=== PATIENT | female | born 1955 ===

== ENCOUNTER 2017-02-19 09:47 | Emergency (ER) | payer MEDICARE, OTHER ==
[2017-02-19 09:49] VITALS: BMI 23.2
[2017-02-19] MEDS ORDERED: Oxycodone/Acetaminophen 5/325 mg Tab PO STA (10:26)
--- NOTE | 2017-02-19 10:26 | ED PDOC ---
Arrival/HPI - General Historian: Patient <JOESPH SANDOVAL - Last Filed: 02/19/17 10:28> <Ernesto Gallardo - Last Filed: 02/19/17 12:37> - General Chief Complaint: Abnormal Skin Integrity Time Seen by Provider: 02/19/17 09:49 - History of Present Illness Narrative History of Present Illness (Text): 02/19/17 10:22 Mrs. Bobo is a 61 year old female with pmh significant for lymphoma and a 2.7cm x 1.8cm hypointense mass in her left neck who complains of left sided neck pain. The patient reports she has a chronic issue with pain related to the lymph node swelling in her left neck. She reports that she currently takes Percocet 5mg and Aleve for pain. She states her last dose of Percocet was 10 hours prior to arrival. She reports that her pain is not controlled under her current regiment. She reports the pain is a 10/10, constant, sharp, throbbing sensation along her left jaw and up around her temporal region. She denies fever , shortness of breath, difficulty breathing, difficulty swallowing or changes in her vision or hearing. She most recently had a incisional biopsy 7 days ago for the mass in her left neck. She denies any puss drainage or increased swelling of her neck. (JOESPH SANDOVAL) Past Medical History - Provider Review Nursing Documentation Reviewed: Yes - Infectious Disease Hx of Infectious Diseases: None - Reproductive Menopause: Yes - Cardiac Hx Cardiac Disorders: No - Pulmonary Hx Respiratory Disorders: No - Neurological Hx Neurological Disorder: No - HEENT Hx HEENT Disorder: No - Renal Hx Renal Disorder: No - Endocrine/Metabolic Hx Endocrine Disorders: No - Hematological/Oncological Hx Blood Disorders: No - Integumentary Hx Dermatological Disorder: Yes Other/Comment: lump to L neck - Musculoskeletal/Rheumatological Hx Musculoskeletal Disorders: Yes Hx Rheumatoid Arthritis: Yes - Gastrointestinal Hx Gastrointestinal Disorders: No - Genitourinary/Gynecological Hx Genitourinary Disorders: No - Psychiatric Hx Psychophysiologic Disorder: Yes Hx Anxiety: Yes Hx Substance Use: No - Surgical History Other/Comment: cyst removed from breast. biopsy of lump on face - Anesthesia Hx Anesthesia: Yes Hx Anesthesia Reactions: No <JOESPH SANDOVAL - Last Filed: 02/19/17 10:28> Family/Social History - Physician Review Nursing Documentation Reviewed: Yes Family/Social History: No Known Family HX Smoking Status: Never Smoked Hx Alcohol Use: No Hx Substance Use: No <TERRYJOESPH - Last Filed: 02/19/17 10:28> Allergies/Home Meds <JOESPH SANDOVAL - Last Filed: 02/19/17 10:28> <SamiErnesto Tatiana - Last Filed: 02/19/17 12:37> Allergies/Adverse Reactions: Allergies No Known Allergies Allergy (Verified 02/19/17 09:49) Home Medications: Home Meds Medication Instructions Recorded Confirmed Amoxicillin/Clavulanate [Augmentin 1 tab PO BID 02/19/17 02/19/17 875 MG-125 MG Tab] Folic Acid [Folic Acid] 1 tab PO DAILY 02/19/17 02/19/17 Methotrexate Sodium [Trexall] 20 mg PO MON 02/19/17 02/19/17 oxyCODONE [oxyCODONE Immediate 5 mg PO PRN PRN 02/19/17 02/19/17 Release Tab] Review of Systems - Review of Systems Constitutional: absent: Weight Change, Fevers Eyes: absent: Vision Changes, Eye Pain ENT: absent: Hearing Changes, TMJ Pain, Voice Changes Respiratory: absent: SOB, Cough Cardiovascular: absent: Chest Pain, Palpitations Gastrointestinal: absent: Abdominal Pain, Stool Changes Musculoskeletal: absent: Neck Pain Neurological: Headache Psychiatric: absent: Anxiety, Depression <TERRYJOESPH ASTORGA - Last Filed: 02/19/17 10:28> Physical Exam Vital Signs Reviewed: Yes Temperature: Afebrile Blood Pressure: Normal Pulse: Regular Respiratory Rate: Normal Appearance: Positive for: Well-Appearing Pain Distress: Mild Mental Status: Positive for: Alert and Oriented X 3 - Systems Exam Head: Present: Atraumatic, Normocephalic Pupils: Present: PERRL Extroacular Muscles: Present: EOMI Conjunctiva: Present: Normal Mouth: Present: Moist Mucous Membranes Neck: Present: Normal Range of Motion, Lymphadenopathy (left sided), Trachea Midline. No: MIDLINE TENDERNESS Respiratory/Chest: Present: Clear to Auscultation, Good Air Exchange. No: Respiratory Distress, Accessory Muscle Use, Decreased Breath Sounds, Retracting Cardiovascular: Present: Regular Rate and Rhythm, Normal S1, S2 Abdomen: Present: Normal Bowel Sounds. No: Tenderness, Distention Upper Extremity: Present: Normal Inspection, NORMAL PULSES. No: Cyanosis, Edema Lower Extremity: Present: Normal Inspection, NORMAL PULSES Neurological: Present: GCS=15, Speech Normal Skin: Present: Warm, Dry Psychiatric: Present: Alert, Oriented x 3 <JOESPH SANDOVAL - Last Filed: 02/19/17 10:28> Medical Decision Making <JOESPH SANDOVAL - Last Filed: 02/19/17 10:28> <Ernesto Gallardo - Last Filed: 02/19/17 12:37> ED Course and Treatment: 02/19/17 10:32 Impression: Mrs. Bobo is a 61 year old female with medical history for lymphoma who presents to the emergency department complaining of uncontrolled left sided neck pain. Differential Diagnosis included but are not limited to: - Chronic pain associated with left sided lymphadenopathy 2/2 lymphoma Plan: - Percocet and zofran -- Reassess and disposition Progress Notes: (JOESPH SANDOVAL) In agreement with resident note. Patient was seen and evaluated with resident, came up with plan and treatment together. A 61 year old female with left sided neck pain and mass in her left neck. On physical exam, patient has left sided lymphadenopathy and midline trachea of neck. No evidence of airway compromise. Will treat with Zofran to aid in patient taking Percocet and advised f/u with PMD. (Ernesto Gallardo) - Medication Orders Current Medication Orders: Discontinued Medications Ondansetron HCl (Zofran Tab) 4 mg PO STAT STA Stop: 02/19/17 10:27 Last Admin: 02/19/17 10:34 Dose: 4 mg Oxycodone/Acetaminophen (Percocet 5/325 Mg Tab) 1 tab PO STAT STA Stop: 02/19/17 10:27 Last Admin: 02/19/17 10:34 Dose: 1 tab - PA / PIGMENT PRESSER / Resident Statement / has reviewed & agrees with the documentation as recorded. / has examined the patient and agrees with the treatment plan. <JOESPH SANDOVAL - Last Filed: 02/19/17 10:28> - Scribe Statement The provider has reviewed the documentation as recorded by the Scribe <Ernesto Gallardo - Last Filed: 02/19/17 12:37> - Scribe Statement Gayesethhank Rowlanddi Provider Scribe Attestation: All medical record entries made by the Scribe were at my direction and personally dictated by me. I have reviewed the chart and agree that the record accurately reflects my personal performance of the history, physical exam, medical decision making, and the department course for this patient. I have also personally directed, reviewed, and agree with the discharge instructions and disposition. (Ernesto Gallardo) Disposition/Present on Arrival - Present on Arrival Any Indicators Present on Arrival: No History of DVT/PE: No History of Uncontrolled Diabetes: No Urinary Catheter: No History of Decub. Ulcer: No History Surgical Site Infection Following: None - Disposition Have Diagnosis and Disposition been Completed?: Yes Disposition Time: 10:55 <JOESPH SANDOVAL - Last Filed: 02/19/17 10:28> <Ernesto Gallardo - Last Filed: 02/19/17 12:37> - Disposition Diagnosis: Lymphadenopathy Disposition: HOME/ ROUTINE Condition: GOOD Additional Instructions: Mrs. Bobo, thank you for letting us take care of you today. Your provider was Dr. Sandoval. You were treated for lymphadenopathy. The emergency medical care you received today was directed at your acute symptoms. If you were prescribed any medication, please fill it and take as directed. It may take several days for your symptoms to resolve. Return to the Emergency Department if your symptoms worsen, do not improve, or if you have any other problems. Please contact your doctor or call one of the physicians/clinics you have been referred to that are listed on the Patient Visit Information form that is included in your discharge packet. Bring any paperwork you were given at discharge with you along with any medications you are taking to your follow up visit. Our treatment cannot replace ongoing medical care by a primary care provider (PCP) outside of the emergency department. Thank you for allowing the [facility] team to be part of your care today. Prescriptions: Ondansetron HCl [Zofran] 8 mg PO Q8 PRN #20 tablet PRN Reason: Nausea/Vomiting
[2017-02-19 11:07] VITALS: BP 134/87; PULSE 72; RESP 17; TEMP 98; O2SAT 98
== END 2017-02-19 11:14 | disposition home or self-care (01) ==
LOC: ED 09:47
DX: R59.1 Generalized enlarged lymph nodes (principal)

== ENCOUNTER 2017-02-24 19:19 | Inpatient (IN) | payer MEDICARE, OTHER ==
--- NOTE | 2017-02-24 21:04 | ED PDOC ---
Arrival/HPI - General Chief Complaint: Abnormal Skin Integrity Time Seen by Provider: 02/24/17 20:25 Historian: Patient - History of Present Illness Narrative History of Present Illness (Text): 02/24/17 20:25 Zelda Bobo is a 62 year old female who presents to the emergency department for evaluation of left sided neck mass and pain to the area. She was evaluated previously at [facility] for these complaints and was diagnosed with lymphoma. She recently had a incisional biopsy and now complains of purulent discharge from the incisional site. Denies any fever, chills, headache , dizziness, chest pain, shortness of breath, nausea, vomiting, diarrhea, or any other complaints at this time. Symptom Onset: Gradual Symptom Course: Worsening Severity Level: Mild Activities at Onset: Light Past Medical History - Provider Review Nursing Documentation Reviewed: Yes - Infectious Disease Hx of Infectious Diseases: None - Cardiac Hx Cardiac Disorders: No - Pulmonary Hx Respiratory Disorders: No - Neurological Hx Neurological Disorder: No - HEENT Hx HEENT Disorder: No - Renal Hx Renal Disorder: No - Endocrine/Metabolic Hx Endocrine Disorders: No - Hematological/Oncological Hx Blood Disorders: No - Integumentary Hx Dermatological Disorder: Yes Other/Comment: lump to L neck - Musculoskeletal/Rheumatological Hx Musculoskeletal Disorders: Yes Hx Rheumatoid Arthritis: Yes - Gastrointestinal Hx Gastrointestinal Disorders: No - Genitourinary/Gynecological Hx Genitourinary Disorders: No - Psychiatric Hx Psychophysiologic Disorder: Yes Hx Anxiety: Yes Hx Substance Use: No - Surgical History Other/Comment: cyst removed from breast. biopsy of lump on face - Anesthesia Hx Anesthesia: Yes Hx Anesthesia Reactions: No Family/Social History - Physician Review Nursing Documentation Reviewed: Yes Family/Social History: No Known Family HX Smoking Status: Never Smoked Hx Alcohol Use: No Hx Substance Use: No Allergies/Home Meds Allergies/Adverse Reactions: Allergies No Known Allergies Allergy (Verified 02/19/17 09:49) Home Medications: Home Meds Medication Instructions Recorded Confirmed Amoxicillin/Clavulanate [Augmentin 1 tab PO BID 02/19/17 02/19/17 875 MG-125 MG Tab] Folic Acid [Folic Acid] 1 tab PO DAILY 02/19/17 02/19/17 Methotrexate Sodium [Trexall] 20 mg PO MON 02/19/17 02/19/17 oxyCODONE [oxyCODONE Immediate 5 mg PO PRN PRN 02/19/17 02/19/17 Release Tab] Review of Systems - Physician Review All systems were reviewed & negative as marked: Yes - Review of Systems Constitutional: Normal. absent: Fatigue, Fevers Respiratory: Normal. absent: SOB, Cough, Sputum Cardiovascular: Normal. absent: Chest Pain, Palpitations Gastrointestinal: Normal. absent: Abdominal Pain, Diarrhea, Nausea, Vomiting Genitourinary Female: Normal Musculoskeletal: Neck Pain (swelling and discharge from the biopsy site ) Neurological: Normal. absent: Headache, Dizziness Physical Exam Vital Signs Reviewed: Yes Vital Signs Temp Pulse Resp BP Pulse Ox 02/25/17 01:54 94 H 18 98 02/25/17 00:55 98.6 F 102 H 16 136/96 H 98 02/24/17 19:42 99.3 F 118 H 18 121/88 94 L Temperature: Afebrile Blood Pressure: Normal Pulse: Tachycardic Respiratory Rate: Normal Appearance: Positive for: Well-Appearing, Non-Toxic, Comfortable Pain Distress: None Mental Status: Positive for: Alert and Oriented X 3 - Systems Exam Head: Present: Atraumatic, Normocephalic Pupils: Present: PERRL Extroacular Muscles: Present: EOMI Conjunctiva: Present: Normal Mouth: Present: Moist Mucous Membranes Neck: Present: Normal Range of Motion, Lymphadenopathy (left sided neck ), Other (purulent discharge from biopsy site with surrounding erythema ). No: MIDLINE TENDERNESS, Paraspinal Tenderness Respiratory/Chest: Present: Clear to Auscultation, Good Air Exchange. No: Respiratory Distress, Accessory Muscle Use Cardiovascular: Present: Regular Rate and Rhythm, Normal S1, S2. No: Murmurs Abdomen: Present: Normal Bowel Sounds. No: Tenderness, Distention, Peritoneal Signs Upper Extremity: Present: Normal Inspection. No: Cyanosis, Edema Lower Extremity: Present: Normal Inspection. No: Edema Neurological: Present: GCS=15, CN II-XII Intact, Speech Normal, Motor Func Grossly Intact, Normal Sensory Function Skin: Present: Warm, Dry, Normal Color. No: Rashes Psychiatric: Present: Alert, Oriented x 3, Normal Insight, Normal Concentration Medical Decision Making ED Course and Treatment: 02/24/17 21:05 Impression: A 62 year old female who presents to the emergency department complaining of left sided neck mass, pain and discharge. Plan: -- EKG -- Labs -- Blood Culture -- Reassess and disposition Progress Notes: 02/25/17 00:[address] Joshi, who is aware and agrees with the plan to observe patient at med/surg for cellulitis of neck. Accepts patient under hospitalist service. - Lab Interpretations Microbiology Results: Microbiology Results 02/24/17 21:30 Blood-Venous Blood Culture - Preliminary NO GROWTH AFTER 24 HOURS 02/24/17 22:00 Blood-Venous Blood Culture - Preliminary NO GROWTH AFTER 24 HOURS 02/25/17 12:57 Abscess - First Gram Stain - Final Lab Results: 02/25/17 06:15 02/25/17 06:15 Lab Results 02/25/17 06:15: Sodium 138, Potassium 4.7, Chloride 101, Carbon Dioxide 30, Anion Gap 12, BUN 11, Creatinine 1.0, Est GFR ( Amer) > 60, Est GFR (Non- Af Amer) 56, Random Glucose 113 H, Calcium 9.1, Phosphorus 3.5, Magnesium 2.1, Total Bilirubin 0.9, AST 30, ALT 48, Alkaline Phosphatase 113, Total Protein 7.5 , Albumin 3.8, Globulin 3.7, Albumin/Globulin Ratio 1.0 L 02/25/17 06:15: WBC 10.7, RBC 4.45, Hgb 12.9, Hct 39.1, MCV 87.9, MCH 29.0, MCHC 33.0, RDW 14.1, Plt Count 377, MPV 10.2, Gran % 75.7 H, Lymph % (Auto) 14.5 L, [place] % (Auto) 8.3 H, Eos % (Auto) 1.1 L, Baso % (Auto) 0.4, Gran # 8.12 H, Lymph # 1.6, [place] # 0.9 H, Eos # 0.1, Baso # 0.04 02/24/17 22:00: Sodium 138, Potassium 4.5, Chloride 98, Carbon Dioxide 30, Anion Gap 15, BUN 13, Creatinine 0.9, Est GFR ( Amer) > 60, Est GFR (Non- Af Amer) > 60, Random Glucose 106, Calcium 9.7, Total Bilirubin 0.9, AST 36, ALT 55, Alkaline Phosphatase 126, Total Protein 8.1, Albumin 4.1, Globulin 4.0, Albumin/Globulin Ratio 1.0 L 02/24/17 22:00: PT 11.6, INR 1.07, APTT 31.3 H 02/24/17 22:00: WBC 11.4 H, RBC 4.67, Hgb 13.7, Hct 41.1, MCV 88.0, MCH 29.3, MCHC 33.3, RDW 14.0, Plt Count 366, MPV 10.2, Gran % 74.5 H, Lymph % (Auto) 15.2 L, [place] % (Auto) 8.9 H, Eos % (Auto) 0.8 L, Baso % (Auto) 0.6, Gran # 8.50 H, Lymph # 1.7, [place] # 1.0 H, Eos # 0.1, Baso # 0.07 I have reviewed the lab results: Yes - RAD Interpretation Radiology Orders: 02/25/17 01:28 NECK,CHEST,ABD.PELV W/CONTRAST [CT] Stat - Medication Orders Current Medication Orders: Sodium Chloride (Sodium Chloride 0.9%) 1,000 mls @ 100 mls/hr IV .Q10H TISHA Last Admin: 02/25/17 12:06 Dose: 100 mls/hr Vancomycin HCl (Vancomycin 1gm) 1 gm in 250 mls @ 167 mls/hr IVPB Q12H TISHA PRN Reason: Protocol Last Admin: 02/25/17 23:06 Dose: 167 mls/hr Morphine Sulfate (Morphine) 1 mg IVP Q4H PRN PRN Reason: Pain, moderate (4-7) Last Admin: 02/25/17 21:16 Dose: 1 mg Re-Assess: CARIN Pain Assessment Document 02/25/17 22:16 MLS (Rec: 02/25/17 22:58 MLS [id number]) Pain Reassessment Is this a pain reassessment? Yes Sleep Is patient sleeping during reassessment? Yes Ondansetron HCl (Zofran Inj) 4 mg IVP Q6H PRN PRN Reason: nausea Last Admin: 02/25/17 10:12 Dose: 4 mg Pantoprazole Sodium (Protonix Ec Tab) 40 mg PO 0600 TISHA Last Admin: 02/25/17 06:51 Dose: Not Given Non-Admin Reason: NPO Discontinued Medications Vancomycin HCl (Vancomycin 1gm) 1 gm in 250 mls @ 167 mls/hr IVPB STAT STA PRN Reason: Protocol Stop: 02/24/17 23:48 Last Admin: 02/24/17 22:54 Dose: 167 mls/hr Piperacillin Sod/Tazobactam Sod (Zosyn 3.375 In Ns 100ml) 100 mls @ 200 mls/hr IVPB STAT STA PRN Reason: Protocol Stop: 02/25/17 00:47 Last Admin: 02/25/17 01:00 Dose: 200 mls/hr Piperacillin Sod/Tazobactam Sod (Zosyn 3.375 In Ns 100ml) 100 mls @ 200 mls/hr IVPB Q6 TISHA PRN Reason: Protocol Stop: 02/25/17 12:29 Last Admin: 02/25/17 12:09 Dose: 200 mls/hr Iohexol (Omnipaque 240 (50 Ml)) Confirm Administered Dose 50 ml .ROUTE .STK-MED ONE Stop: 02/25/17 06:16 Iohexol (Omnipaque 350 150 Ml) Confirm Administered Dose 150 ml .ROUTE .STK-MED ONE Stop: 02/25/17 08:14 Morphine Sulfate (Morphine) 2 mg IVP STAT STA Stop: 02/24/17 23:37 Last Admin: 02/24/17 23:54 Dose: 2 mg - Scribe Statement The provider has reviewed the documentation as recorded by the Tressa Casillas Provider Attestation: Provider Scribe Attestation: All medical record entries made by the Tressa were at my direction and personally dictated by me. I have reviewed the chart and agree that the record accurately reflects my personal performance of the history, physical exam, medical decision making, and the department course for this patient. I have also personally directed, reviewed, and agree with the discharge instructions and disposition. Disposition/Present on Arrival - Present on Arrival Any Indicators Present on Arrival: No History of DVT/PE: No History of Uncontrolled Diabetes: No Urinary Catheter: No History of Decub. Ulcer: No History Surgical Site Infection Following: None - Disposition Have Diagnosis and Disposition been Completed?: Yes Diagnosis: Cellulitis of neck Disposition: HOSPITALIZED Disposition Time: 00:15 Condition: FAIR
[2017-02-24 22:05] LABS: BASO # 0.07 K/mm3 (0.0-2.0); BASO % 0.6 % (0.0-3.0); EOS # 0.1 (0.0-0.7); EOS % 0.8 % (1.5-5.0); GRAN % 74.5 % (50.0-68.0); HEMOGLOBIN 13.7 gm/dL (12.0-16.0); LYMPH # 1.7 (1.2-3.4); LYMPH % 15.2 % (22.0-35.0); MEAN CORPUSCULAR HEMOGLOBIN 29.3 pg (25.0-35.0); MEAN CORPUSCULAR HGB CONC 33.3 g/dl (31.0-37.0); MEAN PLATELET VOLUME 10.2 fl (7.0-11.0); MONO % 8.9 % (1.0-6.0); PLATELET COUNT 366 10^3/uL (120.0-450.0); RBC 4.67 10^6/uL (3.5-6.1); WHITE BLOOD COUNT 11.4 10^3/ul (4.5-11.0)
[2017-02-24] MEDS ORDERED: Vancomycin 1gm in NS 250ml 1 GM/250 ML BAG IVPB STA (22:19)
[2017-02-24 22:23] LABS: INR 1.07 (0.93-1.08); PARTIAL THROMBOPLASTIN TIME 31.3 Seconds (23.7-30.8); PROTHROMBIN TIME 11.6 Seconds (9.9-11.8)
[2017-02-24 22:24] LABS: ALBUMIN 4.1 g/dL (3.0-4.8); ALT/SGPT 55 U/L (7-56); AST/SGOT 36 U/L (15-39); BLOOD UREA NITROGEN 13 mg/dL (7-21); CALCIUM 9.7 mg/dL (8.4-10.5); GFR AFRICAN-AMERICAN > 60; GFR NON-AFRICAN AMERICAN > 60
[2017-02-24] MEDS ORDERED: Morphine 2 mg/ml ISec IVP STA (23:36)
[2017-02-25] MEDS ORDERED: Piperacillin/Tazobact 3.375 gm 100 ML IVPB STA (00:18)
--- NOTE | 2017-02-25 01:39 | CP.PCM.HP ---
<Jareth Maria - Last Filed: 02/25/17 03:18> History of Present Illness - History of Present Illness History of Present Illness: CC: Neck Mass Patient is a 62 year old female with a PMHx of rheumatoid arthritis and suspected lymphoma who presents to the ED for evaluation of a left sided neck mass with associated burning pain. The left sided neck mass was detected approximately 2 months ago and was evaluated at [facility]. Patient underwent an aspiration biopsy and an incisional biopsy there approximately 1 week ago. Since the incisional bx the incision site on the mass has become red, swollen, with yellow malodorous discharge. Admits to decrease in appetite over the course of a month and admits to an unintentional 6lb weight loss over the past one week. Does not have any difficulty swallowing food or water. Denies fever, chills, dizziness, chest pain, shortness of breath , nausea, vomiting, diarrhea, constipation, and urinary symptoms. PMHx: Rheumatoid Arthritis, suspected Lymphoma- patient is following hematology/ oncoclogy PSHx: breast cyst removal, tubal ligation, and tonsillectomy Allergies: none Social Hx: social ETOH, no tobacco use, no illicit drug use Medications: please see MAR Family Hx: noncontributory Present on Admission - Present on Admission Any Indicators Present on Admission: Yes Review of Systems - Review of Systems Review of Systems: 12 point review of system negative except as indicated in the HPI. Past Patient History - Infectious Disease Hx of Infectious Diseases: None - Past Social History Smoking Status: Never Smoked - CARDIAC Hx Cardiac Disorders: No - PULMONARY Hx Respiratory Disorders: No - NEUROLOGICAL Hx Neurological Disorder: No - HEENT Hx HEENT Problems: No - RENAL Hx Chronic Kidney Disease: No - ENDOCRINE/METABOLIC Hx Endocrine Disorders: No - HEMATOLOGICAL/ONCOLOGICAL Hx Blood Disorders: No - INTEGUMENTARY Hx Dermatological Problems: Yes Other/Comment: lump to L neck - MUSCULOSKELETAL/RHEUMATOLOGICAL Hx Musculoskeletal Disorders: Yes Hx Rheumatoid Arthritis: Yes - GASTROINTESTINAL Hx Gastrointestinal Disorders: No - GENITOURINARY/GYNECOLOGICAL Hx Genitourinary Disorders: No - PSYCHIATRIC Hx Psychophysiologic Disorder: Yes Hx Anxiety: Yes Hx Substance Use: No - SURGICAL HISTORY Other/Comment: cyst removed from breast. biopsy of lump on face - ANESTHESIA Hx Anesthesia: Yes Hx Anesthesia Reactions: No Meds Allergies/Adverse Reactions: Allergies Allergy/AdvReac Type Severity Reaction Status Date / Time No Known Allergies Allergy Verified 02/19/17 09:49 Physical Exam - Constitutional Appears: Well, Non-toxic, No Acute Distress - Head Exam Head Exam: NORMAL INSPECTION - Eye Exam Eye Exam: EOMI, Normal appearance Pupil Exam: PERRL - ENT Exam ENT Exam: Mucous Membranes Moist - Neck Exam Neck exam: Positive for: Lymphadenopathy, Tenderness Additional comments: left sided neck mass, erythema at incision site with yellow drainage - Respiratory Exam Respiratory Exam: Clear to Auscultation Bilateral, NORMAL BREATHING PATTERN. absent: Accessory Muscle Use, Rales, Rhonchi, Wheezes - Cardiovascular Exam Cardiovascular Exam: REGULAR RHYTHM, +S1, +S2 - GI/Abdominal Exam GI & Abdominal Exam: Normal Bowel Sounds, Soft. absent: Rebound, Rigid, Tenderness - Neurological Exam Neurological exam: Alert, CN II-XII Intact, Normal Gait, Oriented x3 - Psychiatric Exam Psychiatric exam: Normal Affect, Normal Mood - Skin Skin Exam: Normal Color, Warm Additional comments: left neck mass erythema and open wound with drainage. Results - Vital Signs Recent Vital Signs: Last Vital Signs Temp 98.6 F 02/25/17 00:55 Pulse 102 H 02/25/17 00:55 Resp 16 02/25/17 00:55 BP 136/96 H 02/25/17 00:55 Pulse Ox 98 02/25/17 00:55 - Labs Result Diagrams: 02/24/17 22:00 02/24/17 22:00 Assessment & Plan - Assessment and Plan (Free Text) Assessment: Patient is a 62 year old female with a PMHx of rheumatoid arthritis and suspected lymphoma who is being admitted to the hospital for evaluation of a left sided neck abscess and cellulitis. 1. Neck Abscess with overlying cellulitis - general surgery consult - contact patient hemotologist oncologist Dr. Rolan Hoffman to attain recs for further imaging work up - vancomycin and zosyn - NPO - IVF NS @ 100 2. History of Rheumatoid Arthritis - stopped taking home methotrexate - monitor closely 3. PPX - protonix - SCD Patient seen, evaluated, and discussed with attending, Dr. Joshi. <Inderjit Joshi P - Last Filed: 02/25/17 06:29> Results - Vital Signs Recent Vital Signs: Last Vital Signs Temp 98.8 F 02/25/17 02:22 Pulse 98 H 02/25/17 02:22 Resp 18 02/25/17 02:22 BP 155/87 H 02/25/17 02:22 Pulse Ox 98 02/25/17 01:54 - Labs Result Diagrams: 02/24/17 22:00 02/24/17 22:00 Attending/Attestation - Attestation I have personally seen and examined this patient.: Yes I have fully participated in the care of the patient.: Yes I have reviewed all pertinent clinical information: Yes Notes (Text): 02/25/17 06:24 H/o RA, s/p excision biopsy of the left neck swelling about 12 days back at [facility] with redness about 7 days with out patient keflex, here noticed pointing and puss discharge, clinically has cellulitis and abscess, underlying probably has lymphoma and following Dr. Hoffman for hematology. prudencio Gipson, surg consult, CT of neck, chest abd/pelvis, npo for now, see orders for detail. Biopsy report will be obtained form patient's primary team.
[2017-02-25 02:57] VITALS: BMI 23.0
[2017-02-25] MEDS: Morphine 2 mg/ml ISec IVP PRN ×3 (03:50→21:16)
[2017-02-25] MEDS: Sodium Chloride 0.9% 1,000 ML IV SCH ×2 (03:50→12:06)
[2017-02-25] MEDS ORDERED: Iohexol 240 (50 ml) ONE (06:15)
[2017-02-25 06:46] LABS: BASO # 0.04 K/mm3 (0.0-2.0); BASO % 0.4 % (0.0-3.0); EOS # 0.1 (0.0-0.7); EOS % 1.1 % (1.5-5.0); GRAN # 8.12 (1.4-6.5); GRAN % 75.7 % (50.0-68.0); HEMOGLOBIN 12.9 gm/dL (12.0-16.0); LYMPH # 1.6 (1.2-3.4); LYMPH % 14.5 % (22.0-35.0); MEAN CELL VOLUME 87.9 fL (80.0-105.0); MEAN PLATELET VOLUME 10.2 fl (7.0-11.0); MONO # 0.9 (0.1-0.6); MONO % 8.3 % (1.0-6.0); PLATELET COUNT 377 10^3/uL (120.0-450.0); RBC 4.45 10^6/uL (3.5-6.1); RED CELL DISTRIBUTION WIDTH 14.1 % (11.5-14.5); WHITE BLOOD COUNT 10.7 10^3/ul (4.5-11.0)
[2017-02-25] MEDS: Piperacillin/Tazobact 3.375 gm 100 ML IVPB SCH ×2 (06:49→12:09)
[2017-02-25] MEDS: Pantoprazole 40 mg EC Tab PO SCH (06:51)
--- NOTE | 2017-02-25 06:51 | CP.PCM.CON ---
History of Present Illness - History of Present Illness History of Present Illness: General Surgery - Dr. Wood 62 yo F w/ hx of RA, Sjogren's, and recently being worked up for possible Lymphoma, who presents w/ Left neck pain/swelling s/p Lymph node Biopsy. Pt states shes had progressively worsening swelling of the left neck for the past 2 months. She underwent Lymph node biopsy approx. 10 days ago at [place], and was told the results were likely positive but that they needed to repeat the biopsy. She underwent repeat biopsy 3 days ago and since then the area has become red, swollen, painful, with yellow malodorous drainage. PT denies any other symptoms including Fevers, Chills, SOB/Chest pain, Abdominal pain, N/V, Diarrhea/Constipation, Dysuria, Hematuria. PMH: RA, Sjogren's, possible Lymphoma PSH: Breast cyst removal, Tubal ligation, LN biopsy NKDA Review of Systems - Review of Systems All systems: reviewed and no additional remarkable complaints except (as per HPI ) Past Patient History - Infectious Disease Hx of Infectious Diseases: None - Past Social History Smoking Status: Never Smoked - CARDIAC Hx Cardiac Disorders: No - PULMONARY Hx Respiratory Disorders: No - NEUROLOGICAL Hx Neurological Disorder: No - HEENT Hx HEENT Problems: No - RENAL Hx Chronic Kidney Disease: No - ENDOCRINE/METABOLIC Hx Endocrine Disorders: No - HEMATOLOGICAL/ONCOLOGICAL Hx Blood Disorders: No - INTEGUMENTARY Hx Dermatological Problems: Yes Other/Comment: lump to L neck - MUSCULOSKELETAL/RHEUMATOLOGICAL Hx Musculoskeletal Disorders: Yes Hx Rheumatoid Arthritis: Yes - GASTROINTESTINAL Hx Gastrointestinal Disorders: No - GENITOURINARY/GYNECOLOGICAL Hx Genitourinary Disorders: No - PSYCHIATRIC Hx Psychophysiologic Disorder: Yes Hx Anxiety: Yes Hx Substance Use: No - SURGICAL HISTORY Other/Comment: cyst removed from breast. biopsy of lump on face - ANESTHESIA Hx Anesthesia: Yes Hx Anesthesia Reactions: No Meds Allergies/Adverse Reactions: Allergies Allergy/AdvReac Type Severity Reaction Status Date / Time No Known Allergies Allergy Verified 02/19/17 09:49 - Medications Medications: Current Medications Sodium Chloride (Sodium Chloride 0.9%) 1,000 mls @ 100 mls/hr IV .Q10H TISHA Last Admin: 02/25/17 03:50 Dose: 100 mls/hr Vancomycin HCl (Vancomycin 1gm) 1 gm in 250 mls @ 167 mls/hr IVPB Q12H TISHA PRN Reason: Protocol Piperacillin Sod/Tazobactam Sod (Zosyn 3.375 In Ns 100ml) 100 mls @ 200 mls/hr IVPB Q6 TISHA PRN Reason: Protocol Stop: 02/25/17 12:29 Morphine Sulfate (Morphine) 1 mg IVP Q4H PRN PRN Reason: Pain, moderate (4-7) Last Admin: 02/25/17 03:50 Dose: 1 mg Ondansetron HCl (Zofran Inj) 4 mg IVP Q6H PRN PRN Reason: nausea Pantoprazole Sodium (Protonix Ec Tab) 40 mg PO 0600 TISHA Physical Exam - Constitutional Appears: No Acute Distress - Head Exam Head Exam: ATRAUMATIC, NORMAL INSPECTION, NORMOCEPHALIC - Eye Exam Eye Exam: EOMI, Normal appearance - Neck Exam Additional comments: extensive swelling of the Left lateral neck, indurated, posteriorly approx 8x8cm area of erythema with small central opening with purulent drainage - Expanded Neck Exam Expanded Expanded Neck Exam: Tenderness. absent: Tracheal Deviation - Respiratory Exam Respiratory Exam: NORMAL BREATHING PATTERN. absent: Wheezes, Respiratory Distress, Stridor - Cardiovascular Exam Cardiovascular Exam: Tachycardia, REGULAR RHYTHM - GI/Abdominal Exam GI & Abdominal Exam: Soft. absent: Tenderness - Neurological Exam Neurological exam: Alert, Oriented x3 - Psychiatric Exam Psychiatric exam: Normal Affect, Normal Mood - Skin Skin Exam: Dry, Intact Results - Vital Signs Recent Vital Signs: Last Vital Signs Temp 98.8 F 02/25/17 02:22 Pulse 98 H 02/25/17 02:22 Resp 18 02/25/17 02:22 BP 155/87 H 02/25/17 02:22 Pulse Ox 98 02/25/17 01:54 - Labs Result Diagrams: 02/24/17 22:00 02/24/17 22:00 Assessment & Plan - Assessment and Plan (Free Text) Assessment: 62yo F w/ Left neck abscess s/p LN biopsy for questionable Lymphoma -CT Neck/Chest/Abd/Pelv -Maintain NPO -Continue IV Abx -Pain control PRN -Likely I&D in OR later today pending CT findings DW Dr Nina Cummins PGY3
[2017-02-25 07:07] LABS: ALBUMIN 3.8 g/dL (3.0-4.8); ALT/SGPT 48 U/L (7-56); AST/SGOT 30 U/L (15-39); BLOOD UREA NITROGEN 11 mg/dL (7-21); CALCIUM 9.1 mg/dL (8.4-10.5); GFR AFRICAN-AMERICAN > 60; GFR NON-AFRICAN AMERICAN 56; MAGNESIUM 2.1 mg/dL (1.7-2.2)
--- NOTE | 2017-02-25 10:10 | CT ---
PROCEDURE: CT Neck, Chest, Abdomen and Pelvis with contrast HISTORY: facial abscess COMPARISON: Ultrasound dated 12/17/2016 TECHNIQUE: Contrast dose: 150 cc of Omni 350 Radiation dose: Total exam DLP = 1884 mGy-cm. This CT exam was performed using one or more of the following dose reduction techniques: Automated exposure control, adjustment of the mA and/or kV according to patient size, and/or use of iterative reconstruction technique. FINDINGS: CT OF THE NECK: PHARYNX: Nasopharynx: Unremarkable. Oropharnx: Unremarkable. Hypopharynx: Unremarkable. LYMPH NODES: There is a large necrotic mass on the left side of the neck measuring 9 cm in height by 5.6 cm with by 6.6 cm AP. The mass compresses and obliterates the left jugular vein and displaces the carotid artery medially and anteriorly. The mass invades and obliterates the sternocleidomastoid muscle. The mass also invades the left parotid gland. The patient had an ultrasound of the neck dated 12/17/2016 which showed a mass measuring 1.8 x 2.7 cm. There was a smaller separate 2 cm lesion. The etiology of the mass is uncertain. The mass is easily accessible to needle biopsy. Liver metastases are also seen. VASCULATURE: Compression of the left jugular vein GLANDS: Unremarkable. CERVICAL SPINE: Unremarkable. CT OF THE CHEST: LUNGS: Clear lungs. Visualized airway clear. MEDIASTINUM: Unremarkable thoracic aorta. No aneurysm or dissection. Normal sized heart. Pulmonary arterial truck unremarkable. No vascular congestion. No lymphadenopathy. PLEURA: No pleural fluid. No pneumothorax. BONES: No fracture. No destructive lesion. CT OF THE ABDOMEN AND PELVIS: LIVER: Multiple liver metastases are seen ranging in size from 11 mm to 32 mm. These are hypodense and measure 88 Hounsfield units. GALLBLADDER AND BILE DUCTS: Unremarkable. PANCREAS: Unremarkable. No mass or ductal dilatation. SPLEEN: Unremarkable. No splenomegaly. ADRENALS: Unremarkable. KIDNEYS AND URETERS: Unremarkable. No hydronephrosis or hydroureter. No solid mass lesion. BLADDER: Unremarkable. No mass. REPRODUCTIVE: Unremarkable. APPENDIX: Normal appendix. STOMACH AND BOWEL: Unremarkable. No obstruction. No mural thickening. PERITONEUM: Unremarkable. No free fluid. No free air. LYMPH NODES: Unremarkable. No enlarged lymph nodes. VASCULATURE: Unremarkable. No aortic aneurysm. BONES: No fracture or focal lesion. OTHER FINDINGS: None. IMPRESSION: Large invasive necrotic mass on the left side of the neck markedly increased in size since previous ultrasound. Multiple liver metastases
[2017-02-25] MEDS: Vancomycin 1gm in NS 250ml 1 GM/250 ML BAG IVPB SCH ×2 (10:11→23:06)
--- NOTE | 2017-02-25 18:12 | CP.PCM.PN ---
Subjective - Date & Time of Evaluation Date of Evaluation: 02/25/17 Time of Evaluation: 09:00 - Subjective Subjective: Ms Bobo is a 62 yo F with PMH RA, Sjogrens syndrome, and possible lymphoma, admitted today after presenting to the ED with complaints of L sided neck mass. The pt states that she saw her ENT 6 days ago for follow-up and repeat lymph node biopsy of her L neck. Since that time, the mass has become larger, more swollen, and inflamed. On presentation to the ED, it was draining purulent fluid. Associated symptoms include limited neck ROM, difficulty swallowing, and pain over the area. She also notes ongoing insomnia, loss of appetite, chills, and unintentional weight loss of 6 lbs over the last 2 mos. On admission, she complains of ongoing neck swelling and pain, rated 10/10 in severity. She notes some nausea related to CT contrast dye. The patient first saw her [employer] Expert two months ago for followup with her RA medications. She complained of small L neck mass at that time and was sent for US on 12/24. US study was significant for 2.7x2.8 cm mass adjacent to L carotid artery with compression of L jugular vein. She was seen by ENT at [place] for an excisional biopsy of the associated lymph node. Biopsy results returned with findings concerning for lymphoma. Repeat biopsy of the node was performed 6 days ago, results are pending. at bedside. Objective - Vital Signs/Intake and Output Vital Signs (last 24 hours): Temp Pulse Resp BP Pulse Ox 98.6 F 99 H 19 159/101 H 98 02/25/17 06:00 02/25/17 06:00 02/25/17 06:00 02/25/17 06:00 02/25/17 06:00 Intake and Output: 02/25/17 02/25/17 06:59 18:59 Intake Total 0 Balance 0 - Medications Medications: Current Medications Sodium Chloride (Sodium Chloride 0.9%) 1,000 mls @ 100 mls/hr IV .Q10H TISHA Last Admin: 02/25/17 12:06 Dose: 100 mls/hr Vancomycin HCl (Vancomycin 1gm) 1 gm in 250 mls @ 167 mls/hr IVPB Q12H TISHA PRN Reason: Protocol Last Admin: 02/25/17 10:11 Dose: 167 mls/hr Morphine Sulfate (Morphine) 1 mg IVP Q4H PRN PRN Reason: Pain, moderate (4-7) Last Admin: 02/25/17 14:38 Dose: 1 mg Ondansetron HCl (Zofran Inj) 4 mg IVP Q6H PRN PRN Reason: nausea Last Admin: 02/25/17 10:12 Dose: 4 mg Pantoprazole Sodium (Protonix Ec Tab) 40 mg PO 0600 TISHA Last Admin: 02/25/17 06:51 Dose: Not Given - Labs Labs: 02/25/17 06:15 02/25/17 06:15 PT 11.6 Seconds (9.9-11.8) 02/24/17 22:00 INR 1.07 (0.93-1.08) 02/24/17 22:00 APTT 31.3 Seconds (23.7-30.8) H 02/24/17 22:00 - Additional Findings Additional findings: Vitals: T 98.6 HR 98 RR 18 BP 155/87 O2 sat 98% on RA PEx: General: Well-appearing, well-nourished, afebrile woman in NAD. Mildly uncomfortable in appearance. HEENT: No scleral icterus. Mmm. Pt is not drooling. Neck: round, bandaged 13 cm L neck mass over submandibular region. No fluctuance. Mild erythema and scant purulent drainage around bandage. Neck active ROM limited secondary to Lateral neck mass. Lungs: CTAB. Normal breathing effort. No retractions or accessory muscle use. Heart: normal s1/s2. No m/r/g. Abdomen: soft, NT, ND. Normal bowel sounds. No hepatosplenomegaly. MSK: No LE pitting edema. Distal DP pulses 2+ bilaterally. Skin: skin over Les warm, dry, with normal turgor. Hands examined and without skin abnormalities. : deferred. Neuro: AOx3. Moves extremities spontaneously and across midline. Speech normal. No facial asymmetry. Psych: normal mood and affect. Assessment and Plan - Assessment and Plan (Free Text) Assessment: Assessment: 62 yo F with PMHx of RA, Sjogren syndrome, and biopsy concerning for lymphoma, presenting with L neck mass. 1. Neck mass: possible abscess due to surgical infection following biopsy. Also consider NHL, infected thyroglossal duct cyst, sialolithiasis, necrotizing lymphadenitis Culture wound, CMP, ECG Continue IV Vanc and Zosyn CT neck, chest, abdomen with contrast Surgery consult ID consult Contact Dr. Hoffman regarding patients pending bx NPO for now. 2. Neck pain Likely contributing to patients climbing blood pressure readings: from 128/88 to 136/96 to 155/87 on admission Morphine 2 mg 2qh prn Morphine 1 mg q4h 3. Nausea Zofran 4. GI proph: IV protonix 5. DVT Proph: SCD Case d/w attending, Dr. Rowland
[2017-02-26 02:21] LABS: BASO # 0.07 K/mm3 (0.0-2.0); BASO % 0.6 % (0.0-3.0); EOS # 0.2 (0.0-0.7); GRAN # 8.03 (1.4-6.5); GRAN % 73.7 % (50.0-68.0); HEMOGLOBIN 12.1 gm/dL (12.0-16.0); LYMPH # 1.6 (1.2-3.4); LYMPH % 14.8 % (22.0-35.0); MEAN CELL VOLUME 88.9 fL (80.0-105.0); MEAN CORPUSCULAR HEMOGLOBIN 29.2 pg (25.0-35.0); MEAN CORPUSCULAR HGB CONC 32.9 g/dl (31.0-37.0); MEAN PLATELET VOLUME 10.8 fl (7.0-11.0); MONO % 8.9 % (1.0-6.0); PLATELET COUNT 368 10^3/uL (120.0-450.0); RBC 4.14 10^6/uL (3.5-6.1); RED CELL DISTRIBUTION WIDTH 13.9 % (11.5-14.5); WHITE BLOOD COUNT 10.9 10^3/ul (4.5-11.0)
[2017-02-26] MEDS: Morphine 2 mg/ml ISec IVP PRN ×2 (04:00→22:14)
[2017-02-26] MEDS: Pantoprazole 40 mg EC Tab PO SCH (05:27)
[2017-02-26] MEDS: Sodium Chloride 0.9% 1,000 ML IV SCH ×2 (05:28→08:00)
[2017-02-26 07:16] LABS: ALBUMIN 3.5 g/dL (3.0-4.8); ALT/SGPT 44 U/L (7-56); AST/SGOT 39 U/L (15-39); BLOOD UREA NITROGEN 12 mg/dL (7-21); GFR AFRICAN-AMERICAN > 60; GFR NON-AFRICAN AMERICAN 56
--- NOTE | 2017-02-26 08:54 | CP.PCM.PN ---
Subjective - Date & Time of Evaluation Date of Evaluation: 02/26/17 Time of Evaluation: 08:45 - Subjective Subjective: General Surgery Dr. Wood Patient seen and examined at bed side this morning. No acute events overnight. Patient's neck draining purulent fluid. Patient complains of pain in the left side of her neck that feels like pressure. Denies fever/chills, N/V, numbness, CP or SOB. Objective - Vital Signs/Intake and Output Vital Signs (last 24 hours): Temp Pulse Resp BP Pulse Ox 97.9 F 86 20 141/86 96 02/25/17 16:00 02/25/17 16:00 02/25/17 16:00 02/25/17 16:00 02/25/17 16:00 Intake and Output: 02/26/17 02/26/17 06:59 18:59 Intake Total 0 0 Balance 0 0 - Medications Medications: Current Medications Sodium Chloride (Sodium Chloride 0.9%) 1,000 mls @ 100 mls/hr IV .Q10H TISHA Last Admin: 02/26/17 05:28 Dose: 100 mls/hr Vancomycin HCl (Vancomycin 1gm) 1 gm in 250 mls @ 167 mls/hr IVPB Q12H TISHA PRN Reason: Protocol Last Admin: 02/25/17 23:06 Dose: 167 mls/hr Piperacillin Sod/Tazobactam Sod (Zosyn 3.375 In Ns 100ml) 100 mls @ 200 mls/hr IVPB Q6 TISHA PRN Reason: Protocol Stop: 02/26/17 18:29 Morphine Sulfate (Morphine) 1 mg IVP Q4H PRN PRN Reason: Pain, moderate (4-7) Last Admin: 02/26/17 04:00 Dose: 1 mg Ondansetron HCl (Zofran Inj) 4 mg IVP Q6H PRN PRN Reason: nausea Last Admin: 02/25/17 10:12 Dose: 4 mg Pantoprazole Sodium (Protonix Ec Tab) 40 mg PO 0600 TISHA Last Admin: 02/26/17 05:27 Dose: 40 mg - Labs Labs: 02/26/17 01:50 02/26/17 05:50 PT 11.6 Seconds (9.9-11.8) 02/24/17 22:00 INR 1.07 (0.93-1.08) 02/24/17 22:00 APTT 31.3 Seconds (23.7-30.8) H 02/24/17 22:00 - Constitutional Appears: No Acute Distress - Head Exam Head Exam: ATRAUMATIC, NORMOCEPHALIC - ENT Exam ENT Exam: Mucous Membranes Moist - Neck Exam Neck Exam: Tenderness Additional comments: Left side of neck is grossly enlarged, draining purulent fluid. - Respiratory Exam Respiratory Exam: NORMAL BREATHING PATTERN. absent: Accessory Muscle Use, Respiratory Distress - Cardiovascular Exam Cardiovascular Exam: REGULAR RHYTHM - GI/Abdominal Exam GI & Abdominal Exam: Soft. absent: Distended, Guarding, Tenderness - Neurological Exam Neurological Exam: Alert, Awake, Oriented x3 - Psychiatric Exam Psychiatric exam: Normal Affect, Normal Mood - Skin Skin Exam: Dry, Normal Color, Warm Assessment and Plan - Assessment and Plan (Free Text) Assessment: 62yo F w/ Left neck abscess s/p LN biopsy for questionable non-Hodgkin's Lymphoma Plan: Pain Control Patient will need close f/u for management of neck mass and possible lymphoma. No surgical intervention will be taken at this time. - Packing will be removed today. Dressing changes daily. Will discuss case with Dr Nina Smith Nathaly PGY 1
[2017-02-26] MEDS: Vancomycin 1gm in NS 250ml 1 GM/250 ML BAG IVPB SCH ×2 (10:33→22:30)
[2017-02-26] MEDS: Piperacillin/Tazobact 3.375 gm 100 ML IVPB SCH ×2 (13:14→17:58)
--- NOTE | 2017-02-26 18:01 | CP.PCM.PN ---
Subjective - Date & Time of Evaluation Date of Evaluation: 02/26/17 Time of Evaluation: 09:00 - Subjective Subjective: Hospital Course: Ms Bobo is a 62 yo F with PMH RA, Sjogrens syndrome, and possible lymphoma, admitted today after presenting to the ED with complaints of L sided neck mass. The pt states that she saw her ENT 6 days ago for follow-up and repeat lymph node biopsy of her L neck. Since that time, the mass has become larger, more swollen, and inflamed. On presentation to the ED, it was draining purulent fluid. Associated symptoms include limited neck ROM, difficulty swallowing, and pain over the area. She also notes ongoing insomnia, loss of appetite, chills, and unintentional weight loss of 6 lbs over the last 2 mos. On admission, she complains of ongoing neck swelling and pain, rated 10/10 in severity. She notes some nausea related to CT contrast dye. The patient first saw her [employer] Developer two months ago for followup with her RA medications. She complained of small L neck mass at that time and was sent for US on 12/24. US study was significant for 2.7x2.8 cm mass adjacent to L carotid artery with compression of L jugular vein. She was seen by ENT at [place] for an excisional biopsy of the associated lymph node. Biopsy results returned with findings concerning for lymphoma. Repeat biopsy of the node was performed 6 days ago, results are pending. at bedside. HPI: Pt s/e at bedside. Pt states that her neck mass is still painful, but gets better with prescribed MOrphine. Surgery has signed off the case and deemed the mass inoperable - they have said to manage pain. In addition, CT showed liver mets, so Dr. Hoffman is on c/s (her heme/onc). Wound cultures showed coag neg staph aureus. ID on c/s. Pt has no further complaints. Objective - Vital Signs/Intake and Output Vital Signs (last 24 hours): Temp Pulse Resp BP Pulse Ox 98.8 F 73 18 114/74 95 02/26/17 06:00 02/26/17 06:00 02/26/17 06:00 02/26/17 06:00 02/26/17 06:00 Intake and Output: 02/26/17 02/26/17 06:59 18:59 Intake Total 0 480 Balance 0 480 - Medications Medications: Current Medications Sodium Chloride (Sodium Chloride 0.9%) 1,000 mls @ 100 mls/hr IV .Q10H TISHA Last Admin: 02/26/17 08:00 Dose: 100 mls/hr Vancomycin HCl (Vancomycin 1gm) 1 gm in 250 mls @ 167 mls/hr IVPB Q12H TISHA PRN Reason: Protocol Last Admin: 02/26/17 10:33 Dose: 167 mls/hr Piperacillin Sod/Tazobactam Sod (Zosyn 3.375 In Ns 100ml) 100 mls @ 200 mls/hr IVPB Q6 TISHA PRN Reason: Protocol Stop: 02/26/17 18:29 Last Admin: 02/26/17 13:14 Dose: 200 mls/hr Morphine Sulfate (Morphine) 1 mg IVP Q4H PRN PRN Reason: Pain, moderate (4-7) Last Admin: 02/26/17 04:00 Dose: 1 mg Ondansetron HCl (Zofran Inj) 4 mg IVP Q6H PRN PRN Reason: nausea Last Admin: 02/25/17 10:12 Dose: 4 mg Pantoprazole Sodium (Protonix Ec Tab) 40 mg PO 0600 TISHA Last Admin: 02/26/17 05:27 Dose: 40 mg - Labs Labs: 02/26/17 01:50 02/26/17 05:50 PT 11.6 Seconds (9.9-11.8) 02/24/17 22:00 INR 1.07 (0.93-1.08) 02/24/17 22:00 APTT 31.3 Seconds (23.7-30.8) H 02/24/17 22:00 - Additional Findings Additional findings: PEx: General: Well-appearing, well-nourished, afebrile woman in NAD. Mildly uncomfortable in appearance. HEENT: No scleral icterus. Mmm. Pt is not drooling. Neck: round, bandaged 13 cm L neck mass over submandibular region. No fluctuance. Mild erythema and scant purulent drainage around bandage. Neck active ROM limited secondary to Lateral neck mass. Lungs: CTAB. Normal breathing effort. No retractions or accessory muscle use. Heart: normal s1/s2. No m/r/g. Abdomen: soft, NT, ND. Normal bowel sounds. No hepatosplenomegaly. MSK: No LE pitting edema. Distal DP pulses 2+ bilaterally. Skin: skin over Les warm, dry, with normal turgor. Hands examined and without skin abnormalities. : deferred. Neuro: AOx3. Moves extremities spontaneously and across midline. Speech normal. No facial asymmetry. Psych: normal mood and affect. Assessment and Plan - Assessment and Plan (Free Text) Assessment: Assessment: 62 yo F with PMHx of RA, Sjogren syndrome, and biopsy concerning for lymphoma, presenting with L neck mass. 1. Neck mass: possible abscess due to surgical infection following biopsy. Also consider NHL, infected thyroglossal duct cyst, sialolithiasis, necrotizing lymphadenitis Culture wound - gram neg coag neg. Continue IV Vanc and Zosyn Surgery - signed off ID consult Dr. Hoffman (Heme/onc) c/s advanced diet. 2. Neck pain Likely contributing to patients climbing blood pressure readings: from 128/88 to 136/96 to 155/87 on admission Morphine 2 mg 2qh prn Morphine 1 mg q4h 3. Nausea Zofran 4. GI proph: IV protonix 5. DVT Proph: SCD Case d/w attending, Dr. Rowland
--- NOTE | 2017-02-26 21:10 | CP.PCM.CON ---
History of Present Illness - History of Present Illness History of Present Illness: Hematology Consult Referred by Dr. Rowland for evaluation of lymphoma HPI- Ms Bobo is known to me from office. She is 62 y/o F with h/o rheumatoid arthritis who noticed left neck swelling around 2 months ago. It has been slowly growing and causing pain. She has lost 4-5 lbs weight during this time. Denies fever, chills or night sweats. She initially underwent FNA that was abnormal. 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 She was admitted now with infection at the biopsy site with discharge. Currently on IV antibiotics. CT scans reviewed showed large 9 cm necrotic mass in left neck along with liver metastases. PMHx: Rheumatoid Arthritis PSHx: breast cyst removal, tubal ligation, and tonsillectomy Allergies: none Social Hx: social ETOH, no tobacco use, no illicit drug use Medications: please see MAR Family Hx: noncontributory Review of Systems - Review of Systems All systems: reviewed and no additional remarkable complaints except Review of Systems: as in HPI Past Patient History - Infectious Disease Hx of Infectious Diseases: None - Past Social History Smoking Status: Never Smoked - CARDIAC Hx Cardiac Disorders: No - PULMONARY Hx Respiratory Disorders: No - NEUROLOGICAL Hx Neurological Disorder: No - HEENT Hx HEENT Problems: No - RENAL Hx Chronic Kidney Disease: No - ENDOCRINE/METABOLIC Hx Endocrine Disorders: No - HEMATOLOGICAL/ONCOLOGICAL Hx Blood Disorders: No - INTEGUMENTARY Hx Dermatological Problems: Yes Other/Comment: lump to L neck - MUSCULOSKELETAL/RHEUMATOLOGICAL Hx Musculoskeletal Disorders: Yes Hx Rheumatoid Arthritis: Yes - GASTROINTESTINAL Hx Gastrointestinal Disorders: No - GENITOURINARY/GYNECOLOGICAL Hx Genitourinary Disorders: No - PSYCHIATRIC Hx Psychophysiologic Disorder: Yes Hx Anxiety: Yes Hx Substance Use: No - SURGICAL HISTORY Other/Comment: cyst removed from breast. biopsy of lump on face - ANESTHESIA Hx Anesthesia: Yes Hx Anesthesia Reactions: No Meds Allergies/Adverse Reactions: Allergies Allergy/AdvReac Type Severity Reaction Status Date / Time No Known Allergies Allergy Verified 02/19/17 09:49 - Medications Medications: Current Medications Sodium Chloride (Sodium Chloride 0.9%) 1,000 mls @ 100 mls/hr IV .Q10H TISHA Last Admin: 02/26/17 08:00 Dose: 100 mls/hr Vancomycin HCl (Vancomycin 1gm) 1 gm in 250 mls @ 167 mls/hr IVPB Q12H TISHA PRN Reason: Protocol Last Admin: 02/26/17 10:33 Dose: 167 mls/hr Morphine Sulfate (Morphine) 1 mg IVP Q4H PRN PRN Reason: Pain, moderate (4-7) Last Admin: 02/26/17 04:00 Dose: 1 mg Ondansetron HCl (Zofran Inj) 4 mg IVP Q6H PRN PRN Reason: nausea Last Admin: 02/25/17 10:12 Dose: 4 mg Pantoprazole Sodium (Protonix Ec Tab) 40 mg PO 0600 TISHA Last Admin: 02/26/17 05:27 Dose: 40 mg Physical Exam - Head Exam Head Exam: ATRAUMATIC, NORMAL INSPECTION - Eye Exam Eye Exam: EOMI Pupil Exam: PERRL - ENT Exam ENT Exam: Mucous Membranes Moist - Neck Exam Neck exam: Positive for: Lymphadenopathy (large left neck mass in cervical area. ) - Respiratory Exam Respiratory Exam: Clear to Auscultation Bilateral - Cardiovascular Exam Cardiovascular Exam: REGULAR RHYTHM - GI/Abdominal Exam GI & Abdominal Exam: Normal Bowel Sounds, Soft. absent: Distended, Tenderness - Extremities Exam Extremities exam: Negative for: pedal edema - Neurological Exam Neurological exam: Alert, Oriented x3 Results - Vital Signs Recent Vital Signs: Last Vital Signs Temp 98 F 02/26/17 19:48 Pulse 100 H 02/26/17 19:48 Resp 20 02/26/17 19:48 BP 135/85 02/26/17 19:48 Pulse Ox 98 02/26/17 19:48 - Labs Result Diagrams: 02/26/17 01:50 02/26/17 05:50 Labs: Laboratory Results - last 24 hr 02/26/17 02/26/17 01:50 05:50 WBC 10.9 RBC 4.14 Hgb 12.1 Hct 36.8 MCV 88.9 MCH 29.2 MCHC 32.9 RDW 13.9 Plt Count 368 MPV 10.8 Gran % 73.7 H Lymph % (Auto) 14.8 L [place] % (Auto) 8.9 H Eos % (Auto) 2.0 Baso % (Auto) 0.6 Gran # 8.03 H Lymph # 1.6 [place] # 1.0 H Eos # 0.2 Baso # 0.07 Sodium 139 Potassium 4.8 Chloride 105 Carbon Dioxide 19 L Anion Gap 20 BUN 12 Creatinine 1.0 Est GFR ( Amer) > 60 Est GFR (Non-Af Amer) 56 Random Glucose 61 L Calcium 9.0 Total Bilirubin 0.8 AST 39 ALT 44 Alkaline Phosphatase 110 Total Protein 7.0 Albumin 3.5 Globulin 3.5 Albumin/Globulin Ratio 1.0 L Assessment & Plan - Assessment and Plan (Free Text) Assessment: Diffuse large B cell lymphoma, 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 She will need bone marrow biopsy to complete staging. I will arrange for that tomorrow. Will also schedule her for MUGA scan (prior to starting chemotherapy). Check uric acid, LDH with AM labs. She is at high risk for spontaneous tumor lysis and should be monitored for tumor lysis syndrome. Labs done in office were negative for HIV and Hepatitis. Will hold off on chemotherapy till infection resolves. She will need aggressive anthracycline based chemotherapy Thank you for the consult Rolan Hoffman - Date & Time Date: 02/26/17 Time: 18:10
[2017-02-27] MEDS: Morphine 2 mg/ml ISec IVP PRN ×5 (02:00→23:58)
[2017-02-27 02:07] LABS: BASO # 0.05 K/mm3 (0.0-2.0); BASO % 0.6 % (0.0-3.0); EOS # 0.2 (0.0-0.7); EOS % 2.7 % (1.5-5.0); GRAN # 6.27 (1.4-6.5); GRAN % 72.2 % (50.0-68.0); HEMOGLOBIN 11.1 gm/dL (12.0-16.0); LYMPH # 1.4 (1.2-3.4); LYMPH % 16.4 % (22.0-35.0); MEAN CORPUSCULAR HEMOGLOBIN 28.8 pg (25.0-35.0); MEAN CORPUSCULAR HGB CONC 33.4 g/dl (31.0-37.0); MONO # 0.7 (0.1-0.6); MONO % 8.1 % (1.0-6.0); PLATELET COUNT 373 10^3/uL (120.0-450.0); RBC 3.86 10^6/uL (3.5-6.1); RED CELL DISTRIBUTION WIDTH 13.6 % (11.5-14.5); WHITE BLOOD COUNT 8.7 10^3/ul (4.5-11.0)
[2017-02-27] MEDS ORDERED: Morphine 2 mg/ml ISec IVP STA (04:54)
[2017-02-27] MEDS: Pantoprazole 40 mg EC Tab PO SCH (05:03)
--- NOTE | 2017-02-27 06:09 | CON ---
DATE: LOCATION: The patient is seen early this morning in room 377, bed 2. CHIEF COMPLAINT: Neck mass and it is painful with discharge from several days. HISTORY OF PRESENT ILLNESS: This is a 62-year-old female with a history of rheumatoid arthritis. The patient was in [facility] where the patient had a biopsy and showed lymphoma. She states it was a B-cell lymphoma and she did not have any further imaging she states and she was discharged and told to follow up with an oncologist. She is now here with neck pain and discharge. She denies any fevers, any chills, any nausea or vomiting. No chest pain. She does have significant neck discomfort. PAST MEDICAL HISTORY: Significant for high cholesterol, urinary tract infection, anxiety, and recent diagnosis of B-cell lymphoma. PAST SURGICAL HISTORY: Significant for tubal ligation, breast cyst, and tonsillectomy. ALLERGIES: THE PATIENT HAS NO KNOWN ALLERGIES. MEDICATIONS AT HOME: Include pain medication, oxycodone, and folic acid. The patient was given Augmentin. PHYSICAL EXAMINATION: GENERAL: The patient is in bed, in no acute distress; however, a large mass quite evident and the left side of her neck is discomforting. VITAL SIGNS: Temperature of 98, blood pressure of 114/70, respiratory rate of 20, and heart rate of 73. HEENT: Unremarkable. NECK: Supple. LUNGS: Decreased breath sounds. HEART: Normal S1 and S2. ABDOMEN: Soft and nontender. LABORATORY DATA: Reveals a white count of 10,900, hemoglobin of 12, and platelets of 368. Chemistries reveal the BUN of 12 and creatinine of 1.0. Microbiology reveals the neck with coag-negative Staph, sensitivity is pending. The blood cultures are no growth. The patient had a CAT scan of the neck, chest, and abdomen and pelvis, which reveals the patient to have lungs to be clear and the patient has multiple liver metastasis ranging from 11 mm to 32 mm and large invasive necrotic mass in the left side of the neck. 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 There is mild erythema, currently on vancomycin. We will discontinue the Zosyn. We will continue the vancomycin at short course and awaiting for Oncology input regarding B-cell lymphoma with liver metastasis. Overall prognosis is quite poor. We will discontinue the antibiotics most likely within the next 24 to 48 hours. Matthew Steele MD
[2017-02-27 07:09] LABS: ALBUMIN 3.2 g/dL (3.0-4.8); ALT/SGPT 35 U/L (7-56); AST/SGOT 32 U/L (15-39); BLOOD UREA NITROGEN 11 mg/dL (7-21); CALCIUM 8.4 mg/dL (8.4-10.5); GFR AFRICAN-AMERICAN > 60; GFR NON-AFRICAN AMERICAN > 60
[2017-02-27] MEDS ORDERED: Potassium Chloride 20 mEq ER Tab PO ONE ×2 (07:53→11:27)
--- NOTE | 2017-02-27 08:32 | CP.PCM.PN ---
Subjective - Date & Time of Evaluation Date of Evaluation: 02/27/17 Time of Evaluation: 08:26 - Subjective Subjective: General Surgery Note Resident: Lizzy Attending: Nina HPI: Patient seen and examined at bedside. Complaining of a headache. Describes pain as pressure like in the front of her head. She is also complaining of a burning pain around neck mass. She is tolerating diet. -N/V/F/CP/SOB Objective - Vital Signs/Intake and Output Vital Signs (last 24 hours): Temp Pulse Resp BP Pulse Ox 98.7 F 70 20 143/90 97 02/27/17 04:30 02/27/17 04:30 02/27/17 04:30 02/27/17 04:30 02/27/17 04:30 Intake and Output: 02/27/17 02/27/17 06:59 18:59 Intake Total 240 0 Balance 240 0 - Medications Medications: Current Medications Sodium Chloride (Sodium Chloride 0.9%) 1,000 mls @ 100 mls/hr IV .Q10H TISHA Last Admin: 02/26/17 08:00 Dose: 100 mls/hr Vancomycin HCl (Vancomycin 1gm) 1 gm in 250 mls @ 167 mls/hr IVPB Q12H TISHA PRN Reason: Protocol Last Admin: 02/26/17 22:30 Dose: 167 mls/hr Morphine Sulfate (Morphine) 1 mg IVP Q4H PRN PRN Reason: Pain, moderate (4-7) Last Admin: 02/27/17 02:00 Dose: 1 mg Ondansetron HCl (Zofran Inj) 4 mg IVP Q6H PRN PRN Reason: nausea Last Admin: 02/25/17 10:12 Dose: 4 mg Pantoprazole Sodium (Protonix Ec Tab) 40 mg PO 0600 TISHA Last Admin: 02/27/17 05:03 Dose: 40 mg - Labs Labs: 02/27/17 01:50 02/27/17 06:00 PT 11.6 Seconds (9.9-11.8) 02/24/17 22:00 INR 1.07 (0.93-1.08) 02/24/17 22:00 APTT 31.3 Seconds (23.7-30.8) H 02/24/17 22:00 - Constitutional Appears: Well - Head Exam Head Exam: NORMAL INSPECTION - Eye Exam Eye Exam: EOMI - ENT Exam ENT Exam: Mucous Membranes Moist - Neck Exam Neck Exam: Lymphadenopathy (neck mass, draining purulent fluid. dressing changed ) - Respiratory Exam Respiratory Exam: Clear to Ausculation Bilateral - Cardiovascular Exam Cardiovascular Exam: REGULAR RHYTHM - GI/Abdominal Exam GI & Abdominal Exam: Soft. absent: Distended, Firm, Guarding, Tenderness - Neurological Exam Neurological Exam: Alert, Awake, Oriented x3 Assessment and Plan - Assessment and Plan (Free Text) Assessment: 62 y/o Female w/ CD 55+ Lymphoma * Vanco per medicine * Seen by Oncologist yesterday. Will start chemo after infection clears per oncologist Daniel Ball DO PGY-1
[2017-02-27] MEDS: Vancomycin 1gm in NS 250ml 1 GM/250 ML BAG IVPB SCH ×2 (10:07→22:07)
[2017-02-27] MEDS ORDERED: Piperacillin/Tazobact 3.375 gm 100 ML IVPB SCH (12:00)
[2017-02-27] MEDS ORDERED: Lidocaine 2% Inj (20ml) IJ STA (12:13)
--- NOTE | 2017-02-27 13:18 | CP.PCM.PN ---
Subjective - Date & Time of Evaluation Date of Evaluation: 02/27/17 Time of Evaluation: 13:09 - Subjective Subjective: She complains of headaches and pressure in left neck mass. Denies abdominal pain. Denies fever. Denies weakness or sensory symptoms. Denies bowel/ bladder complaints Objective - Vital Signs/Intake and Output Vital Signs (last 24 hours): Temp Pulse Resp BP Pulse Ox 98.7 F 70 20 143/90 97 02/27/17 06:00 02/27/17 06:00 02/27/17 06:00 02/27/17 06:00 02/27/17 06:00 Intake and Output: 02/27/17 02/27/17 06:59 18:59 Intake Total 240 0 Balance 240 0 - Medications Medications: Current Medications Sodium Chloride (Sodium Chloride 0.9%) 1,000 mls @ 100 mls/hr IV .Q10H TISHA Last Admin: 02/26/17 08:00 Dose: 100 mls/hr Vancomycin HCl (Vancomycin 1gm) 1 gm in 250 mls @ 167 mls/hr IVPB Q12H TISHA PRN Reason: Protocol Last Admin: 02/27/17 10:07 Dose: 167 mls/hr Morphine Sulfate (Morphine) 1 mg IVP Q4H PRN PRN Reason: Pain, moderate (4-7) Last Admin: 02/27/17 10:06 Dose: 1 mg Ondansetron HCl (Zofran Inj) 4 mg IVP Q6H PRN PRN Reason: nausea Last Admin: 02/25/17 10:12 Dose: 4 mg Pantoprazole Sodium (Protonix Ec Tab) 40 mg PO 0600 [facility] Last Admin: 02/27/17 05:03 Dose: 40 mg - Labs Labs: 02/27/17 01:50 02/27/17 06:00 PT 11.6 Seconds (9.9-11.8) 02/24/17 22:00 INR 1.07 (0.93-1.08) 02/24/17 22:00 APTT 31.3 Seconds (23.7-30.8) H 02/24/17 22:00 - Head Exam Head Exam: ATRAUMATIC, NORMAL INSPECTION - Eye Exam Eye Exam: EOMI, PERRL - Neck Exam Neck Exam: Lymphadenopathy (unchanged) - Respiratory Exam Respiratory Exam: Clear to Ausculation Bilateral - Cardiovascular Exam Cardiovascular Exam: REGULAR RHYTHM - GI/Abdominal Exam GI & Abdominal Exam: Soft, Normal Bowel Sounds. absent: Tenderness, Organomegaly - Extremities Exam Extremities Exam: absent: Pedal Edema - Neurological Exam Neurological Exam: Alert, Oriented x3 Additional comments: no focal deficit Assessment and Plan - Assessment and Plan (Free Text) Assessment: CD5+ diffuse large B cell lymphoma I performed bone marrow aspiration/ biopsy today. Procedure note- After informed consent was obtained the patient was placed in the prone position. The left posterior iliac crest was located and prepped and draped in a sterile fashion. 2% Lidocaine was injected for local anesthesia. An [place] needle was placed and a bone marrow aspirate was obtained. A [place] needle was placed in a different location and a core biopsy was obtained. Pressure was held until hemostasis was obtained. A sterile dressing was applied. The patient tolerated the procedure well with no apparent complications. Estimated blood loss was minimal. The specimen was sent to pathology. F/U MUGA scan. 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 Will order MRI brain with and without contrast. If MRI is normal and headaches persists, consider CSF tap for cytology. I again discussed with the family aggressive nature of this lymphoma. They will also look into possible treatment options at [facility]. Continue to monitor for any signs of tumor lysis. Rolan Hoffman
--- NOTE | 2017-02-27 14:49 | CARD ---
APPROVED REPORT INDICATION H/O LYMPHOMA,STARTING CHEMO PROCEDURE The above named patient recieved 25.7 millicuries of Tc99m tagged red blood cells intravenously. After achieving equilibrium, gated imaging of 16/frame/cycle was performed utillizing Gamma camera interfaced with a digital computer and gated device. Gated imaging was then performed in the left anterior oblique, anterior, and the left lateral projections. Findings Left Ventricle: The quality of the study is good. The left ventricle is normal in size. The right ventricle is normal in size. Wall motion study shows good contractility of the left ventricle. RV wall motion is normal. The right atrium is dynamic. The remainder of the study is unremarkable. Impressions Normal gated wall motion of left ventricle wall. LVEF = 61%. Normal RV wall motion.
--- NOTE | 2017-02-27 15:07 | CP.PCM.PN ---
Subjective - Date & Time of Evaluation Date of Evaluation: 02/27/17 Time of Evaluation: 06:30 - Subjective Subjective: Subjective: Hospital Course: Ms Bobo is a 62 yo F with PMH RA, Sjogrens syndrome, and possible lymphoma, admitted today after presenting to the ED with complaints of L sided neck mass. The pt states that she saw her ENT 6 days ago for follow-up and repeat lymph node biopsy of her L neck. Since that time, the mass has become larger, more swollen, and inflamed. On presentation to the ED, it was draining purulent fluid. Associated symptoms include limited neck ROM, difficulty swallowing, and pain over the area. She also notes ongoing insomnia, loss of appetite, chills, and unintentional weight loss of 6 lbs over the last 2 mos. On admission, she complains of ongoing neck swelling and pain, rated 10/10 in severity. She notes some nausea related to CT contrast dye. The patient first saw her Patient Support Specialist two months ago for followup with her RA medications. She complained of small L neck mass at that time and was sent for US on 12/24. US study was significant for 2.7x2.8 cm mass adjacent to L carotid artery with compression of L jugular vein. She was seen by ENT at [facility] for an excisional biopsy of the associated lymph node. Biopsy results returned with findings concerning for lymphoma. Repeat biopsy of the node was performed 6 days ago, results are pending. On 02/26, surgery team said it would not operate because patient's CT Abdomen showed liver METS. Patient's heme/onc was placed on consult; wound cultures showed coag neg staph aureus, and ID was placed on c/s. HPI: Pt s/e at bedside. Pt states that her neck mass is still painful, and is not well managed with the current medication regimen. Pt's BP was elevated, likely d/t her pain. Pt has no further complaints. Dr. Hoffman saw patient yesterday, 02/26. This patient's diagnosis is Diffuse B. Cell Lymphoma. His recommendations were to perform a bone marrow bx to determine staging today, 02/27, which was performed, and a MUGA scan to determine if patient could undergo chemotherapy, which was also performed. He also determined that an LDH and Uric acid baseline level should be obtained to monitor for tumor lysis syndrome. Patient will be tx o/p with aggressive anthracycline based tx. MUGA has been read. Objective - Vital Signs/Intake and Output Vital Signs (last 24 hours): Temp Pulse Resp BP Pulse Ox 98.7 F 70 20 143/90 97 02/27/17 06:00 02/27/17 06:00 02/27/17 06:00 02/27/17 06:00 02/27/17 06:00 Intake and Output: 02/27/17 02/27/17 06:59 18:59 Intake Total 240 0 Balance 240 0 - Medications Medications: Current Medications Sodium Chloride (Sodium Chloride 0.9%) 1,000 mls @ 100 mls/hr IV .Q10H TISHA Last Admin: 02/26/17 08:00 Dose: 100 mls/hr Vancomycin HCl (Vancomycin 1gm) 1 gm in 250 mls @ 167 mls/hr IVPB Q12H TISHA PRN Reason: Protocol Last Admin: 02/27/17 10:07 Dose: 167 mls/hr Morphine Sulfate (Morphine) 2 mg IVP Q4H PRN PRN Reason: Pain, severe (8-10) Ondansetron HCl (Zofran Inj) 4 mg IVP Q6H PRN PRN Reason: nausea Last Admin: 02/25/17 10:12 Dose: 4 mg Pantoprazole Sodium (Protonix Ec Tab) 40 mg PO 0600 TISHA Last Admin: 02/27/17 05:03 Dose: 40 mg - Labs Labs: 02/27/17 01:50 02/27/17 06:00 PT 11.6 Seconds (9.9-11.8) 02/24/17 22:00 INR 1.07 (0.93-1.08) 02/24/17 22:00 APTT 31.3 Seconds (23.7-30.8) H 02/24/17 22:00 - Additional Findings Additional findings: PEx: General: Well-appearing, well-nourished, afebrile woman in NAD. Mildly uncomfortable in appearance. HEENT: No scleral icterus. Mmm. Pt is not drooling. Neck: round, bandaged 13 cm L neck mass over submandibular region. No fluctuance. Mild erythema and scant purulent drainage around bandage. Neck active ROM limited secondary to Lateral neck mass. Lungs: CTAB. Normal breathing effort. No retractions or accessory muscle use. Heart: normal s1/s2. No m/r/g. Abdomen: soft, NT, ND. Normal bowel sounds. No hepatosplenomegaly. MSK: No LE pitting edema. Distal DP pulses 2+ bilaterally. Skin: skin over Les warm, dry, with normal turgor. Hands examined and without skin abnormalities. : deferred. Neuro: AOx3. Moves extremities spontaneously and across midline. Speech normal. No facial asymmetry. Psych: normal mood and affect. Assessment and Plan - Assessment and Plan (Free Text) Assessment: A/P 62 yo F with PMHx of RA, Sjogren syndrome, and biopsy concerning for lymphoma, presenting with L neck mass. 1. Neck mass: possible abscess due to surgical infection following biopsy. Also consider NHL, infected thyroglossal duct cyst, sialolithiasis, necrotizing lymphadenitis Culture wound - gram neg coag neg. Continue IV Vanc and Zosyn Surgery - no intervention ID consult Dr. Hoffman (Heme/onc) c/s: recommendations are bone marrow bx, muga scan, and o/ p anthracycline tx. MUGA shows normal LV, RV motion; and LVEF = 61% Advanced diet 2. Neck pain Likely contributing to patients climbing blood pressure readings: from 128/88 to 136/96 to 155/87 on admission Morphine 2 mg 2qh prn increased 3. Nausea Zofran 4. GI proph: IV protonix 5. DVT Proph: SCD Case d/w attending, Dr. Rowland
[2017-02-27 16:02] LABS: URIC ACID 3.9 mg/dL (2.5-6.2)
--- NOTE | 2017-02-27 16:08 | CP.PCM.PN ---
Subjective - Date & Time of Evaluation Date of Evaluation: 02/27/17 Time of Evaluation: 12:00 - Subjective Subjective: Comfortable, not in distress, afebrile, less pain in the neck area. Objective - Vital Signs/Intake and Output Vital Signs (last 24 hours): Temp Pulse Resp BP Pulse Ox 98.7 F 70 20 143/90 97 02/27/17 06:00 02/27/17 06:00 02/27/17 06:00 02/27/17 06:00 02/27/17 06:00 Intake and Output: 02/27/17 02/27/17 06:59 18:59 Intake Total 240 0 Balance 240 0 - Medications Medications: Current Medications Sodium Chloride (Sodium Chloride 0.9%) 1,000 mls @ 100 mls/hr IV .Q10H TISHA Last Admin: 02/26/17 08:00 Dose: 100 mls/hr Vancomycin HCl (Vancomycin 1gm) 1 gm in 250 mls @ 167 mls/hr IVPB Q12H TISHA PRN Reason: Protocol Last Admin: 02/27/17 10:07 Dose: 167 mls/hr Morphine Sulfate (Morphine) 2 mg IVP Q4H PRN PRN Reason: Pain, severe (8-10) Last Admin: 02/27/17 15:35 Dose: 2 mg Ondansetron HCl (Zofran Inj) 4 mg IVP Q6H PRN PRN Reason: nausea Last Admin: 02/25/17 10:12 Dose: 4 mg Pantoprazole Sodium (Protonix Ec Tab) 40 mg PO 0600 TISHA Last Admin: 02/27/17 05:03 Dose: 40 mg - Labs Labs: 02/27/17 01:50 02/27/17 06:00 PT 11.6 Seconds (9.9-11.8) 02/24/17 22:00 INR 1.07 (0.93-1.08) 02/24/17 22:00 APTT 31.3 Seconds (23.7-30.8) H 02/24/17 22:00 - Constitutional Appears: Non-toxic, No Acute Distress - Head Exam Head Exam: NORMAL INSPECTION - ENT Exam ENT Exam: Mucous Membranes Moist - Respiratory Exam Respiratory Exam: Decreased Breath Sounds - Cardiovascular Exam Cardiovascular Exam: +S1, +S2 - GI/Abdominal Exam GI & Abdominal Exam: Soft. absent: Tenderness Assessment and Plan - Assessment and Plan (Free Text) Plan: Assessment Left neck necrotic mass with mild cellulitis of the surrounding area dyslipidemia recent diagnosis of B-cell lymphoma history of UTI S/P tubal ligation S/P tonsillectomy Plan Continue patient on Vancomycin day 2 and will opt for short course of therapy
[2017-02-27] MEDS ORDERED: Gadodiamide 287 MG/ML VIAL (15ML) IV ONE (16:10)
--- NOTE | 2017-02-27 17:05 | MRI ---
PROCEDURE: MRI BRAIN WITH AND WITHOUT CONTRAST HISTORY: B cell lymphoma with headache, r/o mets COMPARISON: None. TECHNIQUE: Multiplanar, multisequence MR images of the brain were obtained with and without intravenous contrast enhancement. FINDINGS: HEMORRHAGE: None DWI: No evidence of an acute or early subacute infarction. BRAIN PARENCHYMA: No intrinsic signal abnormality is identified in the caldwell or white matter structures above or below the tentorium. ENHANCEMENT: No abnormal intracranial enhancement. VENTRICLES: Unremarkable. No hydrocephalus. CRANIUM: Unremarkable. ORBITS: Grossly unremarkable. PARANASAL SINUSES/MASTOIDS: Clear VASCULAR SYSTEM: Skull base flow voids intact. OTHER FINDINGS: Incidental note is made of marked lymphadenopathy left of the visualized upper left neck including within the parotid gland. IMPRESSION: Unremarkable pre and post contrast enhanced MRI of the brain. Incidental note is made of marked lymphadenopathy at the upper left neck as imaged including within the left parotid gland underlying left parotid pathology would be difficult to completely exclude. And.
[2017-02-27 18:10] VITALS: TEMP 98.6
[2017-02-28] MEDS: Sodium Chloride 0.9% 1,000 ML IV SCH (00:02)
[2017-02-28] MEDS: Pantoprazole 40 mg EC Tab PO SCH (05:47)
[2017-02-28] MEDS: Morphine 2 mg/ml ISec IVP PRN (05:54)
[2017-02-28 07:27] LABS: BASO # 0.08 K/mm3 (0.0-2.0); BASO % 1.1 % (0.0-3.0); EOS # 0.2 (0.0-0.7); EOS % 3.2 % (1.5-5.0); GRAN # 5.25 (1.4-6.5); GRAN % 69.8 % (50.0-68.0); HEMOGLOBIN 11.8 gm/dL (12.0-16.0); LYMPH # 1.4 (1.2-3.4); MEAN CELL VOLUME 85.3 fL (80.0-105.0); MEAN CORPUSCULAR HEMOGLOBIN 28.9 pg (25.0-35.0); MEAN CORPUSCULAR HGB CONC 33.9 g/dl (31.0-37.0); MEAN PLATELET VOLUME 10.2 fl (7.0-11.0); MONO # 0.6 (0.1-0.6); MONO % 7.9 % (1.0-6.0); PLATELET COUNT 402 10^3/uL (120.0-450.0); RBC 4.08 10^6/uL (3.5-6.1); RED CELL DISTRIBUTION WIDTH 13.6 % (11.5-14.5); WHITE BLOOD COUNT 7.5 10^3/ul (4.5-11.0)
[2017-02-28 07:28] LABS: ALBUMIN 3.5 g/dL (3.0-4.8); ALT/SGPT 42 U/L (7-56); AST/SGOT 35 U/L (15-39); BLOOD UREA NITROGEN 7 mg/dL (7-21); GFR AFRICAN-AMERICAN > 60; GFR NON-AFRICAN AMERICAN > 60
[2017-02-28] MEDS ORDERED: Amoxicillin-Clav 875-125 mg Tab PO SCH (10:00)
[2017-02-28 10:03] VITALS: BP 150/110; PULSE 92; RESP 19; O2SAT 96
--- NOTE | 2017-02-28 12:43 | PN ---
DATE: 02/28/2017 SUBJECTIVE: The patient is seen in bed, in no acute distress. PHYSICAL EXAMINATION: VITAL SIGNS: Temperature is 98, blood pressure is 139/80, respiratory rate of 20, and heart rate of 101. HEENT: Examination of HEENT is unremarkable. NECK: Supple. CARDIOPULMONARY: Heart exam is normal with S1 and S2. LUNGS: Decreased breath sounds. ABDOMEN: Soft and nontender. LABORATORY DATA: Examination reveals a white count of 7.5, hemoglobin of 11, and platelets of 402. Coagulation is noted. BUN of 7 and creatinine of 0.7. HIV is negative and Coagulase negative Staph is grown from her neck. ASSESSMENT AND PLAN: She is a 62-year-old female who is seen earlier this morning at room 377, bed 2, with a left neck necrotic mass, mild , dyslipidemia, diagnosed with B-cell lymphoma with metastasis to the liver, day number 3 of vancomycin. We will change the p.o. doxycycline and p.o. Augmentin for total of 7 days. Followup with Oncology as an outpatient. The patient did had an MRI of the brain, which is read by Dr. Daniel Lewis as noted. We will follow with you. Matthew Steele MD
--- NOTE | 2017-02-28 12:48 | CP.PCM.PN ---
Subjective - Date & Time of Evaluation Date of Evaluation: 02/28/17 Time of Evaluation: 09:20 - Subjective Subjective: SURGERY NOTE FOR DR. BLACKWELL 62F seen and examined at bedside. YONY. Pain is improving on the left neck. Objective - Vital Signs/Intake and Output Vital Signs (last 24 hours): Temp Pulse Resp BP Pulse Ox 98.6 F 92 H 19 150/110 H 96 02/28/17 06:00 02/28/17 06:00 02/28/17 06:00 02/28/17 06:00 02/28/17 06:00 Intake and Output: 02/28/17 02/28/17 06:59 18:59 Intake Total 480 120 Balance 480 120 - Medications Medications: Current Medications Amoxicillin/Clavulanate Potassium (Augmentin 875 Mg-125 Mg Tab) 1 tab PO Q12 TISHA PRN Reason: Protocol Stop: 03/07/17 10:01 Doxycycline Hyclate (Doryx) 100 mg PO Q12 TISHA PRN Reason: Protocol Stop: 03/07/17 10:01 Sodium Chloride (Sodium Chloride 0.9%) 1,000 mls @ 100 mls/hr IV .Q10H [facility] Last Admin: 02/28/17 00:02 Dose: 100 mls/hr Morphine Sulfate (Morphine) 2 mg IVP Q4H PRN PRN Reason: Pain, severe (8-10) Last Admin: 02/28/17 05:54 Dose: 2 mg Ondansetron HCl (Zofran Inj) 4 mg IVP Q6H PRN PRN Reason: nausea Last Admin: 02/25/17 10:12 Dose: 4 mg Pantoprazole Sodium (Protonix Ec Tab) 40 mg PO 0600 [facility] Last Admin: 02/28/17 05:47 Dose: 40 mg - Labs Labs: 02/28/17 06:30 02/28/17 06:30 PT 11.6 Seconds (9.9-11.8) 02/24/17 22:00 INR 1.07 (0.93-1.08) 02/24/17 22:00 APTT 31.3 Seconds (23.7-30.8) H 02/24/17 22:00 - Constitutional Appears: Non-toxic, No Acute Distress - Neck Exam Additional comments: left neck mass, draining purulent material, small area of erythema - Respiratory Exam Respiratory Exam: Clear to Ausculation Bilateral, NORMAL BREATHING PATTERN - Cardiovascular Exam Cardiovascular Exam: REGULAR RHYTHM, +S1, +S2 - Neurological Exam Neurological Exam: Alert, Awake Assessment and Plan - Assessment and Plan (Free Text) Assessment: 62F with left neck mass recently diagnosis with lymphoma Plan: - currently being seen by oncologist - Patient needs chemotherapy for diagnosis - Mass spontaneously draining - No further surgical intervention needed Discussed with Dr. Nina Aponte, PGY2
--- NOTE | 2017-03-02 13:35 | CP.PCM.DIS ---
<SOHAIL PAN - Last Filed: 03/02/17 13:32> Provider - Provider Date of Admission: 02/25/17 17:02 Attending physician: Jessica Davis MD Primary care physician: Bella Patricia DO Consults: Surgery-Dr. Wood ID_ Dr. Kraft Hem/Onc: Dr. Hoffman Time Spent in preparation of Discharge (in minutes): 52 Hospital Course - Lab Results Lab Results: Micro Results 02/27/17 06:45 Abscess - Second Gram Stain - Final 02/27/17 06:45 Abscess - Second Wound Culture - Final Staphylococcus Sp Coag Neg Most Recent Lab Values WBC 7.5 10^3/ul (4.5-11.0) 02/28/17 06:30 RBC 4.08 10^6/uL (3.5-6.1) 02/28/17 06:30 Hgb 11.8 gm/dL (12.0-16.0) L 02/28/17 06:30 Hct 34.8 % (36.0-48.0) L 02/28/17 06:30 MCV 85.3 fL (80.0-105.0) 02/28/17 06:30 MCH 28.9 pg (25.0-35.0) 02/28/17 06:30 MCHC 33.9 g/dl (31.0-37.0) 02/28/17 06:30 RDW 13.6 % (11.5-14.5) 02/28/17 06:30 Plt Count 402 10^3/uL (120.0-450.0) 02/28/17 06:30 MPV 10.2 fl (7.0-11.0) 02/28/17 06:30 Gran % 69.8 % (50.0-68.0) H 02/28/17 06:30 Lymph % (Auto) 18.0 % (22.0-35.0) L 02/28/17 06:30 Stark % (Auto) 7.9 % (1.0-6.0) H 02/28/17 06:30 Eos % (Auto) 3.2 % (1.5-5.0) 02/28/17 06:30 Baso % (Auto) 1.1 % (0.0-3.0) 02/28/17 06:30 Gran # 5.25 (1.4-6.5) 02/28/17 06:30 Lymph # 1.4 (1.2-3.4) 02/28/17 06:30 Stark # 0.6 (0.1-0.6) 02/28/17 06:30 Eos # 0.2 (0.0-0.7) 02/28/17 06:30 Baso # 0.08 K/mm3 (0.0-2.0) 02/28/17 06:30 PT 11.6 Seconds (9.9-11.8) 02/24/17 22:00 INR 1.07 (0.93-1.08) 02/24/17 22:00 APTT 31.3 Seconds (23.7-30.8) H 02/24/17 22:00 Sodium 140 mmol/L (132-148) 02/28/17 06:30 Potassium 3.8 mmol/L (3.6-5.0) 02/28/17 06:30 Chloride 103 mmol/L (98-107) 02/28/17 06:30 Carbon Dioxide 26 mmol/L (21-33) 02/28/17 06:30 Anion Gap 15 (10-20) 02/28/17 06:30 BUN 7 mg/dL (7-21) 02/28/17 06:30 Creatinine 0.7 mg/dL (0.5-1.4) 02/28/17 06:30 Est GFR ( Amer) > 60 02/28/17 06:30 Est GFR (Non-Af Amer) > 60 02/28/17 06:30 Random Glucose 107 mg/dL (70-110) 02/28/17 06:30 Uric Acid 3.9 mg/dL (2.5-6.2) 02/27/17 15:50 Calcium 9.0 mg/dL (8.4-10.5) 02/28/17 06:30 Phosphorus 2.1 mg/dL (2.5-4.5) L 02/27/17 06:00 Magnesium 2.1 mg/dL (1.7-2.2) 02/25/17 06:15 Total Bilirubin 0.4 mg/dL (0.2-1.3) 02/28/17 06:30 AST 35 U/L (15-39) 02/28/17 06:30 ALT 42 U/L (7-56) 02/28/17 06:30 Alkaline Phosphatase 115 U/L (38-133) 02/28/17 06:30 Lactate Dehydrogenase 870 U/L (333-699) H 02/27/17 15:50 Total Protein 6.8 g/dL (5.8-8.3) 02/28/17 06:30 Albumin 3.5 g/dL (3.0-4.8) 02/28/17 06:30 Globulin 3.4 gm/dL 02/28/17 06:30 Albumin/Globulin Ratio 1.0 (1.1-1.8) L 02/28/17 06:30 HIV 1&2 Ag/Ab, 4th Gen Nonreactive (Nonreactive) 02/26/17 07:30 - Hospital Course Hospital Course: Mrs. Bobo is a 62 year old female with a PMHx of rheumatoid arthritis and suspected lymphoma who presents to the ED for evaluation of a left sided neck mass with associated burning pain. Surgery and ID were consulted for possible abscess. Patient was started on Vancomycin and Zosyn after appropriate cultures were obtained. CT neck/chest/abd/pelv showed a large invasive necrotic mass on the left side of the neck markedly increased in size since previous ultrasound with multiple liver metastases. 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 It was advised that patient wait to start chemotherapy until her infection resolved. Hem/Onc performed a MUGA scan to assess heart function based on the side effects of the chemotherapy, which showed adequate cardiac function. Surgery decided against operating on the abscess due to metastasis. Wound cultures showed coagulase negative staph aureus and patient stayed on IV vancomycin. Once infection was stable, patient was discharged with strong recommendations to start chemotherapy with Dr. Hoffman as soon as clinically appropriate on 02/28. - Date & Time of H&P Date of H&P: 02/25/17 Time of H&P: 01:25 Discharge Exam - Head Exam Head Exam: NORMAL INSPECTION - Eye Exam Eye Exam: EOMI, Normal appearance - ENT Exam ENT Exam: Mucous Membranes Moist, Normal Exam - Neck Exam Neck exam: Full Rom, Lymphadenopathy, Tenderness Additional comments: L sided neck mass with wound dressing clean, dry and intact - Respiratory Exam Respiratory Exam: NORMAL BREATHING PATTERN, UNREMARKABLE. absent: Rales, Rhonchi, Wheezes, Respiratory Distress - Cardiovascular Exam Cardiovascular Exam: REGULAR RHYTHM, RRR, +S1, +S2 - GI/Abdominal Exam GI & Abdominal Exam: Normal Bowel Sounds, Unremarkable. absent: Distended, Tenderness - Extremities Exam Additional comments: No calf tenderness or pedal edema bilaterally - Neurological Exam Neurological exam: Alert, Oriented x3 - Psychiatric Exam Psychiatric exam: Normal Affect, Normal Mood - Skin Skin Exam: Dry, Intact, Normal Color, Warm Discharge Plan - Discharge Medications Prescriptions: Amoxicillin/Clavulanate [Augmentin 875 MG-125 MG] 1 tab PO BID #14 tab Doxycycline Hyclate 100 mg PO BID #14 capsule - Follow Up Plan Condition: FAIR Disposition: HOME/ ROUTINE Instructions: Non-Hodgkin Lymphoma (DC) Additional Instructions: 1. Follow up with Dr. Hoffman on ThursdayMarch 02 2. Please maintain adequate hydration 3. Complete full course of antibiotics 4. If your symptoms persist or worsen, please seek emergency medical attention. Referrals: Bella Patricia DO [Primary Care Provider] - Dalton PEARCE,MD Rolan [Staff Provider] - <Jessica Davis - Last Filed: 03/02/17 14:29> Provider - Provider Date of Admission: 02/25/17 17:02 Attending physician: Jessica Davis MD Primary care physician: Bella Patricia DO Hospital Course - Lab Results Lab Results: Micro Results 02/27/17 06:45 Abscess - Second Gram Stain - Final 02/27/17 06:45 Abscess - Second Wound Culture - Final Staphylococcus Sp Coag Neg Most Recent Lab Values WBC 7.5 10^3/ul (4.5-11.0) 02/28/17 06:30 RBC 4.08 10^6/uL (3.5-6.1) 02/28/17 06:30 Hgb 11.8 gm/dL (12.0-16.0) L 02/28/17 06:30 Hct 34.8 % (36.0-48.0) L 02/28/17 06:30 MCV 85.3 fL (80.0-105.0) 02/28/17 06:30 MCH 28.9 pg (25.0-35.0) 02/28/17 06:30 MCHC 33.9 g/dl (31.0-37.0) 02/28/17 06:30 RDW 13.6 % (11.5-14.5) 02/28/17 06:30 Plt Count 402 10^3/uL (120.0-450.0) 02/28/17 06:30 MPV 10.2 fl (7.0-11.0) 02/28/17 06:30 Gran % 69.8 % (50.0-68.0) H 02/28/17 06:30 Lymph % (Auto) 18.0 % (22.0-35.0) L 02/28/17 06:30 Stark % (Auto) 7.9 % (1.0-6.0) H 02/28/17 06:30 Eos % (Auto) 3.2 % (1.5-5.0) 02/28/17 06:30 Baso % (Auto) 1.1 % (0.0-3.0) 02/28/17 06:30 Gran # 5.25 (1.4-6.5) 02/28/17 06:30 Lymph # 1.4 (1.2-3.4) 02/28/17 06:30 Stark # 0.6 (0.1-0.6) 02/28/17 06:30 Eos # 0.2 (0.0-0.7) 02/28/17 06:30 Baso # 0.08 K/mm3 (0.0-2.0) 02/28/17 06:30 PT 11.6 Seconds (9.9-11.8) 02/24/17 22:00 INR 1.07 (0.93-1.08) 02/24/17 22:00 APTT 31.3 Seconds (23.7-30.8) H 02/24/17 22:00 Sodium 140 mmol/L (132-148) 02/28/17 06:30 Potassium 3.8 mmol/L (3.6-5.0) 02/28/17 06:30 Chloride 103 mmol/L (98-107) 02/28/17 06:30 Carbon Dioxide 26 mmol/L (21-33) 02/28/17 06:30 Anion Gap 15 (10-20) 02/28/17 06:30 BUN 7 mg/dL (7-21) 02/28/17 06:30 Creatinine 0.7 mg/dL (0.5-1.4) 02/28/17 06:30 Est GFR ( Amer) > 60 02/28/17 06:30 Est GFR (Non-Af Amer) > 60 02/28/17 06:30 Random Glucose 107 mg/dL (70-110) 02/28/17 06:30 Uric Acid 3.9 mg/dL (2.5-6.2) 02/27/17 15:50 Calcium 9.0 mg/dL (8.4-10.5) 02/28/17 06:30 Phosphorus 2.1 mg/dL (2.5-4.5) L 02/27/17 06:00 Magnesium 2.1 mg/dL (1.7-2.2) 02/25/17 06:15 Total Bilirubin 0.4 mg/dL (0.2-1.3) 02/28/17 06:30 AST 35 U/L (15-39) 02/28/17 06:30 ALT 42 U/L (7-56) 02/28/17 06:30 Alkaline Phosphatase 115 U/L (38-133) 02/28/17 06:30 Lactate Dehydrogenase 870 U/L (333-699) H 02/27/17 15:50 Total Protein 6.8 g/dL (5.8-8.3) 02/28/17 06:30 Albumin 3.5 g/dL (3.0-4.8) 02/28/17 06:30 Globulin 3.4 gm/dL 02/28/17 06:30 Albumin/Globulin Ratio 1.0 (1.1-1.8) L 02/28/17 06:30 HIV 1&2 Ag/Ab, 4th Gen Nonreactive (Nonreactive) 02/26/17 07:30 Attending/Attestation - Attestation I have personally seen and examined this patient.: Yes I have fully participated in the care of the patient.: Yes I have reviewed all pertinent clinical information, including history, physical exam and plan: Yes Notes (Text): 03/02/17 14:24 Attending note; Patient seen and examined with resident. Patient is a 62-year-old female admitted with left sided neck mass with infection. Status post biopsy recently showed large B-cell lymphoma. Patient had bone marrow biopsy yesterday by oncologist Dr. Hoffman. ID evaluation appreciated. Surgery evaluation appreciated. Patient will go home with Augmentin and doxycycline. MRI of the head is negative for metastases. MUGA scan showed good ejection fraction. The patient will follow-up with oncology on Thursday for chemotherapy arrangements. The patient will also get Port-A-Cath placement as outpatient. Patient will be discharged home today. Diagnosis; Left sided neck mass B-cell lymphoma Cellulitis
== END 2017-02-28 17:45 | disposition home or self-care (01) | DRG 841 ==
LOC: ED 19:19 → ERH 02-25 00:18 → 3RSO 02-25 03:39 → OBSVTOIN 02-25 17:02
PROVIDERS: ADMIT Internal Medicine; ATTEND Internal Medicine
PROC: 07DR3ZX Extraction of Iliac Bone Marrow, Percutaneous Approach, Diagnostic (ICD-10-PCS; principal; 2017-02-27)
DX: C83.30 Diffuse large B-cell lymphoma, unspecified site (principal); C78.7 Secondary malignant neoplasm of liver and intrahepatic bile duct; L03.221 Cellulitis of neck; L02.11 Cutaneous abscess of neck; M06.9 Rheumatoid arthritis, unspecified; M35.00 Sjogren syndrome, unspecified; E78.00 Pure hypercholesterolemia, unspecified; F41.9 Anxiety disorder, unspecified; E78.5 Hyperlipidemia, unspecified; Z87.440 Personal history of urinary (tract) infections

== ENCOUNTER → 2017-03-06 | Day surgery (SDC) | payer MEDICARE ==
[2017-03-05 11:25] VITALS: BMI 22.6
[~2017-03-06] MED LIST: Lidocaine 2% Inj (20ml) ONE; Midazolam 2 MG/2 ML VIAL ONE; Oxycodone/Acetaminophen 5/325 mg Tab PO PRN; Sodium Chloride 0.45% 1,000 ML IV SCH
[2017-03-06 07:57] LABS: BASO # 0.04 K/mm3 (0.0-2.0); BASO % 0.3 % (0.0-3.0); EOS % 0.2 % (1.5-5.0); GRAN # 8.91 (1.4-6.5); GRAN % 73.4 % (50.0-68.0); HEMOGLOBIN 13.2 gm/dL (12.0-16.0); LYMPH # 2.3 (1.2-3.4); LYMPH % 18.9 % (22.0-35.0); MEAN CELL VOLUME 86.5 fL (80.0-105.0); MEAN CORPUSCULAR HEMOGLOBIN 29.3 pg (25.0-35.0); MEAN CORPUSCULAR HGB CONC 33.8 g/dl (31.0-37.0); MEAN PLATELET VOLUME 10.2 fl (7.0-11.0); MONO # 0.9 (0.1-0.6); MONO % 7.2 % (1.0-6.0); PLATELET COUNT 601 10^3/uL (120.0-450.0); RBC 4.51 10^6/uL (3.5-6.1); WHITE BLOOD COUNT 12.1 10^3/ul (4.5-11.0)
[2017-03-06 08:08] LABS: BLOOD UREA NITROGEN 19 mg/dL (7-21); CALCIUM 10.6 mg/dL (8.4-10.5); GFR AFRICAN-AMERICAN > 60; GFR NON-AFRICAN AMERICAN > 60; INR 1.01 (0.93-1.08); PARTIAL THROMBOPLASTIN TIME 30.6 Seconds (23.7-30.8); PROTHROMBIN TIME 10.9 Seconds (9.9-11.8)
--- NOTE | 2017-03-06 08:13 | CP.SDSHP ---
Same Day Surgery H & P - History Proposed Procedure: Port placement for chemo Pre-Op Diagnosis: Left sided necrotic neck mass from b cell lymphoma, with hepatic mets, h/o RA - Previous Medical/Surgical History Pain: 4.Moderate Pain (In the left neck mass) Previous Surgical History: left neck mass biopsy, tubal ligation, left breast cyst surg - Allergies Allergies: Allergies No Known Allergies Allergy (Verified 02/19/17 09:49) - Current Medications Current Medications: Augmentin 875mg bid, Doxycycline 100mg bid, oxycodone, Prednisone 40mg daily, Zyloprim 300mg daily. - Physical Exam General Appearance: Fine not in distress Vital Signs: Vital Signs 03/06/17 07:10 Temperature 98.1 F Pulse Rate 96 H Respiratory 18 Rate Blood Pressure 155/85 H O2 Sat by Pulse 97 Oximetry Mental Status: Alert & Oriented x3 Neuro: WNL Heart: WNL Lungs: WNL GI: WNL - {Optional Preform as Required} ENT: WNL Other Pertinent Findings: Left neck and facial mass with distension, pain tenderness. - Impression Impression: 62 F with recent diagnosis of left neck necrotic b cell lymphoma, coag neg staph infecion on augmentin/doxycycline, oral prednisone, h/o RA, clinically stable for port placement for chemo. Patient is nauseated will give her zofra iv here. Pt. Evaluated Today:Candidate for Anesthesia & Procedure: Yes (yes) Short Stay Discharge - Short Stay Discharge Admitting Diagnosis/Reason for Visit: C85.10 Disposition: HOME/ ROUTINE Referrals: Bella Patricia DO [Primary Care Provider] -
[2017-03-06 11:27] VITALS: O2SAT 98
[2017-03-06 11:42] VITALS: RESP 18
[2017-03-06 11:52] VITALS: BP 145/96; PULSE 83; TEMP 97.8
--- NOTE | 2017-03-06 19:13 | VASCULAR ---
PROCEDURE: Ultrasound and fluoroscopic right internal jugular venous access port. CLINICAL HISTORY: Non-Hodgkin's lymphoma- neckVenous port for chemotherapy. PHYSICIAN(S): Emile Dietz M.D. TECHNIQUE: The relative risks and indications of the procedure were explained to the patient and her and consent obtained. The patient was placed supine on the arteriogram table and the right neck and chest prepped and draped in the usual sterile fashion. Conscious sedation monitoring was provided throughout the procedure by a nurse. Antibiotics were given prior to the procedure. Under direct ultrasound guidance, the right internal jugular vein was punctured with a micro-puncture set. A 0.035 angled Glidewire was advanced into the IVC. A 4 cm incision was made below the right clavicle and the pocket blunted dissected. A 8 [place]ij[place] single-lumen catheter, 21 cm long, was advanced to the SVC/RA junction. The catheter was trimmed and attached to the port. The port aspirates and injects easily. The port was placed in the pocket and closed in 2 layers. The patient tolerated the procedure well. IMPRESSION: Ultrasound and fluoroscopically placed right internal jugular venous access port.
== END | disposition home or self-care (01) ==
LOC: SDS 06:57
PROVIDERS: ATTEND Radiology Vascular & Interventional Radiology
DX: C85.11 Unspecified B-cell lymphoma, lymph nodes of head, face, and neck (principal); C78.7 Secondary malignant neoplasm of liver and intrahepatic bile duct; M06.9 Rheumatoid arthritis, unspecified
CPT/HCPCS: 36415; 36561; 76937; 77001; 80048; 85025; 85610; 85730; 99152; C1769; C1788; J0690; J1644; J2250; J2405; J3010; J7030

== ENCOUNTER 2017-03-14 20:35 | Inpatient (IN) | payer MEDICARE, OTHER ==
[2017-03-14 20:35] VITALS: BMI 22.6
[2017-03-14] MEDS ORDERED: Sodium Chloride 0.9% 1,000 ML IV STA (21:02)
[2017-03-14] MEDS ORDERED: Morphine 2 mg/ml ISec IVP STA (21:03)
--- NOTE | 2017-03-14 21:05 | ED PDOC ---
Arrival/HPI <Jonathan Blanc - Last Filed: 03/14/17 23:02> - General Historian: Patient - History of Present Illness Time/Duration: 4-6 hours Symptom Onset: Sudden Symptom Course: Unchanged Quality: Cramping Context: Home <Delfina Carbajal - Last Filed: 03/14/17 23:47> - General Time Seen by Provider: 03/14/17 20:36 - History of Present Illness Narrative History of Present Illness (Text): 03/14/17 21:03 62 year old female with past medical history of lymphoma recently diagnosed presents for abdominal pain, N/V/D that began this morning. Patient presented to hospital last month with a large left sided neck mass. Patient was treated for cellulitis for 2 weeks. Biopsy of the mass showed lymphoma. Patient currently follows up with Dr. Hoffman in [place] for the lymphoma. Patient had first course of antibiotics which started 6 days ago and went until yesterday. Patient received Neulasta today. Patient states that abdominal pain began this morning along with NB/NB vomiting and loose stools. Patient was given Zofran by oncologist which she took this morning with minimal relief. Denies having any F/C, CP, SOB. (Delfina Carbajal) Past Medical History - Provider Review Nursing Documentation Reviewed: Yes - Infectious Disease Hx of Infectious Diseases: None - Cardiac Hx Pacemaker: No - Pulmonary Hx Respiratory Disorders: No - Neurological Hx Paralysis: No - HEENT Hx HEENT Disorder: No - Renal Hx Renal Disorder: No - Endocrine/Metabolic Hx Endocrine Disorders: No - Hematological/Oncological Hx Blood Transfusions: No - Integumentary Hx Dermatological Disorder: Yes Other/Comment: lump to L neck - Musculoskeletal/Rheumatological Hx Musculoskeletal Disorders: Yes - Gastrointestinal Hx Gastrointestinal Disorders: No - Genitourinary/Gynecological Hx Genitourinary Disorders: No - Psychiatric Hx Emotional Abuse: No Hx Physical Abuse: No Hx Substance Use: No - Surgical History Other/Comment: cyst removed from breast. biopsy of lump on face - Anesthesia Hx Anesthesia Reactions: No Hx Malignant Hyperthermia: No - Suicidal Assessment Feels Threatened In Home Enviroment: No <Delfina Carbajal - Last Filed: 03/14/17 23:47> Family/Social History - Physician Review Nursing Documentation Reviewed: Yes Family/Social History: Unknown Family HX Smoking Status: Never Smoked Hx Alcohol Use: No Hx Substance Use: No <Delfina Carbajal - Last Filed: 03/14/17 23:47> Allergies/Home Meds <MichelvickyJonathan - Last Filed: 03/14/17 23:02> <Delfina Carbajal - Last Filed: 03/14/17 23:47> Allergies/Adverse Reactions: Allergies No Known Allergies Allergy (Verified 02/19/17 09:49) Home Medications: Home Meds Medication Instructions Recorded Confirmed Ondansetron HCl [Zofran] 4 mg PO TID PRN 03/14/17 03/14/17 Review of Systems - Review of Systems Constitutional: Normal. absent: Fatigue, Fevers ENT: Normal. absent: Tinnitus, Sore Throat, Rhinorrhea Respiratory: Normal. absent: SOB, Cough Cardiovascular: Normal. absent: Chest Pain, Palpitations Gastrointestinal: Abdominal Pain, Diarrhea, Nausea, Vomiting Genitourinary Female: absent: Normal, Dysuria, Frequency Musculoskeletal: Normal. absent: Back Pain Skin: Normal. absent: Rash, Pruritis, Skin Lesions Neurological: Normal. absent: Headache Endocrine: Normal Hemo/Lymphatic: Adenopathy Psychiatric: Normal. absent: Anxiety, Depression <Delfina Carbajal - Last Filed: 03/14/17 23:47> Physical Exam Temperature: Afebrile Blood Pressure: Normal Pulse: Regular Respiratory Rate: Normal Appearance: Positive for: Uncomfortable Pain Distress: Moderate Mental Status: Positive for: Alert and Oriented X 3 - Systems Exam Head: Present: Atraumatic, Normocephalic Mouth: Present: Moist Mucous Membranes Neck: Present: Lymphadenopathy, Other (left sided neck mass draining purulent discharge ) Respiratory/Chest: Present: Clear to Auscultation, Good Air Exchange. No: Respiratory Distress, Accessory Muscle Use, Wheezes, Rales, Rhonchi Cardiovascular: Present: Regular Rate and Rhythm, Normal S1, S2. No: Murmurs, Irregular Rhythm Abdomen: Present: Tenderness, Normal Bowel Sounds, Guarding. No: Distention, Peritoneal Signs, Rebound Lower Extremity: No: Edema, CALF TENDERNESS Neurological: Present: GCS=15, Speech Normal Skin: Present: Warm, Dry, Normal Color. No: Rashes Psychiatric: Present: Alert, Oriented x 3, Normal Insight, Normal Concentration <Delfina Carbajal - Last Filed: 03/14/17 23:47> Vital Signs Temp Pulse Resp BP Pulse Ox 03/14/17 23:26 98.1 F 88 16 98 03/14/17 20:46 98.3 F 81 22 131/85 100 Medical Decision Making - Lab Interpretations I have reviewed the lab results: Yes <Jonathan Blanc - Last Filed: 03/14/17 23:02> - Lab Interpretations I have reviewed the lab results: Yes <Delfina Carbajal - Last Filed: 03/14/17 23:47> ED Course and Treatment: Impression: Pt seen and evaluated with medical education coordinator. Pt, whose past medical history includes lymphoma, presented for abdominal pain, nausea, vomiting, and diarrhea. Aware and agree with HPI, clinical findings, plan, and management. Plan: -- Labs, lipase -- IV fluids -- Zofran -- Morphine -- Reassess and disposition 03/14/17 23:02 Case discussed with medical education coordinator, who is aware and agrees with plan. Case discussed with Dr. Day, who is aware and agrees with plan. Accepts pt in to hospitalist service. Pt will be admitted to [facility] for pancreatitis. ( Jonathan Blanc) 03/14/17 21:13 62 year old female currently on chemotherapy for lymphoma presents for abdominal pain. There is concern for pancreatitis 2/2 to chemo Will check CBC, CMP, lipase Patient will receive NS 1L bolus, Zofran 4 mg IVP, and Morphine 2 mg IVP for pain 03/14/17 22:46 Patient continues to complain of abdominal pain. Will give 1 mg Dilaudid. Lipase is noted to be 6500. CT scan of abdomen/pelvis without contrast is ordered. Results are pending. 03/14/17 23:45 Ct scan shows acute pancreatitis. Dr. Blanc spoke with Dr. Day who will accept patient under hospitalists service. (Delfina Carbajal) - Lab Interpretations Narrative Lab Interpretation (Text): 03/14/17 21:59 lipase is noted to 6533 (Delfina Carbajal) Lab Results: 03/14/17 21:10 03/14/17 21:10 Lab Results 03/14/17 21:10: Sodium 137, Potassium 3.5 L, Chloride 102, Carbon Dioxide 26, Anion Gap 13, BUN 29 H, Creatinine 0.7, Est GFR ( Amer) > 60, Est GFR ( Non-Af Amer) > 60, Random Glucose 88, Calcium 8.6, Total Bilirubin 0.8, AST 29, ALT 46, Alkaline Phosphatase 74, Total Protein 6.2, Albumin 3.2, Globulin 3.1, Albumin/Globulin Ratio 1.0 L, Lipase 6533 H 03/14/17 21:10: WBC 45.0 H* D, RBC 4.19, Hgb 12.1, Hct 35.4 L, MCV 84.5, MCH 28.9, MCHC 34.2, RDW 13.8, Plt Count 221, MPV 10.6 - RAD Interpretation Narrative RAD Interpretations (Text): 03/14/17 23:45 Ct of abd/pelvis sowed acute pancreatitis and liver metastisis. (Delfina Carbajal) Radiology Orders: 03/14/17 22:00 ABD & PELVIS W/O PO OR IV CONT [CT] Stat - Medication Orders Current Medication Orders: Sodium Chloride (Sodium Chloride 0.9%) 1,000 mls @ 250 mls/hr IV .Q4H TISHA Last Admin: 03/14/17 22:53 Dose: 250 mls/hr Discontinued Medications Hydromorphone HCl (Dilaudid) 1 mg IVP STAT STA Stop: 03/14/17 22:47 Last Admin: 03/14/17 23:09 Dose: 1 mg Sodium Chloride (Sodium Chloride 0.9%) 1,000 mls @ 999 mls/hr IV .Q1H1M STA Stop: 03/14/17 22:02 Last Admin: 03/14/17 21:19 Dose: 999 mls/hr Morphine Sulfate (Morphine) 2 mg IVP STAT STA Stop: 03/14/17 21:04 Last Admin: 03/14/17 21:20 Dose: 2 mg Ondansetron HCl (Zofran Inj) 4 mg IVP STAT STA Stop: 03/14/17 21:04 Last Admin: 03/14/17 21:20 Dose: 4 mg Potassium Chloride (K-Dur 20 Meq Er Tab) 20 meq PO STAT STA Stop: 03/14/17 21:47 Last Admin: 03/14/17 22:53 Dose: Not Given - PA / MANAGER ENTRY / Resident Statement / has reviewed & agrees with the documentation as recorded. / has examined the patient and agrees with the treatment plan. <Jonathan Blanc - Last Filed: 03/14/17 23:02> Disposition/Present on Arrival <Jonathan Blanc - Last Filed: 03/14/17 23:02> - Present on Arrival Any Indicators Present on Arrival: No History of DVT/PE: No History of Uncontrolled Diabetes: No Urinary Catheter: No History of Decub. Ulcer: No History Surgical Site Infection Following: None - Disposition Have Diagnosis and Disposition been Completed?: Yes Disposition Time: 22:46 Patient Plan: Admission <Delfina Carbajal - Last Filed: 03/14/17 23:47> - Disposition Diagnosis: Pancreatitis Disposition: HOSPITALIZED Patient Problems: Current Active Problems Problem Status Onset Pancreatitis Acute Condition: GUARDED
[2017-03-14 21:23] LABS: HEMOGLOBIN 12.1 gm/dL (12.0-16.0); MEAN CELL VOLUME 84.5 fL (80.0-105.0); MEAN CORPUSCULAR HEMOGLOBIN 28.9 pg (25.0-35.0); MEAN CORPUSCULAR HGB CONC 34.2 g/dl (31.0-37.0); MEAN PLATELET VOLUME 10.6 fl (7.0-11.0); RBC 4.19 10^6/uL (3.5-6.1); RED CELL DISTRIBUTION WIDTH 13.8 % (11.5-14.5)
[2017-03-14 21:32] LABS: ALBUMIN 3.2 g/dL (3.0-4.8); ALT/SGPT 46 U/L (7-56); AST/SGOT 29 U/L (15-39); BLOOD UREA NITROGEN 29 mg/dL (7-21); CALCIUM 8.6 mg/dL (8.4-10.5); GFR AFRICAN-AMERICAN > 60; GFR NON-AFRICAN AMERICAN > 60
[2017-03-14] MEDS ORDERED: Potassium Chloride 20 mEq ER Tab PO STA (21:46)
[2017-03-14 21:58] LABS: LIPASE 6533 U/L (23-300)
[2017-03-14] MEDS ORDERED: HYDROmorphone 1 mg/ml ISec IVP STA (22:46)
[2017-03-14] MEDS: Sodium Chloride 0.9% 1,000 ML IV SCH (22:53)
--- NOTE | 2017-03-14 23:31 | CT ---
EXAM: CT Abdomen and Pelvis Without Intravenous Contrast CLINICAL HISTORY: 62 years old, female; Pain; Abdominal pain; Additional info: Pancreatitis TECHNIQUE: Axial computed tomography images of the abdomen and pelvis without intravenous contrast. This CT exam was performed using one or more of the following dose reduction techniques: automated exposure control, adjustment of the mA and/or kV according to patient size, and/or use of iterative reconstruction technique. Coronal and sagittal reformatted images were created and reviewed. COMPARISON: CT - NECK,CHEST,ABD.PELV W/CONTRAST 02/25/2017 8:53:34 AM FINDINGS: Limitations: Lack of intravenous contrast. Lower thorax: Mild linear atelectasis/scarring. 0.3 cm nodule vs focal scarring LEFT lower lobe. ABDOMEN: Liver: Redemonstration of multiple hypodense lesions. Gallbladder and bile ducts: No calcified stones. No ductal dilation. Pancreas: Minimal stranding about pancreas. No ductal dilation. Spleen: No splenomegaly. Adrenals: No mass. Kidneys and ureters: Probable LEFT renal cyst. Punctate calculus within RIGHT kidney. Mild pelvocaliectasis of both kidneys. Stomach and bowel: Scattered diverticula within colon. No associated inflammatory stranding. No definite mural thickening. No obstruction. Appendix: Normal caliber. No inflammation. PELVIS: Bladder: Mild bladder distention. No stones. Reproductive: Unremarkable as visualized. ABDOMEN and PELVIS: Intraperitoneal space: No significant fluid collection. No free air. Bones/joints: No acute fracture. Soft tissues: Unremarkable. Vasculature: Minimal atherosclerotic disease. No aneurysm. Lymph nodes: No pathologically enlarged lymph nodes. IMPRESSION: 1. Acute pancreatitis. 2. Findings compatible with liver metastases. Clinical correlation is needed. 3. Incidental/non-acute findings are described above.
[2017-03-14] MEDS ORDERED: Morphine 2 mg/ml ISec IVP PRN (23:59)
[2017-03-15] MEDS: Sodium Chloride 0.9% 1,000 ML IV SCH (03:09)
--- NOTE | 2017-03-15 03:43 | CP.PCM.HP ---
<PANSOHAIL - Last Filed: 03/15/17 03:46> History of Present Illness - History of Present Illness History of Present Illness: CC: Abdominal Pain HPI: Mrs. Bobo is a 62 year old female with a PMH significant for B-Cell Lymphoma and RA who presented with one day of epigastric pain with associated nausea, vomiting and diarrhea. Patient reports that this morning while at rest she experienced a non-radiating sharp/burning pain in her upper abdomen. She then had several episodes of NBNB vomiting and one episode of non-bloody diarrhea. Patient was given zofran by oncologist, Dr. Hoffman, which she states provided minimal relief. Patient is currently undergoing chemotherapy for a CD5 + lymphoma and received a dose of Neulasta this morning. Patient was recently released from [facility] after presenting with a neck mass of unknown etiology that was found to be malignant. She recently finished a seven day course of antibiotics for cellulitis yesterday. A CT abdomen/pelvis done in the ED showed acute pancreatitis and liver metastasis. Currently, patient reports that her pain is unchanged in quality, location or intensity and that she is still nauseated. Patient denies fever, chills, headache, dizziness, changes in her vision, dysphagia, chest pain, palpitations , SOB, cough, constipation, urinary symptoms, neck pain, back pain and any numbness/tingling/weakness in any of her extremities. PMH: Rheumatoid Arthritis and Lymphoma PSH: breast cyst removal, tubal ligation, and tonsillectomy Family History: Non-Contributory Social History: Denies tobacco or illicit drug use; endorses social alcohol use Allergies: NKDA Home Medications: please see MAR Present on Admission - Present on Admission Any Indicators Present on Admission: No Review of Systems - Review of Systems Review of Systems: Please refer to HPI Past Patient History - Infectious Disease Hx of Infectious Diseases: None - Past Social History Smoking Status: Never Smoked - CARDIAC Hx Pacemaker: No - PULMONARY Hx Respiratory Disorders: No - NEUROLOGICAL Hx Paralysis: No - HEENT Hx HEENT Problems: No - RENAL Hx Chronic Kidney Disease: No - ENDOCRINE/METABOLIC Hx Endocrine Disorders: No - HEMATOLOGICAL/ONCOLOGICAL Hx Blood Transfusions: No - INTEGUMENTARY Hx Dermatological Problems: Yes Other/Comment: lump to L neck - MUSCULOSKELETAL/RHEUMATOLOGICAL Hx Musculoskeletal Disorders: Yes - GASTROINTESTINAL Hx Gastrointestinal Disorders: No - GENITOURINARY/GYNECOLOGICAL Hx Genitourinary Disorders: No - PSYCHIATRIC Hx Emotional Abuse: No Hx Physical Abuse: No Hx Substance Use: No - SURGICAL HISTORY Other/Comment: cyst removed from breast. biopsy of lump on face - ANESTHESIA Hx Anesthesia Reactions: No Hx Malignant Hyperthermia: No Meds Allergies/Adverse Reactions: Allergies Allergy/AdvReac Type Severity Reaction Status Date / Time No Known Allergies Allergy Verified 02/19/17 09:49 Physical Exam - Constitutional Appears: No Acute Distress - Head Exam Head Exam: NORMAL INSPECTION, NORMOCEPHALIC - Eye Exam Eye Exam: EOMI, Normal appearance, PERRL. absent: Conjunctival injection, Periorbital tenderness Pupil Exam: absent: Fixed, Irregular, Unequal - ENT Exam ENT Exam: Mucous Membranes Moist Additional comments: White plaques throughout oropharynx - Neck Exam Neck exam: Positive for: Lymphadenopathy Additional comments: Left sided neck mass draining minimal purulent discharge - Respiratory Exam Respiratory Exam: Clear to Auscultation Bilateral, NORMAL BREATHING PATTERN. absent: Rales, Rhonchi, Wheezes, Respiratory Distress, Stridor - Cardiovascular Exam Cardiovascular Exam: REGULAR RHYTHM, RRR, +S1, +S2. absent: Tachycardia, Systolic Murmur - GI/Abdominal Exam GI & Abdominal Exam: Guarding, Normal Bowel Sounds, Tenderness. absent: Distended, Firm, Mass, Rebound Additional comments: TTP in epigastric region - Exam Exam: absent: Bladder Distension - Extremities Exam Extremities exam: Positive for: normal capillary refill, normal inspection, pedal pulses present. Negative for: calf tenderness, pedal edema - Neurological Exam Neurological exam: Alert, Oriented x3 - Psychiatric Exam Psychiatric exam: Normal Affect, Normal Mood - Skin Skin Exam: Dry, Intact, Normal Color, Warm Results - Vital Signs Recent Vital Signs: Last Vital Signs Temp 98.1 F 03/14/17 23:26 Pulse 88 03/14/17 23:26 Resp 18 03/14/17 23:48 BP 131/85 03/14/17 20:46 Pulse Ox 98 03/14/17 23:48 - Labs Result Diagrams: 03/14/17 21:10 03/14/17 21:10 Assessment & Plan - Assessment and Plan (Free Text) Assessment: 62 year old female with a PMH significant for B-Cell Lymphoma and RA who presented with one day of epigastric pain with associated nausea, vomiting and diarrhea Plan: 1. Pancreatitis -likely side effect of chemotherapy -see CT report -IVF: NS at 250mls/hr -Dilaudid 0.5 Q4H for severe pain -Morphine 2mg Q4H for moderate pain -Zofran PRN for N/V -NPO diet -GI and Hem/Onc consulted, will follow recommendations 2. Oral Lesions -culture pending -magic mouthwash PRN -Nystatin oral suspension PRN for empiric evan coverage -ID consulted, will follow recommendations 3. Diarrhea -s/p antiobiotic treatment and hospitalizations -C. Diff pending 4. GI/DVT Prophylaxis -Protonix/scd's Patient seen and case discussed with attending, Dr. Day. - Date & Time Date: 03/15/17 Time: 03:45 <Med Day - Last Filed: 03/15/17 19:52> Results - Vital Signs Recent Vital Signs: Last Vital Signs Temp 98.2 F 03/15/17 16:33 Pulse 78 03/15/17 16:33 Resp 18 03/15/17 16:33 BP 139/82 03/15/17 16:33 Pulse Ox 97 03/15/17 16:33 - Labs Result Diagrams: 03/15/17 07:00 03/15/17 16:15 Labs: Laboratory Results - last 24 hr 03/15/17 03/15/17 03/15/17 07:00 07:00 07:30 WBC 46.3 H* RBC 3.59 Hgb 10.3 L Hct 30.7 L MCV 85.5 MCH 28.7 MCHC 33.6 RDW 13.9 Plt Count 149 MPV 10.1 Neutrophils % (Manual) 95 H Band Neutrophils % 2 Lymphocytes % (Manual) 3 L Monocytes % (Manual) 0 L Smudge Cells Present Sodium 137 Potassium 2.6 L* D Chloride 106 Carbon Dioxide 25 Anion Gap 9 L BUN 16 Creatinine 0.6 Est GFR ( Amer) > 60 Est GFR (Non-Af Amer) > 60 Random Glucose 82 Calcium 7.2 L Total Bilirubin 0.6 AST 20 ALT 39 Alkaline Phosphatase 71 Total Protein 4.7 L Albumin 2.3 L Globulin 2.5 Albumin/Globulin Ratio 0.9 L Triglycerides 148 Cholesterol 135 LDL Cholesterol Direct 101 HDL Cholesterol 31 Urine Color Urine Appearance Urine pH Ur Specific Boles Urine Protein Urine Glucose (UA) Urine Ketones Urine Blood Urine Nitrate Urine Bilirubin Urine Urobilinogen Ur Leukocyte Esterase Urine RBC Urine WBC Ur Epithelial Cells Urine Bacteria 03/15/17 03/15/17 16:15 18:00 WBC RBC Hgb Hct MCV MCH MCHC RDW Plt Count MPV Neutrophils % (Manual) Band Neutrophils % Lymphocytes % (Manual) Monocytes % (Manual) Smudge Cells Sodium Potassium 3.2 L Chloride Carbon Dioxide Anion Gap BUN Creatinine Est GFR ( Amer) Est GFR (Non-Af Amer) Random Glucose Calcium Total Bilirubin AST ALT Alkaline Phosphatase Total Protein Albumin Globulin Albumin/Globulin Ratio Triglycerides Cholesterol LDL Cholesterol Direct HDL Cholesterol Urine Color Straw Urine Appearance Clear Urine pH 7.0 Ur Specific Boles 1.010 Urine Protein Negative Urine Glucose (UA) Negative Urine Ketones Negative Urine Blood Trace-intact H Urine Nitrate Negative Urine Bilirubin Negative Urine Urobilinogen 0.2 Ur Leukocyte Esterase Small H Urine RBC 0 - 2 Urine WBC 2 - 5 Ur Epithelial Cells 1 - 3 Urine Bacteria Few Attending/Attestation - Attestation I have personally seen and examined this patient.: Yes I have fully participated in the care of the patient.: Yes I have reviewed all pertinent clinical information: Yes Notes (Text): 03/15/17 19:51 Patient was seen when she was in the ER. Agree with history,physical examination, assessment and plan. Following should be inserted in record. PMD :Silver Blanco. 62 year old woman whose PMD is Bella Sheppard and who has PMH of B- cell lymphoma, HTN, Rheumatoid arthritis, hypokalemia, borderline cholesterol elevation, surgery for left breast cyst 30 years ago, tonsillectomy, tubal ligation, negative colonoscopy 3 years ago by in [place], history port-a-cath insertion, hepatits A, GERD,Guajardo's palsy, depression, anxiety,comes in with complaints of epigastric pain, nausea ,vomiting , loose black color stool, mass in left side of neck, elevated lipase level, hypokalemia, kelvin thrush, c/o of dry eyes, dry mouth, leg swelling.
[2017-03-15] MEDS ORDERED: Aluminum Hydroxide/Magnesium 30 ML, DiphenhydrAMINE 75 MG, Lidocaine 2% Viscous 30 ML PO PRN (03:53)
[2017-03-15] MEDS: HYDROmorphone 0.5 mg/0.5 ml ISec IVP PRN ×4 (06:14→23:31)
[2017-03-15 08:03] LABS: HEMOGLOBIN 10.3 gm/dL (12.0-16.0); MEAN CELL VOLUME 85.5 fL (80.0-105.0); MEAN CORPUSCULAR HEMOGLOBIN 28.7 pg (25.0-35.0); MEAN CORPUSCULAR HGB CONC 33.6 g/dl (31.0-37.0); MEAN PLATELET VOLUME 10.1 fl (7.0-11.0); PLATELET COUNT 149 10^3/uL (120.0-450.0); RBC 3.59 10^6/uL (3.5-6.1); RED CELL DISTRIBUTION WIDTH 13.9 % (11.5-14.5)
[2017-03-15 08:12] LABS: WHITE BLOOD COUNT 46.3 10^3/ul (4.5-11.0)
[2017-03-15 08:17] LABS: ALB/GLOB RATIO 0.9 (1.1-1.8); ALBUMIN 2.3 g/dL (3.0-4.8); ALT/SGPT 39 U/L (7-56); AST/SGOT 20 U/L (15-39); BLOOD UREA NITROGEN 16 mg/dL (7-21); CALCIUM 7.2 mg/dL (8.4-10.5); GFR AFRICAN-AMERICAN > 60; GFR NON-AFRICAN AMERICAN > 60
[2017-03-15] MEDS ORDERED: Lactated Ringer's 1,000 ML IV SCH ×2 (08:25→08:45)
[2017-03-15] MEDS ORDERED: Potassium Chloride 20 mEq ER Tab PO STA (08:32)
[2017-03-15] MEDS ORDERED: Potassium Chloride 40 MEQ in Lactated Ringer's 1,000 ML IV SCH (08:32)
[2017-03-15 09:10] LABS: BAND 2 % (0-2); LYMPHOCYTE 3 % (22.0-35.0); NEUTROPHIL 95 % (50.0-70.0)
[2017-03-15 09:11] LABS: SMUDGE CELLS PRESENT
[2017-03-15 09:28] LABS: HDL CHOLESTEROL 31 mg/dL (29-60)
[2017-03-15 09:38] LABS: LDL CHOLESTEROL 101 mg/dL (0-129)
[2017-03-15] MEDS: Nystatin 100,000 Units/ml Oral Susp 5 ml UD PO SCH ×4 (10:22→21:16)
[2017-03-15 10:32] LABS: MONOCYTE 0 % (1.0-6.0)
--- NOTE | 2017-03-15 11:22 | CP.PCM.CON ---
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 Following chemotherapy Thursday evening patient began to have some cramping epigastric abdominal pain. Thursday morning pain had become more severe and she developed nausea, vomiting and had an episode of diarrhea. She decided to come to the ED for further evaluation where she was noted to have acute pancreatitis by lab (Lipase [id number]) and CT findings. She was given IVF , made NPO and given analgesia/antiemetic therapy. Currently, pain is improved though still present. She has never had pain like this previous, never had pancreatitis and is not aware of any history of gallstones. Patient does not know her chemotherapy regimen. PMHx: See HPI PSHx: Tubal ligation, left breast cyst removal, tonsillectomy FHx: Mother - Lung cancer Social: Denies tobacco, EtOH or illicit drug use Endo: EGD 4-3 years ago - No significant findings per patient 12 system ROS performed and negative except where stated above Past Patient History - Infectious Disease Hx of Infectious Diseases: None - Past Social History Smoking Status: Never Smoked - CARDIAC Hx Pacemaker: No - PULMONARY Hx Respiratory Disorders: No - NEUROLOGICAL Hx Paralysis: No - HEENT Hx HEENT Problems: No - RENAL Hx Chronic Kidney Disease: No - ENDOCRINE/METABOLIC Hx Endocrine Disorders: No - HEMATOLOGICAL/ONCOLOGICAL Hx Cancer: Yes (lymphoma) Hx Chemotherapy: Yes Hx Metastesis: Yes - INTEGUMENTARY Hx Dermatological Problems: Yes Other/Comment: lump to L neck - MUSCULOSKELETAL/RHEUMATOLOGICAL Hx Falls: Yes - GASTROINTESTINAL Hx Gastroesophageal Reflux: Yes Hx Pancreatitis: Yes HX Swallowing Problems: Yes - GENITOURINARY/GYNECOLOGICAL Hx Genitourinary Disorders: No - PSYCHIATRIC Hx Substance Use: No - SURGICAL HISTORY Hx Surgeries: Yes - ANESTHESIA Hx Anesthesia Reactions: No Hx Malignant Hyperthermia: No Meds Allergies/Adverse Reactions: Allergies Allergy/AdvReac Type Severity Reaction Status Date / Time No Known Allergies Allergy Verified 02/19/17 09:49 - Medications Medications: Current Medications Al Hydrox/Mg Hydrox/Simethicone 30 ml/Diphenhydramine HCl 75 mg/Lidocaine 30 ml 0 ml PO Q2H PRN PRN Reason: Mouth/Throat Pain Hydromorphone HCl (Dilaudid) 0.5 mg IVP Q4H PRN PRN Reason: Pain, severe (8-10) Last Admin: 03/15/17 06:14 Dose: 0.5 mg Potassium Chloride (Potassium Chloride 20 Meq/100 Ml) 20 meq in 100 mls @ 50 mls/hr IVPB Q2H [facility] Stop: 03/15/17 12:44 Last Admin: 03/15/17 08:53 Dose: 50 mls/hr Lactated Ringer's (Lactated Ringer's) 1,000 mls @ 250 mls/hr IV .Q4H [facility] Morphine Sulfate (Morphine) 2 mg IVP Q4H PRN PRN Reason: Pain, moderate (4-7) Nystatin (Nystatin Oral Susp) 5 ml PO QID [facility] Last Admin: 03/15/17 10:22 Dose: 5 ml Ondansetron HCl (Zofran Inj) 4 mg IVP Q4H PRN PRN Reason: Nausea/Vomiting Pantoprazole Sodium (Protonix Inj) 40 mg IVP DAILY [facility] Last Admin: 03/15/17 10:22 Dose: 40 mg Physical Exam - Constitutional Appears: Non-toxic, No Acute Distress - Eye Exam Eye Exam: EOMI, PERRL - ENT Exam ENT Exam: Mucous Membranes Moist - Respiratory Exam Respiratory Exam: Clear to Auscultation Bilateral. absent: Rales, Rhonchi, Wheezes - Cardiovascular Exam Cardiovascular Exam: RRR, +S1, +S2 - GI/Abdominal Exam GI & Abdominal Exam: Normal Bowel Sounds, Soft, Tenderness (LUQ, epigastric). absent: Distended, Firm, Guarding, Rigid - Extremities Exam Extremities exam: Positive for: normal inspection. Negative for: pedal edema - Neurological Exam Neurological exam: Alert, Oriented x3 - Psychiatric Exam Psychiatric exam: Normal Affect, Normal Mood - Skin Skin Exam: Dry, Warm Results - Vital Signs Recent Vital Signs: Last Vital Signs Temp 97.9 F 03/15/17 08:00 Pulse 75 03/15/17 08:00 Resp 18 03/15/17 08:00 BP 130/76 03/15/17 08:00 Pulse Ox 99 03/15/17 08:00 - Labs Result Diagrams: 03/15/17 07:00 03/15/17 07:00 Labs: Laboratory Results - last 24 hr 03/15/17 03/15/17 03/15/17 07:00 07:00 07:30 WBC 46.3 H* RBC 3.59 Hgb 10.3 L Hct 30.7 L MCV 85.5 MCH 28.7 MCHC 33.6 RDW 13.9 Plt Count 149 MPV 10.1 Neutrophils % (Manual) 95 H Band Neutrophils % 2 Lymphocytes % (Manual) 3 L Monocytes % (Manual) 0 L Smudge Cells Present Sodium 137 Potassium 2.6 L* D Chloride 106 Carbon Dioxide 25 Anion Gap 9 L BUN 16 Creatinine 0.6 Est GFR ( Amer) > 60 Est GFR (Non-Af Amer) > 60 Random Glucose 82 Calcium 7.2 L Total Bilirubin 0.6 AST 20 ALT 39 Alkaline Phosphatase 71 Total Protein 4.7 L Albumin 2.3 L Globulin 2.5 Albumin/Globulin Ratio 0.9 L Triglycerides 148 Cholesterol 135 LDL Cholesterol Direct 101 HDL Cholesterol 31 Assessment & Plan - Assessment and Plan (Free Text) Assessment: Patient is a 62yo female with PMHx significant for 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 -Acute pancreatitis -Diffuse large B-cell lymphoma with liver metastasis s/p recent chemotherapy Plan: -CT A/P reviewed -Recommend U/S abdomen; R/O gallstones -In the absence of any biliary disease/malignant obstruction, suspect illness 2/ 2 effects of chemotherapy appreciate oncology input -Advance to clear liquid diet -IVF LR@250cc/hr -Advance to clear liquid diet -Analgesia/antiemetics per primary service -Will follow - Date & Time Date: 03/15/17 Time: 07:20 <Fernando Almonte - Last Filed: 03/15/17 13:51> Meds - Medications Medications: Current Medications Al Hydrox/Mg Hydrox/Simethicone 30 ml/Diphenhydramine HCl 75 mg/Lidocaine 30 ml 0 ml PO Q2H PRN PRN Reason: Mouth/Throat Pain Hydromorphone HCl (Dilaudid) 0.5 mg IVP Q4H PRN PRN Reason: Pain, severe (8-10) Last Admin: 03/15/17 12:34 Dose: 0.5 mg Lactated Ringer's (Lactated Ringer's) 1,000 mls @ 250 mls/hr IV .Q4H [facility] Micafungin Sodium 100 mg/ (Sodium Chloride) 100 mls @ 100 mls/hr IV DAILY [facility] PRN Reason: Protocol Stop: 03/15/17 13:59 Morphine Sulfate (Morphine) 2 mg IVP Q4H PRN PRN Reason: Pain, moderate (4-7) Nystatin (Nystatin Oral Susp) 5 ml PO QID [facility] Last Admin: 03/15/17 10:22 Dose: 5 ml Ondansetron HCl (Zofran Inj) 4 mg IVP Q4H PRN PRN Reason: Nausea/Vomiting Pantoprazole Sodium (Protonix Inj) 40 mg IVP DAILY [facility] Last Admin: 03/15/17 10:22 Dose: 40 mg Results - Vital Signs Recent Vital Signs: Last Vital Signs Temp 97.9 F 03/15/17 08:00 Pulse 75 03/15/17 08:00 Resp 18 03/15/17 08:00 BP 130/76 03/15/17 08:00 Pulse Ox 99 03/15/17 08:00 - Labs Result Diagrams: 03/15/17 07:00 03/15/17 07:00 Labs: Laboratory Results - last 24 hr 03/15/17 03/15/17 03/15/17 07:00 07:00 07:30 WBC 46.3 H* RBC 3.59 Hgb 10.3 L Hct 30.7 L MCV 85.5 MCH 28.7 MCHC 33.6 RDW 13.9 Plt Count 149 MPV 10.1 Neutrophils % (Manual) 95 H Band Neutrophils % 2 Lymphocytes % (Manual) 3 L Monocytes % (Manual) 0 L Smudge Cells Present Sodium 137 Potassium 2.6 L* D Chloride 106 Carbon Dioxide 25 Anion Gap 9 L BUN 16 Creatinine 0.6 Est GFR ( Amer) > 60 Est GFR (Non-Af Amer) > 60 Random Glucose 82 Calcium 7.2 L Total Bilirubin 0.6 AST 20 ALT 39 Alkaline Phosphatase 71 Total Protein 4.7 L Albumin 2.3 L Globulin 2.5 Albumin/Globulin Ratio 0.9 L Triglycerides 148 Cholesterol 135 LDL Cholesterol Direct 101 HDL Cholesterol 31 Attending/Attestation - Attestation I have personally seen and examined this patient.: Yes I have fully participated in the care of the patient.: Yes I have reviewed all pertinent clinical information: Yes Notes (Text): 03/15/17 13:49 62 year old female with recently diagnosed DLBCL s/p recent chemo now with acute pancreatitis. 1. Acute pancreatitis Plan: -uncertain etiology, no h/o etoh abuse -aggressive iv hydration -us abdomen to eval gallstones -check igg4 and triglyceride levels -possibly related to chemo, would consult with Dr. Hoffman to see if this is possible chemo effect -CT reviewed -advance diet to low fat as tolerated
--- NOTE | 2017-03-15 12:53 | CP.PCM.CON ---
History of Present Illness - History of Present Illness History of Present Illness: 62 year old female with PMH of dyslipidemia, recent diagnosis of B-cell lymphoma , history of UTI, S/P tubal ligation, S/P tonsillectomy, history of left neck necrotic mass with mild cellulitis came in to [facility] complaining of burning and sharp epigastric pain for the past 1-2 days, associated with nausea and vomiting. Prior to this the patient was receiving chemotherapy for her lymphoma and was also given Neulasta. She was also being treated for cellulitis recently. Lipase levels are elevated and the patient is diagnosed to have acute panceatitis. She is also having pain on swallowing and is noted to have white plaques in the oropharnygeal area. Infectious diseases consult is requested to further evaluate and manage. Currently she is still having abdominal pain and nausea. She denies fever or chills, no headache or dizziness, no chest pain, no SOB, no cough or colds, no diarrhea, no dysuria. Review of Systems - Review of Systems All systems: reviewed and no additional remarkable complaints except (as per HPI ) Past Patient History - Infectious Disease Hx of Infectious Diseases: None - Past Social History Smoking Status: Never Smoked - CARDIAC Hx Pacemaker: No - PULMONARY Hx Respiratory Disorders: No - NEUROLOGICAL Hx Paralysis: No - HEENT Hx HEENT Problems: No - RENAL Hx Chronic Kidney Disease: No - ENDOCRINE/METABOLIC Hx Endocrine Disorders: No - HEMATOLOGICAL/ONCOLOGICAL Hx Cancer: Yes (lymphoma) Hx Chemotherapy: Yes Hx Metastesis: Yes - INTEGUMENTARY Hx Dermatological Problems: Yes Other/Comment: lump to L neck - MUSCULOSKELETAL/RHEUMATOLOGICAL Hx Falls: Yes - GASTROINTESTINAL Hx Gastroesophageal Reflux: Yes Hx Pancreatitis: Yes HX Swallowing Problems: Yes - GENITOURINARY/GYNECOLOGICAL Hx Genitourinary Disorders: No - PSYCHIATRIC Hx Substance Use: No - SURGICAL HISTORY Hx Surgeries: Yes - ANESTHESIA Hx Anesthesia Reactions: No Hx Malignant Hyperthermia: No Meds Allergies/Adverse Reactions: Allergies Allergy/AdvReac Type Severity Reaction Status Date / Time No Known Allergies Allergy Verified 02/19/17 09:49 - Medications Medications: Current Medications Al Hydrox/Mg Hydrox/Simethicone 30 ml/Diphenhydramine HCl 75 mg/Lidocaine 30 ml 0 ml PO Q2H PRN PRN Reason: Mouth/Throat Pain Hydromorphone HCl (Dilaudid) 0.5 mg IVP Q4H PRN PRN Reason: Pain, severe (8-10) Last Admin: 03/15/17 06:14 Dose: 0.5 mg Sodium Chloride (Sodium Chloride 0.9%) 1,000 mls @ 250 mls/hr IV .Q4H [facility] Last Admin: 03/15/17 03:09 Dose: 250 mls/hr Morphine Sulfate (Morphine) 2 mg IVP Q4H PRN PRN Reason: Pain, moderate (4-7) Nystatin (Nystatin Oral Susp) 5 ml PO QID [facility] Ondansetron HCl (Zofran Inj) 4 mg IVP Q4H PRN PRN Reason: Nausea/Vomiting Pantoprazole Sodium (Protonix Inj) 40 mg IVP DAILY [facility] Physical Exam - Constitutional Appears: Non-toxic, No Acute Distress - Head Exam Head Exam: NORMAL INSPECTION - ENT Exam ENT Exam: Mucous Membranes Moist Additional comments: white plaques noted on the oropharynx - Neck Exam Neck exam: Negative for: Lymphadenopathy, Meningismus - Respiratory Exam Respiratory Exam: Decreased Breath Sounds - Cardiovascular Exam Cardiovascular Exam: +S1, +S2 - GI/Abdominal Exam GI & Abdominal Exam: Soft, Tenderness (in the epigastric area). absent: Guarding, Rebound, Rigid Results - Vital Signs Recent Vital Signs: Last Vital Signs Temp 98.1 F 03/15/17 04:09 Pulse 78 03/15/17 04:09 Resp 18 03/15/17 04:09 BP 138/79 03/15/17 04:09 Pulse Ox 98 03/14/17 23:48 - Labs Result Diagrams: 03/15/17 07:00 03/15/17 07:00 Assessment & Plan - Assessment and Plan (Free Text) Plan: Assessment Oropharyngeal candidiasis R/O candidal esophagitis Marked leukocytosis probably from Neulasta Acute pancreatitis, probably medication-induced (ie. chemotherapy) history of left neck necrotic mass with mild cellulitis of the surrounding area dyslipidemia recent diagnosis of B-cell lymphoma on chemotherapy history of UTI S/P tubal ligation S/P tonsillectomy Plan started patient on Mycamine and will monitor clinically (patient is taking meds that may be affected if we use Fluconazole)
[2017-03-15] MEDS ORDERED: Micafungin 100 MG in Sodium Chloride 0.9% 100 ML IV SCH (13:00)
--- NOTE | 2017-03-15 15:28 | US ---
HISTORY: r/o gallstones; acute pancreatitis COMPARISON: CT abdomen pelvis 03/14/2017 TECHNIQUE: Sonographic evaluation of the abdomen. FINDINGS: LIVER: Liver demonstrates increased echogenicity, likely representing hepatic parenchymal disease or fatty infiltration. This limits evaluation for small masses. Hypodense 2.2 x 1.4 x 1.2 cm mass in the right lobe. Hypodense 1.1 x 0.9 x 1 cm mass in the right lobe. . No intrahepatic biliary ductal dilatation is identified. GALLBLADDER: The gallbladder is physiologically distended. No gallstones, gallbladder wall thickening, or pericholecystic fluid is identified.No sonographic Andrew's sign was appreciated during the exam. COMMON BILE DUCT: Normal in caliber measuring 0.3 cm. PANCREAS: The visualized portions are unremarkable in echogenicity. The remainder of the pancreas is obscured by bowel gas. RIGHT KIDNEY: Measures 9.8cm. Unremarkable in echogenicity. No shadowing renal stone, cyst, or hydronephrosis is identified LEFT KIDNEY: Measures 9.8cm. Unremarkable in echogenicity. Upper pole 2.6 cm cyst. No shadowing renal stone or hydronephrosis is identified SPLEEN: Measures 7.3cm. Normal in size and unremarkable in echotexture. AORTA: No aneurysmal dilatation of the visualized portions. IVC: Visualized portions are unremarkable.. OTHER FINDINGS: None IMPRESSION: Echogenic liver, likely representing fatty infiltration or hepatic parenchymal disease.Hypodense masses in the right lobe liver that were previously demonstrated to represent metastatic disease.
--- NOTE | 2017-03-15 15:57 | CP.PCM.CON ---
History of Present Illness - History of Present Illness History of Present Illness: Oncology COnsult Referred by Dr. Acuna for h/o B cell lymphoma HPI- Ms Bobo is 62 y/o F with h/o anxiety, RA (since 2006, was on methotrexate ) who initially noticed left neck swelling around December 2016 associated with pain. The lump was gradually increasing in size. Her appetite had slightly decreased and she lost 4-5 lbs weight during this time. She denies fatigue, fever, chills or night sweats. FNA performed on 01/15/17 showed atypical monotonous cells, suspicious for lymphoma. She underwent core biopsy on 02/12/17 that showed CD5+ diffuse large B cell lymphoma, kappa restricted with Ki67 index of >90%, negative for BCL6, c-MYC, BCL2. She was admitted to [facility] for drainage from left neck mass and was treated with antibiotics. Blood cultures were negative. CT C/A/P on 02/25/17 showed 9 x 5.6 x 6.6 cm necrotic mass in left neck. There were multiple hypodense liver metastases measuring 11 mm to 32 mm. No other lymphadenopathy and spleen was unremarkable. Bone marrow biopsy on 02/27/17 was unremarkable. MUGA scan on 02/27 showed EF 61% . MRI brain was unremarkable. Started on chemotherapy with dose adjusted R-EPOCH on 03/09/17. Last chemotherapy was on 03/13 with neulasta on 03/14. Now admitted with epigastric pain, nausea, vomiting. SHe also had loose stools yesterday which is better today. On admission, lipase was found to be elevated with CT A/P showing evidence of acute pancreatitis. She is managed with IV fluids and is currently NPO. Her abdominal pain is little better today and she is afebrile. Review of Systems - Review of Systems All systems: reviewed and no additional remarkable complaints except Review of Systems: as in HPI Past Patient History - Infectious Disease Hx of Infectious Diseases: None - Past Social History Smoking Status: Never Smoked - CARDIAC Hx Pacemaker: No - PULMONARY Hx Respiratory Disorders: No - NEUROLOGICAL Hx Paralysis: No - HEENT Hx HEENT Problems: No - RENAL Hx Chronic Kidney Disease: No - ENDOCRINE/METABOLIC Hx Endocrine Disorders: No - HEMATOLOGICAL/ONCOLOGICAL Hx Cancer: Yes (lymphoma) Hx Chemotherapy: Yes Hx Metastesis: Yes - INTEGUMENTARY Hx Dermatological Problems: Yes Other/Comment: lump to L neck - MUSCULOSKELETAL/RHEUMATOLOGICAL Hx Falls: Yes - GASTROINTESTINAL Hx Gastroesophageal Reflux: Yes Hx Pancreatitis: Yes HX Swallowing Problems: Yes - GENITOURINARY/GYNECOLOGICAL Hx Genitourinary Disorders: No - PSYCHIATRIC Hx Substance Use: No - SURGICAL HISTORY Hx Surgeries: Yes - ANESTHESIA Hx Anesthesia Reactions: No Hx Malignant Hyperthermia: No Meds Allergies/Adverse Reactions: Allergies Allergy/AdvReac Type Severity Reaction Status Date / Time No Known Allergies Allergy Verified 02/19/17 09:49 - Medications Medications: Current Medications Al Hydrox/Mg Hydrox/Simethicone 30 ml/Diphenhydramine HCl 75 mg/Lidocaine 30 ml 0 ml PO Q2H PRN PRN Reason: Mouth/Throat Pain Hydromorphone HCl (Dilaudid) 0.5 mg IVP Q4H PRN PRN Reason: Pain, severe (8-10) Last Admin: 03/15/17 12:34 Dose: 0.5 mg Lactated Ringer's (Lactated Ringer's) 1,000 mls @ 250 mls/hr IV .Q4H [facility] Last Admin: 03/15/17 15:33 Dose: 250 mls/hr Morphine Sulfate (Morphine) 2 mg IVP Q4H PRN PRN Reason: Pain, moderate (4-7) Nystatin (Nystatin Oral Susp) 5 ml PO QID [facility] Last Admin: 03/15/17 14:38 Dose: Not Given Ondansetron HCl (Zofran Inj) 4 mg IVP Q4H PRN PRN Reason: Nausea/Vomiting Last Admin: 03/15/17 15:35 Dose: 4 mg Pantoprazole Sodium (Protonix Inj) 40 mg IVP DAILY [facility] Last Admin: 03/15/17 10:22 Dose: 40 mg Physical Exam - Head Exam Head Exam: ATRAUMATIC, NORMAL INSPECTION - Eye Exam Eye Exam: EOMI, PERRL - ENT Exam ENT Exam: Mucous Membranes Moist - Neck Exam Additional comments: left cervical lymphadenopathy- mass is little smaller than before but still draining. - Cardiovascular Exam Cardiovascular Exam: REGULAR RHYTHM - GI/Abdominal Exam GI & Abdominal Exam: Normal Bowel Sounds, Soft. absent: Organomegaly, Tenderness - Extremities Exam Extremities exam: Negative for: pedal edema - Neurological Exam Neurological exam: Alert, Oriented x3 Results - Vital Signs Recent Vital Signs: Last Vital Signs Temp 97.9 F 03/15/17 08:00 Pulse 75 03/15/17 08:00 Resp 18 03/15/17 08:00 BP 130/76 03/15/17 08:00 Pulse Ox 99 03/15/17 08:00 - Labs Result Diagrams: 03/15/17 07:00 03/15/17 07:00 Labs: Laboratory Results - last 24 hr 03/15/17 03/15/17 03/15/17 07:00 07:00 07:30 WBC 46.3 H* RBC 3.59 Hgb 10.3 L Hct 30.7 L MCV 85.5 MCH 28.7 MCHC 33.6 RDW 13.9 Plt Count 149 MPV 10.1 Neutrophils % (Manual) 95 H Band Neutrophils % 2 Lymphocytes % (Manual) 3 L Monocytes % (Manual) 0 L Smudge Cells Present Sodium 137 Potassium 2.6 L* D Chloride 106 Carbon Dioxide 25 Anion Gap 9 L BUN 16 Creatinine 0.6 Est GFR ( Amer) > 60 Est GFR (Non-Af Amer) > 60 Random Glucose 82 Calcium 7.2 L Total Bilirubin 0.6 AST 20 ALT 39 Alkaline Phosphatase 71 Total Protein 4.7 L Albumin 2.3 L Globulin 2.5 Albumin/Globulin Ratio 0.9 L Triglycerides 148 Cholesterol 135 LDL Cholesterol Direct 101 HDL Cholesterol 31 Assessment & Plan - Assessment and Plan (Free Text) Assessment: CD5+ diffue large B cell lymphoma, now admitted with acute pancreatitis s/p one cycle of R-EPOCH The chemotherapy medications she received do not commonly cause pancreatitis, though there have been case reports of combination chemotherapy including cytoxan and adriamycin causing acute pancreatitis. Appreciate GI help in evaluating other causes of pancreatitis. Continue conservative management for now. Can advance diet as tolerated (once abdominal pain starts to get better) Leucocytosis is likely secondary to neulasta. No evidence of infection. Continue to monitor blood counts routinely. Anti-emetics prn. Next chemotherapy will be due in 2 weeks. We may consider rechallenging her for same chemotherapy (as she seems to be responding clinically). Monitor left cervical are closely for any signs of infection. Thank you for the consult Rolan Hoffman MD - Date & Time Date: 03/15/17 Time: 15:57
[2017-03-15] MEDS: Lactated Ringer's 1,000 ML IV SCH ×2 (17:14→23:20)
[2017-03-15 18:38] LABS: URINE BILIRUBIN NEGATIVE (NEGATIVE); URINE BLOOD TRACE-INTACT (NEGATIVE); URINE GLUCOSE (UA) NEGATIVE (NEGATIVE); URINE LEUKOCYTE ESTERASE SMALL Leu/uL (NEGATIVE); URINE NITRATE NEGATIVE (NEGATIVE); URINE PROTEIN NEGATIVE mg/dL (<30 mg/dL); URINE UROBILINOGEN 0.2 E.U./dL (<1 E.U./dL)
[2017-03-15 18:39] LABS: URINE APPEARANCE CLEAR (CLEAR); URINE COLOR STRAW (YELLOW)
[2017-03-15 18:51] LABS: URINE BACTERIA FEW (NEG); URINE RBC 0 - 2 /hpf (0-2)
[2017-03-16] MEDS: Lactated Ringer's 1,000 ML IV SCH ×2 (06:33→20:35)
[2017-03-16 08:07] LABS: HEMOGLOBIN 11.6 gm/dL (12.0-16.0); MEAN CELL VOLUME 85.1 fL (80.0-105.0); MEAN CORPUSCULAR HEMOGLOBIN 28.3 pg (25.0-35.0); MEAN CORPUSCULAR HGB CONC 33.2 g/dl (31.0-37.0); MEAN PLATELET VOLUME 11.3 fl (7.0-11.0); PLATELET COUNT 123 10^3/uL (120.0-450.0); RED CELL DISTRIBUTION WIDTH 14.1 % (11.5-14.5); WHITE BLOOD COUNT 20.2 10^3/ul (4.5-11.0)
[2017-03-16 08:58] LABS: EOSINOPHIL 1 % (0.0-3.0); HYPOCHROMIA SLIGHT; NEUTROPHIL 99 % (50.0-70.0); PLATELET ESTIMATE LOW (NORMAL)
--- NOTE | 2017-03-16 10:01 | CP.PCM.PN ---
Subjective - Date & Time of Evaluation Date of Evaluation: 03/16/17 Time of Evaluation: 09:55 - Subjective Subjective: Patient seen and examined, resting in bed comfortably watching television. No acute events overnight. Her abdominal pain has significantly improved compared to previous day, though she continues to endorse ongoing nausea. She denies vomiting, fever/chills. Tolerating PO liquids without difficulty. Review of vitals from today are normal. 12 point review of systems performed, negative aside from mentioned above. Objective - Vital Signs/Intake and Output Vital Signs (last 24 hours): Temp Pulse Resp BP Pulse Ox 98.4 F 84 18 133/82 97 03/16/17 08:15 03/16/17 08:15 03/16/17 08:15 03/16/17 08:15 03/16/17 08:15 Intake and Output: 03/16/17 03/16/17 06:59 18:59 Intake Total 600 Balance 600 - Medications Medications: Current Medications Al Hydrox/Mg Hydrox/Simethicone 30 ml/Diphenhydramine HCl 75 mg/Lidocaine 30 ml 0 ml PO Q2H PRN PRN Reason: Mouth/Throat Pain Last Admin: 03/15/17 21:16 Dose: 15 ml Hydromorphone HCl (Dilaudid) 0.5 mg IVP Q4H PRN PRN Reason: Pain, severe (8-10) Last Admin: 03/15/17 23:31 Dose: 0.5 mg Lactated Ringer's (Lactated Ringer's) 1,000 mls @ 200 mls/hr IV .Q5H [facility] Last Admin: 03/16/17 06:33 Dose: 200 mls/hr Morphine Sulfate (Morphine) 2 mg IVP Q4H PRN PRN Reason: Pain, moderate (4-7) Nystatin (Nystatin Oral Susp) 5 ml PO QID [facility] Last Admin: 03/15/17 21:16 Dose: 5 ml Ondansetron HCl (Zofran Inj) 4 mg IVP Q4H [facility] Pantoprazole Sodium (Protonix Inj) 40 mg IVP DAILY [facility] Last Admin: 03/15/17 10:22 Dose: 40 mg - Labs Labs: 03/16/17 07:50 03/15/17 16:15 - Constitutional Appears: Non-toxic, No Acute Distress - Head Exam Head Exam: NORMAL INSPECTION - Eye Exam Eye Exam: Normal appearance - ENT Exam ENT Exam: Mucous Membranes Moist - Respiratory Exam Respiratory Exam: Clear to Ausculation Bilateral - Cardiovascular Exam Cardiovascular Exam: REGULAR RHYTHM, +S1, +S2 - GI/Abdominal Exam GI & Abdominal Exam: Soft, Normal Bowel Sounds Additional comments: non tender to palpation in four quadrants - Extremities Exam Extremities Exam: Normal Inspection - Skin Skin Exam: Dry, Intact, Normal Color, Warm Assessment and Plan - Assessment and Plan (Free Text) Assessment: Large B-cell lymphoma currently receiving chemotherapy Abdominal pain - acute pancreatitis - etiology unclear Abdominal US reviewed by me showing normal appearing GB, CBD, no presence of cholelithiasis Plan: - Advance diet to low fat as tolerated - Continue with anti-emetic therapy PRN - Awaiting IGG4 level - Follow up oncology recommendations, plan to potentially rechallenge with similar chemotherapy regimen since not likely direct cause of acute pancreatitis - From GI perspective if patient tolerating diet, ok to discharge home with subsequent outpatient follow up. Office contact information provided to patient. Please reconsult as necessary, thank you.
[2017-03-16 12:25] LABS: ALBUMIN 2.8 g/dL (3.0-4.8); ALT/SGPT 36 U/L (7-56); AST/SGOT 27 U/L (15-39); BLOOD UREA NITROGEN 9 mg/dL (7-21); CALCIUM 8.5 mg/dL (8.4-10.5); GFR AFRICAN-AMERICAN > 60; GFR NON-AFRICAN AMERICAN > 60; LIPASE 449 U/L (23-300)
[2017-03-16] MEDS: Nystatin 100,000 Units/ml Oral Susp 5 ml UD PO SCH ×4 (13:34→21:34)
[2017-03-16] MEDS: HYDROmorphone 0.5 mg/0.5 ml ISec IVP PRN (16:05)
--- NOTE | 2017-03-16 20:55 | CP.PCM.PN ---
Subjective - Date & Time of Evaluation Date of Evaluation: 03/16/17 Time of Evaluation: 10:30 - Subjective Subjective: Patient is comfortable in bed, but still with some nausea, no fevers, less pain the mouth and throat. Objective - Vital Signs/Intake and Output Vital Signs (last 24 hours): Temp Pulse Resp BP Pulse Ox 98.4 F 84 18 133/82 97 03/16/17 08:15 03/16/17 08:15 03/16/17 08:15 03/16/17 08:15 03/16/17 08:15 Intake and Output: 03/16/17 03/16/17 06:59 18:59 Intake Total 600 Balance 600 - Medications Medications: Current Medications Al Hydrox/Mg Hydrox/Simethicone 30 ml/Diphenhydramine HCl 75 mg/Lidocaine 30 ml 0 ml PO Q2H PRN PRN Reason: Mouth/Throat Pain Last Admin: 03/15/17 21:16 Dose: 15 ml Hydromorphone HCl (Dilaudid) 0.5 mg IVP Q4H PRN PRN Reason: Pain, severe (8-10) Last Admin: 03/15/17 23:31 Dose: 0.5 mg Lactated Ringer's (Lactated Ringer's) 1,000 mls @ 200 mls/hr IV .Q5H [facility] Last Admin: 03/16/17 06:33 Dose: 200 mls/hr Morphine Sulfate (Morphine) 2 mg IVP Q4H PRN PRN Reason: Pain, moderate (4-7) Nystatin (Nystatin Oral Susp) 5 ml PO QID [facility] Last Admin: 03/15/17 21:16 Dose: 5 ml Ondansetron HCl (Zofran Inj) 4 mg IVP Q4H PRN PRN Reason: Nausea/Vomiting Last Admin: 03/15/17 23:31 Dose: 4 mg Pantoprazole Sodium (Protonix Inj) 40 mg IVP DAILY [facility] Last Admin: 03/15/17 10:22 Dose: 40 mg - Labs Labs: 03/16/17 07:50 03/15/17 16:15 - Constitutional Appears: Non-toxic, No Acute Distress - Head Exam Head Exam: NORMAL INSPECTION - ENT Exam ENT Exam: Mucous Membranes Moist - Neck Exam Neck Exam: absent: Meningismus - Respiratory Exam Respiratory Exam: Decreased Breath Sounds - Cardiovascular Exam Cardiovascular Exam: +S1, +S2 - GI/Abdominal Exam GI & Abdominal Exam: Soft. absent: Tenderness Assessment and Plan - Assessment and Plan (Free Text) Plan: Assessment Oropharyngeal candidiasis R/O candidal esophagitis, slowly improving Marked leukocytosis probably from Neulasta, improving Acute pancreatitis, probably medication-induced (ie. chemotherapy) history of left neck necrotic mass with mild cellulitis of the surrounding area dyslipidemia recent diagnosis of B-cell lymphoma on chemotherapy history of UTI S/P tubal ligation S/P tonsillectomy Plan continue Mycamine day 2 and will continue to monitor clinically (patient is taking meds that may be affected if we use Fluconazole)
[2017-03-17] MEDS: Lactated Ringer's 1,000 ML IV SCH ×2 (01:24→18:17)
[2017-03-17 07:08] LABS: EOS % 0.3 % (1.5-5.0); GRAN # 3.36 (1.4-6.5); GRAN % 94.3 % (50.0-68.0); HEMOGLOBIN 10.2 g/dL (12.0-16.0); LYMPH # 0.2 (1.2-3.4); LYMPH % 5.1 % (22.0-35.0); MEAN CELL VOLUME 85.5 fl (80.0-105.0); MEAN CORPUSCULAR HEMOGLOBIN 27.9 pg (25.0-35.0); MEAN CORPUSCULAR HGB CONC 32.6 g/dl (31.0-37.0); MEAN PLATELET VOLUME 10.9 fl (7.0-11.0); MONO % 0.3 % (1.0-6.0); PLATELET COUNT 76 10^3/uL (120.0-450.0); RBC 3.66 10^6/uL (3.5-6.1); RED CELL DISTRIBUTION WIDTH 14.1 % (11.5-14.5); WHITE BLOOD COUNT 3.6 10^3/ul (4.5-11.0)
[2017-03-17 07:35] LABS: ALB/GLOB RATIO 1.1 (1.1-1.8); ALBUMIN 2.8 g/dL (3.0-4.8); ALT/SGPT 28 U/L (7-56); AST/SGOT 16 U/L (15-39); BLOOD UREA NITROGEN 8 mg/dL (7-21); CALCIUM 8.3 mg/dL (8.4-10.5); GFR AFRICAN-AMERICAN > 60; GFR NON-AFRICAN AMERICAN > 60
[2017-03-17] MEDS ORDERED: Bacitracin Ointment 30 GM TUBE TOP SCH (09:00)
[2017-03-17] MEDS: Nystatin 100,000 Units/ml Oral Susp 5 ml UD PO SCH ×4 (09:59→22:11)
[2017-03-17] MEDS: POLYETHYLENE GLYCOL 3350 17 GM/Dose PACKET PO SCH (10:00)
[2017-03-17] MEDS ORDERED: Bacitracin 500 Units/gm Oint Foilpak UD TOP SCH (10:00)
[2017-03-17] MEDS ORDERED: Micafungin 100 MG in Sodium Chloride 0.9% 100 ML IV SCH (11:45)
--- NOTE | 2017-03-17 13:25 | CP.PCM.PN ---
<Violet Pitts - Last Filed: 03/17/17 16:34> Subjective - Date & Time of Evaluation Date of Evaluation: 03/17/17 Time of Evaluation: 13:22 - Subjective Subjective: 62 F S&E at bedside. YONY. Patient cried at bedside saying she just wants to go home Patient states she's tired. Emotional distress from the stress of having cancer and undergoing her chemo treatment. Patient admits to nausea relieved by Zofran. Patient states she is tolerating her diet. She had a small BM overnight and would like a laxative to help with BM. She has not had a regular BM for four days. Miralax ordered. Upon return visit this morning, patient admitted to one episode of watery diarrhea. Patient denies F/C, CP, SOB. Vomiting, coughing. Patient told she will not be going home today. She will continue two more days of Micafungin before being discharged with PO Diflucan. Objective - Vital Signs/Intake and Output Vital Signs (last 24 hours): Temp Pulse Resp BP Pulse Ox 98.4 F 79 20 148/97 H 97 03/17/17 07:30 03/17/17 07:30 03/17/17 07:30 03/17/17 07:30 03/17/17 07:30 Intake and Output: 03/17/17 03/17/17 06:59 18:59 Intake Total 3800 Output Total 450 Balance 3350 - Medications Medications: Current Medications Al Hydrox/Mg Hydrox/Simethicone 30 ml/Diphenhydramine HCl 75 mg/Lidocaine 30 ml 0 ml PO Q2H PRN PRN Reason: Mouth/Throat Pain Last Admin: 03/15/17 21:16 Dose: 15 ml Hydromorphone HCl (Dilaudid) 0.5 mg IVP Q4H PRN PRN Reason: Pain, severe (8-10) Last Admin: 03/16/17 16:05 Dose: 0.5 mg Lactated Ringer's (Lactated Ringer's) 1,000 mls @ 200 mls/hr IV .Q5H [facility] Last Admin: 03/17/17 01:24 Dose: 200 mls/hr Morphine Sulfate (Morphine) 2 mg IVP Q4H PRN PRN Reason: Pain, moderate (4-7) Mupirocin (Bactroban Ointment) 0 gm TOP BID [facility] Nystatin (Nystatin Oral Susp) 5 ml PO QID [facility] Last Admin: 03/17/17 09:59 Dose: 5 ml Ondansetron HCl (Zofran Inj) 4 mg IVP Q4H [facility] Last Admin: 03/17/17 10:01 Dose: Not Given Pantoprazole Sodium (Protonix Inj) 40 mg IVP DAILY [facility] Last Admin: 03/17/17 10:01 Dose: 40 mg Polyethylene Glycol (Miralax) 17 gm PO DAILY [facility] Last Admin: 03/17/17 10:00 Dose: 17 gm - Labs Labs: 03/17/17 07:00 03/17/17 05:00 - Constitutional Appears: Non-toxic, No Acute Distress - Head Exam Head Exam: NORMAL INSPECTION - Eye Exam Eye Exam: EOMI, Normal appearance - ENT Exam ENT Exam: Mucous Membranes Moist - Neck Exam Neck Exam: Full ROM Additional comments: left neck mass with drainage. - Respiratory Exam Respiratory Exam: Decreased Breath Sounds, NORMAL BREATHING PATTERN. absent: Accessory Muscle Use, Respiratory Distress - Cardiovascular Exam Cardiovascular Exam: REGULAR RHYTHM. absent: Bradycardia, Tachycardia - GI/Abdominal Exam GI & Abdominal Exam: Soft, Normal Bowel Sounds. absent: Guarding, Rigid, Tenderness - Extremities Exam Extremities Exam: Full ROM, Normal Inspection. absent: Calf Tenderness, Pedal Edema - Neurological Exam Neurological Exam: Alert, Awake - Psychiatric Exam Psychiatric exam: Depressed, Normal Affect - Skin Skin Exam: Dry, Normal Color, Warm Additional comments: portacath site covered by tegaderm. area of dranage is just lateral to the biopatch, covered in 4x4 Assessment and Plan - Assessment and Plan (Free Text) Assessment: 62 F with neck lymphoma, RA, and mets to liver, presents with pancreatitis, resolving. Plan: 1. Pancreatitis LR decreased due to patient eating 2. Diet: GI diet. Zofran for nausea f/u CBCs 3. Lipid Panel normal Lipase trending down 4. Infectious disease and wound care change dressings on patient's neck skin lesion once a day with bacitracin ointment and optifoam. apply BID bactroban ointment for portacath purulent site. follow up wound culture for further treatment per ID: continue with micafungin treatment today and tomorrow 03/18. DC patient with PO diflucan. <Jessica Davis - Last Filed: 03/17/17 18:08> Objective - Vital Signs/Intake and Output Vital Signs (last 24 hours): Temp Pulse Resp BP Pulse Ox 98.6 F 90 18 144/98 H 99 03/17/17 16:00 03/17/17 16:00 03/17/17 16:00 03/17/17 16:00 03/17/17 16:00 Intake and Output: 03/17/17 03/17/17 06:59 18:59 Intake Total 3800 720 Output Total 450 Balance 3350 720 - Medications Medications: Current Medications Al Hydrox/Mg Hydrox/Simethicone 30 ml/Diphenhydramine HCl 75 mg/Lidocaine 30 ml 0 ml PO Q2H PRN PRN Reason: Mouth/Throat Pain Last Admin: 03/15/17 21:16 Dose: 15 ml Hydromorphone HCl (Dilaudid) 0.5 mg IVP Q4H PRN PRN Reason: Pain, severe (8-10) Last Admin: 03/16/17 16:05 Dose: 0.5 mg Lactated Ringer's (Lactated Ringer's) 1,000 mls @ 100 mls/hr IV .Q10H [facility] Micafungin Sodium 100 mg/ (Sodium Chloride) 100 mls @ 100 mls/hr IV DAILY [facility] PRN Reason: Protocol Stop: 03/22/17 16:16 Last Admin: 03/17/17 16:23 Dose: Not Given Miconazole (Monistat 7 Vag Suppository) 100 mg VG HS [facility] Morphine Sulfate (Morphine) 2 mg IVP Q4H PRN PRN Reason: Pain, moderate (4-7) Mupirocin (Bactroban Ointment) 0 gm TOP BID [facility] Last Admin: 03/17/17 17:55 Dose: 1 appl Nystatin (Nystatin Oral Susp) 5 ml PO QID [facility] Last Admin: 03/17/17 17:53 Dose: 5 ml Ondansetron HCl (Zofran Inj) 4 mg IVP Q4H [facility] Last Admin: 03/17/17 17:53 Dose: Not Given Pantoprazole Sodium (Protonix Inj) 40 mg IVP DAILY [facility] Last Admin: 03/17/17 10:01 Dose: 40 mg Polyethylene Glycol (Miralax) 17 gm PO DAILY [facility] Last Admin: 03/17/17 10:00 Dose: 17 gm - Labs Labs: 03/17/17 07:00 03/17/17 05:00 Attending/Attestation - Attestation I have personally seen and examined this patient.: Yes I have fully participated in the care of the patient.: Yes I have reviewed all pertinent clinical information, including history, physical exam and plan: Yes Notes (Text): 03/17/17 18:05 attending note; Patient seen and examined with resident. Patient's husbandBy the bedside. Patient is a 62-year-old female admitted post chemotherapy with R CHOP and etoposide for B-cell lymphoma. Currently with oral thush and drug induced pancreatitis. Pancreatitis is resolving. Tolerating diet. Oral thrush; continue magic mouthwash and nystatin. Started on IV Mycamine by ID. Port site with minimal green discharge today. Currently no discharge noted. Wound culture sent. Vaginal candidiasis; started on local treatment. Leukocytosis with admission is secondary to Neulasta. Currently WBC is 3.6. patient is afebrile and nontoxic. Possible discharge home tomorrow if clinically stable. Will discuss with ID in detail. upon discharge the patient will follow up with PMD DR. Patricia and oncology DR. Hoffman. 03/17/17 18:07 03/17/17 18:08
--- NOTE | 2017-03-17 16:12 | CP.PCM.PN ---
Subjective - Date & Time of Evaluation Date of Evaluation: 03/17/17 Time of Evaluation: 10:05 - Subjective Subjective: Comfortable, much improved abdominal pain, no fevers, has some discharge around the port area on the anterior chest wall, much improved swallowing. Objective - Vital Signs/Intake and Output Vital Signs (last 24 hours): Temp Pulse Resp BP Pulse Ox 98.4 F 79 20 148/97 H 97 03/17/17 07:30 03/17/17 07:30 03/17/17 07:30 03/17/17 07:30 03/17/17 07:30 Intake and Output: 03/17/17 03/17/17 06:59 18:59 Intake Total 3800 Output Total 450 Balance 3350 - Medications Medications: Current Medications Al Hydrox/Mg Hydrox/Simethicone 30 ml/Diphenhydramine HCl 75 mg/Lidocaine 30 ml 0 ml PO Q2H PRN PRN Reason: Mouth/Throat Pain Last Admin: 03/15/17 21:16 Dose: 15 ml Hydromorphone HCl (Dilaudid) 0.5 mg IVP Q4H PRN PRN Reason: Pain, severe (8-10) Last Admin: 03/16/17 16:05 Dose: 0.5 mg Lactated Ringer's (Lactated Ringer's) 1,000 mls @ 200 mls/hr IV .Q5H [facility] Last Admin: 03/17/17 01:24 Dose: 200 mls/hr Morphine Sulfate (Morphine) 2 mg IVP Q4H PRN PRN Reason: Pain, moderate (4-7) Nystatin (Nystatin Oral Susp) 5 ml PO QID [facility] Last Admin: 03/16/17 21:34 Dose: 5 ml Ondansetron HCl (Zofran Inj) 4 mg IVP Q4H [facility] Last Admin: 03/17/17 05:19 Dose: 4 mg Pantoprazole Sodium (Protonix Inj) 40 mg IVP DAILY [facility] Last Admin: 03/16/17 13:35 Dose: Not Given Polyethylene Glycol (Miralax) 17 gm PO DAILY [facility] - Labs Labs: 03/17/17 07:00 03/17/17 05:00 - Constitutional Appears: Non-toxic, No Acute Distress - Head Exam Head Exam: NORMAL INSPECTION - ENT Exam Additional comments: improved oral thrush - Neck Exam Neck Exam: absent: Meningismus - Respiratory Exam Respiratory Exam: Decreased Breath Sounds - Cardiovascular Exam Cardiovascular Exam: +S1, +S2 - GI/Abdominal Exam GI & Abdominal Exam: Soft. absent: Tenderness Assessment and Plan - Assessment and Plan (Free Text) Plan: Assessment Oropharyngeal candidiasis R/O candidal esophagitis, slowly improving Marked leukocytosis probably from Neulasta, improving mild cellulitis around the port area Acute pancreatitis, probably medication-induced (ie. chemotherapy) history of left neck necrotic mass with mild cellulitis of the surrounding area dyslipidemia recent diagnosis of B-cell lymphoma on chemotherapy history of UTI S/P tubal ligation S/P tonsillectomy Plan continue Mycamine day 3 and will continue to monitor clinically (patient is taking meds that may be affected if we use Fluconazole); will start bactroban ointment discussed with dr. Davis
[2017-03-17] MEDS: Micafungin 100 MG in Sodium Chloride 0.9% 100 ML IV SCH (16:23)
--- NOTE | 2017-03-17 18:08 | CP.PCM.PN ---
Addendum entered and electronically signed by Violet Pitts DO 03/17/17 18:18: Violet Pitts DO PGY1 Original Note: <Violet Pitts - Last Filed: 03/17/17 18:18> Subjective - Date & Time of Evaluation Date of Evaluation: 03/16/17 Time of Evaluation: 08:00 - Subjective Subjective: Progress note for Dr. Davis 03/16/17 at 08:00 PT S&E at bedside. YONY. Patient states she is nauseaus, spitting up saliva, but tolerating diet. Patient denied BM. She has not had a regular BM for three days. Patient denies F/C, CP, SOB. Vomiting, coughing. Patient's diet advanced to regular from clears. Will follow for tolerating diet. Objective - Vital Signs/Intake and Output Vital Signs (last 24 hours): Temp Pulse Resp BP Pulse Ox 98.6 F 90 18 144/98 H 99 03/17/17 16:00 03/17/17 16:00 03/17/17 16:00 03/17/17 16:00 03/17/17 16:00 Intake and Output: 03/17/17 03/17/17 06:59 18:59 Intake Total 3800 720 Output Total 450 Balance 3350 720 - Medications Medications: Current Medications Al Hydrox/Mg Hydrox/Simethicone 30 ml/Diphenhydramine HCl 75 mg/Lidocaine 30 ml 0 ml PO Q2H PRN PRN Reason: Mouth/Throat Pain Last Admin: 03/15/17 21:16 Dose: 15 ml Hydromorphone HCl (Dilaudid) 0.5 mg IVP Q4H PRN PRN Reason: Pain, severe (8-10) Last Admin: 03/16/17 16:05 Dose: 0.5 mg Lactated Ringer's (Lactated Ringer's) 1,000 mls @ 100 mls/hr IV .Q10H [facility] Micafungin Sodium 100 mg/ (Sodium Chloride) 100 mls @ 100 mls/hr IV DAILY [facility] PRN Reason: Protocol Stop: 03/22/17 16:16 Last Admin: 03/17/17 16:23 Dose: Not Given Miconazole (Monistat 7 Vag Suppository) 100 mg VG HS [facility] Morphine Sulfate (Morphine) 2 mg IVP Q4H PRN PRN Reason: Pain, moderate (4-7) Mupirocin (Bactroban Ointment) 0 gm TOP BID [facility] Last Admin: 03/17/17 17:55 Dose: 1 appl Nystatin (Nystatin Oral Susp) 5 ml PO QID [facility] Last Admin: 03/17/17 17:53 Dose: 5 ml Ondansetron HCl (Zofran Inj) 4 mg IVP Q4H [facility] Last Admin: 03/17/17 17:53 Dose: Not Given Pantoprazole Sodium (Protonix Inj) 40 mg IVP DAILY [facility] Last Admin: 03/17/17 10:01 Dose: 40 mg Polyethylene Glycol (Miralax) 17 gm PO DAILY [facility] Last Admin: 03/17/17 10:00 Dose: 17 gm - Labs Labs: 03/17/17 07:00 03/17/17 05:00 Assessment and Plan - Assessment and Plan (Free Text) Assessment: 62F presents with pancreatitis. hx of RA and lymphoma in neck with liver mets Plan: 1. Pancreatitis LR fluids (consider discontinuing if patient tolerates diet) 2. Diet: GI diet. Zofran for nausea f/u CBCs 3. Lipid Panel normal Lipase trending down 4. Infectious disease and wound care change dressings on patient's neck skin lesion 5. Portacath insertion 03/16. monitor portacath site for infection, induration, purulence portacath was used to deliver zofran for nausea DVT/GI PPX <Jessica Davis - Last Filed: 03/18/17 14:39> Objective - Vital Signs/Intake and Output Vital Signs (last 24 hours): Temp Pulse Resp BP Pulse Ox 98.1 F 90 20 132/85 98 03/18/17 08:01 03/18/17 08:01 03/18/17 08:01 03/18/17 08:01 03/18/17 08:01 Intake and Output: 03/18/17 03/18/17 06:59 18:59 Intake Total 2520 Balance 2520 - Medications Medications: Current Medications Al Hydrox/Mg Hydrox/Simethicone 30 ml/Diphenhydramine HCl 75 mg/Lidocaine 30 ml 0 ml PO Q2H PRN PRN Reason: Mouth/Throat Pain Last Admin: 03/15/17 21:16 Dose: 15 ml Hydromorphone HCl (Dilaudid) 0.5 mg IVP Q4H PRN PRN Reason: Pain, severe (8-10) Last Admin: 03/18/17 11:10 Dose: 0.5 mg Lactated Ringer's (Lactated Ringer's) 1,000 mls @ 100 mls/hr IV .Q10H [facility] Last Admin: 03/18/17 10:47 Dose: Not Given Micafungin Sodium 100 mg/ (Sodium Chloride) 100 mls @ 100 mls/hr IV DAILY [facility] PRN Reason: Protocol Stop: 03/22/17 16:16 Last Admin: 03/17/17 16:23 Dose: Not Given Piperacillin Sod/Tazobactam Sod (Zosyn 3.375 In Ns 100ml) 100 mls @ 200 mls/hr IVPB Q6 [facility] PRN Reason: Protocol Stop: 03/25/17 10:58 Vancomycin HCl (Vancomycin 1gm) 1 gm in 250 mls @ 167 mls/hr IVPB Q12H [facility] PRN Reason: Protocol Miconazole (Monistat 7 Vag Suppository) 100 mg VG HS [facility] Last Admin: 03/17/17 21:40 Dose: 100 mg Morphine Sulfate (Morphine) 2 mg IVP Q4H PRN PRN Reason: Pain, moderate (4-7) Mupirocin (Bactroban Ointment) 0 gm TOP BID [facility] Last Admin: 03/18/17 10:41 Dose: 1 appl Nystatin (Nystatin Oral Susp) 5 ml PO QID [facility] Last Admin: 03/18/17 10:41 Dose: 5 ml Ondansetron HCl (Zofran Inj) 4 mg IVP Q4H [facility] Last Admin: 03/18/17 10:45 Dose: 4 mg Pantoprazole Sodium (Protonix Inj) 40 mg IVP DAILY [facility] Last Admin: 03/18/17 10:42 Dose: 40 mg Polyethylene Glycol (Miralax) 17 gm PO DAILY [facility] Last Admin: 03/18/17 10:40 Dose: 17 gm - Labs Labs: 03/18/17 06:50 03/18/17 06:50 Attending/Attestation - Attestation I have personally seen and examined this patient.: Yes I have fully participated in the care of the patient.: Yes I have reviewed all pertinent clinical information, including history, physical exam and plan: Yes Notes (Text): 03/18/17 14:39 attending note; Patient seen and examined with resident. Patient's husbandBy the bedside. Patient is a 62-year-old female admitted post chemotherapy with R CHOP and etoposide for B-cell lymphoma. Currently with oral thush and drug induced pancreatitis. Pancreatitis is resolving. Tolerating diet. Oral thrush; continue magic mouthwash and nystatin. Started on IV Mycamine by ID. Port site with minimal green discharge today. Currently no discharge noted. Wound culture sent. Vaginal candidiasis; started on local treatment. Leukocytosis with admission is secondary to Neulasta. Currently WBC is 3.6. patient is afebrile and nontoxic. Possible discharge home tomorrow if clinically stable. Will discuss with ID in detail. upon discharge the patient will follow up with PMD DR. Patricia and oncology DR. Hoffman.
[2017-03-17] MEDS: Miconazole 100 MG Vaginal Supp VG SCH (21:40)
[2017-03-17] MEDS ORDERED: Miconazole 2% Vaginal Cream(45 gm) VG SCH (22:00)
[2017-03-18] MEDS: HYDROmorphone 0.5 mg/0.5 ml ISec IVP PRN ×6 (00:33→22:31)
[2017-03-18 07:22] LABS: GRAN % 45.5 % (50.0-68.0); HEMOGLOBIN 10.2 g/dL (12.0-16.0); LYMPH # 0.1 (1.2-3.4); LYMPH % 54.5 % (22.0-35.0); MEAN CELL VOLUME 86.2 fl (80.0-105.0); MEAN CORPUSCULAR HEMOGLOBIN 28.2 pg (25.0-35.0); MEAN CORPUSCULAR HGB CONC 32.7 g/dl (31.0-37.0); MEAN PLATELET VOLUME 11.5 fl (7.0-11.0); PLATELET COUNT 54 10^3/uL (120.0-450.0); RBC 3.62 10^6/uL (3.5-6.1); RED CELL DISTRIBUTION WIDTH 13.7 % (11.5-14.5)
[2017-03-18 07:37] LABS: ALBUMIN 2.9 g/dL (3.0-4.8); ALT/SGPT 26 U/L (7-56); AST/SGOT 14 U/L (15-39); BLOOD UREA NITROGEN 8 mg/dL (7-21); CALCIUM 8.4 mg/dL (8.4-10.5); GFR AFRICAN-AMERICAN > 60; GFR NON-AFRICAN AMERICAN > 60
[2017-03-18 07:40] LABS: WHITE BLOOD COUNT 0.2 10^3/ul (4.5-11.0)
--- NOTE | 2017-03-18 09:47 | CP.PCM.CON ---
History of Present Illness - History of Present Illness History of Present Illness: General Surgery Dr. Márquez 62yo female with a history of B-cell lymphoma, consulted for a left sided neck mass. Patient reported to the ED 4 days ago with complaints of nausea, vomiting , and epigastric pain. She is being followed by medicine for pancreatitis. Patient says there is no change in status with respect to her mass. She is being followed [place] Dr. Hoffman ([facility]. Patient denies fevers/chills , dysphagia, hoarseness, or associated pain with the mass. PMHx: GERD, RA, Pancreatitis Meds: reviewed in chart Allergies: NKDA PSHx: breast cyst removal, neck Bx x2 SHx: denies tobacco, EtOH, drugs Fhx: noncontributory Review of Systems - Review of Systems All systems: reviewed and no additional remarkable complaints except (As per HPI ) - Constitutional Constitutional: As Per HPI - Gastrointestinal Gastrointestinal: Abdominal Pain, Constipation, Nausea. absent: Diarrhea, Dysphagia - Genitourinary Genitourinary: absent: Difficulty Urinating, Dysuria Past Patient History - Infectious Disease Hx of Infectious Diseases: None - Past Social History Smoking Status: Never Smoked - CARDIAC Hx Pacemaker: No - PULMONARY Hx Respiratory Disorders: No - NEUROLOGICAL Hx Paralysis: No - HEENT Hx HEENT Problems: No - RENAL Hx Chronic Kidney Disease: No - ENDOCRINE/METABOLIC Hx Endocrine Disorders: No - HEMATOLOGICAL/ONCOLOGICAL Hx Cancer: Yes (lymphoma) Hx Chemotherapy: Yes Hx Metastesis: Yes - INTEGUMENTARY Hx Dermatological Problems: Yes Other/Comment: lump to L neck - MUSCULOSKELETAL/RHEUMATOLOGICAL Hx Falls: Yes - GASTROINTESTINAL Hx Gastroesophageal Reflux: Yes Hx Pancreatitis: Yes HX Swallowing Problems: Yes - GENITOURINARY/GYNECOLOGICAL Hx Genitourinary Disorders: No - PSYCHIATRIC Hx Substance Use: No - SURGICAL HISTORY Hx Surgeries: Yes - ANESTHESIA Hx Anesthesia Reactions: No Hx Malignant Hyperthermia: No Meds Allergies/Adverse Reactions: Allergies Allergy/AdvReac Type Severity Reaction Status Date / Time No Known Allergies Allergy Verified 02/19/17 09:49 - Medications Medications: Current Medications Al Hydrox/Mg Hydrox/Simethicone 30 ml/Diphenhydramine HCl 75 mg/Lidocaine 30 ml 0 ml PO Q2H PRN PRN Reason: Mouth/Throat Pain Last Admin: 03/15/17 21:16 Dose: 15 ml Hydromorphone HCl (Dilaudid) 0.5 mg IVP Q4H PRN PRN Reason: Pain, severe (8-10) Last Admin: 03/18/17 07:06 Dose: 0.5 mg Lactated Ringer's (Lactated Ringer's) 1,000 mls @ 100 mls/hr IV .Q10H [facility] Last Admin: 03/17/17 18:17 Dose: 100 mls/hr Micafungin Sodium 100 mg/ (Sodium Chloride) 100 mls @ 100 mls/hr IV DAILY [facility] PRN Reason: Protocol Stop: 03/22/17 16:16 Last Admin: 03/17/17 16:23 Dose: Not Given Miconazole (Monistat 7 Vag Suppository) 100 mg VG HS [facility] Last Admin: 03/17/17 21:40 Dose: 100 mg Morphine Sulfate (Morphine) 2 mg IVP Q4H PRN PRN Reason: Pain, moderate (4-7) Mupirocin (Bactroban Ointment) 0 gm TOP BID [facility] Last Admin: 03/17/17 17:55 Dose: 1 appl Nystatin (Nystatin Oral Susp) 5 ml PO QID [facility] Last Admin: 03/17/17 22:11 Dose: 5 ml Ondansetron HCl (Zofran Inj) 4 mg IVP Q4H [facility] Last Admin: 03/18/17 06:18 Dose: 4 mg Pantoprazole Sodium (Protonix Inj) 40 mg IVP DAILY [facility] Last Admin: 03/17/17 10:01 Dose: 40 mg Polyethylene Glycol (Miralax) 17 gm PO DAILY [facility] Last Admin: 03/17/17 10:00 Dose: 17 gm Physical Exam - Constitutional Appears: Non-toxic, No Acute Distress - Eye Exam Eye Exam: Normal appearance - ENT Exam ENT Exam: Mucous Membranes Moist - Neck Exam Neck exam: Positive for: Full Rom Additional comments: Left sided neck mass below ear. Erythematous and necrotic appearing. Denies tenderness. Packing was found in mass - Respiratory Exam Respiratory Exam: NORMAL BREATHING PATTERN. absent: Accessory Muscle Use, Respiratory Distress, Stridor - Cardiovascular Exam Cardiovascular Exam: REGULAR RHYTHM. absent: Tachycardia - GI/Abdominal Exam GI & Abdominal Exam: Tenderness. absent: Guarding, Rebound, Rigid Additional comments: +LLQ, RLQ tenderness - Neurological Exam Neurological exam: Alert, Oriented x3 - Psychiatric Exam Psychiatric exam: Normal Affect, Normal Mood - Skin Skin Exam: Dry, Normal Color, Warm Results - Vital Signs Recent Vital Signs: Last Vital Signs Temp 98.1 F 03/18/17 08:01 Pulse 90 03/18/17 08:01 Resp 20 03/18/17 08:01 BP 132/85 03/18/17 08:01 Pulse Ox 98 03/18/17 08:01 - Labs Result Diagrams: 03/18/17 06:50 03/18/17 06:50 Labs: Laboratory Results - last 24 hr 03/18/17 03/18/17 06:50 06:50 WBC 0.2 L* D RBC 3.62 Hgb 10.2 L Hct 31.2 L MCV 86.2 MCH 28.2 MCHC 32.7 RDW 13.7 Plt Count 54 L MPV 11.5 H Gran % 45.5 L Lymph % (Auto) 54.5 H [place] % (Auto) 0.0 L Eos % (Auto) 0.0 L Baso % (Auto) 0.0 Gran # 0.10 L Lymph # 0.1 L [place] # 0.0 L Eos # 0.0 Baso # 0.00 Sodium 135 Potassium 3.6 Chloride 101 Carbon Dioxide 29 Anion Gap 9 L BUN 8 Creatinine 0.7 Est GFR ( Amer) > 60 Est GFR (Non-Af Amer) > 60 Random Glucose 113 H Calcium 8.4 Total Bilirubin 0.7 AST 14 L ALT 26 Alkaline Phosphatase 70 Total Protein 5.7 L Albumin 2.9 L Globulin 2.8 Albumin/Globulin Ratio 1.0 L Assessment & Plan - Assessment and Plan (Free Text) Assessment: 62 y/o F w/ non-Hodgkin B-cell lymphoma and left sided neck mass Plan: - non-infected neck mass --> no need for packing - change dressings prn - Monitor for changes in respiratory status - Follow up with outpatient [place] [facility] [place] - No further surgical intervention at this time Will discuss w/ Dr. Willi Tapia DO PGY2
[2017-03-18] MEDS: POLYETHYLENE GLYCOL 3350 17 GM/Dose PACKET PO SCH ×2 (10:40→18:07)
[2017-03-18] MEDS: Piperacillin/Tazobact 3.375 gm 100 ML IVPB SCH ×3 (10:41→17:16)
[2017-03-18] MEDS: Nystatin 100,000 Units/ml Oral Susp 5 ml UD PO SCH ×4 (10:41→22:23)
[2017-03-18] MEDS: Lactated Ringer's 1,000 ML IV SCH ×2 (10:47→22:25)
--- NOTE | 2017-03-18 11:42 | CP.PCM.PN ---
<GisselleViolet - Last Filed: 03/18/17 11:45> Subjective - Date & Time of Evaluation Date of Evaluation: 03/18/17 Time of Evaluation: 11:41 - Subjective Subjective: Subjective: Progress note for Dr. Davis 03/16/17 at 08:00 PT S&E at bedside. YONY. Patient states she is nauseas. Patient denies F/C, CP , SOB. Patient is tolerating diet. Patient denied diarrhea. Admits to abdominal pain in lower abdomen. tender to palpation. no rebound tenderness. Patient denies more BM Surgery consulted for evaluation of left lymphoma, neck mass, with purulence and necrosis. Surgery says no packing necessary. ID consulted for further recommendations of the neck mass. Objective - Vital Signs/Intake and Output Vital Signs (last 24 hours): Temp Pulse Resp BP Pulse Ox 98.1 F 90 20 132/85 98 03/18/17 08:01 03/18/17 08:01 03/18/17 08:01 03/18/17 08:01 03/18/17 08:01 Intake and Output: 03/18/17 03/18/17 06:59 18:59 Intake Total 2520 Balance 2520 - Medications Medications: Current Medications Al Hydrox/Mg Hydrox/Simethicone 30 ml/Diphenhydramine HCl 75 mg/Lidocaine 30 ml 0 ml PO Q2H PRN PRN Reason: Mouth/Throat Pain Last Admin: 03/15/17 21:16 Dose: 15 ml Hydromorphone HCl (Dilaudid) 0.5 mg IVP Q4H PRN PRN Reason: Pain, severe (8-10) Last Admin: 03/18/17 11:10 Dose: 0.5 mg Lactated Ringer's (Lactated Ringer's) 1,000 mls @ 100 mls/hr IV .Q10H [facility] Last Admin: 03/18/17 10:47 Dose: Not Given Micafungin Sodium 100 mg/ (Sodium Chloride) 100 mls @ 100 mls/hr IV DAILY [facility] PRN Reason: Protocol Stop: 03/22/17 16:16 Last Admin: 03/17/17 16:23 Dose: Not Given Piperacillin Sod/Tazobactam Sod (Zosyn 3.375 In Ns 100ml) 100 mls @ 200 mls/hr IVPB Q6 [facility] PRN Reason: Protocol Stop: 03/25/17 10:58 Miconazole (Monistat 7 Vag Suppository) 100 mg VG HS [facility] Last Admin: 03/17/17 21:40 Dose: 100 mg Morphine Sulfate (Morphine) 2 mg IVP Q4H PRN PRN Reason: Pain, moderate (4-7) Mupirocin (Bactroban Ointment) 0 gm TOP BID [facility] Last Admin: 03/18/17 10:41 Dose: 1 appl Nystatin (Nystatin Oral Susp) 5 ml PO QID [facility] Last Admin: 03/18/17 10:41 Dose: 5 ml Ondansetron HCl (Zofran Inj) 4 mg IVP Q4H [facility] Last Admin: 03/18/17 10:45 Dose: 4 mg Pantoprazole Sodium (Protonix Inj) 40 mg IVP DAILY [facility] Last Admin: 03/18/17 10:42 Dose: 40 mg Polyethylene Glycol (Miralax) 17 gm PO DAILY [facility] Last Admin: 03/18/17 10:40 Dose: 17 gm - Labs Labs: 03/18/17 06:50 03/18/17 06:50 - Constitutional Appears: No Acute Distress - Head Exam Head Exam: NORMAL INSPECTION - Eye Exam Eye Exam: EOMI, Normal appearance - ENT Exam ENT Exam: Mucous Membranes Moist - Neck Exam Neck Exam: Full ROM - Respiratory Exam Respiratory Exam: Clear to Ausculation Bilateral, NORMAL BREATHING PATTERN. absent: Accessory Muscle Use, Respiratory Distress - Cardiovascular Exam Cardiovascular Exam: REGULAR RHYTHM. absent: Bradycardia, Tachycardia - GI/Abdominal Exam GI & Abdominal Exam: Soft, Normal Bowel Sounds. absent: Tenderness, Hypoactive Bowel Sounds - Extremities Exam Extremities Exam: Full ROM, Normal Inspection. absent: Pedal Edema - Back Exam Back Exam: Full ROM, NORMAL INSPECTION - Neurological Exam Neurological Exam: Alert, Awake, Normal Gait - Psychiatric Exam Psychiatric exam: Normal Affect, Normal Mood - Skin Skin Exam: Dry, Intact, Normal Color, Warm Assessment and Plan - Assessment and Plan (Free Text) Assessment: 62 F presented with pancreatitis, resolving. Found to be neutropenic. PMH lymphoma with drainage and RA. Plan: 1. Pancreatitis, resolving follow diet tolerance 2. Patient is neutropenic neutropenic precautions Monitor CBCs 3. Diet: GI diet. Zofran for nausea 4. Lipid Panel normal, lipase trending down. 5. Infectious disease and wound care change dressings on patient's neck skin lesion lymphoma and area of purulence and necrotic tissue. monitor for worsening signs of erythema, drainage, purulence. ID consulted Surgery consulted (wound care) 6. Portacath insertion 03/16. monitor portacath site for infection, induration, purulence. ointment ordered yesterday. four by four and tegaderm. portacath was used to deliver zofran for nausea DVT/GI PPX <Jessica Davis - Last Filed: 03/18/17 14:46> Objective - Vital Signs/Intake and Output Vital Signs (last 24 hours): Temp Pulse Resp BP Pulse Ox 98.1 F 90 20 132/85 98 03/18/17 08:01 03/18/17 08:01 03/18/17 08:01 03/18/17 08:01 03/18/17 08:01 Intake and Output: 03/18/17 03/18/17 06:59 18:59 Intake Total 2520 Balance 2520 - Medications Medications: Current Medications Al Hydrox/Mg Hydrox/Simethicone 30 ml/Diphenhydramine HCl 75 mg/Lidocaine 30 ml 0 ml PO Q2H PRN PRN Reason: Mouth/Throat Pain Last Admin: 03/15/17 21:16 Dose: 15 ml Hydromorphone HCl (Dilaudid) 0.5 mg IVP Q4H PRN PRN Reason: Pain, severe (8-10) Last Admin: 03/18/17 11:10 Dose: 0.5 mg Lactated Ringer's (Lactated Ringer's) 1,000 mls @ 100 mls/hr IV .Q10H [facility] Last Admin: 03/18/17 10:47 Dose: Not Given Micafungin Sodium 100 mg/ (Sodium Chloride) 100 mls @ 100 mls/hr IV DAILY [facility] PRN Reason: Protocol Stop: 03/22/17 16:16 Last Admin: 03/17/17 16:23 Dose: Not Given Piperacillin Sod/Tazobactam Sod (Zosyn 3.375 In Ns 100ml) 100 mls @ 200 mls/hr IVPB Q6 [facility] PRN Reason: Protocol Stop: 03/25/17 10:58 Vancomycin HCl (Vancomycin 1gm) 1 gm in 250 mls @ 167 mls/hr IVPB Q12H [facility] PRN Reason: Protocol Miconazole (Monistat 7 Vag Suppository) 100 mg VG HS [facility] Last Admin: 03/17/17 21:40 Dose: 100 mg Morphine Sulfate (Morphine) 2 mg IVP Q4H PRN PRN Reason: Pain, moderate (4-7) Mupirocin (Bactroban Ointment) 0 gm TOP BID [facility] Last Admin: 03/18/17 10:41 Dose: 1 appl Nystatin (Nystatin Oral Susp) 5 ml PO QID [facility] Last Admin: 03/18/17 10:41 Dose: 5 ml Ondansetron HCl (Zofran Inj) 4 mg IVP Q4H [facility] Last Admin: 03/18/17 10:45 Dose: 4 mg Pantoprazole Sodium (Protonix Inj) 40 mg IVP DAILY [facility] Last Admin: 03/18/17 10:42 Dose: 40 mg Polyethylene Glycol (Miralax) 17 gm PO DAILY [facility] Last Admin: 03/18/17 10:40 Dose: 17 gm - Labs Labs: 03/18/17 06:50 03/18/17 06:50 Attending/Attestation - Attestation I have personally seen and examined this patient.: Yes I have fully participated in the care of the patient.: Yes I have reviewed all pertinent clinical information, including history, physical exam and plan: Yes Notes (Text): 03/18/17 14:40 attending note; Patient seen and examined with resident. Patient's By the bedside. Patient is a 62-year-old female admitted post chemotherapy with R CHOP and etoposide for B-cell lymphoma. Currently with oral thush and drug induced pancreatitis. Pancreatitis is resolving. Tolerating diet. Oral thrush; continue magic mouthwash and nystatin. on IV Mycamine Port site with minimal green discharge today. Currently no discharge noted. Wound culture sent. Vaginal candidiasis; started on local treatment. leukopenia: wbc is 0.2. on neutropenic precaution. Case discussed with Dr. Hoffman in detail. increased discharge from left sided neck mass/B-cell lymphoma; continue dressing. Surgery evaluation requested. continue Zosyn. upon discharge the patient will follow up with PMD DR. Patricia and oncology DR. Hoffman.
[2017-03-18] MEDS ORDERED: HYDROmorphone 0.5 mg/0.5 ml ISec IVP STA (14:40)
[2017-03-18] MEDS: Vancomycin 1gm in NS 250ml 1 GM/250 ML BAG IVPB SCH (14:46)
--- NOTE | 2017-03-18 15:11 | CP.PCM.PN ---
Subjective - Date & Time of Evaluation Date of Evaluation: 03/18/17 Time of Evaluation: 09:55 - Subjective Subjective: Swallowing better, now with left neck with oozing, no fevers overnight. Objective - Vital Signs/Intake and Output Vital Signs (last 24 hours): Temp Pulse Resp BP Pulse Ox 98.1 F 90 20 132/85 98 03/18/17 08:01 03/18/17 08:01 03/18/17 08:01 03/18/17 08:01 03/18/17 08:01 Intake and Output: 03/18/17 03/18/17 06:59 18:59 Intake Total 2520 Balance 2520 - Medications Medications: Current Medications Al Hydrox/Mg Hydrox/Simethicone 30 ml/Diphenhydramine HCl 75 mg/Lidocaine 30 ml 0 ml PO Q2H PRN PRN Reason: Mouth/Throat Pain Last Admin: 03/15/17 21:16 Dose: 15 ml Hydromorphone HCl (Dilaudid) 0.5 mg IVP Q4H PRN PRN Reason: Pain, severe (8-10) Last Admin: 03/18/17 07:06 Dose: 0.5 mg Lactated Ringer's (Lactated Ringer's) 1,000 mls @ 100 mls/hr IV .Q10H [facility] Last Admin: 03/17/17 18:17 Dose: 100 mls/hr Micafungin Sodium 100 mg/ (Sodium Chloride) 100 mls @ 100 mls/hr IV DAILY [facility] PRN Reason: Protocol Stop: 03/22/17 16:16 Last Admin: 03/17/17 16:23 Dose: Not Given Miconazole (Monistat 7 Vag Suppository) 100 mg VG HS [facility] Last Admin: 03/17/17 21:40 Dose: 100 mg Morphine Sulfate (Morphine) 2 mg IVP Q4H PRN PRN Reason: Pain, moderate (4-7) Mupirocin (Bactroban Ointment) 0 gm TOP BID [facility] Last Admin: 03/17/17 17:55 Dose: 1 appl Nystatin (Nystatin Oral Susp) 5 ml PO QID [facility] Last Admin: 03/17/17 22:11 Dose: 5 ml Ondansetron HCl (Zofran Inj) 4 mg IVP Q4H [facility] Last Admin: 03/18/17 06:18 Dose: 4 mg Pantoprazole Sodium (Protonix Inj) 40 mg IVP DAILY [facility] Last Admin: 03/17/17 10:01 Dose: 40 mg Polyethylene Glycol (Miralax) 17 gm PO DAILY [facility] Last Admin: 03/17/17 10:00 Dose: 17 gm - Labs Labs: 03/18/17 06:50 03/18/17 06:50 - Constitutional Appears: Non-toxic, No Acute Distress - Head Exam Head Exam: NORMAL INSPECTION - ENT Exam ENT Exam: Mucous Membranes Moist Additional comments: no more oral thrush - Neck Exam Neck Exam: absent: Meningismus Additional comments: left neck area with oozing - Respiratory Exam Respiratory Exam: Decreased Breath Sounds - Cardiovascular Exam Cardiovascular Exam: +S1, +S2 - GI/Abdominal Exam GI & Abdominal Exam: Soft. absent: Tenderness Assessment and Plan - Assessment and Plan (Free Text) Plan: Assessment Oropharyngeal candidiasis R/O candidal esophagitis, slowly improving left necrotic mass on left neck from lymphoma, consider bacterial superinfection Marked leukocytosis probably from Neulasta, improving mild cellulitis around the port area Acute pancreatitis, probably medication-induced (ie. chemotherapy) history of left neck necrotic mass with mild cellulitis of the surrounding area dyslipidemia recent diagnosis of B-cell lymphoma on chemotherapy history of UTI S/P tubal ligation S/P tonsillectomy Plan continue Mycamine day 4 and will continue to monitor clinically (patient is taking meds that may be affected if we use Fluconazole); started Vancomycin and Zosyn pending wound cx - Surgery on the case
--- NOTE | 2017-03-18 20:50 | CP.PCM.PN ---
Subjective - Date & Time of Evaluation Date of Evaluation: 03/18/17 Time of Evaluation: 17:42 - Subjective Subjective: She was seen and examined earlier today. Her epigastric pain is improved now, though she is complaining of lower abdominal discomfort. Denies urinary complaints. She was noticed to have slight discharge from port site. She has been afebrile. Her sore throat is getting better. Objective - Vital Signs/Intake and Output Vital Signs (last 24 hours): Temp Pulse Resp BP Pulse Ox 98.1 F 90 20 132/85 98 03/18/17 08:01 03/18/17 08:01 03/18/17 08:01 03/18/17 08:01 03/18/17 08:01 - Medications Medications: Current Medications Al Hydrox/Mg Hydrox/Simethicone 30 ml/Diphenhydramine HCl 75 mg/Lidocaine 30 ml 0 ml PO Q2H PRN PRN Reason: Mouth/Throat Pain Last Admin: 03/15/17 21:16 Dose: 15 ml Hydromorphone HCl (Dilaudid) 0.5 mg IVP Q4H PRN PRN Reason: Pain, severe (8-10) Last Admin: 03/18/17 18:50 Dose: 0.5 mg Lactated Ringer's (Lactated Ringer's) 1,000 mls @ 100 mls/hr IV .Q10H [facility] Last Admin: 03/18/17 10:47 Dose: Not Given Micafungin Sodium 100 mg/ (Sodium Chloride) 100 mls @ 100 mls/hr IV DAILY [facility] PRN Reason: Protocol Stop: 03/22/17 16:16 Last Admin: 03/17/17 16:23 Dose: Not Given Piperacillin Sod/Tazobactam Sod (Zosyn 3.375 In Ns 100ml) 100 mls @ 200 mls/hr IVPB Q6 [facility] PRN Reason: Protocol Stop: 03/25/17 10:58 Last Admin: 03/18/17 17:16 Dose: 200 mls/hr Vancomycin HCl (Vancomycin 1gm) 1 gm in 250 mls @ 167 mls/hr IVPB Q12H [facility] PRN Reason: Protocol Last Admin: 03/18/17 14:46 Dose: 167 mls/hr Miconazole (Monistat 7 Vag Suppository) 100 mg VG HS [facility] Last Admin: 03/17/17 21:40 Dose: 100 mg Morphine Sulfate (Morphine) 2 mg IVP Q4H PRN PRN Reason: Pain, moderate (4-7) Mupirocin (Bactroban Ointment) 0 gm TOP BID [facility] Last Admin: 03/18/17 18:04 Dose: Not Given Nystatin (Nystatin Oral Susp) 5 ml PO QID [facility] Last Admin: 03/18/17 18:07 Dose: 5 ml Ondansetron HCl (Zofran Inj) 4 mg IVP Q4H [facility] Last Admin: 03/18/17 17:16 Dose: 4 mg Pantoprazole Sodium (Protonix Inj) 40 mg IVP DAILY [facility] Last Admin: 03/18/17 10:42 Dose: 40 mg Polyethylene Glycol (Miralax) 17 gm PO DAILY [facility] Last Admin: 03/18/17 18:07 Dose: 17 gm - Labs Labs: 03/18/17 06:50 03/18/17 06:50 - Head Exam Head Exam: ATRAUMATIC, NORMAL INSPECTION - Eye Exam Eye Exam: EOMI, PERRL - ENT Exam ENT Exam: Mucous Membranes Moist - Neck Exam Additional comments: left cervical lymph node - overall little smaller than before. - Respiratory Exam Respiratory Exam: Clear to Ausculation Bilateral - Cardiovascular Exam Cardiovascular Exam: REGULAR RHYTHM - GI/Abdominal Exam GI & Abdominal Exam: Soft, Normal Bowel Sounds. absent: Tenderness - Extremities Exam Extremities Exam: absent: Pedal Edema - Neurological Exam Neurological Exam: Alert, Oriented x3 Assessment and Plan - Assessment and Plan (Free Text) Assessment: CD5+ diffue large B cell lymphoma, admitted with acute pancreatitis s/p one cycle of R-EPOCH Oral thrush Neutropenia WBC dropped today to 0.2 along with other blood counts. She received neulasta on Thursday. Continue to monitor blood counts daily. Agree with antibiotic coverage. F/U culture results. Wound culture (port) growing GNR. Appreciate surgery input. Continue daily wound care with dressing. Continue IV hydration and monitor for any signs of worsening infection. Rolan Hoffman MD
[2017-03-18] MEDS: Miconazole 100 MG Vaginal Supp VG SCH (22:23)
[2017-03-19] MEDS: Piperacillin/Tazobact 3.375 gm 100 ML IVPB SCH ×4 (00:01→17:07)
[2017-03-19] MEDS: Vancomycin 1gm in NS 250ml 1 GM/250 ML BAG IVPB SCH ×2 (01:54→14:27)
[2017-03-19] MEDS: HYDROmorphone 0.5 mg/0.5 ml ISec IVP PRN ×5 (02:01→20:33)
[2017-03-19 08:03] LABS: LYMPH # 0.1 (1.2-3.4); MEAN CELL VOLUME 85.7 fl (80.0-105.0); MEAN CORPUSCULAR HGB CONC 32.7 g/dl (31.0-37.0); MEAN PLATELET VOLUME 11.7 fl (7.0-11.0); RBC 3.21 10^6/uL (3.5-6.1); RED CELL DISTRIBUTION WIDTH 13.4 % (11.5-14.5)
[2017-03-19 08:16] LABS: GRAN % 12.5 % (50.0-68.0); MONO % 12.5 % (1.0-6.0)
[2017-03-19 08:17] LABS: GRAN # 0.02 (1.4-6.5)
[2017-03-19 08:19] LABS: PLATELET COUNT 38 10^3/uL (120.0-450.0); WHITE BLOOD COUNT 0.1 10^3/ul (4.5-11.0)
[2017-03-19 08:21] LABS: ALBUMIN 2.6 g/dL (3.0-4.8); ALT/SGPT 19 U/L (7-56); AST/SGOT 9 U/L (15-39); BLOOD UREA NITROGEN 7 mg/dL (7-21); GFR AFRICAN-AMERICAN > 60; GFR NON-AFRICAN AMERICAN > 60
[2017-03-19] MEDS ORDERED: Barium Sulfate Susp 2.1% w/v, 2.0% w/w 450 mL Bottle PO ONE (08:23)
[2017-03-19] MEDS: Micafungin 100 MG in Sodium Chloride 0.9% 100 ML IV SCH (09:36)
[2017-03-19] MEDS: Lactated Ringer's 1,000 ML IV SCH (09:37)
[2017-03-19] MEDS: Nystatin 100,000 Units/ml Oral Susp 5 ml UD PO SCH ×4 (09:38→22:56)
--- NOTE | 2017-03-19 12:36 | CP.PCM.PN ---
<GisselleViolet - Last Filed: 03/19/17 15:09> Subjective - Date & Time of Evaluation Date of Evaluation: 03/19/17 Time of Evaluation: 08:00 - Subjective Subjective: Progress note for Dr. Michael Lyles PT S&E at bedside. YONY Patient states she still has lower abdominal pain. Patient admits to nausea and fatigue. Patient denies F/C, patient is neutropenic and on neutropenic precautions. Patient denies diarrhea, BM. Absolute neutrophil count is .02 (from .10). Concern for increased abdominal pain and no BM, patient was placed on NPO, given LR @ 100 cc/hr. Abdominal Series ordered along with CT Abdomen/Pelvis w/ PO contrast. Miralax was discontinued. CT ABd/Pelvis w/ PO contrast shows Sigmoid diverticulitis. Objective - Vital Signs/Intake and Output Vital Signs (last 24 hours): Temp Pulse Resp BP Pulse Ox 99.1 F 104 H 20 125/79 95 03/19/17 08:00 03/19/17 08:00 03/19/17 08:00 03/19/17 08:00 03/19/17 08:00 Intake and Output: 03/19/17 03/19/17 06:59 18:59 Intake Total 510 Balance 510 - Medications Medications: Current Medications Al Hydrox/Mg Hydrox/Simethicone 30 ml/Diphenhydramine HCl 75 mg/Lidocaine 30 ml 0 ml PO Q2H PRN PRN Reason: Mouth/Throat Pain Last Admin: 03/15/17 21:16 Dose: 15 ml Hydromorphone HCl (Dilaudid) 0.5 mg IVP Q4H PRN PRN Reason: Pain, severe (8-10) Last Admin: 03/19/17 10:51 Dose: 0.5 mg Lactated Ringer's (Lactated Ringer's) 1,000 mls @ 100 mls/hr IV .Q10H [facility] Last Admin: 03/19/17 09:37 Dose: 100 mls/hr Micafungin Sodium 100 mg/ (Sodium Chloride) 100 mls @ 100 mls/hr IV DAILY [facility] PRN Reason: Protocol Stop: 03/22/17 16:16 Last Admin: 03/19/17 09:36 Dose: 100 mls/hr Piperacillin Sod/Tazobactam Sod (Zosyn 3.375 In Ns 100ml) 100 mls @ 200 mls/hr IVPB Q6 [facility] PRN Reason: Protocol Stop: 03/25/17 10:58 Last Admin: 03/19/17 11:49 Dose: 200 mls/hr Vancomycin HCl (Vancomycin 1gm) 1 gm in 250 mls @ 167 mls/hr IVPB Q12H [facility] PRN Reason: Protocol Last Admin: 03/19/17 01:54 Dose: 167 mls/hr Miconazole (Monistat 7 Vag Suppository) 100 mg VG HS [facility] Last Admin: 03/18/17 22:23 Dose: 100 mg Morphine Sulfate (Morphine) 2 mg IVP Q4H PRN PRN Reason: Pain, moderate (4-7) Mupirocin (Bactroban Ointment) 0 gm TOP BID [facility] Last Admin: 03/19/17 09:37 Dose: 1 appl Nystatin (Nystatin Oral Susp) 5 ml PO QID [facility] Last Admin: 03/19/17 09:38 Dose: Not Given Ondansetron HCl (Zofran Inj) 4 mg IVP Q4H [facility] Last Admin: 03/19/17 10:50 Dose: 4 mg Pantoprazole Sodium (Protonix Inj) 40 mg IVP DAILY [facility] Last Admin: 03/19/17 09:36 Dose: 40 mg Polyethylene Glycol (Miralax) 17 gm PO DAILY [facility] Last Admin: 03/18/17 18:07 Dose: 17 gm - Labs Labs: 03/19/17 07:30 03/19/17 07:30 - Constitutional Appears: Non-toxic - Head Exam Head Exam: NORMAL INSPECTION - Eye Exam Eye Exam: EOMI, Normal appearance - ENT Exam ENT Exam: Mucous Membranes Moist Additional comments: lymphoma site. no active drainage. no tenderness to palpation no increased erythema - Neck Exam Neck Exam: Full ROM - Respiratory Exam Respiratory Exam: NORMAL BREATHING PATTERN. absent: Accessory Muscle Use - Cardiovascular Exam Cardiovascular Exam: Tachycardia - GI/Abdominal Exam GI & Abdominal Exam: Distended, Tenderness, Hypoactive Bowel Sounds. absent: Firm, Guarding, Pulsatile Mass, Rebound Additional comments: Patient has extreme pain to palpation of LLQ, left upper quadrant tenderness. mild mid-epigastric tenderness. - Extremities Exam Extremities Exam: Full ROM. absent: Pedal Edema - Psychiatric Exam Psychiatric exam: Depressed, Normal Affect, Normal Mood - Skin Skin Exam: Dry, Pallor, Warm Additional comments: left lymphoma neck mass with moist necrotic tissue. Assessment and Plan - Assessment and Plan (Free Text) Assessment: 62 F with resolving pancreatitis new onset sigmoid diverticulitis and neutropenia, with a PMH of RA, B cell lymphoma. Plan: 1. Pancreatitis, resolving maintain adequate hydration LR @100cc/hr 2. Sigmoid Diverticulitis, dx with CT Abd/Pelvis PO Contrast IVF Bowel rest Waiting Dr. Burns recommendations for new onset sigmoid diverticulitis 3. Patient is Neutropenic neutropenic precautions Monitor CBC with differential ANC .02 from .10 4. Diet: NPO. monitor for BM and worsening signs of abdominal pain. Zofran for nausea 5. Infectious disease and wound care change dressings on patient's neck skin lesion lymphoma and area of purulence and necrotic tissue. monitor for worsening signs of erythema, drainage, purulence. Surgery consulted (wound care). no packing necessary for neck wound per surgery. no pain. monitor for signs of erythema, increased pain, drainage, dental pain, purulence. ID consulted Patient has mouth ulcers and Oral Thrush Nystatin mouth wash odynophagia likely due to esophageal candidiasis tx: micafungin Vaginal pruritis: Miconazole 100 mg VG HS 6.Portacath insertion 03/16. monitor portacath site for infection, induration, purulence. ointment ordered yesterday. four by four and tegaderm. 03/17 Wound cx adjacent to portacath: Citrobacter diversus covered by Zosyn 3.375 IVPB Q6 per ID portacath was used to deliver Zofran for nausea Vanc 1 gm 250 cc IVPB Q12H Pain: Dilaudid 0.5 mg Q4H PRN DVT/GI PPX Violet Pitts, DO PGY1 <Michael Lyles - Last Filed: 03/19/17 16:50> Objective - Vital Signs/Intake and Output Vital Signs (last 24 hours): Temp Pulse Resp BP Pulse Ox 99.1 F 104 H 20 125/79 95 03/19/17 08:00 03/19/17 08:00 03/19/17 08:00 03/19/17 08:00 03/19/17 08:00 Intake and Output: 03/19/17 03/19/17 06:59 18:59 Intake Total 510 480 Balance 510 480 - Medications Medications: Current Medications Al Hydrox/Mg Hydrox/Simethicone 30 ml/Diphenhydramine HCl 75 mg/Lidocaine 30 ml 0 ml PO Q2H PRN PRN Reason: Mouth/Throat Pain Last Admin: 03/15/17 21:16 Dose: 15 ml Hydromorphone HCl (Dilaudid) 0.5 mg IVP Q4H PRN PRN Reason: Pain, severe (8-10) Last Admin: 03/19/17 15:04 Dose: 0.5 mg Lactated Ringer's (Lactated Ringer's) 1,000 mls @ 100 mls/hr IV .Q10H [facility] Last Admin: 03/19/17 09:37 Dose: 100 mls/hr Micafungin Sodium 100 mg/ (Sodium Chloride) 100 mls @ 100 mls/hr IV DAILY [facility] PRN Reason: Protocol Stop: 03/22/17 16:16 Last Admin: 03/19/17 09:36 Dose: 100 mls/hr Piperacillin Sod/Tazobactam Sod (Zosyn 3.375 In Ns 100ml) 100 mls @ 200 mls/hr IVPB Q6 [facility] PRN Reason: Protocol Stop: 03/25/17 10:58 Last Admin: 03/19/17 11:49 Dose: 200 mls/hr Vancomycin HCl (Vancomycin 1gm) 1 gm in 250 mls @ 167 mls/hr IVPB Q12H [facility] PRN Reason: Protocol Last Admin: 03/19/17 14:27 Dose: 167 mls/hr Miconazole (Monistat 7 Vag Suppository) 100 mg VG HS [facility] Last Admin: 03/18/17 22:23 Dose: 100 mg Morphine Sulfate (Morphine) 2 mg IVP Q4H PRN PRN Reason: Pain, moderate (4-7) Mupirocin (Bactroban Ointment) 0 gm TOP BID [facility] Last Admin: 03/19/17 09:37 Dose: 1 appl Nystatin (Nystatin Oral Susp) 5 ml PO QID [facility] Last Admin: 03/19/17 14:24 Dose: Not Given Ondansetron HCl (Zofran Inj) 4 mg IVP Q4H [facility] Last Admin: 03/19/17 14:25 Dose: Not Given Pantoprazole Sodium (Protonix Inj) 40 mg IVP DAILY [facility] Last Admin: 03/19/17 09:36 Dose: 40 mg Polyethylene Glycol (Miralax) 17 gm PO DAILY [facility] Last Admin: 03/18/17 18:07 Dose: 17 gm - Labs Labs: 03/19/17 07:30 03/19/17 07:30 Attending/Attestation - Attestation I have personally seen and examined this patient.: Yes I have fully participated in the care of the patient.: Yes I have reviewed all pertinent clinical information, including history, physical exam and plan: Yes Notes (Text): I have seen and examined the patient at bedside. Agree with the above note with the following additions/ exceptions: Briefly this is 62 year old female with history of diffuse large B Cell lymphoma presented with acute pancreatitis post chemotherapy (RE CHOP). Also had oral candidiasis, suspected esophageal candidiasis, left neck mass superinfection, mild cellulitis at port site, acute neutropenia and now has acute sigmoid diverticulitis. Patient was complaining of pain in the abdomen. She was made NPO and started on IVF. Will reconsult GI. Continue antibiotics. Upon discharge patient will follow up with Dr Patricia and Dr Hoffman. Dr Michael Lyles
--- NOTE | 2017-03-19 13:51 | CT ---
PROCEDURE: CT Abdomen and Pelvis without intravenous contrast HISTORY: abdominal distension and abdominal pain COMPARISON: None. TECHNIQUE: Without contrast.. Contrast Dose: 0 Radiation dose: Total exam DLP = 233.97 mGy-cm. This CT exam was performed using one or more of the following dose reduction techniques: Automated exposure control, adjustment of the mA and/or kV according to patient size, and/or use of iterative reconstruction technique. FINDINGS: LOWER THORAX: Minimal linear scar/ atelectasis in left lower lobe. Mild cardiomegaly. Central venous catheter tip noted at cavoatrial junction. LIVER: Normal size and contour. Several hypodense masses are noted. In comparison to the prior examination of 03/14/2017, numerous additional smaller masses evident on that examination are not evident currently. This may be due to extensive beam hardening artifact from oral contrast within the stomach. GALLBLADDER AND BILE DUCTS: Unremarkable. PANCREAS: Unremarkable. No gross lesion or ductal dilatation. SPLEEN: Unremarkable. ADRENALS: Unremarkable. No mass. KIDNEYS AND URETERS: Unremarkable. No hydronephrosis. No solid mass. VASCULATURE: Unremarkable. No aortic aneurysm. BOWEL: Sigmoid diverticulitis. Sigmoid diverticulae with mural thickening and inflammatory change in the very sigmoidal fat. No abscess. No pneumoperitoneum. This represents distinct interval change compared to examination of 03/14/2017. No other abnormal bowel loops are identified. No evidence bowel obstruction. APPENDIX: Unremarkable. Normal appendix. PERITONEUM: Trace fluid in cul-de-sac. LYMPH NODES: Unremarkable. No enlarged lymph nodes. BLADDER: Unremarkable. REPRODUCTIVE: Normal uterus. BONES: No acute fracture. OTHER FINDINGS: None. IMPRESSION: Acute sigmoid diverticulitis. No evidence of perisigmoid abscess or pneumoperitoneum. Hypodense hepatic masses are again demonstrated.
--- NOTE | 2017-03-19 14:04 | RAD ---
HISTORY: r/o SBO. abdominal distension and abd pain COMPARISON: No prior. FINDINGS: BOWEL: Normal bowel gas pattern. There is oral contrast seen within both large and small bowel loops as a result of CT scan performed earlier on the same date. No hepatic or splenic enlargement. No masses or abnormal intra-abdominal calcifications are appreciated. BONES: Normal. OTHER FINDINGS: None. IMPRESSION: Unremarkable examination.
--- NOTE | 2017-03-19 15:17 | CP.PCM.PN ---
<Ayanna Montalvo - Last Filed: 03/19/17 15:14> Subjective - Date & Time of Evaluation Date of Evaluation: 03/19/17 Time of Evaluation: 15:14 - Subjective Subjective: Gastroenterology Fellow/PGY5 Progress Note Patient notes improved epigastric pain. Admits to left lower abdomen pain since Thursday without improvement. Continues to have diarrhea. Denies fever, lightheadedness, or history of blood clots. A 12-point review of systems negative except for as above. Objective - Vital Signs/Intake and Output Vital Signs (last 24 hours): Temp Pulse Resp BP Pulse Ox 99.1 F 104 H 20 125/79 95 03/19/17 08:00 03/19/17 08:00 03/19/17 08:00 03/19/17 08:00 03/19/17 08:00 Intake and Output: 03/19/17 03/19/17 06:59 18:59 Intake Total 510 480 Balance 510 480 - Medications Medications: Current Medications Al Hydrox/Mg Hydrox/Simethicone 30 ml/Diphenhydramine HCl 75 mg/Lidocaine 30 ml 0 ml PO Q2H PRN PRN Reason: Mouth/Throat Pain Last Admin: 03/15/17 21:16 Dose: 15 ml Hydromorphone HCl (Dilaudid) 0.5 mg IVP Q4H PRN PRN Reason: Pain, severe (8-10) Last Admin: 03/19/17 15:04 Dose: 0.5 mg Lactated Ringer's (Lactated Ringer's) 1,000 mls @ 100 mls/hr IV .Q10H [facility] Last Admin: 03/19/17 09:37 Dose: 100 mls/hr Micafungin Sodium 100 mg/ (Sodium Chloride) 100 mls @ 100 mls/hr IV DAILY [facility] PRN Reason: Protocol Stop: 03/22/17 16:16 Last Admin: 03/19/17 09:36 Dose: 100 mls/hr Piperacillin Sod/Tazobactam Sod (Zosyn 3.375 In Ns 100ml) 100 mls @ 200 mls/hr IVPB Q6 [facility] PRN Reason: Protocol Stop: 03/25/17 10:58 Last Admin: 03/19/17 11:49 Dose: 200 mls/hr Vancomycin HCl (Vancomycin 1gm) 1 gm in 250 mls @ 167 mls/hr IVPB Q12H [facility] PRN Reason: Protocol Last Admin: 03/19/17 14:27 Dose: 167 mls/hr Miconazole (Monistat 7 Vag Suppository) 100 mg VG HS [facility] Last Admin: 03/18/17 22:23 Dose: 100 mg Morphine Sulfate (Morphine) 2 mg IVP Q4H PRN PRN Reason: Pain, moderate (4-7) Mupirocin (Bactroban Ointment) 0 gm TOP BID [facility] Last Admin: 03/19/17 09:37 Dose: 1 appl Nystatin (Nystatin Oral Susp) 5 ml PO QID [facility] Last Admin: 03/19/17 14:24 Dose: Not Given Ondansetron HCl (Zofran Inj) 4 mg IVP Q4H [facility] Last Admin: 03/19/17 14:25 Dose: Not Given Pantoprazole Sodium (Protonix Inj) 40 mg IVP DAILY [facility] Last Admin: 03/19/17 09:36 Dose: 40 mg Polyethylene Glycol (Miralax) 17 gm PO DAILY [facility] Last Admin: 03/18/17 18:07 Dose: 17 gm - Labs Labs: 03/19/17 07:30 03/19/17 07:30 - Constitutional Appears: Non-toxic, No Acute Distress, Chronically Ill - Head Exam Head Exam: ATRAUMATIC, NORMOCEPHALIC - Eye Exam Eye Exam: EOMI, PERRL Pupil Exam: PERRL. absent: Miosis, Mydriatic - ENT Exam ENT Exam: Mucous Membranes Moist, Normal Oropharynx - Neck Exam Neck Exam: Full ROM, Lymphadenopathy, Normal Inspection Additional comments: left neck mass - Respiratory Exam Respiratory Exam: Clear to Ausculation Bilateral. absent: Rales, Rhonchi, Wheezes - Cardiovascular Exam Cardiovascular Exam: RRR, +S1, +S2. absent: Gallop, Rubs - GI/Abdominal Exam GI & Abdominal Exam: Soft, Normal Bowel Sounds. absent: Distended, Firm, Guarding, Rigid, Tenderness, Organomegaly, Rebound - Extremities Exam Extremities Exam: Normal Inspection, Pedal Edema - Neurological Exam Neurological Exam: Alert, Awake - Psychiatric Exam Psychiatric exam: Normal Affect, Normal Mood - Skin Skin Exam: Dry, Intact, Normal Color, Warm Assessment and Plan - Assessment and Plan (Free Text) Assessment: 62 year old female with history of recently diagnosed Diffuse Large B-cell Lymphoma with liver metastases recently started chemotherapy (last done one day prior to admission) presenting with abdominal pain. Active treatment of resolving pancreatitis and newly diagnosed uncomplicated sigmoid diverticulitis on CT A/P today. Plan: >no associated abscess or pneumoperitoneum >no episodes of hypotension- low suspicion for ischemic colitis >diverticulitis covered with Zosyn >ID managing- micafungin, vancomycin, zosyn -chest cellulitis, neck necrotic mass, oropharyngeal candidiasis >supportive care: IVFs, pain control, antiemetics >NPO, bowel rest >advance diet as tolerated >will require outpatient follow up for re-assessment in 6-8 weeks and possible colonoscopy >will follow clinical course <Fernando Almonte - Last Filed: 03/19/17 15:31> Objective - Vital Signs/Intake and Output Vital Signs (last 24 hours): Temp Pulse Resp BP Pulse Ox 99.1 F 104 H 20 125/79 95 03/19/17 08:00 03/19/17 08:00 03/19/17 08:00 03/19/17 08:00 03/19/17 08:00 Intake and Output: 03/19/17 03/19/17 06:59 18:59 Intake Total 510 480 Balance 510 480 - Medications Medications: Current Medications Al Hydrox/Mg Hydrox/Simethicone 30 ml/Diphenhydramine HCl 75 mg/Lidocaine 30 ml 0 ml PO Q2H PRN PRN Reason: Mouth/Throat Pain Last Admin: 03/15/17 21:16 Dose: 15 ml Hydromorphone HCl (Dilaudid) 0.5 mg IVP Q4H PRN PRN Reason: Pain, severe (8-10) Last Admin: 03/19/17 15:04 Dose: 0.5 mg Lactated Ringer's (Lactated Ringer's) 1,000 mls @ 100 mls/hr IV .Q10H [facility] Last Admin: 03/19/17 09:37 Dose: 100 mls/hr Micafungin Sodium 100 mg/ (Sodium Chloride) 100 mls @ 100 mls/hr IV DAILY [facility] PRN Reason: Protocol Stop: 03/22/17 16:16 Last Admin: 03/19/17 09:36 Dose: 100 mls/hr Piperacillin Sod/Tazobactam Sod (Zosyn 3.375 In Ns 100ml) 100 mls @ 200 mls/hr IVPB Q6 [facility] PRN Reason: Protocol Stop: 03/25/17 10:58 Last Admin: 03/19/17 11:49 Dose: 200 mls/hr Vancomycin HCl (Vancomycin 1gm) 1 gm in 250 mls @ 167 mls/hr IVPB Q12H [facility] PRN Reason: Protocol Last Admin: 03/19/17 14:27 Dose: 167 mls/hr Miconazole (Monistat 7 Vag Suppository) 100 mg VG HS [facility] Last Admin: 03/18/17 22:23 Dose: 100 mg Morphine Sulfate (Morphine) 2 mg IVP Q4H PRN PRN Reason: Pain, moderate (4-7) Mupirocin (Bactroban Ointment) 0 gm TOP BID [facility] Last Admin: 03/19/17 09:37 Dose: 1 appl Nystatin (Nystatin Oral Susp) 5 ml PO QID [facility] Last Admin: 03/19/17 14:24 Dose: Not Given Ondansetron HCl (Zofran Inj) 4 mg IVP Q4H [facility] Last Admin: 03/19/17 14:25 Dose: Not Given Pantoprazole Sodium (Protonix Inj) 40 mg IVP DAILY [facility] Last Admin: 03/19/17 09:36 Dose: 40 mg Polyethylene Glycol (Miralax) 17 gm PO DAILY [facility] Last Admin: 03/18/17 18:07 Dose: 17 gm - Labs Labs: 03/19/17 07:30 03/19/17 07:30 Attending/Attestation - Attestation I have personally seen and examined this patient.: Yes I have fully participated in the care of the patient.: Yes I have reviewed all pertinent clinical information, including history, physical exam and plan: Yes Notes (Text): 03/19/17 15:29 62 year old female with h/o DLBCL admitted after chemo with pancreatitis, now with acute onset LLQ pain and CT findings of acute diverticulitis. 1. Acute diverticulitis Plan; recommend abx as above on zosyn no evidence of complications no indication for surgery monitor response to treatment 1st episode no prior episodes supportive care npo today if improved tomorrow advance diet
--- NOTE | 2017-03-19 15:20 | CP.PCM.PN ---
Subjective - Date & Time of Evaluation Date of Evaluation: 03/19/17 Time of Evaluation: 10:05 - Subjective Subjective: Complaining of abdominal pain, nausea, no fevers. Swallowing is somewhat better. Less vaginal itching. Objective - Vital Signs/Intake and Output Vital Signs (last 24 hours): Temp Pulse Resp BP Pulse Ox 99.1 F 104 H 20 125/79 95 03/19/17 08:00 03/19/17 08:00 03/19/17 08:00 03/19/17 08:00 03/19/17 08:00 Intake and Output: 03/19/17 03/19/17 06:59 18:59 Intake Total 510 480 Balance 510 480 - Medications Medications: Current Medications Al Hydrox/Mg Hydrox/Simethicone 30 ml/Diphenhydramine HCl 75 mg/Lidocaine 30 ml 0 ml PO Q2H PRN PRN Reason: Mouth/Throat Pain Last Admin: 03/15/17 21:16 Dose: 15 ml Hydromorphone HCl (Dilaudid) 0.5 mg IVP Q4H PRN PRN Reason: Pain, severe (8-10) Last Admin: 03/19/17 15:04 Dose: 0.5 mg Lactated Ringer's (Lactated Ringer's) 1,000 mls @ 100 mls/hr IV .Q10H [facility] Last Admin: 03/19/17 09:37 Dose: 100 mls/hr Micafungin Sodium 100 mg/ (Sodium Chloride) 100 mls @ 100 mls/hr IV DAILY [facility] PRN Reason: Protocol Stop: 03/22/17 16:16 Last Admin: 03/19/17 09:36 Dose: 100 mls/hr Piperacillin Sod/Tazobactam Sod (Zosyn 3.375 In Ns 100ml) 100 mls @ 200 mls/hr IVPB Q6 [facility] PRN Reason: Protocol Stop: 03/25/17 10:58 Last Admin: 03/19/17 11:49 Dose: 200 mls/hr Vancomycin HCl (Vancomycin 1gm) 1 gm in 250 mls @ 167 mls/hr IVPB Q12H [facility] PRN Reason: Protocol Last Admin: 03/19/17 14:27 Dose: 167 mls/hr Miconazole (Monistat 7 Vag Suppository) 100 mg VG HS [facility] Last Admin: 03/18/17 22:23 Dose: 100 mg Morphine Sulfate (Morphine) 2 mg IVP Q4H PRN PRN Reason: Pain, moderate (4-7) Mupirocin (Bactroban Ointment) 0 gm TOP BID [facility] Last Admin: 03/19/17 09:37 Dose: 1 appl Nystatin (Nystatin Oral Susp) 5 ml PO QID [facility] Last Admin: 03/19/17 14:24 Dose: Not Given Ondansetron HCl (Zofran Inj) 4 mg IVP Q4H [facility] Last Admin: 03/19/17 14:25 Dose: Not Given Pantoprazole Sodium (Protonix Inj) 40 mg IVP DAILY [facility] Last Admin: 03/19/17 09:36 Dose: 40 mg Polyethylene Glycol (Miralax) 17 gm PO DAILY [facility] Last Admin: 03/18/17 18:07 Dose: 17 gm - Labs Labs: 03/19/17 07:30 03/19/17 07:30 - Constitutional Appears: Non-toxic, No Acute Distress - Head Exam Head Exam: NORMAL INSPECTION - ENT Exam ENT Exam: Mucous Membranes Moist - Neck Exam Neck Exam: absent: Meningismus Additional comments: left side of the neck with dry dressings in place - Respiratory Exam Respiratory Exam: Decreased Breath Sounds - Cardiovascular Exam Cardiovascular Exam: +S1, +S2 - GI/Abdominal Exam GI & Abdominal Exam: Soft. absent: Tenderness Assessment and Plan - Assessment and Plan (Free Text) Plan: Assessment Oropharyngeal candidiasis R/O candidal esophagitis, slowly improving left necrotic mass on left neck from lymphoma, consider bacterial superinfection acute sigmoid diverticulitis mild cellulitis around the port area with Citrobacter acute neutropenia probably from chemotherapy Acute pancreatitis, probably medication-induced (ie. chemotherapy) history of left neck necrotic mass with mild cellulitis of the surrounding area dyslipidemia recent diagnosis of B-cell lymphoma on chemotherapy history of UTI S/P tubal ligation S/P tonsillectomy Plan continue Mycamine day 5 and will continue to monitor clinically (patient is taking meds that may be affected if we use Fluconazole); continue Vancomycin and Zosyn day 2 for the chest cellulitis, neck necrotic mass and sigmoid diverticulitis
[2017-03-19] MEDS: Miconazole 100 MG Vaginal Supp VG SCH (22:26)
--- NOTE | 2017-03-20 00:12 | CARD ---
APPROVED REPORT EKG Measurement Heart [id number] DC 120P-7 [id number] <Conclusion> Normal sinus rhythm Normal ECG
[2017-03-20] MEDS: Piperacillin/Tazobact 3.375 gm 100 ML IVPB SCH ×5 (00:58→23:35)
[2017-03-20] MEDS: Vancomycin 1gm in NS 250ml 1 GM/250 ML BAG IVPB SCH ×2 (02:55→14:21)
[2017-03-20] MEDS: HYDROmorphone 0.5 mg/0.5 ml ISec IVP PRN ×4 (03:02→20:51)
[2017-03-20 07:13] LABS: HEMOGLOBIN 8.4 g/dL (12.0-16.0); MEAN CELL VOLUME 85.6 fl (80.0-105.0); MEAN CORPUSCULAR HEMOGLOBIN 28.1 pg (25.0-35.0); MEAN CORPUSCULAR HGB CONC 32.8 g/dl (31.0-37.0); MEAN PLATELET VOLUME 11.6 fl (7.0-11.0); PLATELET COUNT 35 10^3/uL (120.0-450.0); RBC 2.99 10^6/uL (3.5-6.1); RED CELL DISTRIBUTION WIDTH 13.3 % (11.5-14.5)
[2017-03-20 07:26] LABS: WHITE BLOOD COUNT 1.2 10^3/ul (4.5-11.0)
[2017-03-20 07:29] LABS: CALCIUM 8.1 mg/dL (8.4-10.5); MAGNESIUM 1.8 mg/dL (1.7-2.2)
[2017-03-20 09:21] LABS: BAND 2 % (0-2); EOSINOPHIL 2 % (0.0-3.0); LYMPHOCYTE 32 % (22.0-35.0); MONOCYTE 2 % (1.0-6.0); NEUTROPHIL 62 % (50.0-70.0)
[2017-03-20] MEDS: Micafungin 100 MG in Sodium Chloride 0.9% 100 ML IV SCH (10:07)
[2017-03-20] MEDS: Nystatin 100,000 Units/ml Oral Susp 5 ml UD PO SCH ×4 (10:09→22:10)
[2017-03-20 10:17] LABS: ALBUMIN 2.5 g/dL (3.0-4.8); ALT/SGPT 23 U/L (7-56); AST/SGOT 11 U/L (15-39); BLOOD UREA NITROGEN 4 mg/dL (7-21); CALCIUM 8.1 mg/dL (8.4-10.5); GFR AFRICAN-AMERICAN > 60; GFR NON-AFRICAN AMERICAN > 60
--- NOTE | 2017-03-20 10:31 | CP.PCM.PN ---
Subjective - Date & Time of Evaluation Date of Evaluation: 03/20/17 Time of Evaluation: 10:24 - Subjective Subjective: Patient seen and examined, resting in bed comfortably. No acute events overnight. She reports ongoing abdominal pain even with intake of ensure yesterday. She denies nausea, vomiting, fever/chills. She had a scant bowel movement yesterday, no rectal bleeding. 12 point review of systems performed, negative aside from mentioned above. Objective - Vital Signs/Intake and Output Vital Signs (last 24 hours): Temp Pulse Resp BP Pulse Ox 99 F 96 H 20 116/79 99 03/20/17 07:51 03/20/17 09:51 03/20/17 07:51 03/20/17 09:51 03/20/17 07:51 Intake and Output: 03/20/17 03/20/17 06:59 18:59 Intake Total 0 Balance 0 - Medications Medications: Current Medications Al Hydrox/Mg Hydrox/Simethicone 30 ml/Diphenhydramine HCl 75 mg/Lidocaine 30 ml 0 ml PO Q2H PRN PRN Reason: Mouth/Throat Pain Last Admin: 03/15/17 21:16 Dose: 15 ml Hydromorphone HCl (Dilaudid) 1 mg IVP Q4H PRN PRN Reason: Pain, severe (8-10) Last Admin: 03/20/17 10:08 Dose: 1 mg Lactated Ringer's (Lactated Ringer's) 1,000 mls @ 100 mls/hr IV .Q10H [facility] Last Admin: 03/19/17 09:37 Dose: 100 mls/hr Micafungin Sodium 100 mg/ (Sodium Chloride) 100 mls @ 100 mls/hr IV DAILY [facility] PRN Reason: Protocol Stop: 03/22/17 16:16 Last Admin: 03/20/17 10:07 Dose: 100 mls/hr Piperacillin Sod/Tazobactam Sod (Zosyn 3.375 In Ns 100ml) 100 mls @ 200 mls/hr IVPB Q6 [facility] PRN Reason: Protocol Stop: 03/25/17 10:58 Last Admin: 03/20/17 06:50 Dose: 200 mls/hr Vancomycin HCl (Vancomycin 1gm) 1 gm in 250 mls @ 167 mls/hr IVPB Q12H [facility] PRN Reason: Protocol Last Admin: 03/20/17 02:55 Dose: 167 mls/hr Miconazole (Monistat 7 Vag Suppository) 100 mg VG HS [facility] Last Admin: 03/19/17 22:26 Dose: 100 mg Morphine Sulfate (Morphine) 2 mg IVP Q4H PRN PRN Reason: Pain, moderate (4-7) Mupirocin (Bactroban Ointment) 0 gm TOP BID [facility] Last Admin: 03/20/17 10:08 Dose: 1 appl Nystatin (Nystatin Oral Susp) 5 ml PO QID [facility] Last Admin: 03/20/17 10:09 Dose: Not Given Ondansetron HCl (Zofran Inj) 4 mg IVP Q4H PRN PRN Reason: Nausea/Vomiting Last Admin: 03/20/17 03:07 Dose: 4 mg Pantoprazole Sodium (Protonix Inj) 40 mg IVP DAILY [facility] Last Admin: 03/20/17 10:07 Dose: 40 mg Polyethylene Glycol (Miralax) 17 gm PO DAILY [facility] Last Admin: 03/18/17 18:07 Dose: 17 gm - Labs Labs: 03/20/17 06:50 03/20/17 06:30 - Constitutional Appears: Non-toxic, No Acute Distress - Head Exam Head Exam: NORMAL INSPECTION - Eye Exam Eye Exam: EOMI, Normal appearance - ENT Exam ENT Exam: Mucous Membranes Moist - Respiratory Exam Respiratory Exam: Clear to Ausculation Bilateral - Cardiovascular Exam Cardiovascular Exam: REGULAR RHYTHM, +S1, +S2 - GI/Abdominal Exam GI & Abdominal Exam: Soft, Tenderness, Normal Bowel Sounds Additional comments: LLQ and suprapubic tenderness to palpation, no rebound/guarding - Extremities Exam Extremities Exam: Normal Inspection - Skin Skin Exam: Dry, Intact, Normal Color, Warm Assessment and Plan - Assessment and Plan (Free Text) Assessment: Diffuse large B-cell lymphoma Suspected chemotherapy induced pancreatitis Abdominal pain - acute sigmoid diverticulitis Cellulitis of neck Plan: - NPO - Continue with antibiotic therapy as per ID - Continue with IVF hydration therapy, supportive care - Will consider advancing to liquid diet tomorrow pending patient clinical progress
[2017-03-20 11:11] LABS: ALBUMIN 2.8 g/dL (3.0-4.8); ALT/SGPT 24 U/L (7-56); AST/SGOT 14 U/L (15-39); BLOOD UREA NITROGEN 5 mg/dL (7-21); CALCIUM 8.3 mg/dL (8.4-10.5); GFR AFRICAN-AMERICAN > 60; GFR NON-AFRICAN AMERICAN > 60
[2017-03-20] MEDS ORDERED: Potassium Chloride 20 mEq ER Tab PO STA (11:48)
--- NOTE | 2017-03-20 12:23 | CP.PCM.PN ---
<GisselleViolet - Last Filed: 03/20/17 14:13> Subjective - Date & Time of Evaluation Date of Evaluation: 03/20/17 Time of Evaluation: 12:22 - Subjective Subjective: Progress note for Dr. Michael Lyles PT S&E at bedside. Patient is tolerating pain well. BP was low at 85/52 after dose of dilaudid. Dilaudid was given at 3am. blood pressure taken at 4am, written in computer at 7:51 am. Patient denies F/C, dizziness, nausea/vomiting. Patient admits to abdominal pain. area of erythema surrounding port site is less than yesterday. Patient states she still has abdominal pain and feels less gas in her bowels. Patient asked if she was allowed to eat and was told she was still NPO and she was not allowed to eat anything until her abdominal pain gets better and when we instruct her to be allowed to eat. Upon return to patient's bedside with attending, patient states her abdominal pain was worse after taking ensure. Patient was reminded that she was not supposed to eat anything. Objective - Vital Signs/Intake and Output Vital Signs (last 24 hours): Temp Pulse Resp BP Pulse Ox 99 F 96 H 20 116/79 99 03/20/17 07:51 03/20/17 09:51 03/20/17 07:51 03/20/17 09:51 03/20/17 07:51 Intake and Output: 03/20/17 03/20/17 06:59 18:59 Intake Total 0 Balance 0 - Medications Medications: Current Medications Al Hydrox/Mg Hydrox/Simethicone 30 ml/Diphenhydramine HCl 75 mg/Lidocaine 30 ml 0 ml PO Q2H PRN PRN Reason: Mouth/Throat Pain Last Admin: 03/15/17 21:16 Dose: 15 ml Hydromorphone HCl (Dilaudid) 1 mg IVP Q4H PRN PRN Reason: Pain, severe (8-10) Last Admin: 03/20/17 10:08 Dose: 1 mg Lactated Ringer's (Lactated Ringer's) 1,000 mls @ 100 mls/hr IV .Q10H [facility] Last Admin: 03/19/17 09:37 Dose: 100 mls/hr Micafungin Sodium 100 mg/ (Sodium Chloride) 100 mls @ 100 mls/hr IV DAILY [facility] PRN Reason: Protocol Stop: 03/22/17 16:16 Last Admin: 03/20/17 10:07 Dose: 100 mls/hr Piperacillin Sod/Tazobactam Sod (Zosyn 3.375 In Ns 100ml) 100 mls @ 200 mls/hr IVPB Q6 [facility] PRN Reason: Protocol Stop: 03/25/17 10:58 Last Admin: 03/20/17 11:36 Dose: 200 mls/hr Vancomycin HCl (Vancomycin 1gm) 1 gm in 250 mls @ 167 mls/hr IVPB Q12H [facility] PRN Reason: Protocol Last Admin: 03/20/17 02:55 Dose: 167 mls/hr Iron Sucrose 200 mg/ Sodium (Chloride) 110 mls @ 110 mls/hr IVPB DAILY [facility] Stop: 03/23/17 11:46 Potassium Chloride (Potassium Chloride 20 Meq/100 Ml) 20 meq in 100 mls @ 50 mls/hr IVPB Q2H [facility] Stop: 03/20/17 15:59 Miconazole (Monistat 7 Vag Suppository) 100 mg VG HS [facility] Last Admin: 03/19/17 22:26 Dose: 100 mg Morphine Sulfate (Morphine) 2 mg IVP Q4H PRN PRN Reason: Pain, moderate (4-7) Mupirocin (Bactroban Ointment) 0 gm TOP BID [facility] Last Admin: 03/20/17 10:08 Dose: 1 appl Nystatin (Nystatin Oral Susp) 5 ml PO QID [facility] Last Admin: 03/20/17 10:09 Dose: Not Given Ondansetron HCl (Zofran Inj) 4 mg IVP Q4H PRN PRN Reason: Nausea/Vomiting Last Admin: 03/20/17 03:07 Dose: 4 mg Pantoprazole Sodium (Protonix Inj) 40 mg IVP DAILY [facility] Last Admin: 03/20/17 10:07 Dose: 40 mg Polyethylene Glycol (Miralax) 17 gm PO DAILY [facility] Last Admin: 03/18/17 18:07 Dose: 17 gm - Labs Labs: 03/20/17 06:50 03/20/17 10:30 - Constitutional Appears: No Acute Distress, Chronically Ill - Head Exam Head Exam: NORMAL INSPECTION - Eye Exam Eye Exam: EOMI, Normal appearance - ENT Exam ENT Exam: Mucous Membranes Moist - Neck Exam Neck Exam: Full ROM Additional comments: lymphoma neck, with necrotic tissue covered with optifoam. no tenderness to palpation. no drainage. no change from yesterday - Respiratory Exam Respiratory Exam: Clear to Ausculation Bilateral, NORMAL BREATHING PATTERN. absent: Accessory Muscle Use, Decreased Breath Sounds, Respiratory Distress, Stridor - GI/Abdominal Exam GI & Abdominal Exam: Distended, Soft, Tenderness Additional comments: less distended than yesterday - Extremities Exam Extremities Exam: Full ROM, Normal Inspection. absent: Joint Swelling, Pedal Edema - Psychiatric Exam Psychiatric exam: Normal Affect, Normal Mood - Skin Skin Exam: Dry, Normal Color, Warm Additional comments: area of erythema surrounding port site is less than yesterday Assessment and Plan - Assessment and Plan (Free Text) Assessment: 62 F with resolving pancreatitis new onset sigmoid diverticulitis and neutropenia, with a PMH of RA, B cell lymphoma. Plan: 1. Pancreatitis, resolving maintain adequate hydration LR @100cc/hr 2. Sigmoid Diverticulitis, dx with CT Abd/Pelvis PO Contrast IVF Bowel rest Waiting Dr. Burns recommendations for new onset sigmoid diverticulitis 3. Patient is Neutropenic WBC increase from 0.1 to 1.2 today neutropenic precautions Monitor CBC with differential Neutrophil % 62 Bands 2% WBC 1.2 ANC= 768/mm3 NCI risk category 3 4. Diet: NPO. monitor for BM and worsening signs of abdominal pain. Zofran for nausea 5. Infectious disease and wound care change dressings on patient's neck skin lesion lymphoma and area of purulence and necrotic tissue. monitor for worsening signs of erythema, drainage, purulence. Surgery consulted (wound care). no packing necessary for neck wound per surgery. no pain. monitor for signs of erythema, increased pain, drainage, dental pain, purulence. wound culture neck: coag neg staph, sensitive to vancomycin wound culture chest/portacath area: citrobacter diversus, sensitive to zosyn ID consulted Patient has mouth ulcers and Oral Thrush Nystatin mouth wash odynophagia likely due to esophageal candidiasis tx: micafungin Vaginal pruritis: Miconazole 100 mg VG HS 6.Portacath insertion 03/16. monitor portacath site for infection, induration, purulence. ointment ordered yesterday. four by four and tegaderm. 03/17 Wound cx adjacent to portacath: Citrobacter diversus covered by Zosyn 3.375 IVPB Q6 per ID portacath was used to deliver Zofran for nausea Vanc 1 gm 250 cc IVPB Q12H Pain: Dilaudid 0.5 mg Q4H PRN DVT/GI PPX SCDs and Protonix Monitor Upon discharge patient will follow up with Dr Patricia and Dr Hoffman. Violet Pitts, DO PGY1 <Michael Lyles B - Last Filed: 03/20/17 16:18> Objective - Vital Signs/Intake and Output Vital Signs (last 24 hours): Temp Pulse Resp BP Pulse Ox 99 F 96 H 20 116/79 99 03/20/17 07:51 03/20/17 09:51 03/20/17 07:51 03/20/17 09:51 03/20/17 07:51 Intake and Output: 03/20/17 03/20/17 06:59 18:59 Intake Total 0 0 Balance 0 0 - Medications Medications: Current Medications Hydromorphone HCl (Dilaudid) 1 mg IVP Q4H PRN PRN Reason: Pain, severe (8-10) Last Admin: 03/20/17 10:08 Dose: 1 mg Lactated Ringer's (Lactated Ringer's) 1,000 mls @ 100 mls/hr IV .Q10H [facility] Last Admin: 03/20/17 14:20 Dose: 100 mls/hr Micafungin Sodium 100 mg/ (Sodium Chloride) 100 mls @ 100 mls/hr IV DAILY [facility] PRN Reason: Protocol Stop: 03/22/17 16:16 Last Admin: 03/20/17 10:07 Dose: 100 mls/hr Piperacillin Sod/Tazobactam Sod (Zosyn 3.375 In Ns 100ml) 100 mls @ 200 mls/hr IVPB Q6 [facility] PRN Reason: Protocol Stop: 03/25/17 10:58 Last Admin: 03/20/17 11:36 Dose: 200 mls/hr Vancomycin HCl (Vancomycin 1gm) 1 gm in 250 mls @ 167 mls/hr IVPB Q12H [facility] PRN Reason: Protocol Last Admin: 03/20/17 14:21 Dose: Not Given Iron Sucrose 200 mg/ Sodium (Chloride) 110 mls @ 110 mls/hr IVPB DAILY [facility] Stop: 03/23/17 11:46 Last Admin: 03/20/17 12:40 Dose: 110 mls/hr Potassium Chloride (Potassium Chloride 20 Meq/100 Ml) 20 meq in 100 mls @ 50 mls/hr IVPB Q2H [facility] Stop: 03/20/17 15:59 Last Admin: 03/20/17 12:40 Dose: 50 mls/hr Miconazole (Monistat 7 Vag Suppository) 100 mg VG HS [facility] Last Admin: 03/19/17 22:26 Dose: 100 mg Morphine Sulfate (Morphine) 2 mg IVP Q4H PRN PRN Reason: Pain, moderate (4-7) Mupirocin (Bactroban Ointment) 0 gm TOP DAILY [facility] Nystatin (Nystatin Oral Susp) 5 ml PO QID [facility] Last Admin: 03/20/17 14:20 Dose: Not Given Ondansetron HCl (Zofran Inj) 4 mg IVP Q4H PRN PRN Reason: Nausea/Vomiting Last Admin: 03/20/17 03:07 Dose: 4 mg Pantoprazole Sodium (Protonix Inj) 40 mg IVP DAILY [facility] Last Admin: 03/20/17 10:07 Dose: 40 mg - Labs Labs: 03/20/17 06:50 03/20/17 10:30 Attending/Attestation - Attestation I have personally seen and examined this patient.: Yes I have fully participated in the care of the patient.: Yes I have reviewed all pertinent clinical information, including history, physical exam and plan: Yes Notes (Text): I have seen and examined the patient at bedside. Agree with the above note with the following additions/ exceptions: Briefly this is 62 year old female with history of diffuse large B Cell lymphoma presented with acute pancreatitis post chemotherapy (RE [facility]). Also has oral candidiasis, suspected esophageal candidiasis, left neck mass superinfection, mild cellulitis at port site, acute neutropenia and now has acute sigmoid diverticulitis. This morning patient took few sips of ensure although she was NPO and her pain got worse. She was advised to remain NPO today and try CLD tomorrow. Continue IVF and analgesics. Her abdominal distension has improved. Continue antibiotics. Her cellulitis has almost resolved at port site. Neck wound is covered. Upon discharge patient will follow up with Dr Patricia and Dr Hoffman. Dr Michael Lyles
[2017-03-20] MEDS: Lactated Ringer's 1,000 ML IV SCH (14:20)
[2017-03-20] MEDS ORDERED: Morphine 2 mg/ml ISec IVP PRN (15:18)
--- NOTE | 2017-03-20 17:48 | CP.PCM.PN ---
Subjective - Date & Time of Evaluation Date of Evaluation: 03/20/17 Time of Evaluation: 10:35 - Subjective Subjective: Comfortable, not in distress, afebrile, improved swallowing, less abdominal pain. No fevers. Objective - Vital Signs/Intake and Output Vital Signs (last 24 hours): Temp Pulse Resp BP Pulse Ox 99 F 84 20 85/52 L 99 03/20/17 07:51 03/20/17 07:51 03/20/17 07:51 03/20/17 07:51 03/20/17 07:51 Intake and Output: 03/20/17 03/20/17 06:59 18:59 Intake Total 0 Balance 0 - Medications Medications: Current Medications Al Hydrox/Mg Hydrox/Simethicone 30 ml/Diphenhydramine HCl 75 mg/Lidocaine 30 ml 0 ml PO Q2H PRN PRN Reason: Mouth/Throat Pain Last Admin: 03/15/17 21:16 Dose: 15 ml Hydromorphone HCl (Dilaudid) 1 mg IVP Q4H PRN PRN Reason: Pain, severe (8-10) Last Admin: 03/20/17 03:02 Dose: 1 mg Lactated Ringer's (Lactated Ringer's) 1,000 mls @ 100 mls/hr IV .Q10H [facility] Last Admin: 03/19/17 09:37 Dose: 100 mls/hr Micafungin Sodium 100 mg/ (Sodium Chloride) 100 mls @ 100 mls/hr IV DAILY [facility] PRN Reason: Protocol Stop: 03/22/17 16:16 Last Admin: 03/19/17 09:36 Dose: 100 mls/hr Piperacillin Sod/Tazobactam Sod (Zosyn 3.375 In Ns 100ml) 100 mls @ 200 mls/hr IVPB Q6 [facility] PRN Reason: Protocol Stop: 03/25/17 10:58 Last Admin: 03/20/17 06:50 Dose: 200 mls/hr Vancomycin HCl (Vancomycin 1gm) 1 gm in 250 mls @ 167 mls/hr IVPB Q12H [facility] PRN Reason: Protocol Last Admin: 03/20/17 02:55 Dose: 167 mls/hr Miconazole (Monistat 7 Vag Suppository) 100 mg VG HS [facility] Last Admin: 03/19/17 22:26 Dose: 100 mg Morphine Sulfate (Morphine) 2 mg IVP Q4H PRN PRN Reason: Pain, moderate (4-7) Mupirocin (Bactroban Ointment) 0 gm TOP BID [facility] Last Admin: 03/19/17 17:07 Dose: 1 appl Nystatin (Nystatin Oral Susp) 5 ml PO QID [facility] Last Admin: 03/19/17 22:56 Dose: Not Given Ondansetron HCl (Zofran Inj) 4 mg IVP Q4H PRN PRN Reason: Nausea/Vomiting Last Admin: 03/20/17 03:07 Dose: 4 mg Pantoprazole Sodium (Protonix Inj) 40 mg IVP DAILY [facility] Last Admin: 03/19/17 09:36 Dose: 40 mg Polyethylene Glycol (Miralax) 17 gm PO DAILY [facility] Last Admin: 03/18/17 18:07 Dose: 17 gm - Labs Labs: 03/20/17 06:50 03/19/17 07:30 - Constitutional Appears: Non-toxic, No Acute Distress - Head Exam Head Exam: NORMAL INSPECTION - ENT Exam ENT Exam: Mucous Membranes Moist Additional comments: improving oral thrush - Neck Exam Neck Exam: absent: Lymphadenopathy, Meningismus - Respiratory Exam Respiratory Exam: Decreased Breath Sounds Additional comments: right anterior chest wall port - Cardiovascular Exam Cardiovascular Exam: +S1, +S2 - GI/Abdominal Exam GI & Abdominal Exam: Soft. absent: Tenderness Assessment and Plan - Assessment and Plan (Free Text) Plan: Assessment Oropharyngeal candidiasis R/O candidal esophagitis, slowly improving left necrotic mass on left neck from lymphoma, consider bacterial superinfection acute sigmoid diverticulitis, slowly improving clinically mild cellulitis around the port area with Citrobacter acute neutropenia probably from chemotherapy Acute pancreatitis, probably medication-induced (ie. chemotherapy) history of left neck necrotic mass with mild cellulitis of the surrounding area dyslipidemia recent diagnosis of B-cell lymphoma on chemotherapy history of UTI S/P tubal ligation S/P tonsillectomy Plan continue Mycamine day 6 and will continue to monitor clinically (patient is taking meds that may be affected if we use Fluconazole); continue Vancomycin and Zosyn day 3 for the chest cellulitis, neck necrotic mass and sigmoid diverticulitis
[2017-03-20] MEDS: Miconazole 100 MG Vaginal Supp VG SCH (22:10)
[2017-03-21] MEDS: Vancomycin 1gm in NS 250ml 1 GM/250 ML BAG IVPB SCH ×2 (02:20→13:48)
[2017-03-21] MEDS: Piperacillin/Tazobact 3.375 gm 100 ML IVPB SCH ×3 (05:26→18:01)
[2017-03-21 07:29] LABS: HEMOGLOBIN 8.5 g/dL (12.0-16.0); MEAN CELL VOLUME 86.5 fl (80.0-105.0); MEAN CORPUSCULAR HGB CONC 32.3 g/dl (31.0-37.0); MEAN PLATELET VOLUME 11.2 fl (7.0-11.0); PLATELET COUNT 70 10^3/uL (120.0-450.0); RBC 3.04 10^6/uL (3.5-6.1); RED CELL DISTRIBUTION WIDTH 13.8 % (11.5-14.5); WHITE BLOOD COUNT 11.9 10^3/ul (4.5-11.0)
--- NOTE | 2017-03-21 07:48 | CP.PCM.PN ---
Subjective - Date & Time of Evaluation Date of Evaluation: 03/21/17 Time of Evaluation: 07:43 - Subjective Subjective: Patient seen and examined, resting comfortably in bed. No acute events overnight. She continues to endorse LLQ abdominal pain, though improved compared to yesterday. She is able to ambulate without difficulty, had 2 soft bowel movements overnight. 12 point review of systems performed, negative aside from mentioned above. Objective - Vital Signs/Intake and Output Vital Signs (last 24 hours): Temp Pulse Resp BP Pulse Ox 97.4 F L 85 20 101/70 94 L 03/20/17 16:00 03/20/17 16:00 03/20/17 16:00 03/20/17 16:00 03/20/17 16:00 Intake and Output: 03/21/17 03/21/17 06:59 18:59 Intake Total 240 Balance 240 - Medications Medications: Current Medications Hydromorphone HCl (Dilaudid) 1 mg IVP Q4H PRN PRN Reason: Pain, severe (8-10) Last Admin: 03/20/17 20:51 Dose: 1 mg Lactated Ringer's (Lactated Ringer's) 1,000 mls @ 100 mls/hr IV .Q10H [facility] Last Admin: 03/20/17 14:20 Dose: 100 mls/hr Micafungin Sodium 100 mg/ (Sodium Chloride) 100 mls @ 100 mls/hr IV DAILY [facility] PRN Reason: Protocol Stop: 03/22/17 16:16 Last Admin: 03/20/17 10:07 Dose: 100 mls/hr Piperacillin Sod/Tazobactam Sod (Zosyn 3.375 In Ns 100ml) 100 mls @ 200 mls/hr IVPB Q6 [facility] PRN Reason: Protocol Stop: 03/25/17 10:58 Last Admin: 03/21/17 05:26 Dose: 200 mls/hr Vancomycin HCl (Vancomycin 1gm) 1 gm in 250 mls @ 167 mls/hr IVPB Q12H [facility] PRN Reason: Protocol Last Admin: 03/21/17 02:20 Dose: 167 mls/hr Iron Sucrose 200 mg/ Sodium (Chloride) 110 mls @ 110 mls/hr IVPB DAILY [facility] Stop: 03/23/17 11:46 Last Admin: 03/20/17 12:40 Dose: 110 mls/hr Miconazole (Monistat 7 Vag Suppository) 100 mg VG HS [facility] Last Admin: 03/20/17 22:10 Dose: 100 mg Morphine Sulfate (Morphine) 2 mg IVP Q4H PRN PRN Reason: Pain, moderate (4-7) Mupirocin (Bactroban Ointment) 0 gm TOP DAILY [facility] Nystatin (Nystatin Oral Susp) 5 ml PO QID [facility] Last Admin: 03/20/17 22:10 Dose: 5 ml Ondansetron HCl (Zofran Inj) 4 mg IVP Q4H PRN PRN Reason: Nausea/Vomiting Last Admin: 03/21/17 07:02 Dose: 4 mg Pantoprazole Sodium (Protonix Inj) 40 mg IVP DAILY [facility] Last Admin: 03/20/17 10:07 Dose: 40 mg - Labs Labs: 03/21/17 06:45 03/20/17 22:45 - Constitutional Appears: Non-toxic, No Acute Distress - Head Exam Head Exam: NORMAL INSPECTION - Eye Exam Eye Exam: EOMI, Normal appearance - ENT Exam ENT Exam: Mucous Membranes Moist - Neck Exam Additional comments: L sided neck dressing intact - Respiratory Exam Respiratory Exam: Clear to Ausculation Bilateral - Cardiovascular Exam Cardiovascular Exam: REGULAR RHYTHM, +S1, +S2 - GI/Abdominal Exam GI & Abdominal Exam: Soft, Tenderness, Normal Bowel Sounds Additional comments: LLQ tenderness to palpation, no rebound/guarding - Extremities Exam Extremities Exam: Normal Inspection - Skin Skin Exam: Dry, Intact, Normal Color, Warm Assessment and Plan - Assessment and Plan (Free Text) Assessment: Diffuse large B cell lymphoma Suspected chemotherapy induced pancreatitis Cellulitis of neck Acute sigmoid diverticulitis Plan: - Will advance diet to clear liquids, continue to monitor - Continue with antibiotic therapy as per ID - Pain control - Will continue to monitor patient clinical course
[2017-03-21 09:23] LABS: ANISOCYTOSIS SLIGHT; BAND 2 % (0-2); LYMPHOCYTE 4 % (22.0-35.0); METAMYELOCYTE 2 %; MONOCYTE 3 % (1.0-6.0); MYELOCYTE 5 %; NEUTROPHIL 82 % (50.0-70.0); NUCLEATED RED BLOOD CELL 1 %; PLATELET ESTIMATE LOW (NORMAL)
[2017-03-21] MEDS: Micafungin 100 MG in Sodium Chloride 0.9% 100 ML IV SCH (09:41)
[2017-03-21] MEDS: Nystatin 100,000 Units/ml Oral Susp 5 ml UD PO SCH ×4 (09:48→21:19)
[2017-03-21] MEDS: Lactated Ringer's 1,000 ML IV SCH ×2 (10:33→17:03)
[2017-03-21 11:42] LABS: ALB/GLOB RATIO 1.2 (1.1-1.8); ALBUMIN 2.9 g/dL (3.0-4.8); ALT/SGPT 24 U/L (7-56); AST/SGOT 26 U/L (15-39); BLOOD UREA NITROGEN 3 mg/dL (7-21); CALCIUM 8.6 mg/dL (8.4-10.5); GFR AFRICAN-AMERICAN > 60; GFR NON-AFRICAN AMERICAN > 60
[2017-03-21] MEDS: HYDROmorphone 0.5 mg/0.5 ml ISec IVP PRN ×3 (11:48→22:03)
[2017-03-21 14:07] LABS: MAGNESIUM 1.8 mg/dL (1.7-2.2)
[2017-03-21] MEDS ORDERED: Potassium Phosphate 15 MMOLE in Sodium Chloride 0.9% 250 ML IVPB ONE (16:35)
[2017-03-21] MEDS ORDERED: Potassium Chloride 20 mEq ER Tab PO ONE (16:44)
--- NOTE | 2017-03-21 16:50 | CP.PCM.PN ---
<GisselleViolet - Last Filed: 03/21/17 16:53> Subjective - Date & Time of Evaluation Date of Evaluation: 03/21/17 Time of Evaluation: 16:47 - Subjective Subjective: PT S&E at bedside. NAEON. Resting comfortably in bed. Patient admits to 2 soft bowel movements overnight. Patient's diet is advanced to liquid based on GI recommendations. Patient states she has LLQ pain which is improved compared to yesterday. Patient admits to nausea. Denies Fever, chills. Patient states she is able to walk around without difficulty. Objective - Vital Signs/Intake and Output Vital Signs (last 24 hours): Temp Pulse Resp BP Pulse Ox 98 F 84 18 125/78 98 03/21/17 16:05 03/21/17 16:05 03/21/17 16:05 03/21/17 16:05 03/21/17 16:05 Intake and Output: 03/21/17 03/21/17 06:59 18:59 Intake Total 240 Balance 240 - Medications Medications: Current Medications Hydromorphone HCl (Dilaudid) 1 mg IVP Q4H PRN PRN Reason: Pain, severe (8-10) Last Admin: 03/21/17 11:48 Dose: 1 mg Micafungin Sodium 100 mg/ (Sodium Chloride) 100 mls @ 100 mls/hr IV DAILY TISHA PRN Reason: Protocol Stop: 03/22/17 16:16 Last Admin: 03/21/17 09:41 Dose: 100 mls/hr Piperacillin Sod/Tazobactam Sod (Zosyn 3.375 In Ns 100ml) 100 mls @ 200 mls/hr IVPB Q6 [facility]ISHA PRN Reason: Protocol Stop: 03/25/17 10:58 Last Admin: 03/21/17 12:31 Dose: 200 mls/hr Vancomycin HCl (Vancomycin 1gm) 1 gm in 250 mls @ 167 mls/hr IVPB Q12H [facility]ISHA PRN Reason: Protocol Last Admin: 03/21/17 13:48 Dose: 167 mls/hr Iron Sucrose 200 mg/ Sodium (Chloride) 110 mls @ 110 mls/hr IVPB DAILY [facility] Stop: 03/23/17 11:46 Last Admin: 03/21/17 10:33 Dose: 110 mls/hr Lactated Ringer's (Lactated Ringer's) 1,000 mls @ 50 mls/hr IV .Q20H [facility] Potassium Phosphate 15 mmole/ (Sodium Chloride) 255 mls @ 42.5 mls/hr IVPB ONCE ONE Stop: 03/21/17 22:34 Miconazole (Monistat 7 Vag Suppository) 100 mg VG HS [facility] Last Admin: 03/20/17 22:10 Dose: 100 mg Morphine Sulfate (Morphine) 2 mg IVP Q4H PRN PRN Reason: Pain, moderate (4-7) Mupirocin (Bactroban Ointment) 0 gm TOP DAILY [facility] Last Admin: 03/21/17 09:47 Dose: 1 applic Nystatin (Nystatin Oral Susp) 5 ml PO QID [facility] Last Admin: 03/21/17 13:49 Dose: 5 ml Ondansetron HCl (Zofran Inj) 4 mg IVP Q4H PRN PRN Reason: Nausea/Vomiting Last Admin: 03/21/17 07:02 Dose: 4 mg Pantoprazole Sodium (Protonix Inj) 40 mg IVP DAILY [facility] Last Admin: 03/21/17 09:48 Dose: 40 mg Potassium Chloride (K-Dur 20 Meq Er Tab) 40 meq PO ONCE ONE Stop: 03/21/17 16:45 - Labs Labs: 03/21/17 11:28 03/21/17 11:28 - Constitutional Appears: Non-toxic - Head Exam Head Exam: NORMAL INSPECTION - Eye Exam Eye Exam: EOMI, Normal appearance - ENT Exam ENT Exam: Mucous Membranes Moist - Neck Exam Neck Exam: Full ROM Additional comments: left lymphoma with necrotic tissue, no change. not worsening. - Respiratory Exam Respiratory Exam: Clear to Ausculation Bilateral, NORMAL BREATHING PATTERN. absent: Accessory Muscle Use, Respiratory Distress - Cardiovascular Exam Cardiovascular Exam: REGULAR RHYTHM. absent: Bradycardia, Tachycardia - GI/Abdominal Exam GI & Abdominal Exam: Distended, Soft, Tenderness. absent: Rigid, Hernia, Rebound Additional comments: midepigastric abdominal pain LLQ pain no rebound no guarding no rigidity - Extremities Exam Extremities Exam: Full ROM, Normal Inspection. absent: Pedal Edema - Back Exam Back Exam: Full ROM, NORMAL INSPECTION - Neurological Exam Neurological Exam: Alert, Awake, Normal Gait - Skin Skin Exam: Intact, Normal Color, Warm Assessment and Plan - Assessment and Plan (Free Text) Assessment: 62 F with resolving pancreatitis new onset sigmoid diverticulitis and resolving neutropenia, with a PMH of RA, B cell lymphoma. Plan: 1. Pancreatitis, resolving maintain adequate hydration LR @100cc/hr 2. Sigmoid Diverticulitis, dx with CT Abd/Pelvis PO Contrast IVF Waiting Dr. Hoffman recommendations for new onset sigmoid diverticulitis 3. Neutropenia, resolved. off neutropenic precautions 03/21 Monitor CBC with differential 4. Diet: Liquid diet monitor for BM and worsening signs of abdominal pain. Zofran for nausea 5. Infectious disease and wound care change dressings on patient's neck skin lesion lymphoma and area of purulence and necrotic tissue. monitor for worsening signs of erythema, drainage, purulence. Surgery consulted (wound care). no packing necessary for neck wound per surgery. no pain. monitor for signs of erythema, increased pain, drainage, dental pain, purulence. wound culture neck: coag neg staph, sensitive to vancomycin wound culture chest/portacath area: citrobacter diversus, sensitive to zosyn ID consulted Patient has mouth ulcers and Oral Thrush Nystatin mouth wash odynophagia likely due to esophageal candidiasis tx: micafungin Vaginal pruritis: Miconazole 100 mg VG HS 6.Portacath insertion 03/16. monitor portacath site for infection, induration, purulence. four by four and tegaderm. bactroban discontinued yesterday afternoon. patient admits to less irritation at the site. 03/17 Wound cx adjacent to portacath: Citrobacter diversus covered by Zosyn 3.375 IVPB Q6 per ID portacath was used to deliver Zofran for nausea Vanc 1 gm 250 cc IVPB Q12H Pain: Dilaudid 0.5 mg Q4H PRN DVT/GI PPX SCDs and Protonix Monitor Upon discharge patient will follow up with Dr Patricia, Dr Hoffman and Dr. Wilkins f/u heme tomorrow - Dr. Wilkins will see her tomorrow Violet Pitts DO PGY1 <Jeanine Hager - Last Filed: 03/21/17 18:55> Objective - Vital Signs/Intake and Output Vital Signs (last 24 hours): Temp Pulse Resp BP Pulse Ox 98 F 84 18 125/78 98 03/21/17 16:05 03/21/17 16:05 03/21/17 16:05 03/21/17 16:05 03/21/17 16:05 Intake and Output: 03/21/17 03/21/17 06:59 18:59 Intake Total 240 Balance 240 - Medications Medications: Current Medications Hydromorphone HCl (Dilaudid) 1 mg IVP Q4H PRN PRN Reason: Pain, severe (8-10) Last Admin: 03/21/17 18:01 Dose: 1 mg Micafungin Sodium 100 mg/ (Sodium Chloride) 100 mls @ 100 mls/hr IV DAILY TISHA PRN Reason: Protocol Stop: 03/22/17 16:16 Last Admin: 03/21/17 09:41 Dose: 100 mls/hr Piperacillin Sod/Tazobactam Sod (Zosyn 3.375 In Ns 100ml) 100 mls @ 200 mls/hr IVPB Q6 [facility]ISHA PRN Reason: Protocol Stop: 03/25/17 10:58 Last Admin: 03/21/17 18:01 Dose: 200 mls/hr Vancomycin HCl (Vancomycin 1gm) 1 gm in 250 mls @ 167 mls/hr IVPB Q12H [facility] PRN Reason: Protocol Last Admin: 03/21/17 13:48 Dose: 167 mls/hr Iron Sucrose 200 mg/ Sodium (Chloride) 110 mls @ 110 mls/hr IVPB DAILY [facility] Stop: 03/23/17 11:46 Last Admin: 03/21/17 10:33 Dose: 110 mls/hr Lactated Ringer's (Lactated Ringer's) 1,000 mls @ 50 mls/hr IV .Q20H [facility] Last Admin: 03/21/17 17:03 Dose: 50 mls/hr Potassium Phosphate 15 mmole/ (Sodium Chloride) 255 mls @ 42.5 mls/hr IVPB ONCE ONE Stop: 03/21/17 22:34 Last Admin: 03/21/17 17:04 Dose: 42.5 mls/hr Miconazole (Monistat 7 Vag Suppository) 100 mg VG HS [facility] Last Admin: 03/20/17 22:10 Dose: 100 mg Morphine Sulfate (Morphine) 2 mg IVP Q4H PRN PRN Reason: Pain, moderate (4-7) Mupirocin (Bactroban Ointment) 0 gm TOP DAILY [facility] Last Admin: 03/21/17 09:47 Dose: 1 applic Nystatin (Nystatin Oral Susp) 5 ml PO QID [facility] Last Admin: 03/21/17 17:04 Dose: 5 ml Ondansetron HCl (Zofran Inj) 4 mg IVP Q4H PRN PRN Reason: Nausea/Vomiting Last Admin: 03/21/17 07:02 Dose: 4 mg Pantoprazole Sodium (Protonix Inj) 40 mg IVP DAILY [facility] Last Admin: 03/21/17 09:48 Dose: 40 mg - Labs Labs: 03/21/17 11:28 03/21/17 11:28 Attending/Attestation - Attestation I have personally seen and examined this patient.: Yes I have fully participated in the care of the patient.: Yes I have reviewed all pertinent clinical information, including history, physical exam and plan: Yes Notes (Text): 03/21/17 18:53 Patient seen and examined at bedside. No overnight issues reported. She feels some improvement in her symptoms. Labs, vitals , notes and current orders reviewed. multi-speciality follow up ongoing. Advance diet to full liquid today. Neutropenia better and precautions discontinued, Hematology follow up requested. Continue IV antibiotics and follow cultures. IV fluids titrated down today. Agree with the plan as outlined by the resident.
--- NOTE | 2017-03-21 18:31 | CP.PCM.PN ---
Subjective - Date & Time of Evaluation Date of Evaluation: 03/21/17 Time of Evaluation: 12:20 - Subjective Subjective: Comfortable in bed, feeling better, less abdominal pain, no nausea or vomiting, swallowing much better. No fevers overnight. Objective - Vital Signs/Intake and Output Vital Signs (last 24 hours): Temp Pulse Resp BP Pulse Ox 98.8 F 95 H 16 107/68 97 03/21/17 08:23 03/21/17 08:23 03/21/17 08:23 03/21/17 08:23 03/21/17 08:23 Intake and Output: 03/21/17 03/21/17 06:59 18:59 Intake Total 240 Balance 240 - Medications Medications: Current Medications Hydromorphone HCl (Dilaudid) 1 mg IVP Q4H PRN PRN Reason: Pain, severe (8-10) Last Admin: 03/20/17 20:51 Dose: 1 mg Lactated Ringer's (Lactated Ringer's) 1,000 mls @ 100 mls/hr IV .Q10H [facility] Last Admin: 03/21/17 10:33 Dose: 100 mls/hr Micafungin Sodium 100 mg/ (Sodium Chloride) 100 mls @ 100 mls/hr IV DAILY TISHA PRN Reason: Protocol Stop: 03/22/17 16:16 Last Admin: 03/21/17 09:41 Dose: 100 mls/hr Piperacillin Sod/Tazobactam Sod (Zosyn 3.375 In Ns 100ml) 100 mls @ 200 mls/hr IVPB Q6 TISHA PRN Reason: Protocol Stop: 03/25/17 10:58 Last Admin: 03/21/17 05:26 Dose: 200 mls/hr Vancomycin HCl (Vancomycin 1gm) 1 gm in 250 mls @ 167 mls/hr IVPB Q12H [facility] PRN Reason: Protocol Last Admin: 03/21/17 02:20 Dose: 167 mls/hr Iron Sucrose 200 mg/ Sodium (Chloride) 110 mls @ 110 mls/hr IVPB DAILY [facility] Stop: 03/23/17 11:46 Last Admin: 03/21/17 10:33 Dose: 110 mls/hr Miconazole (Monistat 7 Vag Suppository) 100 mg VG HS [facility] Last Admin: 03/20/17 22:10 Dose: 100 mg Morphine Sulfate (Morphine) 2 mg IVP Q4H PRN PRN Reason: Pain, moderate (4-7) Mupirocin (Bactroban Ointment) 0 gm TOP DAILY [facility] Last Admin: 03/21/17 09:47 Dose: 1 applic Nystatin (Nystatin Oral Susp) 5 ml PO QID [facility] Last Admin: 03/21/17 09:48 Dose: 5 ml Ondansetron HCl (Zofran Inj) 4 mg IVP Q4H PRN PRN Reason: Nausea/Vomiting Last Admin: 03/21/17 07:02 Dose: 4 mg Pantoprazole Sodium (Protonix Inj) 40 mg IVP DAILY [facility] Last Admin: 03/21/17 09:48 Dose: 40 mg - Labs Labs: 03/21/17 06:45 03/20/17 22:45 - Constitutional Appears: Non-toxic, No Acute Distress - Head Exam Head Exam: NORMAL INSPECTION - ENT Exam ENT Exam: Mucous Membranes Moist Additional comments: no more oral thrush - Neck Exam Neck Exam: absent: Lymphadenopathy, Meningismus - Respiratory Exam Respiratory Exam: Decreased Breath Sounds Additional comments: right port in place - Cardiovascular Exam Cardiovascular Exam: +S1, +S2 - GI/Abdominal Exam GI & Abdominal Exam: Soft. absent: Tenderness Assessment and Plan - Assessment and Plan (Free Text) Plan: Assessment Oropharyngeal candidiasis R/O candidal esophagitis, clincially improving left necrotic mass on left neck from lymphoma, consider bacterial superinfection acute sigmoid diverticulitis, slowly improving clinically mild cellulitis around the port area with Citrobacter acute neutropenia probably from chemotherapy Acute pancreatitis, probably medication-induced (ie. chemotherapy) history of left neck necrotic mass with mild cellulitis of the surrounding area dyslipidemia recent diagnosis of B-cell lymphoma on chemotherapy history of UTI S/P tubal ligation S/P tonsillectomy Plan continue Mycamine day 7 and will continue to monitor clinically (patient is taking meds that may be affected if we use Fluconazole) - may d/c after today; continue Vancomycin and Zosyn day 4 for the chest cellulitis, neck necrotic mass and sigmoid diverticulitis (complete 5-7 days)
[2017-03-21] MEDS: Miconazole 100 MG Vaginal Supp VG SCH (21:19)
[2017-03-22] MEDS: Vancomycin 1gm in NS 250ml 1 GM/250 ML BAG IVPB SCH ×2 (02:05→14:14)
[2017-03-22 07:20] LABS: ALB/GLOB RATIO 1.2 (1.1-1.8); ALBUMIN 2.8 g/dL (3.0-4.8); ALT/SGPT 21 U/L (7-56); AST/SGOT 21 U/L (15-39); BLOOD UREA NITROGEN 2 mg/dL (7-21); GFR AFRICAN-AMERICAN > 60; GFR NON-AFRICAN AMERICAN 50
[2017-03-22 08:08] VITALS: RESP 20
[2017-03-22] MEDS ORDERED: Potassium Chloride 20 mEq ER Tab PO ONE (08:19)
[2017-03-22 08:29] LABS: HEMOGLOBIN 9.6 g/dL (12.0-16.0); MEAN CELL VOLUME 86.1 fl (80.0-105.0); MEAN CORPUSCULAR HEMOGLOBIN 28.4 pg (25.0-35.0); MEAN PLATELET VOLUME 10.3 fl (7.0-11.0); PLATELET COUNT 115 10^3/uL (120.0-450.0); RBC 3.38 10^6/uL (3.5-6.1); RED CELL DISTRIBUTION WIDTH 14.2 % (11.5-14.5); WHITE BLOOD COUNT 20.6 10^3/ul (4.5-11.0)
[2017-03-22 08:48] LABS: MAGNESIUM 1.9 mg/dL (1.7-2.2)
[2017-03-22 09:04] LABS: BAND 4 % (0-2); LYMPHOCYTE 5 % (22.0-35.0); NEUTROPHIL 75 % (50.0-70.0)
[2017-03-22 09:05] LABS: EOSINOPHIL 0 % (0.0-3.0); HYPOCHROMIA 2+; METAMYELOCYTE 2 %; MONOCYTE 4 % (1.0-6.0); MYELOCYTE 5 %; NUCLEATED RED BLOOD CELL 1 %; PLATELET ESTIMATE NORMAL (NORMAL)
[2017-03-22 09:06] LABS: ROULEAU 2+; TOXIC GRANULATION 1+
[2017-03-22] MEDS: HYDROmorphone 0.5 mg/0.5 ml ISec IVP PRN ×3 (09:37→21:57)
[2017-03-22] MEDS: Nystatin 100,000 Units/ml Oral Susp 5 ml UD PO SCH ×4 (09:37→21:35)
[2017-03-22] MEDS: Micafungin 100 MG in Sodium Chloride 0.9% 100 ML IV SCH (09:38)
--- NOTE | 2017-03-22 11:49 | PN ---
DATE: 03/22/2017 SUBJECTIVE: The patient is lying in bed and feels much better. Denies any further abdominal pain. She states her pain has improved considerably, also has some nausea, but is also improved. White count is now over 20,000 likely response to the Neulasta that she received approximately 10 days ago. She also has more of an appetite and was able to tolerate clear liquids this morning. PHYSICAL EXAMINATION: GENERAL: The patient is middle-aged female lying in bed in no acute distress. VITAL SIGNS: Reveals a temperature of 98.2, pulse of 65, respiratory rate of 20, and blood pressure of 128/80. HEENT: Normocephalic and atraumatic. Eyes; pupils equal, round, and reactive to light and accommodation. Extraocular muscles are intact. There is some pallor. No icterus is noted. NECK: Supple with no adenopathy. No JVD. No thyromegaly. LUNGS: Clear to auscultation bilaterally with no rales or rhonchi. CARDIOVASCULAR: S1 and S2 is heard. ABDOMEN: Positive bowel sounds, soft, and mild tenderness. EXTREMITIES: There is no edema, clubbing, or cyanosis. Large neck mass on the left distal noted. LABORATORY DATA: Her white count is 20.6, hemoglobin is 9.6, hematocrit is 29.1, and platelet count of 115. White count diff is left shift. Chemistries are within normal limits except for low potassium. Her wound cultures grew Citrobacter diversus. Urine culture is probably a contamination. Blood culture, there is no growth in 5 days. ASSESSMENT AND PLAN: Middle-aged female with diffuse large B-cell lymphoma, status post first cycle of chemotherapy with R-EPOCH and now admitted with pancytopenia, which is significantly improved since admission. The current spike in white count is likely secondary to the Neulasta dose she received approximately a week ago, does not have any acute signs of any localizing acute signs of infection. We will continue to trend the WBC count at this point, no intervention other than what is currently being employed. Discussed with the patient as her appetite improves and she is able to tolerate more p.o. We will start tapering antibiotics as well. Thank you for the consult. We will follow. Rossi Duvall MD [facility] # [id number]
[2017-03-22] MEDS: Piperacillin/Tazobact 3.375 gm 100 ML IVPB SCH ×4 (12:53→19:58)
--- NOTE | 2017-03-22 14:14 | CP.PCM.PN ---
<Violet Pitts - Last Filed: 03/22/17 14:21> Subjective - Date & Time of Evaluation Date of Evaluation: 03/22/17 Time of Evaluation: 08:00 - Subjective Subjective: Progress note for Dr. Hager PT S&E at bedside. NAEON. Resting comfortably in bed. Patient admits to soft bowel movements overnight. Patient is tolerating Full Liquid diet. Patient states she has LLQ pain which is improved compared to yesterday. Patient is able to push on her abdomen to show less tenderness. Patient drank a lot of fluid and ate a lot of food today. Patient Denies Fever, chills. Patient states she is able to walk around without difficulty. Objective - Vital Signs/Intake and Output Vital Signs (last 24 hours): Temp Pulse Resp BP Pulse Ox 98.2 F 65 20 128/80 100 03/22/17 07:00 03/22/17 07:00 03/22/17 07:00 03/22/17 07:00 03/22/17 07:00 Intake and Output: 03/22/17 03/22/17 06:59 18:59 Intake Total 1979 Balance 1979 - Medications Medications: Current Medications Hydromorphone HCl (Dilaudid) 1 mg IVP Q4H PRN PRN Reason: Pain, severe (8-10) Last Admin: 03/22/17 09:37 Dose: 1 mg Micafungin Sodium 100 mg/ (Sodium Chloride) 100 mls @ 100 mls/hr IV DAILY TISHA PRN Reason: Protocol Stop: 03/22/17 16:16 Last Admin: 03/22/17 09:38 Dose: 100 mls/hr Piperacillin Sod/Tazobactam Sod (Zosyn 3.375 In Ns 100ml) 100 mls @ 200 mls/hr IVPB Q6 [facility]ISHA PRN Reason: Protocol Stop: 03/25/17 10:58 Last Admin: 03/22/17 12:53 Dose: 200 mls/hr Vancomycin HCl (Vancomycin 1gm) 1 gm in 250 mls @ 167 mls/hr IVPB Q12H [facility] PRN Reason: Protocol Last Admin: 03/22/17 02:05 Dose: 167 mls/hr Iron Sucrose 200 mg/ Sodium (Chloride) 110 mls @ 110 mls/hr IVPB DAILY [facility] Stop: 03/23/17 11:46 Last Admin: 03/22/17 10:52 Dose: 110 mls/hr Lactated Ringer's (Lactated Ringer's) 1,000 mls @ 50 mls/hr IV .Q20H [facility] Last Admin: 03/21/17 17:03 Dose: 50 mls/hr Loperamide HCl (Imodium) 4 mg PO DAILY PRN PRN Reason: Diarrhea Miconazole (Monistat 7 Vag Suppository) 100 mg VG HS [facility] Last Admin: 03/21/17 21:19 Dose: 100 mg Morphine Sulfate (Morphine) 2 mg IVP Q4H PRN PRN Reason: Pain, moderate (4-7) Mupirocin (Bactroban Ointment) 0 gm TOP DAILY [facility] Last Admin: 03/22/17 09:39 Dose: Not Given Nystatin (Nystatin Oral Susp) 5 ml PO QID [facility] Last Admin: 03/22/17 09:37 Dose: 5 ml Ondansetron HCl (Zofran Inj) 4 mg IVP Q4H PRN PRN Reason: Nausea/Vomiting Last Admin: 03/22/17 09:51 Dose: 4 mg Pantoprazole Sodium (Protonix Inj) 40 mg IVP DAILY [facility] Last Admin: 03/22/17 09:51 Dose: 40 mg - Labs Labs: 03/22/17 06:30 03/22/17 06:30 - Constitutional Appears: Non-toxic - Head Exam Head Exam: NORMAL INSPECTION - Eye Exam Eye Exam: EOMI, Normal appearance - ENT Exam ENT Exam: Mucous Membranes Moist - Neck Exam Neck Exam: Full ROM Additional comments: left neck mass with necrotic tissue bandage change by RN - Respiratory Exam Respiratory Exam: NORMAL BREATHING PATTERN. absent: Accessory Muscle Use, Respiratory Distress - Cardiovascular Exam Cardiovascular Exam: REGULAR RHYTHM - GI/Abdominal Exam GI & Abdominal Exam: Soft, Tenderness, Hypoactive Bowel Sounds. absent: Firm, Guarding, Rigid - Extremities Exam Extremities Exam: Full ROM. absent: Pedal Edema - Neurological Exam Neurological Exam: Alert, Awake, Oriented x3 - Psychiatric Exam Psychiatric exam: Normal Affect, Normal Mood - Skin Skin Exam: Dry, Intact, Normal Color, Warm Assessment and Plan - Assessment and Plan (Free Text) Assessment: 62 Plan: LR reduced to 50 cc Diet: FLD Patient is tolerating diet well. 62 F with resolving pancreatitis new onset sigmoid diverticulitis and resolving neutropenia, with a PMH of RA, B cell lymphoma. Plan: 1. Pancreatitis, resolving maintain adequate hydration LR @100cc/hr 2. Sigmoid Diverticulitis, dx with CT Abd/Pelvis PO Contrast IVF Waiting Dr. Hoffman recommendations for new onset sigmoid diverticulitis 3. Neutropenia, resolved. off neutropenic precautions 03/21 Monitor CBC with differential 4. Diet: Liquid diet monitor for BM and worsening signs of abdominal pain. Zofran for nausea 5. Infectious disease and wound care change dressings on patient's neck skin lesion lymphoma and area of purulence and necrotic tissue. monitor for worsening signs of erythema, drainage, purulence. Surgery consulted (wound care). no packing necessary for neck wound per surgery. no pain. monitor for signs of erythema, increased pain, drainage, dental pain, purulence. wound culture neck: coag neg staph, sensitive to vancomycin wound culture chest/portacath area: citrobacter diversus, sensitive to zosyn Patient has mouth ulcers and Oral Thrush Nystatin mouth wash odynophagia likely due to esophageal candidiasis tx: micafungin Vaginal pruritis: Miconazole 100 mg VG HS Continue Mycamine day 7 and will continue to monitor clinically (patient is taking meds that may be affected if we use Fluconazole) - may d/c after today; Continue Vancomycin and Zosyn day 4 for the chest cellulitis, neck necrotic mass and sigmoid diverticulitis (complete 5-7 days) 5. Diarrhea Loperamide PRN if needed for diarrhea C. diff toxin and fecal leukocytes ordered for diarrhea 6. Electrolytes repleted hypokalemia 7.Portacath insertion 03/16. monitor portacath site for infection, induration, purulence. four by four and tegaderm. bactroban discontinued yesterday afternoon. patient admits to less irritation at the site. continue to monitor 8. Wound cx adjacent to portacath: Citrobacter diversus covered by Zosyn 3.375 IVPB Q6 per ID portacath was used to deliver Zofran for nausea Vanc 1 gm 250 cc IVPB Q12H Pain: Dilaudid 1 mg Q4H PRN DVT/GI PPX SCDs and Protonix Monitor Upon discharge patient will follow up with Dr Patricia, Dr Hoffman and Dr. Wilkins f/u heme Dr. Wilkins recommendations Violetmartin Pitts DO PGY1 <Jeanine Hager - Last Filed: 03/22/17 20:55> Objective - Vital Signs/Intake and Output Vital Signs (last 24 hours): Temp Pulse Resp BP Pulse Ox 98.3 F 86 20 115/76 96 03/22/17 16:06 03/22/17 16:06 03/22/17 16:06 03/22/17 16:06 03/22/17 16:06 - Medications Medications: Current Medications Hydromorphone HCl (Dilaudid) 1 mg IVP Q4H PRN PRN Reason: Pain, severe (8-10) Last Admin: 03/22/17 15:31 Dose: 1 mg Piperacillin Sod/Tazobactam Sod (Zosyn 3.375 In Ns 100ml) 100 mls @ 200 mls/hr IVPB Q6 [facility] PRN Reason: Protocol Stop: 03/25/17 10:58 Last Admin: 03/22/17 19:58 Dose: 200 mls/hr Vancomycin HCl (Vancomycin 1gm) 1 gm in 250 mls @ 167 mls/hr IVPB Q12H [facility] PRN Reason: Protocol Last Admin: 03/22/17 14:14 Dose: 167 mls/hr Iron Sucrose 200 mg/ Sodium (Chloride) 110 mls @ 110 mls/hr IVPB DAILY [facility] Stop: 03/23/17 11:46 Last Admin: 03/22/17 10:52 Dose: 110 mls/hr Lactated Ringer's (Lactated Ringer's) 1,000 mls @ 50 mls/hr IV .Q20H [facility] Last Admin: 03/21/17 17:03 Dose: 50 mls/hr Loperamide HCl (Imodium) 4 mg PO DAILY PRN PRN Reason: Diarrhea Miconazole (Monistat 7 Vag Suppository) 100 mg VG HS [facility] Last Admin: 03/21/17 21:19 Dose: 100 mg Morphine Sulfate (Morphine) 2 mg IVP Q4H PRN PRN Reason: Pain, moderate (4-7) Mupirocin (Bactroban Ointment) 0 gm TOP DAILY [facility] Last Admin: 03/22/17 09:39 Dose: Not Given Nystatin (Nystatin Oral Susp) 5 ml PO QID [facility] Last Admin: 03/22/17 17:47 Dose: 5 ml Ondansetron HCl (Zofran Inj) 4 mg IVP Q4H PRN PRN Reason: Nausea/Vomiting Last Admin: 03/22/17 15:31 Dose: 4 mg Pantoprazole Sodium (Protonix Inj) 40 mg IVP DAILY [facility] Last Admin: 03/22/17 09:51 Dose: 40 mg - Labs Labs: 03/22/17 06:30 03/22/17 06:30 Attending/Attestation - Attestation I have personally seen and examined this patient.: Yes I have fully participated in the care of the patient.: Yes I have reviewed all pertinent clinical information, including history, physical exam and plan: Yes Notes (Text): 03/22/17 20:51 Patient seen and examined at bedside. Vitals, labs, medications and notes reviewed. Patient feels improvement in her abdominal pain but reports 2 episodes of diarrhea today. Tolerating her liquid diet well. GI follow up appreciated. Leukocytosis improving and no fever noted. ID follow up ongoing and patient remains on IV antibiotic regimen. Cultures are negative, stool cultures sent today as well. Hematology follow up appreciated. Port side erythema better and non-pruritic. Agree with the remainder of the plan as outlined by the resident
--- NOTE | 2017-03-22 18:29 | CP.PCM.PN ---
Subjective - Date & Time of Evaluation Date of Evaluation: 03/22/17 Time of Evaluation: 12:05 - Subjective Subjective: Swallowing better, no fevers, less abdominal pain. Objective - Vital Signs/Intake and Output Vital Signs (last 24 hours): Temp Pulse Resp BP Pulse Ox 98.2 F 65 20 128/80 100 03/22/17 07:00 03/22/17 07:00 03/22/17 07:00 03/22/17 07:00 03/22/17 07:00 Intake and Output: 03/22/17 03/22/17 06:59 18:59 Intake Total 1979 Balance 1979 - Medications Medications: Current Medications Hydromorphone HCl (Dilaudid) 1 mg IVP Q4H PRN PRN Reason: Pain, severe (8-10) Last Admin: 03/22/17 09:37 Dose: 1 mg Micafungin Sodium 100 mg/ (Sodium Chloride) 100 mls @ 100 mls/hr IV DAILY TISHA PRN Reason: Protocol Stop: 03/22/17 16:16 Last Admin: 03/22/17 09:38 Dose: 100 mls/hr Piperacillin Sod/Tazobactam Sod (Zosyn 3.375 In Ns 100ml) 100 mls @ 200 mls/hr IVPB Q6 TISHA PRN Reason: Protocol Stop: 03/25/17 10:58 Last Admin: 03/22/17 00:00 Dose: 200 mls/hr Vancomycin HCl (Vancomycin 1gm) 1 gm in 250 mls @ 167 mls/hr IVPB Q12H TISHA PRN Reason: Protocol Last Admin: 03/22/17 02:05 Dose: 167 mls/hr Iron Sucrose 200 mg/ Sodium (Chloride) 110 mls @ 110 mls/hr IVPB DAILY TISHA Stop: 03/23/17 11:46 Last Admin: 03/21/17 10:33 Dose: 110 mls/hr Lactated Ringer's (Lactated Ringer's) 1,000 mls @ 50 mls/hr IV .Q20H TISHA Last Admin: 03/21/17 17:03 Dose: 50 mls/hr Miconazole (Monistat 7 Vag Suppository) 100 mg VG HS [facility] Last Admin: 03/21/17 21:19 Dose: 100 mg Morphine Sulfate (Morphine) 2 mg IVP Q4H PRN PRN Reason: Pain, moderate (4-7) Mupirocin (Bactroban Ointment) 0 gm TOP DAILY [facility] Last Admin: 03/22/17 09:39 Dose: Not Given Nystatin (Nystatin Oral Susp) 5 ml PO QID [facility] Last Admin: 03/22/17 09:37 Dose: 5 ml Ondansetron HCl (Zofran Inj) 4 mg IVP Q4H PRN PRN Reason: Nausea/Vomiting Last Admin: 03/22/17 09:51 Dose: 4 mg Pantoprazole Sodium (Protonix Inj) 40 mg IVP DAILY [facility] Last Admin: 03/22/17 09:51 Dose: 40 mg - Labs Labs: 03/22/17 06:30 03/22/17 06:30 - Constitutional Appears: Non-toxic, No Acute Distress - Head Exam Head Exam: NORMAL INSPECTION - ENT Exam ENT Exam: Mucous Membranes Moist - Neck Exam Neck Exam: absent: Lymphadenopathy, Meningismus - Respiratory Exam Respiratory Exam: Decreased Breath Sounds - Cardiovascular Exam Cardiovascular Exam: +S1, +S2 - GI/Abdominal Exam GI & Abdominal Exam: Soft. absent: Tenderness Assessment and Plan - Assessment and Plan (Free Text) Plan: Assessment Oropharyngeal candidiasis R/O candidal esophagitis, clinically improving left necrotic mass on left neck from lymphoma, consider bacterial superinfection acute sigmoid diverticulitis, slowly improving clinically mild cellulitis around the port area with Citrobacter acute neutropenia probably from chemotherapy Acute pancreatitis, probably medication-induced (ie. chemotherapy) history of left neck necrotic mass with mild cellulitis of the surrounding area dyslipidemia recent diagnosis of B-cell lymphoma on chemotherapy history of UTI S/P tubal ligation S/P tonsillectomy Plan S/P Mycamine (7 days); continue Vancomycin and Zosyn day 4 for the chest cellulitis, neck necrotic mass and sigmoid diverticulitis (complete 5-7 days)
[2017-03-22] MEDS: Miconazole 100 MG Vaginal Supp VG SCH (21:36)
[2017-03-22] MEDS: Lactated Ringer's 1,000 ML IV SCH (21:43)
[2017-03-23] MEDS: Piperacillin/Tazobact 3.375 gm 100 ML IVPB SCH ×5 (00:05→23:28)
[2017-03-23] MEDS: Vancomycin 1gm in NS 250ml 1 GM/250 ML BAG IVPB SCH ×2 (02:08→14:59)
[2017-03-23 06:30] LABS: ALB/GLOB RATIO 1.1 (1.1-1.8); ALT/SGPT 26 U/L (7-56); AST/SGOT 28 U/L (15-39); BLOOD UREA NITROGEN < 2 mg/dL (7-21); CALCIUM 8.6 mg/dL (8.4-10.5); GFR AFRICAN-AMERICAN > 60; GFR NON-AFRICAN AMERICAN 56
[2017-03-23 06:41] LABS: HEMOGLOBIN 9.5 g/dL (12.0-16.0); MEAN CELL VOLUME 88.2 fl (80.0-105.0); MEAN CORPUSCULAR HEMOGLOBIN 28.1 pg (25.0-35.0); MEAN CORPUSCULAR HGB CONC 31.9 g/dl (31.0-37.0); MEAN PLATELET VOLUME 10.6 fl (7.0-11.0); PLATELET COUNT 150 10^3/uL (120.0-450.0); RBC 3.38 10^6/uL (3.5-6.1); RED CELL DISTRIBUTION WIDTH 14.7 % (11.5-14.5); WHITE BLOOD COUNT 19.3 10^3/ul (4.5-11.0)
[2017-03-23] MEDS: HYDROmorphone 0.5 mg/0.5 ml ISec IVP PRN ×3 (07:01→20:18)
[2017-03-23 07:06] LABS: BAND 9 % (0-2); LYMPHOCYTE 7 % (22.0-35.0); NEUTROPHIL 64 % (50.0-70.0)
[2017-03-23 07:07] LABS: BASOPHIL 1 % (0.0-1.0); METAMYELOCYTE 3 %; MONOCYTE 13 % (1.0-6.0); MYELOCYTE 3 %; PLATELET ESTIMATE NORMAL (NORMAL)
--- NOTE | 2017-03-23 07:23 | CP.PCM.PN ---
<Ayanna Montalvo - Last Filed: 03/23/17 09:29> Subjective - Date & Time of Evaluation Date of Evaluation: 03/23/17 Time of Evaluation: 07:19 - Subjective Subjective: Gastroenterology Fellow/PGY5 Progress Note Patient notes worsened right lower abdomen pain upon awakening. She notes pattern of severe pain in the morning and at night that is relieved with analgesics. Tolerating full liquid diet. Notes soft stool this morning. A 12- point review of systems negative except for as above. Objective - Vital Signs/Intake and Output Vital Signs (last 24 hours): Temp Pulse Resp BP Pulse Ox 98.3 F 86 20 115/76 96 03/22/17 16:06 03/22/17 16:06 03/22/17 16:06 03/22/17 16:06 03/22/17 16:06 Intake and Output: 03/23/17 03/23/17 06:59 18:59 Intake Total 2080 Balance 2080 - Medications Medications: Current Medications Hydromorphone HCl (Dilaudid) 1 mg IVP Q4H PRN PRN Reason: Pain, severe (8-10) Last Admin: 03/23/17 07:01 Dose: 1 mg Piperacillin Sod/Tazobactam Sod (Zosyn 3.375 In Ns 100ml) 100 mls @ 200 mls/hr IVPB Q6 TISHA PRN Reason: Protocol Stop: 03/25/17 10:58 Last Admin: 03/23/17 05:56 Dose: 200 mls/hr Vancomycin HCl (Vancomycin 1gm) 1 gm in 250 mls @ 167 mls/hr IVPB Q12H [facility]ISHA PRN Reason: Protocol Last Admin: 03/23/17 02:08 Dose: 167 mls/hr Iron Sucrose 200 mg/ Sodium (Chloride) 110 mls @ 110 mls/hr IVPB DAILY TISHA Stop: 03/23/17 11:46 Last Admin: 03/22/17 10:52 Dose: 110 mls/hr Lactated Ringer's (Lactated Ringer's) 1,000 mls @ 50 mls/hr IV .Q20H [facility] Last Admin: 03/22/17 21:43 Dose: 50 mls/hr Loperamide HCl (Imodium) 4 mg PO DAILY PRN PRN Reason: Diarrhea Miconazole (Monistat 7 Vag Suppository) 100 mg VG HS [facility] Last Admin: 03/22/17 21:36 Dose: 100 mg Morphine Sulfate (Morphine) 2 mg IVP Q4H PRN PRN Reason: Pain, moderate (4-7) Mupirocin (Bactroban Ointment) 0 gm TOP DAILY [facility] Last Admin: 03/22/17 09:39 Dose: Not Given Nystatin (Nystatin Oral Susp) 5 ml PO QID [facility] Last Admin: 03/22/17 21:35 Dose: 5 ml Ondansetron HCl (Zofran Inj) 4 mg IVP Q4H PRN PRN Reason: Nausea/Vomiting Last Admin: 03/22/17 21:42 Dose: 4 mg Pantoprazole Sodium (Protonix Inj) 40 mg IVP DAILY [facility] Last Admin: 03/22/17 09:51 Dose: 40 mg - Labs Labs: 03/23/17 06:00 03/23/17 06:00 - Constitutional Appears: Non-toxic, No Acute Distress - Head Exam Head Exam: ATRAUMATIC, NORMOCEPHALIC - Eye Exam Eye Exam: EOMI, PERRL Pupil Exam: PERRL. absent: Miosis, Mydriatic - ENT Exam ENT Exam: Mucous Membranes Moist, Normal Oropharynx - Neck Exam Neck Exam: Full ROM, Normal Inspection - Respiratory Exam Respiratory Exam: Clear to Ausculation Bilateral. absent: Rales, Rhonchi, Wheezes - Cardiovascular Exam Cardiovascular Exam: RRR, +S1, +S2. absent: Gallop, Rubs - GI/Abdominal Exam GI & Abdominal Exam: Soft, Tenderness, Normal Bowel Sounds. absent: Distended, Firm, Guarding, Rigid, Mass, Organomegaly, Rebound - Extremities Exam Extremities Exam: Normal Inspection. 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 Active treatment of uncomplicated sigmoid diverticulitis, chest cellulitis, neck necrotic mass, oropharyngeal candidiasis, port-a-cath cellulitis, and resolved pancreatitis. Plan: >on zosyn >complete 10-14 day course for diverticulitis coverage >ID managing- follow up recommendations -on vancomycin and zosyn, completed micafungin course >supportive care: gentle IVFs, pain control, anti-emetics >full liquid diet, advance as tolerated >will require outpatient follow up in 6-8 weeks <Quique Diana - Last Filed: 03/23/17 10:16> Objective - Vital Signs/Intake and Output Vital Signs (last 24 hours): Temp Pulse Resp BP Pulse Ox 97.9 F 82 20 126/68 95 03/23/17 07:30 03/23/17 07:30 03/23/17 07:30 03/23/17 07:30 03/23/17 07:30 Intake and Output: 03/23/17 03/23/17 06:59 18:59 Intake Total 2080 Balance 2080 - Medications Medications: Current Medications Hydromorphone HCl (Dilaudid) 1 mg IVP Q4H PRN PRN Reason: Pain, severe (8-10) Last Admin: 03/23/17 07:01 Dose: 1 mg Piperacillin Sod/Tazobactam Sod (Zosyn 3.375 In Ns 100ml) 100 mls @ 200 mls/hr IVPB Q6 TISHA PRN Reason: Protocol Stop: 03/25/17 10:58 Last Admin: 03/23/17 05:56 Dose: 200 mls/hr Vancomycin HCl (Vancomycin 1gm) 1 gm in 250 mls @ 167 mls/hr IVPB Q12H TISHA PRN Reason: Protocol Last Admin: 03/23/17 02:08 Dose: 167 mls/hr Iron Sucrose 200 mg/ Sodium (Chloride) 110 mls @ 110 mls/hr IVPB DAILY TISHA Stop: 03/23/17 11:46 Last Admin: 03/22/17 10:52 Dose: 110 mls/hr Lactated Ringer's (Lactated Ringer's) 1,000 mls @ 50 mls/hr IV .Q20H [facility] Last Admin: 03/22/17 21:43 Dose: 50 mls/hr Loperamide HCl (Imodium) 4 mg PO DAILY PRN PRN Reason: Diarrhea Miconazole (Monistat 7 Vag Suppository) 100 mg VG HS [facility] Last Admin: 03/22/17 21:36 Dose: 100 mg Morphine Sulfate (Morphine) 2 mg IVP Q4H PRN PRN Reason: Pain, moderate (4-7) Mupirocin (Bactroban Ointment) 0 gm TOP DAILY [facility] Last Admin: 03/22/17 09:39 Dose: Not Given Nystatin (Nystatin Oral Susp) 5 ml PO QID [facility] Last Admin: 03/23/17 09:16 Dose: 5 ml Ondansetron HCl (Zofran Inj) 4 mg IVP Q4H PRN PRN Reason: Nausea/Vomiting Last Admin: 03/22/17 21:42 Dose: 4 mg Pantoprazole Sodium (Protonix Inj) 40 mg IVP DAILY [facility] Last Admin: 03/23/17 09:16 Dose: 40 mg - Labs Labs: 03/23/17 06:00 03/23/17 06:00 Attending/Attestation - Attestation I have personally seen and examined this patient.: Yes I have fully participated in the care of the patient.: Yes I have reviewed all pertinent clinical information, including history, physical exam and plan: Yes Notes (Text): 03/23/17 10:13 I have seen and examined patient with GI fellow. No acute events overnight. She continues to endorse LLQ abdominal pain, though slightly improved compared to yesterday. She had two soft bowel movements overnight. She denies fever/ chills, nausea, vomiting. Tolerating PO full liquid diet without difficulty. Diffuse large B cell lymphoma on chemotherapy Cellulitis Resolved pancreatitis - thought to be related to chemotherapy Sigmoid diverticulitis - Continue with full liquid diet, advance slowly as tolerated - Continue with antibiotic therapy - Pain control - Will continue to monitor patient clinical course, will require outpatient follow up after resolution of acute medical issues
[2017-03-23] MEDS ORDERED: Potassium Chloride 20 mEq ER Tab PO ONE (08:53)
[2017-03-23] MEDS: Nystatin 100,000 Units/ml Oral Susp 5 ml UD PO SCH ×4 (09:16→21:12)
[2017-03-23] MEDS ORDERED: Potassium Chloride 40 mEq/30 ml LIQ UD PO ONE (09:52)
--- NOTE | 2017-03-23 14:18 | CP.PCM.PN ---
<Violet Pitts - Last Filed: 03/23/17 14:18> Subjective - Date & Time of Evaluation Date of Evaluation: 03/23/17 Time of Evaluation: 14:18 - Subjective Subjective: PT S&E at bedside. patient said she woke up with abdominal pain. Patient states she tries not to take analgesics, but when she can't handle the pain, it's severe enough to ask for the higher dose of pain medication. Patient is tolerating full liquid and has been eating a little bit each meal with small snacks of leftover full liquid meal throughout the day. Patient admits to soft stool overnight. she states her stool sample was sent for C.Diff and fecal leukocytes yesterday afternoon. Port is to be rethreaded today by the nurse. Patient denies F/C, N/V. Admits to abdominal pain on LLQ, less distension, and diarrhea. Objective - Vital Signs/Intake and Output Vital Signs (last 24 hours): Temp Pulse Resp BP Pulse Ox 97.9 F 82 20 126/68 95 03/23/17 07:30 03/23/17 07:30 03/23/17 07:30 03/23/17 07:30 03/23/17 07:30 Intake and Output: 03/23/17 03/23/17 06:59 18:59 Intake Total 2080 450 Balance 2080 450 - Medications Medications: Current Medications Hydromorphone HCl (Dilaudid) 1 mg IVP Q4H PRN PRN Reason: Pain, severe (8-10) Last Admin: 03/23/17 12:38 Dose: 1 mg Piperacillin Sod/Tazobactam Sod (Zosyn 3.375 In Ns 100ml) 100 mls @ 200 mls/hr IVPB Q6 TISHA PRN Reason: Protocol Stop: 03/25/17 10:58 Last Admin: 03/23/17 12:58 Dose: 200 mls/hr Vancomycin HCl (Vancomycin 1gm) 1 gm in 250 mls @ 167 mls/hr IVPB Q12H TISHA PRN Reason: Protocol Last Admin: 03/23/17 02:08 Dose: 167 mls/hr Lactated Ringer's (Lactated Ringer's) 1,000 mls @ 50 mls/hr IV .Q20H [facility] Last Admin: 03/22/17 21:43 Dose: 50 mls/hr Loperamide HCl (Imodium) 4 mg PO DAILY PRN PRN Reason: Diarrhea Miconazole (Monistat 7 Vag Suppository) 100 mg VG HS [facility] Last Admin: 03/22/17 21:36 Dose: 100 mg Morphine Sulfate (Morphine) 2 mg IVP Q4H PRN PRN Reason: Pain, moderate (4-7) Mupirocin (Bactroban Ointment) 0 gm TOP DAILY [facility] Last Admin: 03/23/17 13:26 Dose: Not Given Nystatin (Nystatin Oral Susp) 5 ml PO QID [facility] Last Admin: 03/23/17 09:16 Dose: 5 ml Ondansetron HCl (Zofran Inj) 4 mg IVP Q4H PRN PRN Reason: Nausea/Vomiting Last Admin: 03/23/17 12:31 Dose: 4 mg Pantoprazole Sodium (Protonix Inj) 40 mg IVP DAILY [facility] Last Admin: 03/23/17 09:16 Dose: 40 mg - Labs Labs: 03/23/17 06:00 03/23/17 06:00 - Constitutional Appears: Chronically Ill - Head Exam Head Exam: NORMAL INSPECTION - Eye Exam Eye Exam: EOMI, Normal appearance - ENT Exam ENT Exam: Mucous Membranes Moist - Neck Exam Neck Exam: Full ROM, Tenderness Additional comments: lymphoma neck mass with necrotic tissue dressing changed by nurse at bedside - Respiratory Exam Respiratory Exam: Clear to Ausculation Bilateral, NORMAL BREATHING PATTERN. absent: Accessory Muscle Use, Rhonchi, Wheezes, Respiratory Distress - Cardiovascular Exam Cardiovascular Exam: REGULAR RHYTHM - GI/Abdominal Exam GI & Abdominal Exam: Normal Bowel Sounds - Extremities Exam Extremities Exam: Full ROM, Normal Inspection. absent: Pedal Edema - Neurological Exam Neurological Exam: Alert, Awake, Normal Gait - Skin Skin Exam: Dry, Intact, Normal Color, Warm Additional comments: port site area of the edge of tegaderm, erythematous, no induration. Assessment and Plan - Assessment and Plan (Free Text) Assessment: 62 F presented with pancreatitis resolved, with resolving sigmoid diverticulitis. PMH: RA, B cell lymphoma Plan: 1. Pancreatitis, resolved maintain adequate hydration LR @50cc/hr 2. Sigmoid Diverticulitis, dx with CT Abd/Pelvis PO Contrast IVF Waiting Dr. Hoffman recommendations for new onset sigmoid diverticulitis per GI- Dr. Diana: complete Zosyn 10-14 day course for diverticulitis coverage will require outpatient follow up in 6-8 weeks 3. Neutropenia, resolved. off neutropenic precautions 03/21 Monitor CBC with differential 4. Diet: Full Liquid diet monitor for BM and worsening signs of abdominal pain. Zofran for nausea 5. Infectious disease and wound care change dressings on patient's neck skin lesion lymphoma and area of purulence and necrotic tissue. monitor for worsening signs of erythema, drainage, purulence. Surgery consulted (wound care). no packing necessary for neck wound per surgery. no pain. monitor for signs of erythema, increased pain, drainage, dental pain, purulence. wound culture neck: coag neg staph, sensitive to vancomycin wound culture chest/portacath area: citrobacter diversus, sensitive to zosyn Patient has mouth ulcers and Oral Thrush Nystatin mouth wash odynophagia likely due to esophageal candidiasis tx: micafungin Vaginal pruritis: Miconazole 100 mg VG HS Continue Mycamine day 7 and will continue to monitor clinically (patient is taking meds that may be affected if we use Fluconazole) - may d/c after today; Continue Vancomycin and Zosyn day 4 for the chest cellulitis, neck necrotic mass and sigmoid diverticulitis (complete 5-7 days) 5. Diarrhea Loperamide PRN if needed for diarrhea C. diff toxin and fecal leukocytes ordered for diarrhea 6. Electrolytes repleted hypokalemia 7.Portacath insertion 03/16. monitor portacath site for infection, induration, purulence. covered by tegaderm. 8. Wound cx adjacent to portacath: Citrobacter diversus covered by Zosyn 3.375 IVPB Q6 per ID portacath was used to deliver Zofran for nausea Vanc 1 gm 250 cc IVPB Q12H Pain: Dilaudid 1 mg Q4H PRN DVT/GI PPX SCDs and Protonix Monitor Upon discharge patient will follow up with Dr Patricia, Dr Hoffman and Dr. Wilkins f/u heme Dr. Wilkins recommendations Violet Pitts, PGY1 <Jessica Davis - Last Filed: 03/23/17 17:02> Objective - Vital Signs/Intake and Output Vital Signs (last 24 hours): Temp Pulse Resp BP Pulse Ox 98.3 F 91 H 20 148/89 94 L 03/23/17 16:00 03/23/17 16:00 03/23/17 16:00 03/23/17 16:00 03/23/17 16:00 Intake and Output: 03/23/17 03/23/17 06:59 18:59 Intake Total 2080 450 Balance 2080 450 - Medications Medications: Current Medications Hydromorphone HCl (Dilaudid) 1 mg IVP Q4H PRN PRN Reason: Pain, severe (8-10) Last Admin: 03/23/17 12:38 Dose: 1 mg Piperacillin Sod/Tazobactam Sod (Zosyn 3.375 In Ns 100ml) 100 mls @ 200 mls/hr IVPB Q6 TISHA PRN Reason: Protocol Stop: 03/25/17 10:58 Last Admin: 03/23/17 12:58 Dose: 200 mls/hr Vancomycin HCl (Vancomycin 1gm) 1 gm in 250 mls @ 167 mls/hr IVPB Q12H TISHA PRN Reason: Protocol Last Admin: 03/23/17 14:59 Dose: 167 mls/hr Lactated Ringer's (Lactated Ringer's) 1,000 mls @ 50 mls/hr IV .Q20H [facility] Last Admin: 03/22/17 21:43 Dose: 50 mls/hr Loperamide HCl (Imodium) 4 mg PO DAILY PRN PRN Reason: Diarrhea Miconazole (Monistat 7 Vag Suppository) 100 mg VG HS [facility] Last Admin: 03/22/17 21:36 Dose: 100 mg Morphine Sulfate (Morphine) 2 mg IVP Q4H PRN PRN Reason: Pain, moderate (4-7) Mupirocin (Bactroban Ointment) 0 gm TOP DAILY [facility] Last Admin: 03/23/17 13:26 Dose: Not Given Nystatin (Nystatin Oral Susp) 5 ml PO QID [facility] Last Admin: 03/23/17 14:58 Dose: 5 ml Ondansetron HCl (Zofran Inj) 4 mg IVP Q4H PRN PRN Reason: Nausea/Vomiting Last Admin: 03/23/17 12:31 Dose: 4 mg Pantoprazole Sodium (Protonix Inj) 40 mg IVP DAILY [facility] Last Admin: 03/23/17 09:16 Dose: 40 mg - Labs Labs: 03/23/17 06:00 03/23/17 06:00 Attending/Attestation - Attestation I have personally seen and examined this patient.: Yes I have fully participated in the care of the patient.: Yes I have reviewed all pertinent clinical information, including history, physical exam and plan: Yes Notes (Text): 03/23/17 17:00 attending note; Patient seen and examined with resident. Patient is a 62 year old female with history of diffuse large B Cell lymphoma presented with acute pancreatitis post chemotherapy (RE [facility]). Also has oral candidiasis, suspected esophageal candidiasis, left neck mass superinfection, mild cellulitis at port site, acute neutropenia and now has acute sigmoid diverticulitis. continue IV Zosyn. Abdominal pain is improving. Tolerating liquid diet. Advance diet as tolerated. no diarrhea noted. C. difficile is negative. Possible discharge home tomorrow. Upon discharge patient will follow up with Dr Patricia and Dr Hoffman.
--- NOTE | 2017-03-23 15:35 | CP.PCM.PN ---
Subjective - Date & Time of Evaluation Date of Evaluation: 03/23/17 Time of Evaluation: 12:40 - Subjective Subjective: Comfortable in bed, slowly tolerating liquid diet, swallowing better, no fevers overnight. Objective - Vital Signs/Intake and Output Vital Signs (last 24 hours): Temp Pulse Resp BP Pulse Ox 97.9 F 82 20 126/68 95 03/23/17 07:30 03/23/17 07:30 03/23/17 07:30 03/23/17 07:30 03/23/17 07:30 Intake and Output: 03/23/17 03/23/17 06:59 18:59 Intake Total 2079 Balance 2079 - Medications Medications: Current Medications Hydromorphone HCl (Dilaudid) 1 mg IVP Q4H PRN PRN Reason: Pain, severe (8-10) Last Admin: 03/23/17 07:01 Dose: 1 mg Piperacillin Sod/Tazobactam Sod (Zosyn 3.375 In Ns 100ml) 100 mls @ 200 mls/hr IVPB Q6 TISHA PRN Reason: Protocol Stop: 03/25/17 10:58 Last Admin: 03/23/17 05:56 Dose: 200 mls/hr Vancomycin HCl (Vancomycin 1gm) 1 gm in 250 mls @ 167 mls/hr IVPB Q12H TISHA PRN Reason: Protocol Last Admin: 03/23/17 02:08 Dose: 167 mls/hr Iron Sucrose 200 mg/ Sodium (Chloride) 110 mls @ 110 mls/hr IVPB DAILY [facility] Stop: 03/23/17 11:46 Last Admin: 03/22/17 10:52 Dose: 110 mls/hr Lactated Ringer's (Lactated Ringer's) 1,000 mls @ 50 mls/hr IV .Q20H [facility] Last Admin: 03/22/17 21:43 Dose: 50 mls/hr Loperamide HCl (Imodium) 4 mg PO DAILY PRN PRN Reason: Diarrhea Miconazole (Monistat 7 Vag Suppository) 100 mg VG HS [facility] Last Admin: 03/22/17 21:36 Dose: 100 mg Morphine Sulfate (Morphine) 2 mg IVP Q4H PRN PRN Reason: Pain, moderate (4-7) Mupirocin (Bactroban Ointment) 0 gm TOP DAILY [facility] Last Admin: 03/22/17 09:39 Dose: Not Given Nystatin (Nystatin Oral Susp) 5 ml PO QID [facility] Last Admin: 03/23/17 09:16 Dose: 5 ml Ondansetron HCl (Zofran Inj) 4 mg IVP Q4H PRN PRN Reason: Nausea/Vomiting Last Admin: 03/22/17 21:42 Dose: 4 mg Pantoprazole Sodium (Protonix Inj) 40 mg IVP DAILY [facility] Last Admin: 03/23/17 09:16 Dose: 40 mg - Labs Labs: 03/23/17 06:00 03/23/17 06:00 - Constitutional Appears: Non-toxic, No Acute Distress - Head Exam Head Exam: NORMAL INSPECTION - ENT Exam ENT Exam: Mucous Membranes Moist - Neck Exam Neck Exam: absent: Lymphadenopathy, Meningismus - Respiratory Exam Respiratory Exam: Decreased Breath Sounds - Cardiovascular Exam Cardiovascular Exam: +S1, +S2 - GI/Abdominal Exam GI & Abdominal Exam: Soft. absent: Tenderness Assessment and Plan - Assessment and Plan (Free Text) Plan: Assessment Oropharyngeal candidiasis R/O candidal esophagitis, clinically improving left necrotic mass on left neck from lymphoma, consider bacterial superinfection acute sigmoid diverticulitis, slowly improving clinically mild cellulitis around the port area with Citrobacter acute neutropenia probably from chemotherapy Acute pancreatitis, probably medication-induced (ie. chemotherapy) history of left neck necrotic mass with mild cellulitis of the surrounding area dyslipidemia recent diagnosis of B-cell lymphoma on chemotherapy history of UTI S/P tubal ligation S/P tonsillectomy Plan S/P Mycamine (7 days); continue Vancomycin and Zosyn day 5 for the chest cellulitis, neck necrotic mass and sigmoid diverticulitis (complete 5-7 days)
--- NOTE | 2017-03-23 20:21 | CP.PCM.PN ---
Subjective - Date & Time of Evaluation Date of Evaluation: 03/23/17 Time of Evaluation: 16:17 - Subjective Subjective: Seen and examined earlier. Still has some lower abdominal pain. Denies altered bowel movements or bleeding. No fever, chills. Eating better, denies sore throat. Objective - Vital Signs/Intake and Output Vital Signs (last 24 hours): Temp Pulse Resp BP Pulse Ox 98.3 F 91 H 20 148/89 94 L 03/23/17 16:00 03/23/17 16:00 03/23/17 16:00 03/23/17 16:00 03/23/17 16:00 Intake and Output: 03/23/17 03/24/17 18:59 06:59 Intake Total 450 Balance 450 - Medications Medications: Current Medications Hydromorphone HCl (Dilaudid) 1 mg IVP Q4H PRN PRN Reason: Pain, severe (8-10) Last Admin: 03/23/17 12:38 Dose: 1 mg Piperacillin Sod/Tazobactam Sod (Zosyn 3.375 In Ns 100ml) 100 mls @ 200 mls/hr IVPB Q6 TISHA PRN Reason: Protocol Stop: 03/25/17 10:58 Last Admin: 03/23/17 18:15 Dose: 200 mls/hr Vancomycin HCl (Vancomycin 1gm) 1 gm in 250 mls @ 167 mls/hr IVPB Q12H TISHA PRN Reason: Protocol Last Admin: 03/23/17 14:59 Dose: 167 mls/hr Lactated Ringer's (Lactated Ringer's) 1,000 mls @ 50 mls/hr IV .Q20H TISHA Last Admin: 03/22/17 21:43 Dose: 50 mls/hr Loperamide HCl (Imodium) 4 mg PO DAILY PRN PRN Reason: Diarrhea Miconazole (Monistat 7 Vag Suppository) 100 mg VG HS TISHA Last Admin: 03/22/17 21:36 Dose: 100 mg Morphine Sulfate (Morphine) 2 mg IVP Q4H PRN PRN Reason: Pain, moderate (4-7) Mupirocin (Bactroban Ointment) 0 gm TOP DAILY TISHA Last Admin: 03/23/17 13:26 Dose: Not Given Nystatin (Nystatin Oral Susp) 5 ml PO QID TISHA Last Admin: 03/23/17 18:12 Dose: 5 ml Ondansetron HCl (Zofran Inj) 4 mg IVP Q4H PRN PRN Reason: Nausea/Vomiting Last Admin: 03/23/17 12:31 Dose: 4 mg Pantoprazole Sodium (Protonix Inj) 40 mg IVP DAILY [facility] Last Admin: 03/23/17 09:16 Dose: 40 mg - Labs Labs: 03/23/17 06:00 03/23/17 06:00 - Head Exam Head Exam: ATRAUMATIC, NORMAL INSPECTION - Eye Exam Eye Exam: EOMI, PERRL - ENT Exam ENT Exam: Mucous Membranes Moist - Neck Exam Neck Exam: Lymphadenopathy (left cervical lymph node decreased in size) - Respiratory Exam Respiratory Exam: Clear to Ausculation Bilateral - Cardiovascular Exam Cardiovascular Exam: REGULAR RHYTHM - GI/Abdominal Exam GI & Abdominal Exam: Soft, Normal Bowel Sounds. absent: Distended, Tenderness - Extremities Exam Extremities Exam: absent: Pedal Edema - Neurological Exam Neurological Exam: Alert, Oriented x3 Assessment and Plan - Assessment and Plan (Free Text) Assessment: CD5+ diffue large B cell lymphoma, admitted with acute pancreatitis s/p one cycle of R-EPOCH Oral thrush Diverticulitis She is clinically stable now. Appreciate GI and ID input. Continue antibiotics as planned. Consider switching to oral if possible. WBC is elevated, likely response from chemotherapy and neulasta. Monitor for any fever. Encouraged out of bed and discharge planning. Her next chemotherapy is due next Thursday but will postpone it by one week (till she recovers). Rolan Hoffman MD
[2017-03-23] MEDS: Miconazole 100 MG Vaginal Supp VG SCH (21:13)
[2017-03-24] MEDS: Vancomycin 1gm in NS 250ml 1 GM/250 ML BAG IVPB SCH (03:11)
[2017-03-24] MEDS: HYDROmorphone 0.5 mg/0.5 ml ISec IVP PRN (03:17)
--- NOTE | 2017-03-24 07:07 | CP.PCM.PN ---
<Ayanna Montalvo - Last Filed: 03/24/17 12:35> Subjective - Date & Time of Evaluation Date of Evaluation: 03/24/17 Time of Evaluation: 07:04 - Subjective Subjective: aGstroenterology Fellow/PGY5 Progress Note Patient notes improving abdominal pain. Tolerating full liquid diet and states her appetite has improved, looking forward to solid food. Two soft bowel movements yesterday. A 12-point review of systems negative except for as above. Objective - Vital Signs/Intake and Output Vital Signs (last 24 hours): Temp Pulse Resp BP Pulse Ox 98.3 F 91 H 20 148/89 94 L 03/23/17 16:00 03/23/17 16:00 03/23/17 16:00 03/23/17 16:00 03/23/17 16:00 Intake and Output: 03/24/17 03/24/17 06:59 18:59 Intake Total 900 Balance 900 - Medications Medications: Current Medications Hydromorphone HCl (Dilaudid) 1 mg IVP Q4H PRN PRN Reason: Pain, severe (8-10) Last Admin: 03/24/17 03:17 Dose: 1 mg Piperacillin Sod/Tazobactam Sod (Zosyn 3.375 In Ns 100ml) 100 mls @ 200 mls/hr IVPB Q6 TISHA PRN Reason: Protocol Stop: 03/25/17 10:58 Last Admin: 03/23/17 23:28 Dose: 200 mls/hr Vancomycin HCl (Vancomycin 1gm) 1 gm in 250 mls @ 167 mls/hr IVPB Q12H TISHA PRN Reason: Protocol Last Admin: 03/24/17 03:11 Dose: 167 mls/hr Lactated Ringer's (Lactated Ringer's) 1,000 mls @ 50 mls/hr IV .Q20H TISHA Last Admin: 03/22/17 21:43 Dose: 50 mls/hr Loperamide HCl (Imodium) 4 mg PO DAILY PRN PRN Reason: Diarrhea Miconazole (Monistat 7 Vag Suppository) 100 mg VG HS TISHA Last Admin: 03/23/17 21:13 Dose: 100 mg Morphine Sulfate (Morphine) 2 mg IVP Q4H PRN PRN Reason: Pain, moderate (4-7) Mupirocin (Bactroban Ointment) 0 gm TOP DAILY [facility] Last Admin: 03/23/17 13:26 Dose: Not Given Nystatin (Nystatin Oral Susp) 5 ml PO QID [facility] Last Admin: 03/23/17 21:12 Dose: 5 ml Ondansetron HCl (Zofran Inj) 4 mg IVP Q4H PRN PRN Reason: Nausea/Vomiting Last Admin: 03/24/17 03:16 Dose: 4 mg Pantoprazole Sodium (Protonix Inj) 40 mg IVP DAILY [facility] Last Admin: 03/23/17 09:16 Dose: 40 mg - Labs Labs: 03/23/17 06:00 03/23/17 06:00 - Constitutional Appears: Non-toxic, No Acute Distress, Chronically Ill - Head Exam Head Exam: ATRAUMATIC, NORMOCEPHALIC - Eye Exam Eye Exam: EOMI, PERRL Pupil Exam: PERRL. absent: Miosis, Mydriatic - ENT Exam ENT Exam: Mucous Membranes Moist, Normal Oropharynx - Neck Exam Neck Exam: Full ROM, Normal Inspection - Respiratory Exam Respiratory Exam: Clear to Ausculation Bilateral. absent: Rales, Rhonchi, Wheezes - Cardiovascular Exam Cardiovascular Exam: RRR, +S1, +S2. absent: Gallop, Rubs - GI/Abdominal Exam GI & Abdominal Exam: Soft, Tenderness, Normal Bowel Sounds. absent: Distended, Firm, Guarding, Rigid, Organomegaly, Rebound Additional comments: LLQ tenderness to palpation - Extremities Exam Extremities Exam: Normal Inspection, Pedal Edema - Neurological Exam Neurological Exam: Alert, Awake - Psychiatric Exam Psychiatric exam: Normal Affect, Normal Mood - Skin Skin Exam: Dry, Intact, Normal Color, Warm Assessment and Plan - Assessment and Plan (Free Text) Assessment: 62 year old female with history of recently diagnosed Diffuse Large B-cell Lymphoma with liver metastases recently started chemotherapy (last done one day prior to admission) presenting with abdominal pain. Active treatment of uncomplicated sigmoid diverticulitis, chest cellulitis, neck necrotic mass, oropharyngeal candidiasis, port-a-cath cellulitis, and resolved pancreatitis. Plan: >complete 10-14 day antibiotic course for diverticulitis coverage >ID managing- appreciate recommendations >consider transition to oral antibiotics >Onc managing- appreciate recommendations >advance to bland diet >supportive care: gentle IVFs, pain control, anti-emetics >will require outpatient GI follow up for re-assessment in next 2-4 weeks >okay to discharge from GI standpoint <BonnerFernando - Last Filed: 03/24/17 12:57> Objective - Vital Signs/Intake and Output Vital Signs (last 24 hours): Temp Pulse Resp BP Pulse Ox 98.4 F 80 20 102/69 96 03/24/17 08:00 03/24/17 08:00 03/24/17 08:00 03/24/17 08:00 03/24/17 08:00 Intake and Output: 03/24/17 03/24/17 06:59 18:59 Intake Total 900 Balance 900 - Medications Medications: Current Medications Hydromorphone HCl (Dilaudid) 0.5 mg IVP Q6H PRN PRN Reason: Pain, severe (8-10) Last Admin: 03/24/17 09:32 Dose: 0.5 mg Piperacillin Sod/Tazobactam Sod (Zosyn 3.375 In Ns 100ml) 100 mls @ 200 mls/hr IVPB Q6 TISHA PRN Reason: Protocol Stop: 03/25/17 10:58 Last Admin: 03/24/17 12:11 Dose: 200 mls/hr Lactated Ringer's (Lactated Ringer's) 1,000 mls @ 50 mls/hr IV .Q20H [facility] Last Admin: 03/22/17 21:43 Dose: 50 mls/hr Loperamide HCl (Imodium) 4 mg PO DAILY PRN PRN Reason: Diarrhea Miconazole (Monistat 7 Vag Suppository) 100 mg VG HS [facility] Last Admin: 03/23/17 21:13 Dose: 100 mg Morphine Sulfate (Morphine) 2 mg IVP Q4H PRN PRN Reason: Pain, moderate (4-7) Last Admin: 03/24/17 12:14 Dose: 2 mg Mupirocin (Bactroban Ointment) 0 gm TOP DAILY [facility] Last Admin: 03/23/17 13:26 Dose: Not Given Nystatin (Nystatin Oral Susp) 5 ml PO QID [facility] Last Admin: 03/24/17 09:25 Dose: 5 ml Ondansetron HCl (Zofran Inj) 4 mg IVP Q4H PRN PRN Reason: Nausea/Vomiting Last Admin: 03/24/17 09:33 Dose: 4 mg Pantoprazole Sodium (Protonix Inj) 40 mg IVP DAILY TISHA Last Admin: 03/24/17 09:25 Dose: 40 mg - Labs Labs: 03/24/17 08:55 03/24/17 08:55 Attending/Attestation - Attestation I have personally seen and examined this patient.: Yes I have fully participated in the care of the patient.: Yes I have reviewed all pertinent clinical information, including history, physical exam and plan: Yes Notes (Text): 03/24/17 12:56 62 year old female with h/o DLBCL recently started on chemo admitted with acute pancreatitis (resolved) and now acute diverticulitis. 1. Acute diverticulitis 2. Acute pancreatitis Plan: -pancreatitis resolved -diverticulitis is much improved -continue abx as above -diet as tolerated -patient much improved -ok for discharge from GI standpoint
[2017-03-24] MEDS ORDERED: HYDROmorphone 0.5 mg/0.5 ml ISec IVP PRN (07:33)
[2017-03-24 08:34] VITALS: BP 102/69; PULSE 80; TEMP 98.4; O2SAT 96
[2017-03-24 09:08] LABS: MEAN CELL VOLUME 89.4 fl (80.0-105.0); MEAN CORPUSCULAR HGB CONC 31.3 g/dl (31.0-37.0); MEAN PLATELET VOLUME 10.5 fl (7.0-11.0); PLATELET COUNT 190 10^3/uL (120.0-450.0); RBC 3.57 10^6/uL (3.5-6.1); RED CELL DISTRIBUTION WIDTH 14.9 % (11.5-14.5); WHITE BLOOD COUNT 19.1 10^3/ul (4.5-11.0)
[2017-03-24 09:14] LABS: ALB/GLOB RATIO 1.3 (1.1-1.8); ALBUMIN 3.3 g/dL (3.0-4.8); ALT/SGPT 32 U/L (7-56); AST/SGOT 26 U/L (15-39); BLOOD UREA NITROGEN 3 mg/dL (7-21); CALCIUM 8.7 mg/dL (8.4-10.5); GFR AFRICAN-AMERICAN > 60; GFR NON-AFRICAN AMERICAN 50; MAGNESIUM 1.8 mg/dL (1.7-2.2)
[2017-03-24] MEDS: Nystatin 100,000 Units/ml Oral Susp 5 ml UD PO SCH (09:25)
[2017-03-24] MEDS: Piperacillin/Tazobact 3.375 gm 100 ML IVPB SCH (12:11)
--- NOTE | 2017-03-24 12:52 | CP.PCM.DIS ---
<Violet Pitts - Last Filed: 03/24/17 15:52> Provider - Provider Date of Admission: 03/14/17 23:06 Attending physician: Jessica Dvais MD Consults: Dr. Kraft - ID Dr. Almonte - GI Dr. Grider - Heme/Onc Time Spent in preparation of Discharge (in minutes): 30 Hospital Course - Lab Results Lab Results: Micro Results 03/22/17 14:20 Stool C. difficile Antigen & Toxin A,B (M - Final 03/15/17 14:00 Blood-Venous Blood Culture - Final NO GROWTH AFTER 5 DAYS 03/15/17 14:00 Blood-Venous Gram Stain - Final TEST NOT PERFORMED 03/15/17 14:00 Blood-Venous Blood Culture - Final NO GROWTH AFTER 5 DAYS 03/15/17 14:00 Blood-Venous Gram Stain - Final TEST NOT PERFORMED 03/18/17 08:00 Neck Gram Stain - Final 03/18/17 08:00 Neck Wound Culture - Final Coagulase Neg Staphylococcus 03/17/17 10:30 Chest Gram Stain - Final 03/17/17 10:30 Chest Wound Culture - Final Citrobacter Diversus 03/15/17 18:00 Urine,Clean Catch Urine Culture - Final 10-50,000 CFU/ML. MULTIPLE SPECIES. PROBABLE CONTAMINATION. 03/15/17 00:45 Throat Group A Strep Throat Culture - Final NORMAL SAPROPHYTIC LAYLA. CULTURE NEGATIVE FOR BETA STREP GROUP A. Most Recent Lab Values WBC 19.1 10^3/ul (4.5-11.0) H 03/24/17 08:55 RBC 3.57 10^6/uL (3.5-6.1) 03/24/17 08:55 Hgb 10.0 g/dL (12.0-16.0) L 03/24/17 08:55 Hct 31.9 % (36.0-48.0) L 03/24/17 08:55 MCV 89.4 fl (80.0-105.0) 03/24/17 08:55 MCH 28.0 pg (25.0-35.0) 03/24/17 08:55 MCHC 31.3 g/dl (31.0-37.0) 03/24/17 08:55 RDW 14.9 % (11.5-14.5) H 03/24/17 08:55 Plt Count 190 10^3/uL (120.0-450.0) 03/24/17 08:55 MPV 10.5 fl (7.0-11.0) 03/24/17 08:55 Gran % 12.5 % (50.0-68.0) L 03/19/17 07:30 Lymph % (Auto) 75.0 % (22.0-35.0) H 03/19/17 07:30 Luna % (Auto) 12.5 % (1.0-6.0) H 03/19/17 07:30 Eos % (Auto) 0.0 % (1.5-5.0) L 03/19/17 07:30 Baso % (Auto) 0.0 % (0.0-3.0) 03/19/17 07:30 Gran # 0.02 (1.4-6.5) L 03/19/17 07:30 Lymph # 0.1 (1.2-3.4) L 03/19/17 07:30 Luna # 0.0 (0.1-0.6) L 03/19/17 07:30 Eos # 0.0 (0.0-0.7) 03/19/17 07:30 Baso # 0.00 K/mm3 (0.0-2.0) 03/19/17 07:30 Neutrophils % (Manual) 64 % (50.0-70.0) 03/23/17 06:00 Band Neutrophils % 9 % (0-2) H 03/23/17 06:00 Lymphocytes % (Manual) 7 % (22.0-35.0) L 03/23/17 06:00 Monocytes % (Manual) 13 % (1.0-6.0) H 03/23/17 06:00 Eosinophils % (Manual) 0 % (0.0-3.0) 03/22/17 06:30 Basophils % (Manual) 1 % (0.0-1.0) 03/23/17 06:00 Metamyelocytes % 3 % 03/23/17 06:00 Myelocytes % 3 % 03/23/17 06:00 Nucleated RBC % 1 % 03/22/17 06:30 Blast Cells 4 % 03/22/17 06:30 Smudge Cells Present 03/15/17 07:00 Toxic Granulation 1+ 03/22/17 06:30 Platelet Evaluation Normal (NORMAL) 03/23/17 06:00 Hypochromasia 2+ 03/22/17 06:30 Anisocytosis (manual) Slight 03/21/17 06:45 Rouleaux 2+ 03/22/17 06:30 Sodium 140 mmol/L (132-148) 03/24/17 08:55 Potassium 3.5 mmol/L (3.6-5.0) L 03/24/17 08:55 Chloride 104 mmol/L (95-110) 03/24/17 08:55 Carbon Dioxide 27 mmol/L (21-33) 03/24/17 08:55 Anion Gap 13 (10-20) 03/24/17 08:55 BUN 3 mg/dL (7-21) L 03/24/17 08:55 Creatinine 1.1 mg/dL (0.5-1.4) 03/24/17 08:55 Est GFR ( Amer) > 60 03/24/17 08:55 Est GFR (Non-Af Amer) 50 03/24/17 08:55 Random Glucose 103 mg/dL (70-110) 03/24/17 08:55 Calcium 8.7 mg/dL (8.4-10.5) 03/24/17 08:55 Phosphorus 2.9 mg/dL (2.5-4.5) 03/24/17 08:55 Magnesium 1.8 mg/dL (1.7-2.2) 03/24/17 08:55 Total Bilirubin 0.3 mg/dL (0.2-1.3) 03/24/17 08:55 AST 26 U/L (15-39) 03/24/17 08:55 ALT 32 U/L (7-56) 03/24/17 08:55 Alkaline Phosphatase 115 U/L (38-133) 03/24/17 08:55 Total Protein 5.9 g/dL (5.8-8.3) 03/24/17 08:55 Albumin 3.3 g/dL (3.0-4.8) 03/24/17 08:55 Globulin 2.6 gm/dL 03/24/17 08:55 Albumin/Globulin Ratio 1.3 (1.1-1.8) 03/24/17 08:55 Triglycerides 148 mg/dL (35-160) 03/15/17 07:30 Cholesterol 135 mg/dL (130-200) 03/15/17 07:30 LDL Cholesterol Direct 101 mg/dL (0-129) 03/15/17 07:30 HDL Cholesterol 31 mg/dL (29-60) 03/15/17 07:30 Lipase 449 U/L (23-300) H 03/16/17 07:50 Urine Color Straw (YELLOW) 03/15/17 18:00 Urine Appearance Clear (CLEAR) 03/15/17 18:00 Urine pH 7.0 (4.7-8.0) 03/15/17 18:00 Ur Specific Urich 1.010 (1.005-1.035) 03/15/17 18:00 Urine Protein Negative mg/dL (<30 mg/dL) 03/15/17 18:00 Urine Glucose (UA) Negative mg/dL (NEGATIVE) 03/15/17 18:00 Urine Ketones Negative mg/dL (NEGATIVE) 03/15/17 18:00 Urine Blood Trace-intact (NEGATIVE) H 03/15/17 18:00 Urine Nitrate Negative (NEGATIVE) 03/15/17 18:00 Urine Bilirubin Negative (NEGATIVE) 03/15/17 18:00 Urine Urobilinogen 0.2 E.U./dL (<1 E.U./dL) 03/15/17 18:00 Ur Leukocyte Esterase Small Arik/uL (NEGATIVE) H 03/15/17 18:00 Urine RBC 0 - 2 /hpf (0-2) 03/15/17 18:00 Urine WBC 2 - 5 /hpf (0-6) 03/15/17 18:00 Ur Epithelial Cells 1 - 3 /hpf (0-5) 03/15/17 18:00 Urine Bacteria Few (NEG) 03/15/17 18:00 - Hospital Course Hospital Course: Discharge Summary for Dr. Davis: 62 F admitted for pancreatitis with lipase 6533 resolved to lipase 449 with bowel rest, and IVF for LR 200 cc/hr . During the hospital stay, Patient developed neutropenia, which resolved. and was placed off of neutropenic precautions 03/21. Patient also had constipation, Miralax was ordered. Patient had one liquid stool Bowel movement, and Left lower quadrant pain started. Patient was placed NPO. CT abdomen/pelvis PO/IV contrast showed sigmoid diverticulitis. Patient placed on bowel rest, given fluids at LR 200, eventually decreased down to 100cc/hr and then 50cc/hr. Wound culture neck: coag neg staph, sensitive to vancomycin Wound culture chest/portacath area: citrobacter diversus, sensitive to zosyn Patient has mouth ulcers and Oral Thrush Nystatin mouth wash odynophagia likely due to esophageal candidiasis tx: micafungin Vaginal pruritis: Miconazole 100 mg VG HS Wound cx adjacent to portacath: Citrobacter diversus covered by Zosyn 3.375 IVPB Q6 per ID portacath was used to deliver Zofran for nausea, Vanc 1 gm 250 cc IVPB Q12H Per GI recommendation: Dr. Diana: complete Zosyn 10-14 day course for diverticulitis coverage, will require outpatient follow up in 6-8 weeks Patient was advanced to a soft diet and tolerated her eggs and pancakes this morning. monitor for BM and worsening signs of abdominal pain. Zofran for nausea Per Dr. Kraft: Continue Mycamine day 7 and will continue to monitor clinically ( patient is taking meds that may be affected if we use Fluconazole) - may d/c after today; Continue Vancomycin and Zosyn day 4 for the chest cellulitis, neck necrotic mass and sigmoid diverticulitis (complete 5-7 days) Loperamide PRN if needed for diarrhea, C. diff toxin and fecal leukocytes ordered for diarrhea: negative, hypokalemia repleted Portacath insertion 03/16, rethreaded Thursday, 03/23, monitor portacath site for infection, induration, purulence. covered by tegaderm. Pain: Dilaudid 1 mg Q4H PRN DVT/GI PPX SCDs and Protonix Violet Eng, DO PGY1 - Date & Time of H&P Date of H&P: 03/24/17 Time of H&P: 14:34 Discharge Exam - Head Exam Head Exam: ATRAUMATIC, NORMOCEPHALIC - Eye Exam Eye Exam: EOMI, Normal appearance - ENT Exam ENT Exam: Mucous Membranes Moist - Neck Exam Neck exam: Full Rom, Tenderness Additional comments: lymphoma with necrotic tissue - Respiratory Exam Respiratory Exam: Clear to PA & Lateral, NORMAL BREATHING PATTERN, UNREMARKABLE. absent: Accessory Muscle Use, Respiratory Distress - Cardiovascular Exam Cardiovascular Exam: REGULAR RHYTHM. absent: Bradycardia, Tachycardia - GI/Abdominal Exam GI & Abdominal Exam: Hypoactive Bowel Sounds, Tenderness. absent: Normal Bowel Sounds Additional comments: LLQ quadrant tenderness. no distension. no rebound - Neurological Exam Neurological exam: Alert, Normal Gait, Reflexes Normal - Psychiatric Exam Psychiatric exam: Normal Affect, Normal Mood - Skin Skin Exam: Dry, Intact, Normal Color, Warm Discharge Plan - Discharge Medications Prescriptions: Amoxicillin/Clavulanate [Augmentin 875 MG-125 MG] 1 tab PO BID #10 tab Famotidine [Pepcid] 40 mg PO HS #10 tablet Ondansetron HCl [Zofran] 4 mg PO TID #20 tablet - Follow Up Plan Condition: GUARDED Disposition: HOME/ ROUTINE Patient education suggested?: Yes Instructions: Pancreatitis (DC), Diverticulitis (GEN), Cellulitis (DC), Cellulitis (GEN) Additional Instructions: 1. follow-up with PMD Dr. Patricia in 1 week. 2. Follow-up with oncology Dr. grider in 2 days. 3. Increase fluid intake. 4. eat food low in fat and oil. 5. continue with current medical management of lymphoma 6. Return to ED for worsening symptoms of sigmoid diverticulitis, constipation, pancreatitis (ie: fever, chills, vomiting, diarrhea, severe abdominal pain). 7. follow up with specification consultant in 2-4 weeks for sigmoid diverticulitis. <Jessica Davis - Last Filed: 03/24/17 16:30> Provider - Provider Date of Admission: 03/14/17 23:06 Attending physician: Jessica Davis MD Hospital Course - Lab Results Lab Results: Micro Results 03/22/17 14:20 Stool C. difficile Antigen & Toxin A,B (M - Final 03/15/17 14:00 Blood-Venous Blood Culture - Final NO GROWTH AFTER 5 DAYS 03/15/17 14:00 Blood-Venous Gram Stain - Final TEST NOT PERFORMED 03/15/17 14:00 Blood-Venous Blood Culture - Final NO GROWTH AFTER 5 DAYS 03/15/17 14:00 Blood-Venous Gram Stain - Final TEST NOT PERFORMED 03/18/17 08:00 Neck Gram Stain - Final 03/18/17 08:00 Neck Wound Culture - Final Coagulase Neg Staphylococcus 03/17/17 10:30 Chest Gram Stain - Final 03/17/17 10:30 Chest Wound Culture - Final Citrobacter Diversus 03/15/17 18:00 Urine,Clean Catch Urine Culture - Final 10-50,000 CFU/ML. MULTIPLE SPECIES. PROBABLE CONTAMINATION. 03/15/17 00:45 Throat Group A Strep Throat Culture - Final NORMAL SAPROPHYTIC LAYLA. CULTURE NEGATIVE FOR BETA STREP GROUP A. Most Recent Lab Values WBC 19.1 10^3/ul (4.5-11.0) H 03/24/17 08:55 RBC 3.57 10^6/uL (3.5-6.1) 03/24/17 08:55 Hgb 10.0 g/dL (12.0-16.0) L 03/24/17 08:55 Hct 31.9 % (36.0-48.0) L 03/24/17 08:55 MCV 89.4 fl (80.0-105.0) 03/24/17 08:55 MCH 28.0 pg (25.0-35.0) 03/24/17 08:55 MCHC 31.3 g/dl (31.0-37.0) 03/24/17 08:55 RDW 14.9 % (11.5-14.5) H 03/24/17 08:55 Plt Count 190 10^3/uL (120.0-450.0) 03/24/17 08:55 MPV 10.5 fl (7.0-11.0) 03/24/17 08:55 Gran % 12.5 % (50.0-68.0) L 03/19/17 07:30 Lymph % (Auto) 75.0 % (22.0-35.0) H 03/19/17 07:30 Luna % (Auto) 12.5 % (1.0-6.0) H 03/19/17 07:30 Eos % (Auto) 0.0 % (1.5-5.0) L 03/19/17 07:30 Baso % (Auto) 0.0 % (0.0-3.0) 03/19/17 07:30 Gran # 0.02 (1.4-6.5) L 03/19/17 07:30 Lymph # 0.1 (1.2-3.4) L 03/19/17 07:30 Luna # 0.0 (0.1-0.6) L 03/19/17 07:30 Eos # 0.0 (0.0-0.7) 03/19/17 07:30 Baso # 0.00 K/mm3 (0.0-2.0) 03/19/17 07:30 Neutrophils % (Manual) 64 % (50.0-70.0) 03/23/17 06:00 Band Neutrophils % 9 % (0-2) H 03/23/17 06:00 Lymphocytes % (Manual) 7 % (22.0-35.0) L 03/23/17 06:00 Monocytes % (Manual) 13 % (1.0-6.0) H 03/23/17 06:00 Eosinophils % (Manual) 0 % (0.0-3.0) 03/22/17 06:30 Basophils % (Manual) 1 % (0.0-1.0) 03/23/17 06:00 Metamyelocytes % 3 % 03/23/17 06:00 Myelocytes % 3 % 03/23/17 06:00 Nucleated RBC % 1 % 03/22/17 06:30 Blast Cells 4 % 03/22/17 06:30 Smudge Cells Present 03/15/17 07:00 Toxic Granulation 1+ 03/22/17 06:30 Platelet Evaluation Normal (NORMAL) 03/23/17 06:00 Hypochromasia 2+ 03/22/17 06:30 Anisocytosis (manual) Slight 03/21/17 06:45 Rouleaux 2+ 03/22/17 06:30 Sodium 140 mmol/L (132-148) 03/24/17 08:55 Potassium 3.5 mmol/L (3.6-5.0) L 03/24/17 08:55 Chloride 104 mmol/L (95-110) 03/24/17 08:55 Carbon Dioxide 27 mmol/L (21-33) 03/24/17 08:55 Anion Gap 13 (10-20) 03/24/17 08:55 BUN 3 mg/dL (7-21) L 03/24/17 08:55 Creatinine 1.1 mg/dL (0.5-1.4) 03/24/17 08:55 Est GFR ( Amer) > 60 03/24/17 08:55 Est GFR (Non-Af Amer) 50 03/24/17 08:55 Random Glucose 103 mg/dL (70-110) 03/24/17 08:55 Calcium 8.7 mg/dL (8.4-10.5) 03/24/17 08:55 Phosphorus 2.9 mg/dL (2.5-4.5) 03/24/17 08:55 Magnesium 1.8 mg/dL (1.7-2.2) 03/24/17 08:55 Total Bilirubin 0.3 mg/dL (0.2-1.3) 03/24/17 08:55 AST 26 U/L (15-39) 03/24/17 08:55 ALT 32 U/L (7-56) 03/24/17 08:55 Alkaline Phosphatase 115 U/L (38-133) 03/24/17 08:55 Total Protein 5.9 g/dL (5.8-8.3) 03/24/17 08:55 Albumin 3.3 g/dL (3.0-4.8) 03/24/17 08:55 Globulin 2.6 gm/dL 03/24/17 08:55 Albumin/Globulin Ratio 1.3 (1.1-1.8) 03/24/17 08:55 Triglycerides 148 mg/dL (35-160) 03/15/17 07:30 Cholesterol 135 mg/dL (130-200) 03/15/17 07:30 LDL Cholesterol Direct 101 mg/dL (0-129) 03/15/17 07:30 HDL Cholesterol 31 mg/dL (29-60) 03/15/17 07:30 Lipase 449 U/L (23-300) H 03/16/17 07:50 Urine Color Straw (YELLOW) 03/15/17 18:00 Urine Appearance Clear (CLEAR) 03/15/17 18:00 Urine pH 7.0 (4.7-8.0) 03/15/17 18:00 Ur Specific Urich 1.010 (1.005-1.035) 03/15/17 18:00 Urine Protein Negative mg/dL (<30 mg/dL) 03/15/17 18:00 Urine Glucose (UA) Negative mg/dL (NEGATIVE) 03/15/17 18:00 Urine Ketones Negative mg/dL (NEGATIVE) 03/15/17 18:00 Urine Blood Trace-intact (NEGATIVE) H 03/15/17 18:00 Urine Nitrate Negative (NEGATIVE) 03/15/17 18:00 Urine Bilirubin Negative (NEGATIVE) 03/15/17 18:00 Urine Urobilinogen 0.2 E.U./dL (<1 E.U./dL) 03/15/17 18:00 Ur Leukocyte Esterase Small Arik/uL (NEGATIVE) H 03/15/17 18:00 Urine RBC 0 - 2 /hpf (0-2) 03/15/17 18:00 Urine WBC 2 - 5 /hpf (0-6) 03/15/17 18:00 Ur Epithelial Cells 1 - 3 /hpf (0-5) 03/15/17 18:00 Urine Bacteria Few (NEG) 03/15/17 18:00 Attending/Attestation - Attestation I have personally seen and examined this patient.: Yes I have fully participated in the care of the patient.: Yes I have reviewed all pertinent clinical information, including history, physical exam and plan: Yes Notes (Text): 03/24/17 16:26 attending note; Patient seen and examined with resident. Patient is a 62 year old female with history of diffuse large B Cell lymphoma presented with acute pancreatitis post chemotherapy (RE [facility]). Also has oral candidiasis, suspected esophageal candidiasis, left neck mass superinfection, mild cellulitis at port site, acute neutropenia and now has acute sigmoid diverticulitis. Treated with IV Zosyn. Abdominal pain is improving. Tolerating diet. no diarrhea noted. C. difficile is negative. will be discharged home with po Augmentin. Upon discharge patient will follow up with Dr Patricia and Dr Grider. diagnosis; B-cell lymphoma diverticulitis Pancreatitis Candidiasis Cellulitis
--- NOTE | 2017-03-24 15:22 | CP.PCM.PN ---
Subjective - Date & Time of Evaluation Date of Evaluation: 03/24/17 Time of Evaluation: 11:20 - Subjective Subjective: Comfortable, less abdominal pain, starting to tolerate solid foods. No fevers overnight. Objective - Vital Signs/Intake and Output Vital Signs (last 24 hours): Temp Pulse Resp BP Pulse Ox 98.4 F 80 20 102/69 96 03/24/17 08:00 03/24/17 08:00 03/24/17 08:00 03/24/17 08:00 03/24/17 08:00 Intake and Output: 03/24/17 03/24/17 06:59 18:59 Intake Total 900 Balance 900 - Medications Medications: Current Medications Hydromorphone HCl (Dilaudid) 0.5 mg IVP Q6H PRN PRN Reason: Pain, severe (8-10) Last Admin: 03/24/17 09:32 Dose: 0.5 mg Piperacillin Sod/Tazobactam Sod (Zosyn 3.375 In Ns 100ml) 100 mls @ 200 mls/hr IVPB Q6 TISHA PRN Reason: Protocol Stop: 03/25/17 10:58 Last Admin: 03/23/17 23:28 Dose: 200 mls/hr Lactated Ringer's (Lactated Ringer's) 1,000 mls @ 50 mls/hr IV .Q20H [facility] Last Admin: 03/22/17 21:43 Dose: 50 mls/hr Loperamide HCl (Imodium) 4 mg PO DAILY PRN PRN Reason: Diarrhea Miconazole (Monistat 7 Vag Suppository) 100 mg VG HS [facility] Last Admin: 03/23/17 21:13 Dose: 100 mg Morphine Sulfate (Morphine) 2 mg IVP Q4H PRN PRN Reason: Pain, moderate (4-7) Mupirocin (Bactroban Ointment) 0 gm TOP DAILY [facility] Last Admin: 03/23/17 13:26 Dose: Not Given Nystatin (Nystatin Oral Susp) 5 ml PO QID [facility] Last Admin: 03/24/17 09:25 Dose: 5 ml Ondansetron HCl (Zofran Inj) 4 mg IVP Q4H PRN PRN Reason: Nausea/Vomiting Last Admin: 03/24/17 09:33 Dose: 4 mg Pantoprazole Sodium (Protonix Inj) 40 mg IVP DAILY [facility] Last Admin: 03/24/17 09:25 Dose: 40 mg - Labs Labs: 03/24/17 08:55 03/24/17 08:55 - Constitutional Appears: Non-toxic, No Acute Distress - Head Exam Head Exam: NORMAL INSPECTION - ENT Exam ENT Exam: Mucous Membranes Moist Additional comments: no oral thrush - Neck Exam Neck Exam: absent: Lymphadenopathy, Meningismus - Respiratory Exam Respiratory Exam: Decreased Breath Sounds Additional comments: right sided chest port in place and clean - Cardiovascular Exam Cardiovascular Exam: +S1, +S2 - GI/Abdominal Exam GI & Abdominal Exam: Soft. absent: Tenderness Assessment and Plan - Assessment and Plan (Free Text) Plan: Assessment Oropharyngeal candidiasis R/O candidal esophagitis, clinically improved and S/P treatment left necrotic mass on left neck from lymphoma, consider bacterial superinfection , clinically improving acute sigmoid diverticulitis, improving clinically mild cellulitis around the port area with Citrobacter acute neutropenia probably from chemotherapy Acute pancreatitis, probably medication-induced (ie. chemotherapy) history of left neck necrotic mass with mild cellulitis of the surrounding area dyslipidemia recent diagnosis of B-cell lymphoma on chemotherapy history of UTI S/P tubal ligation S/P tonsillectomy Plan S/P Mycamine (7 days); continue Vancomycin and Zosyn day 6 for the chest cellulitis, neck necrotic mass and sigmoid diverticulitis (complete 5-7 days)
== END 2017-03-24 16:34 | disposition home or self-care (01) | DRG 439 ==
LOC: ED 20:35 → ERH 23:06 → 5RSO 03-15
PROVIDERS: ADMIT Internal Medicine; ATTEND Internal Medicine
DX: K85.90 Acute pancreatitis without necrosis or infection, unspecified (principal); B37.89 Other sites of candidiasis; D61.818 Other pancytopenia; D70.9 Neutropenia, unspecified; C83.31 Diffuse large B-cell lymphoma, lymph nodes of head, face, and neck; B37.0 Candidal stomatitis; C78.7 Secondary malignant neoplasm of liver and intrahepatic bile duct; B37.81 Candidal esophagitis; K57.32 Diverticulitis of large intestine without perforation or abscess without bleeding; L03.221 Cellulitis of neck; L03.313 Cellulitis of chest wall; T80.212A Local infection due to central venous catheter, initial encounter; B37.3 Candidiasis of vulva and vagina; E78.5 Hyperlipidemia, unspecified; K21.9 Gastro-esophageal reflux disease without esophagitis; L29.8 Other pruritus; M06.9 Rheumatoid arthritis, unspecified; T45.8X5A Adverse effect of other primarily systemic and hematological agents, initial encounter; Y84.8 Other medical procedures as the cause of abnormal reaction of the patient, or of later complication, without mention of misadventure at the time of the procedure; Z80.1 Family history of malignant neoplasm of trachea, bronchus and lung; Z87.440 Personal history of urinary (tract) infections; Z92.21 Personal history of antineoplastic chemotherapy; Z98.51 Tubal ligation status; R40.2412 Glasgow coma scale score 13-15, at arrival to emergency department; E87.6 Hypokalemia

== ENCOUNTER 2017-04-03 11:15 | Emergency (ER) | payer MEDICARE ==
[2017-04-03 11:16] VITALS: BMI 22.6
[2017-04-03] MEDS ORDERED: Sodium Chloride 0.9% 500 ML IV ONE ×2 (11:38→12:34)
--- NOTE | 2017-04-03 11:49 | ED PDOC ---
Arrival/HPI - General Chief Complaint: Weakness/Neurological Deficit Time Seen by Provider: 04/03/17 11:24 Historian: Patient - History of Present Illness Narrative History of Present Illness (Text): 04/03/17 11:48 A 62 year old female, whose past medical history includes pancreatitis and lymphoma, presents to the emergency department complaining of generalized weakness. Patient states oncologist told her to come to emergency department for fluids and admission for low kidney function. Reports her last chemotherapy treatment was about three weeks ago. Denies nausea, vomiting, diarrhea, fever or any other complaints at this time. Denies smoking or alcohol use. PMD: Dr. Bella Patricia Oncologist Dr. Hoffman ([place]) Symptom Onset: Sudden Symptom Course: Unchanged Activities at Onset: Rest Context: Home Associated Symptoms (Text): 04/03/17 12:06 Severe generalized weakness and fatigue with very poor by mouth intake for the last several days. Directed to the emergency department by her oncologist for admission for renal failure. No nausea vomiting or diarrhea. Patient does not require pain medication at this time. No fever. Past Medical History - Provider Review Nursing Documentation Reviewed: Yes - Infectious Disease Hx of Infectious Diseases: None - Cardiac Hx Cardiac Disorders: No - Pulmonary Hx Respiratory Disorders: No - Neurological Hx Neurological Disorder: No - HEENT Hx HEENT Disorder: No - Renal Hx Renal Disorder: No - Endocrine/Metabolic Hx Endocrine Disorders: No - Hematological/Oncological Hx Cancer: Yes (lymphoma) Hx Chemotherapy: Yes Hx Metastasis: Yes - Integumentary Hx Dermatological Disorder: Yes Other/Comment: lump to L neck - Musculoskeletal/Rheumatological Hx Musculoskeletal Disorders: No - Gastrointestinal Hx Gastroesophageal Reflux: Yes Hx Pancreatitis: Yes HX Swallowing Problems: Yes - Genitourinary/Gynecological Hx Genitourinary Disorders: No - Psychiatric Hx Emotional Abuse: No Hx Physical Abuse: No Hx Substance Use: No - Surgical History Hx Section: Yes Hx Tonsillectomy: Yes Other/Comment: lump removal left breast - Anesthesia Hx Anesthesia Reactions: No Hx Malignant Hyperthermia: No - Suicidal Assessment Feels Threatened In Home Enviroment: No Family/Social History - Physician Review Nursing Documentation Reviewed: Yes Family/Social History: No Known Family HX Smoking Status: Never Smoked Hx Alcohol Use: No Hx Substance Use: No Allergies/Home Meds Allergies/Adverse Reactions: Allergies No Known Allergies Allergy (Verified 02/19/17 09:49) Home Medications: Home Meds Medication Instructions Recorded Confirmed Ondansetron HCl [Zofran] 4 mg PO TID PRN 03/14/17 04/03/17 Megestrol Acetate [Megace] 20 ml PO DAILY 04/03/17 04/03/17 Review of Systems - Physician Review All systems were reviewed & negative as marked: Yes - Review of Systems Constitutional: Fatigue, Other (generalized weakness). absent: Fevers Respiratory: Normal Cardiovascular: Normal Gastrointestinal: absent: Abdominal Pain, Diarrhea, Nausea, Vomiting Genitourinary Female: absent: Dysuria, Frequency, Hematuria Neurological: absent: Headache, Dizziness Physical Exam Vital Signs Reviewed: Yes Vital Signs Temp Pulse Resp BP Pulse Ox 04/03/17 11:50 98.3 F 110 H 20 122/88 97 04/03/17 11:23 98.3 F 110 H 20 122/88 97 Temperature: Afebrile Blood Pressure: Normal Pulse: Tachycardic Respiratory Rate: Normal Appearance: Positive for: Non-Toxic, Comfortable, Other (Chronically ill- appearing) Pain Distress: None Mental Status: Positive for: Alert and Oriented X 3 - Systems Exam Head: Present: Atraumatic, Normocephalic Pupils: Present: PERRL Extroacular Muscles: Present: EOMI Conjunctiva: Present: Normal Mouth: Present: Moist Mucous Membranes Pharnyx: No: ERYTHEMA, EXUDATE, TONSILS ENLARGED Neck: Present: Normal Range of Motion, Other (large left sided mass) Respiratory/Chest: Present: Clear to Auscultation, Good Air Exchange. No: Respiratory Distress, Accessory Muscle Use Cardiovascular: Present: Regular Rate and Rhythm, Normal S1, S2, Tachycardic. No: Murmurs Abdomen: Present: Normal Bowel Sounds. No: Tenderness, Distention, Peritoneal Signs, Rebound, Guarding Back: Present: Normal Inspection Upper Extremity: Present: Normal Inspection. No: Cyanosis, Edema Lower Extremity: Present: Normal Inspection. No: Edema Neurological: Present: GCS=15, CN II-XII Intact, Speech Normal, Motor Func Grossly Intact Skin: Present: Warm, Dry, Normal Color. No: Rashes Psychiatric: Present: Alert, Oriented x 3, Normal Insight, Normal Concentration Medical Decision Making ED Course and Treatment: 04/03/17 11:46 Impression: A 62 year old female with generalized weakness. Plan: -- EKG -- chest xray -- labs -- IV fluids -- Reassess and disposition Prior Visits: Notes and results from previous visits were reviewed. Patient last reported to the emergency department on 03/14/17 for evaluation of abdominal pain. CT abd/pelvis showed acute pancreatitis and liver metastitis. Patient was admitted and accepted by Dr. Day under hospitalists service. Patient was discharged on 03/24/17. Progress Notes: 04/03/17 12:07 EKG shows sinus tachycardia rate approximately [address] or T-wave changes 04/03/17 12:35 Discussed with and reviewed lab results. Patient was not sent here for admission, but rather hydration. Her creatinine is improved from 2.1 to 1.6 today. 04/03/17 12:35 chest xray: Creator : Kunal Henriquez MD IMPRESSION: No active disease. 04/03/17 13:18 Discussed in detail with patient and and they are in agreement for discharge. Follow with PMD and oncologist. Instructed to try to increase by mouth fluids. Follow-up in ER as needed. - Lab Interpretations Lab Results: 04/03/17 11:38 04/03/17 11:38 Lab Results 04/03/17 11:38: Sodium 140, Potassium 3.9, Chloride 105, Carbon Dioxide 24, Anion Gap 15, BUN 12, Creatinine 1.6 H, Est GFR ( Amer) 40, Est GFR (Non- Af Amer) 33, Random Glucose 108, Calcium 8.7, Total Bilirubin 0.2, AST 106 H, ALT 91 H, Alkaline Phosphatase 94, Lactate Dehydrogenase 863 H, Total Creatine Kinase < 20 L, Troponin I < 0.01, Total Protein 6.3, Albumin 3.5, Globulin 2.8, Albumin/Globulin Ratio 1.3, Lipase 267 04/03/17 11:38: WBC 7.6 D, RBC 3.66, Hgb 10.4 L, Hct 32.3 L, MCV 88.3, MCH 28.4 , MCHC 32.2, RDW 14.8 H, Plt Count 476 H, MPV 9.8, Gran % 68.1 H, Lymph % (Auto ) 13.8 L, Kay % (Auto) 16.2 H, Eos % (Auto) 0.5 L, Baso % (Auto) 1.4, Gran # 5.17, Lymph # 1.1 L, Kay # 1.2 H, Eos # 0.0, Baso # 0.11 I have reviewed the lab results: Yes - RAD Interpretation Radiology Orders: 04/03/17 11:38 CHEST PORTABLE [RAD] Stat - EKG Interpretation Interpreted by ED Physician: Yes Type: 12 lead EKG - Medication Orders Current Medication Orders: Sodium Chloride (Sodium Chloride 0.9%) 500 mls @ 500 mls/hr IV ONCE ONE Stop: 04/03/17 13:33 Last Admin: 04/03/17 13:03 Dose: 500 mls/hr Discontinued Medications Sodium Chloride (Sodium Chloride 0.9%) 500 mls @ 500 mls/hr IV ONCE ONE Stop: 04/03/17 12:37 Last Admin: 04/03/17 12:00 Dose: 500 mls/hr - Scribe Statement The provider has reviewed the documentation as recorded by the Tressa Yanez Provider Scribe Attestation: All medical record entries made by the Scribe were at my direction and personally dictated by me. I have reviewed the chart and agree that the record accurately reflects my personal performance of the history, physical exam, medical decision making, and the department course for this patient. I have also personally directed, reviewed, and agree with the discharge instructions and disposition. Disposition/Present on Arrival - Present on Arrival Any Indicators Present on Arrival: No History of DVT/PE: No History of Uncontrolled Diabetes: No Urinary Catheter: No History of Decub. Ulcer: No History Surgical Site Infection Following: None - Disposition Have Diagnosis and Disposition been Completed?: Yes Diagnosis: B-cell lymphoma of lymph nodes of neck, Dehydration, Renal failure Disposition: HOME/ ROUTINE Disposition Time: 13:21 Patient Plan: Discharge Condition: FAIR Discharge Instructions (ExitCare): Dehydration (ED), Acute Kidney Injury (DC) [facility] - Follow up with primary Forms: [employer] (Chinese)
[2017-04-03 12:15] LABS: BASO # 0.11 K/mm3 (0.0-2.0); BASO % 1.4 % (0.0-3.0); EOS % 0.5 % (1.5-5.0); GRAN # 5.17 (1.4-6.5); GRAN % 68.1 % (50.0-68.0); HEMATOCRIT 32.3 % (36.0-48.0); LYMPH # 1.1 (1.2-3.4); LYMPH % 13.8 % (22.0-35.0); MEAN CELL VOLUME 88.3 fl (80.0-105.0); MEAN CORPUSCULAR HEMOGLOBIN 28.4 pg (25.0-35.0); MEAN CORPUSCULAR HGB CONC 32.2 g/dl (31.0-37.0); MEAN PLATELET VOLUME 9.8 fl (7.0-11.0); MONO # 1.2 (0.1-0.6); MONO % 16.2 % (1.0-6.0); RED CELL DISTRIBUTION WIDTH 14.8 % (11.5-14.5); WHITE BLOOD COUNT 7.6 10^3/ul (4.5-11.0)
[2017-04-03 12:17] LABS: ALB/GLOB RATIO 1.3 (1.1-1.8); ALKALINE PHOSPHATASE 94 U/L (38-133); ALT/SGPT 91 U/L (7-56); AST/SGOT 106 U/L (15-39); BILIRUBIN,TOTAL 0.2 mg/dL (0.2-1.3); BLOOD UREA NITROGEN 12 mg/dL (7-21); CALCIUM 8.7 mg/dL (8.4-10.5); CARBON DIOXIDE 24 mmol/L (21-33); CHLORIDE 105 mmol/L (98-107); GFR AFRICAN-AMERICAN 40; GLUCOSE,RANDOM 108 mg/dL (70-110); LIPASE 267 U/L (23-300); POTASSIUM 3.9 mmol/L (3.6-5.0); SODIUM 140 mmol/L (132-148); TOTAL PROTEIN 6.3 g/dL (5.8-8.3)
[2017-04-03 12:29] LABS: TROPONIN I < 0.01 ng/mL
--- NOTE | 2017-04-03 12:34 | RAD ---
HISTORY: weak COMPARISON: No prior. FINDINGS: LUNGS: No active pulmonary disease. PLEURA: No significant pleural effusion identified, no pneumothorax apparent. CARDIOVASCULAR: Normal. OSSEOUS STRUCTURES: No significant abnormalities. VISUALIZED UPPER ABDOMEN: Normal. OTHER FINDINGS: Right-sided Port-A-Cath IMPRESSION: No active disease.
[2017-04-03 13:59] VITALS: BP 125/70; RESP 18; TEMP 98.2; O2SAT 98
[2017-04-03 14:19] VITALS: PULSE 88
--- NOTE | 2017-04-03 23:13 | CARD ---
APPROVED REPORT EKG Measurement Heart [id number] <Conclusion> Sinus tachycardia Otherwise normal ECG
== END 2017-04-03 14:10 | disposition home or self-care (01) ==
LOC: ED 11:15
DX: C85.11 Unspecified B-cell lymphoma, lymph nodes of head, face, and neck (principal); N19 Unspecified kidney failure; E86.0 Dehydration
CPT/HCPCS: 71010; 80053; 82550; 83615; 83690; 84484; 85025; 93005; 96360; 96361; 99285; J7040

== ENCOUNTER 2017-04-15 23:58 | Inpatient (IN) | payer MEDICARE, OTHER ==
[2017-04-15 23:59] VITALS: BMI 22.6
--- NOTE | 2017-04-16 00:22 | ED PDOC ---
Arrival/HPI - General Chief Complaint: Abdominal Pain Time Seen by Provider: 04/16/17 00:17 Historian: Patient - History of Present Illness Narrative History of Present Illness (Text): 04/16/17 00:21 Zelda Bobo is a 62 year female, whose past medical center includes lymphoma/ left neck mass, rheumatoid arthritis, and pancreatitis, who presents to the emergency department complaining of abdominal pain. Patient states she recently underwent chemotherapy earlier today and began experiencing upper abdominal/ epigastric pain with some burning epigastric sensation. Patient denies any shortness of breath, nausea, vomiting, diarrhea, back pain, headache, dizziness , or any other complaints. PMD: Dr. Chelo Patricia Heme/Onc: Dr. Hoffamn Symptom Onset: Gradual Symptom Course: Unchanged Activities at Onset: Light Context: Home Past Medical History - Provider Review Nursing Documentation Reviewed: Yes - Infectious Disease Hx of Infectious Diseases: None - Reproductive Menopause: Yes - Cardiac Hx Cardiac Disorders: No - Pulmonary Hx Respiratory Disorders: No - Neurological Hx Neurological Disorder: No - HEENT Hx HEENT Disorder: No - Renal Hx Renal Disorder: No - Endocrine/Metabolic Hx Endocrine Disorders: No - Hematological/Oncological Hx Blood Transfusions: Yes (today) Hx Cancer: Yes (lymphoma) Hx Chemotherapy: Yes Hx Metastasis: Yes - Integumentary Hx Dermatological Disorder: Yes Other/Comment: lump to L neck - Musculoskeletal/Rheumatological Hx Musculoskeletal Disorders: No - Gastrointestinal Hx Gastroesophageal Reflux: Yes Hx Pancreatitis: Yes HX Swallowing Problems: Yes - Genitourinary/Gynecological Hx Genitourinary Disorders: No - Psychiatric Hx Psychophysiologic Disorder: No Hx Emotional Abuse: No Hx Physical Abuse: No Hx Substance Use: No - Surgical History Hx Section: Yes Hx Tonsillectomy: Yes Other/Comment: lump removal left breast - Anesthesia Hx Anesthesia Reactions: No Hx Malignant Hyperthermia: No - Suicidal Assessment Feels Threatened In Home Enviroment: No Family/Social History - Physician Review Nursing Documentation Reviewed: Yes Family/Social History: Unknown Family HX Smoking Status: Never Smoked Hx Alcohol Use: No Hx Substance Use: No Allergies/Home Meds Allergies/Adverse Reactions: Allergies No Known Allergies Allergy (Verified 04/16/17 00:06) Home Medications: Home Meds Medication Instructions Recorded Confirmed Ondansetron HCl [Zofran] 4 mg PO TID PRN 03/14/17 04/16/17 Docusate Sodium [Dok] 100 mg PO DAILY 04/16/17 04/16/17 Furosemide [Lasix] 20 mg PO DAILY 04/16/17 04/16/17 Oxycodone HCl/Acetaminophen 1 tab PO BID 04/16/17 04/16/17 [Oxycodone-Acetaminophen 5-325] Ranitidine HCl [Zantac 300] 300 mg PO HS 04/16/17 04/16/17 Review of Systems - Physician Review All systems were reviewed & negative as marked: Yes - Review of Systems Constitutional: Normal. absent: Fevers Eyes: Normal ENT: Normal Respiratory: Normal. absent: SOB, Cough Cardiovascular: Normal. absent: Chest Pain Gastrointestinal: Abdominal Pain. absent: Diarrhea, Nausea, Vomiting Genitourinary Female: Normal. absent: Dysuria, Frequency, Hematuria, Urine Output Changes Musculoskeletal: Normal. absent: Back Pain, Neck Pain Skin: Normal. absent: Rash Neurological: Normal. absent: Headache, Dizziness Endocrine: Normal Hemo/Lymphatic: Normal Psychiatric: Normal Physical Exam Vital Signs Reviewed: Yes Vital Signs Temp Pulse Resp BP Pulse Ox 04/16/17 00:12 99.8 F H 85 17 143/77 99 Temperature: Afebrile Blood Pressure: Normal Pulse: Regular Respiratory Rate: Normal Appearance: Positive for: Well-Appearing, Non-Toxic, Comfortable Pain Distress: None Mental Status: Positive for: Alert and Oriented X 3 - Systems Exam Head: Present: Atraumatic, Normocephalic Pupils: Present: PERRL Extroacular Muscles: Present: EOMI Conjunctiva: Present: Normal Mouth: Present: Moist Mucous Membranes Neck: Present: Normal Range of Motion Respiratory/Chest: Present: Clear to Auscultation, Good Air Exchange. No: Respiratory Distress, Accessory Muscle Use Cardiovascular: Present: Regular Rate and Rhythm, Normal S1, S2. No: Murmurs Abdomen: Present: Tenderness (Epigastric/upper abdominal tenderness), Normal Bowel Sounds. No: Distention, Peritoneal Signs Back: Present: Normal Inspection Upper Extremity: Present: Normal Inspection. No: Cyanosis, Edema Lower Extremity: Present: Normal Inspection. No: Edema Neurological: Present: GCS=15, CN II-XII Intact, Speech Normal Skin: Present: Warm, Dry, Normal Color. No: Rashes Psychiatric: Present: Alert, Oriented x 3, Normal Insight, Normal Concentration Medical Decision Making ED Course and Treatment: 04/16/17 00:21 Impression: 62 year old female complaining of upper abdominal/epigastric pain today. Plan: -- EKG -- CXR -- Labs, cardiac enzymes, lipase -- Zofran -- Pepcid -- Dilaudid -- Reassess and disposition Prior Visits: Notes and results from previous visits were reviewed. On 04/03/2017, pt was seen in the emergency department for generalized weakness. Pt was d/c home. Progress Notes: 04/16/17 01:08 Reviewed EKG, NSR at [address]-segment elevations or depressions, no T-wave inversions, normal intervals. 04/16/17 01:32 reviewed radiology, CXR shows no acute processes. 04/16/17 03:[address] Hoda Lyles, who is aware and agrees with plan. Accepts pt in to hospitalist service. [facility] go to [facility] observation for abdominal pain and pancytopenia. - Lab Interpretations Lab Results: 04/16/17 00:31 04/16/17 00:31 Lab Results 04/16/17 00:31: WBC 0.1 L* D, RBC 3.19 L, Hgb 9.1 L, Hct 27.1 L, MCV 85.0 D, MCH 28.5, MCHC 33.6, RDW 14.1, Plt Count 14 L*, Platelet Evaluation Low 04/16/17 00:31: Sodium 140, Potassium 2.8 L* D, Chloride 106, Carbon Dioxide 27 , Anion Gap 10, BUN 13, Creatinine 0.9, Est GFR ( Amer) > 60, Est GFR ( Non-Af Amer) > 60, Random Glucose 113 H, Calcium 8.4, Total Bilirubin 0.9, AST 13 L, ALT 39, Alkaline Phosphatase 56, Lactate Dehydrogenase 447, Total Creatine Kinase < 20 L, Troponin I < 0.01, Total Protein 4.9 L, Albumin 2.9 L, Globulin 2.0, Albumin/Globulin Ratio 1.5, Lipase 48 I have reviewed the lab results: Yes - RAD Interpretation Radiology Orders: 04/16/17 00:25 CHEST PORTABLE [RAD] Stat 04/16/17 02:17 ABD & PELVIS W/O PO OR IV CONT [CT] Stat Wash Box Operator: ED Physician - EKG Interpretation Interpreted by ED Physician: Yes Type: 12 lead EKG - Medication Orders Current Medication Orders: Potassium Chloride (Potassium Chloride 20 Meq/100 Ml) 20 meq in 100 mls @ 50 mls/hr IV ONCE ONE Stop: 04/16/17 04:16 Last Admin: 04/16/17 03:17 Dose: 50 mls/hr Discontinued Medications Famotidine (Pepcid) 20 mg IVP STAT STA Stop: 04/16/17 00:27 Last Admin: 04/16/17 00:51 Dose: 20 mg Hydromorphone HCl (Dilaudid) 1 mg IVP STAT STA Stop: 04/16/17 00:27 Last Admin: 04/16/17 00:51 Dose: 1 mg Piperacillin Sod/Tazobactam Sod (Zosyn 3.375 In Ns 100ml) 100 mls @ 200 mls/hr IV STAT STA PRN Reason: Protocol Stop: 04/16/17 02:38 Last Admin: 04/16/17 03:17 Dose: 200 mls/hr Ondansetron HCl (Zofran Inj) 4 mg IVP ONCE ONE Stop: 04/16/17 00:27 Last Admin: 04/16/17 00:45 Dose: 4 mg - Deanneibe Statement The provider has reviewed the documentation as recorded by the Tressa Mcmanus All medical record entries made by the Deanneibarminda were at my direction and personally dictated by me. I have reviewed the chart and agree that the record accurately reflects my personal performance of the history, physical exam, medical decision making, and the department course for this patient. I have also personally directed, reviewed, and agree with the discharge instructions and disposition. Disposition/Present on Arrival - Present on Arrival Any Indicators Present on Arrival: No History of DVT/PE: No History of Uncontrolled Diabetes: No Urinary Catheter: No History of Decub. Ulcer: No History Surgical Site Infection Following: None - Disposition Have Diagnosis and Disposition been Completed?: Yes Diagnosis: Pancytopenia, Abdominal pain Disposition: HOSPITALIZED Disposition Time: 03:30 Patient Plan: Observation Condition: STABLE Referrals: Bella Patricia DO [Primary Care Provider] - Follow up with primary Forms: [employer] (Wolof)
[2017-04-16] MEDS ORDERED: HYDROmorphone 1 mg/ml ISec IVP STA ×2 (00:26→15:24)
[2017-04-16 00:55] LABS: HEMATOCRIT 27.1 % (36.0-48.0); MEAN CORPUSCULAR HEMOGLOBIN 28.5 pg (25.0-35.0); MEAN CORPUSCULAR HGB CONC 33.6 g/dl (31.0-37.0); RED CELL DISTRIBUTION WIDTH 14.1 % (11.5-14.5)
[2017-04-16 01:01] LABS: ALB/GLOB RATIO 1.5 (1.1-1.8); ALKALINE PHOSPHATASE 56 U/L (38-126); ALT/SGPT 39 U/L (7-56); AST/SGOT 13 U/L (14-36); BILIRUBIN,TOTAL 0.9 mg/dL (0.2-1.3); BLOOD UREA NITROGEN 13 mg/dL (7-21); CALCIUM 8.4 mg/dL (8.4-10.5); CARBON DIOXIDE 27 mmol/L (21-33); CHLORIDE 106 mmol/L (98-107); GFR AFRICAN-AMERICAN > 60; GLUCOSE,RANDOM 113 mg/dL (70-110); LIPASE 48 U/L (23-300); SODIUM 140 mmol/L (132-148); TOTAL PROTEIN 4.9 g/dL (5.8-8.3)
[2017-04-16 01:18] LABS: WHITE BLOOD COUNT 0.1 10^3/ul (4.5-11.0)
[2017-04-16 01:19] LABS: PLATELET COUNT 14 10^3/uL (120.0-450.0)
[2017-04-16 01:29] LABS: TROPONIN I < 0.01 ng/mL
[2017-04-16 01:30] LABS: POTASSIUM 2.8 mmol/L (3.6-5.0)
[2017-04-16 02:15] LABS: PLATELET ESTIMATE LOW (NORMAL)
[2017-04-16] MEDS: Piperacillin/Tazobact 3.375 gm 100 ML IV STA ×2 (02:34→03:17)
[2017-04-16 04:02] LABS: URINE APPEARANCE CLEAR (CLEAR); URINE BILIRUBIN NEGATIVE (NEGATIVE); URINE BLOOD NEGATIVE (NEGATIVE); URINE COLOR YELLOW (YELLOW); URINE GLUCOSE (UA) NEGATIVE (NEGATIVE); URINE KETONE NEGATIVE (NEGATIVE); URINE LEUKOCYTE ESTERASE NEGATIVE Leu/uL (NEGATIVE); URINE PROTEIN NEGATIVE mg/dL (<30 mg/dL); URINE UROBILINOGEN 0.2 E.U./dL (<1 E.U./dL)
--- NOTE | 2017-04-16 04:27 | CT ---
EXAM: CT Abdomen and Pelvis Without Intravenous Contrast EXAM DATE/TIME: 04/16/2017 2:17 AM CLINICAL HISTORY: 62 years old, female; Pain; Abdominal pain; Generalized; Prior surgery; Surgery date: 6+ months; Surgery type: Tubal ligation TECHNIQUE: Axial computed tomography images of the abdomen and pelvis without intravenous contrast. All CT scans at this facility use one or more dose reduction techniques, viz.: automated exposure control; ma/kV adjustment per patient size (including targeted exams where dose is matched to indication; i.e. head); or iterative reconstruction technique. Coronal and sagittal reformatted images were created and reviewed. COMPARISON: CT - ABD PELVIS PO CONTRAST ONLY 03/19/2017 1:16:54 PM FINDINGS: Chronic atelectatic changes in the lung bases There is a small amount of haziness in the fat surrounding the gallbladder concerning for acute infectious/inflammatory process. This finding is new since prior. No gallstones are identified. The liver, spleen, and pancreas appear grossly normal on this non-contrast study. There is trace perinephric stranding. No hydronephrosis. No obstructing calculi. Left renal cyst unchanged. The small bowel appears grossly normal. A normal appendix is identified coronal image 42. The previously seen sigmoid diverticulitis has resolved. Moderate amount of stool within the sigmoid and rectum. There is stranding in the subcutaneous fat of the posterior pelvis more prominent to the right of midline. This finding is new since prior study. Possibilities would exclude traumatic or infectious/inflammatory process. Clinical correlation recommended. IMPRESSION: Haziness in the pericholecystic fat. If there is clinical concern for cholecystitis, ultrasound may be helpful. Resolution of previously seen diverticulitis. Stranding in the subcutaneous fat of the posterior pelvis.
[2017-04-16] MEDS: HYDROmorphone 1 mg/ml ISec IVP STA ×2 (04:34→23:54)
--- NOTE | 2017-04-16 04:46 | CP.PCM.HP ---
History of Present Illness - History of Present Illness History of Present Illness: Josefina Osborne, PGY1, H&P for Dr. Lyles: CC: abdominal pain HPI: 62F with PMH B-Cell Lymphoma and RA presents for abdominal pain. She localizes it to epigastric area, describes it as burning, has associated nausea , zofran by Dr. grider (onc) has been helping her. It has been going on for past 5 days, since her last chemo (which was on Thursday), Today, she had worsening of her pain, and also felt fever, with home temp 99.6F. Also complains of a sore throat, and constipation (last BM 2 days ago). Denies vomiting, diarrhea, sob, cp, leg swelling, palpitations, back pain, headache, numbness/tingling in extremities. In ED, pt's temp 99.8F, pancytopenic wbc 0.1, hgb 9.1, plt 14, K 2.8, nrml lipase, low albumin 2.9, UA neg for infxn. CXR shows basal atelectasis, Abd pelvis CT shows concern for cholecystitis, stranding in subcut fat of posterior pelvis. Received Pepcid 20 mg IVx1, dilaudid 1 mg IV x2, zofran 4 mg IVx1, KCl 20 meq IVx1, zosyn IVx1 in ED. Currently, pt is still having epigastric and rlq pain, better since arrival, + nausea. PMH: Rheumatoid Arthritis and B cell Lymphoma PSH: breast cyst removal, tubal ligation, and tonsillectomy Family History: Non-Contributory Social History: Denies tobacco or illicit drug use; endorses social alcohol use Allergies: NKDA Home Medications: please see [facility] Heme/Onc Dr. Grider, , - called him overnight (but no return call received), please call him in AM to verfiy pt's chemo regimen and health status PMD: Dr. Patricia Present on Admission - Present on Admission Any Indicators Present on Admission: No History of DVT/PE: No History of Uncontrolled Diabetes: No Urinary Catheter: No Decubitus Ulcer Present: No History Surgical Site Infection Following: None Review of Systems - Review of Systems All systems: reviewed and no additional remarkable complaints except Review of Systems: as per hpi Past Patient History - Infectious Disease Hx of Infectious Diseases: None - Past Social History Smoking Status: Never Smoked - CARDIAC Hx Cardiac Disorders: No - PULMONARY Hx Respiratory Disorders: No - NEUROLOGICAL Hx Neurological Disorder: No - HEENT Hx HEENT Problems: No - RENAL Hx Chronic Kidney Disease: No - ENDOCRINE/METABOLIC Hx Endocrine Disorders: No - HEMATOLOGICAL/ONCOLOGICAL Hx Blood Transfusions: Yes (today) Hx Cancer: Yes (lymphoma) Hx Chemotherapy: Yes Hx Metastesis: Yes - INTEGUMENTARY Hx Dermatological Problems: Yes Other/Comment: lump to L neck - MUSCULOSKELETAL/RHEUMATOLOGICAL Hx Musculoskeletal Disorders: No - GASTROINTESTINAL Hx Gastroesophageal Reflux: Yes Hx Pancreatitis: Yes HX Swallowing Problems: Yes - GENITOURINARY/GYNECOLOGICAL Hx Genitourinary Disorders: No - PSYCHIATRIC Hx Psychophysiologic Disorder: No Hx Emotional Abuse: No Hx Physical Abuse: No Hx Substance Use: No - SURGICAL HISTORY Hx Section: Yes Hx Tonsillectomy: Yes Other/Comment: lump removal left breast - ANESTHESIA Hx Anesthesia Reactions: No Hx Malignant Hyperthermia: No Meds Allergies/Adverse Reactions: Allergies Allergy/AdvReac Type Severity Reaction Status Date / Time No Known Allergies Allergy Verified 04/16/17 00:06 Physical Exam - Constitutional Appears: Non-toxic, Older Than Stated Age, Cachectic, Chronically Ill - Head Exam Head Exam: ATRAUMATIC, NORMOCEPHALIC - Eye Exam Eye Exam: EOMI, PERRL. absent: Conjunctival injection, Periorbital swelling, Scleral icterus Pupil Exam: PERRL - ENT Exam ENT Exam: absent: Mucous Membranes Dry Additional comments: white patches seen on tongue - Neck Exam Neck exam: Positive for: Full Rom, Lymphadenopathy. Negative for: Thyromegaly Additional comments: L sided mass - Respiratory Exam Respiratory Exam: Clear to Auscultation Bilateral, NORMAL BREATHING PATTERN. absent: Accessory Muscle Use, Rales, Rhonchi, Wheezes - Cardiovascular Exam Cardiovascular Exam: RRR, +S1, +S2. absent: Systolic Murmur - GI/Abdominal Exam GI & Abdominal Exam: Guarding, Hypoactive Bowel Sounds, Soft, Tenderness. absent: Distended, Firm, Organomegaly, Rebound Additional comments: TTp in epigastric and LLQ. No rebound/ - Extremities Exam Extremities exam: Positive for: pedal pulses present. Negative for: calf tenderness, pedal edema - Back Exam Back exam: absent: CVA tenderness (L), CVA tenderness (R) - Neurological Exam Neurological exam: Alert, Oriented x3, Reflexes Normal - Skin Skin Exam: Dry, Pallor, Warm Results - Vital Signs Recent Vital Signs: Last Vital Signs Temp 99.8 F H 04/16/17 03:41 Pulse 83 04/16/17 03:41 Resp 17 04/16/17 03:41 BP 129/80 04/16/17 03:41 Pulse Ox 99 04/16/17 03:41 - Labs Result Diagrams: 04/16/17 00:31 04/16/17 00:31 Labs: Laboratory Results - last 24 hr 04/16/17 03:53 Urine Color Yellow Urine Appearance Clear Urine pH 7.0 Ur Specific [place] 1.010 Urine Protein Negative Urine Glucose (UA) Negative Urine Ketones Negative Urine Blood Negative Urine Nitrate Negative Urine Bilirubin Negative Urine Urobilinogen 0.2 Ur Leukocyte Esterase Negative Assessment & Plan - Assessment and Plan (Free Text) Assessment: 62 year old female with a PMH significant for B-Cell Lymphoma and RA, presents for abdominal pain, likely colitis, 2/2 neutropenia/chemotherapy induced. Plan: Abdominal Pain: - likely colitis 2/2 neurtopenia - pancytopenic wbc 0.1, hgb 9.1, plt 14 - f/u Abs neutrophil count on cbc w diff - CXR shows basilar atelectasis. ICS - Ct abd pelvis shos haziness in pericholecystic fat. concern for cholecystitis ? consider US. Stranding in subcut fat of posterior pelvis - IVF @ 100/h - Zofran prn - Percocet for pain - lipase nrml - NPO - Heme/Onc c/s, f/u recs - On zosyn IV. f/u ID recs Oral thrush: - likely chemotherapy induced -magic mouthwash PRN -Nystatin oral suspension PRN for empiric evan coverage -ID consulted, will follow recommendations GI/DVT PPX: -Protonix/scd's Patient seen and case discussed with attending, Dr. Lyles. Katrina Osborne, PGY1 - Date & Time Date: 04/16/17 Time: 05:42
[2017-04-16 05:29] LABS: NEUTROPHIL 35 % (50.0-70.0)
[2017-04-16 05:31] LABS: EOSINOPHIL 2 % (0.0-3.0)
[2017-04-16] MEDS ORDERED: Piperacillin/Tazobact 3.375 gm 100 ML IVPB SCH (06:00)
[2017-04-16] MEDS ORDERED: Vancomycin 1gm in NS 250ml 1 GM/250 ML BAG IVPB STA (06:38)
--- NOTE | 2017-04-16 07:51 | RAD ---
HISTORY: abdominal pain COMPARISON: 04/03/2017 FINDINGS: LUNGS: Nonspecific opacity at left base. Possible subsegmental atelectasis. Followup to rule out pneumonia. PLEURA: No significant pleural effusion identified, no pneumothorax apparent. CARDIOVASCULAR: Right central venous infusion port. Normal heart size. No congestive change. OSSEOUS STRUCTURES: No significant abnormalities. VISUALIZED UPPER ABDOMEN: Normal. OTHER FINDINGS: None. IMPRESSION: Nonspecific opacity at left base. Followup to rule out pneumonia.
[2017-04-16] MEDS: Meropenem 1g/NS 100mL IVPB 1 GM/100 ML PIGGYBACK IVPB SCH ×3 (08:01→21:31)
[2017-04-16 09:25] LABS: IRON 70 ug/dL (45-180)
[2017-04-16] MEDS ORDERED: Oxycodone/Acetaminophen 5/325 mg Tab PO SCH (10:00)
[2017-04-16] MEDS: Nystatin 100,000 Units/ml Oral Susp 5 ml UD PO SCH ×4 (10:02→21:31)
[2017-04-16] MEDS ORDERED: Morphine 2 mg/ml ISec IVP STA (10:22)
[2017-04-16 11:40] LABS: MAGNESIUM 1.7 mg/dL (1.7-2.2); PHOSPHOROUS 2.1 mg/dL (2.5-4.5)
--- NOTE | 2017-04-16 13:47 | CARD ---
APPROVED REPORT EKG Measurement Heart [id number] <Conclusion> Normal sinus rhythm Normal ECG
[2017-04-16 13:49] LABS: FOLATE 10.8 ng/mL
[2017-04-16] MEDS: Sodium Chloride 0.9% 1,000 ML IV SCH (13:53)
[2017-04-16] MEDS: Aluminum Hydroxide/Magnesium 30 ML, DiphenhydrAMINE 75 MG, Lidocaine 2% Viscous 30 ML PO PRN (14:47)
--- NOTE | 2017-04-16 21:26 | CP.PCM.CON ---
History of Present Illness - History of Present Illness History of Present Illness: Hematology Consult Referred by Dr. Lyles for lymphoma, pancytopenia HPI- Ms Bobo was seen and examined earlier today. She is 62 /yo F with h/o RA , DLBCL who has been on treatment with R-EPOCH chemotherapy. Cycle 1 was complicated by acute pancreatitis and diverticulitis. She received cycle 2 last week, last chemotherapy was on 04/10/17 with neulasta on 04/11. She was admitted now with fever, weakness and chills. She recently got 1 unit PRBC transfusion. In ER, she was pancytopenic, had low grade temp. She was started on empiric antibiotics and cultures were sent. She feels little better today. Denies bleeding. Denies altered bowel movements. Has abdominal pain that is stable. Also feels reflux. PMH: Rheumatoid Arthritis and B cell Lymphoma PSH: breast cyst removal, tubal ligation, and tonsillectomy Family History: Non-Contributory Social History: Denies tobacco or illicit drug use; endorses social alcohol use Allergies: NKDA Review of Systems - Review of Systems All systems: reviewed and no additional remarkable complaints except (in HPI) Past Patient History - Infectious Disease Hx of Infectious Diseases: None - Past Social History Smoking Status: Never Smoked - CARDIAC Hx Cardiac Disorders: No - PULMONARY Hx Respiratory Disorders: No - NEUROLOGICAL Hx Neurological Disorder: No - HEENT Hx HEENT Problems: No - RENAL Hx Chronic Kidney Disease: No - ENDOCRINE/METABOLIC Hx Endocrine Disorders: No - HEMATOLOGICAL/ONCOLOGICAL Hx Blood Transfusions: Yes (today) Hx Cancer: Yes (lymphoma) Hx Chemotherapy: Yes Hx Metastesis: Yes - INTEGUMENTARY Hx Dermatological Problems: Yes Other/Comment: lump to L neck - MUSCULOSKELETAL/RHEUMATOLOGICAL Hx Musculoskeletal Disorders: No - GASTROINTESTINAL Hx Gastroesophageal Reflux: Yes Hx Pancreatitis: Yes HX Swallowing Problems: Yes - GENITOURINARY/GYNECOLOGICAL Hx Genitourinary Disorders: No - PSYCHIATRIC Hx Psychophysiologic Disorder: No Hx Emotional Abuse: No Hx Physical Abuse: No Hx Substance Use: No - SURGICAL HISTORY Hx Section: Yes Hx Tonsillectomy: Yes Other/Comment: lump removal left breast - ANESTHESIA Hx Anesthesia Reactions: No Hx Malignant Hyperthermia: No Meds Allergies/Adverse Reactions: Allergies Allergy/AdvReac Type Severity Reaction Status Date / Time No Known Allergies Allergy Verified 04/16/17 00:06 - Medications Medications: Current Medications Al Hydrox/Mg Hydrox/Simethicone 30 ml/Diphenhydramine HCl 75 mg/Lidocaine 30 ml 0 ml PO Q2H PRN PRN Reason: Mouth/Throat Pain Last Admin: 04/16/17 14:47 Dose: 15 ml Sodium Chloride (Sodium Chloride 0.9%) 1,000 mls @ 100 mls/hr IV .Q10H [facility] Last Admin: 04/16/17 13:53 Dose: 100 mls/hr Meropenem 1g/NS 100mL IVPB (Meropenem 1g/Ns 100ml Ivpb) 1 gm in 100 mls @ 100 mls/hr IVPB Q8 TISHA PRN Reason: Protocol Stop: 04/23/17 06:46 Last Admin: 04/16/17 13:53 Dose: 100 mls/hr Nystatin (Nystatin Oral Susp) 5 ml PO QID [facility] [place] Last Admin: 04/16/17 18:01 Dose: 5 ml Ondansetron HCl (Zofran Inj) 4 mg IVP Q6H PRN PRN Reason: Nausea/Vomiting Pantoprazole Sodium (Protonix Inj) 40 mg IVP Q12 [facility] [place] Last Admin: 04/16/17 10:02 Dose: 40 mg Physical Exam - Head Exam Head Exam: ATRAUMATIC, NORMAL INSPECTION - Eye Exam Eye Exam: EOMI, PERRL. absent: Scleral icterus - ENT Exam ENT Exam: Mucous Membranes Moist - Neck Exam Additional comments: Left neck mass- considerably smaller in size. - Respiratory Exam Respiratory Exam: Clear to Auscultation Bilateral - Cardiovascular Exam Cardiovascular Exam: REGULAR RHYTHM - GI/Abdominal Exam GI & Abdominal Exam: Soft. absent: Normal Bowel Sounds, Organomegaly, Tenderness - Extremities Exam Extremities exam: Negative for: pedal edema - Neurological Exam Neurological exam: Alert, Oriented x3 Results - Vital Signs Recent Vital Signs: Last Vital Signs Temp 99 F 04/16/17 08:20 Pulse 87 04/16/17 08:20 Resp 20 04/16/17 08:20 BP 132/81 04/16/17 08:20 Pulse Ox 97 04/16/17 08:20 - Labs Result Diagrams: 04/16/17 00:31 04/16/17 00:31 Assessment & Plan - Assessment and Plan (Free Text) Assessment: Neutropenic fever. CXR and CT scan reviewed. Pancytopenia B cell lymphoma Continue empiric antibiotics. F/U cultures. Monitor blood counts daily. She did receive neulasta recently. Will hold off on starting neupogen for now. Continue IV fluids. PPI for reflux. Monitor for bleeding. Can transfused platelets if <10k or if bleeding and <50k. Will need to reduce chemotherapy doses with next cycle. Thank you for the consult Rolan Hoffman MD - Date & Time Date: 04/16/17 Time: 18:26
[2017-04-17] MEDS ORDERED: HYDROmorphone 2 mg/ml ISec IVP SCH
[2017-04-17] MEDS: HYDROmorphone 1 mg/ml ISec IVP PRN ×2 (00:31→07:45)
[2017-04-17] MEDS: Sodium Chloride 0.9% 1,000 ML IV SCH ×2 (00:34→18:09)
[2017-04-17] MEDS: Meropenem 1g/NS 100mL IVPB 1 GM/100 ML PIGGYBACK IVPB SCH ×3 (05:33→21:32)
--- NOTE | 2017-04-17 07:18 | CON ---
DATE: 04/16/2017 LOCATION: The patient is seen early this morning in room 371, bed 2. CHIEF COMPLAINT: Weakness from several days. HISTORY OF PRESENT ILLNESS: This is a 62-year-old female with a history of rheumatoid arthritis. The patient had a biopsy in [place], which revealed lymphoma, was a B-cell lymphoma. The patient also has high cholesterol, history of anxiety, urinary tract infection. The patient has a history of tubal ligation, breast cyst surgery and tonsillectomy. The patient was in the hospital recently in March, last month and was found to have oropharyngeal candidiasis and esophagitis plus necrotic mass and lymphoma, was given antifungals and antibiotic therapy. Now on this admission, the patient was admitted to the emergency room and was seen by Dr. Gian Rico. Earlier in the emergency room, state that the patient also has pancreatitis, complained of abdominal pain, weakness, had undergone chemotherapy and infectious disease consultation requested because the patient is also neutropenic, was admitted with pancytopenia and abdominal pain. PAST MEDICAL HISTORY: Significant for B-cell lymphoma, high cholesterol, anxiety, urinary tract infection, pancreatitis and rheumatoid arthritis. PAST SURGICAL HISTORY: Significant for tubal ligation, , tonsillectomy, breast cyst. The patient recently had chemotherapy. MEDICATIONS: At home are reviewed, include Lasix, Zantac and oxycodone. PHYSICAL EXAMINATION: GENERAL: The patient is in bed. VITAL SIGNS: Temperature of 99.8, pulse of 85, respiratory rate of 17 and blood pressure 140/60. HEENT: Unremarkable. NECK: Supple. LUNGS: Has decreased breath sounds. HEART: Normal S1 and S2. ABDOMEN: Soft and nontender. Mild epigastric tenderness. No rebound. No guarding. No masses. LABORATORY DATA: Reveals the white count of 0.1, hemoglobin of 9 and platelets of 14,000. The patient has 54% lymphocytosis. Chemistry reveals BUN 13, creatinine of 0.9. Urinalysis is unremarkable. Microbiology not available. The patient had a CAT scan of the abdomen and pelvis. Concerned about cholecystitis, haziness, this is what is described by Dr. Lyly Hendrix. The patient also had chest x-ray, which revealed nonspecific opacity of the left base. examination is noted, written by . ASSESSMENT AND PLAN: A 62-year-old was admitted with history of rheumatoid arthritis, B-cell lymphoma, high cholesterol, history of status post chemotherapy, anxiety, urinary tract infection, now with epigastric pain and neutropenia and pancytopenia, most rule out acute cholecystitis versus healthcare-associated pneumonia. We will treat the patient with meropenem, vancomycin. Blood culture and urine culture were ordered. Procalcitonin. I will make further recommendation. We will follow closely with you. Matthew Steele MD
[2017-04-17] MEDS: Nystatin 100,000 Units/ml Oral Susp 5 ml UD PO SCH ×4 (10:17→21:32)
[2017-04-17 11:27] LABS: EOS % 1.5 % (1.5-5.0); GRAN % 44.8 % (50.0-68.0); LYMPH # 0.1 (1.2-3.4); LYMPH % 16.4 % (22.0-35.0); MEAN CELL VOLUME 84.9 fl (80.0-105.0); MEAN CORPUSCULAR HEMOGLOBIN 28.3 pg (25.0-35.0); MEAN CORPUSCULAR HGB CONC 33.3 g/dl (31.0-37.0); MEAN PLATELET VOLUME 8.1 fl (7.0-11.0); MONO # 0.3 (0.1-0.6); MONO % 37.3 % (1.0-6.0)
[2017-04-17 11:40] LABS: WHITE BLOOD COUNT 0.7 10^3/ul (4.5-11.0)
[2017-04-17 11:41] LABS: HEMATOCRIT 23.7 % (36.0-48.0); PLATELET COUNT 27 10^3/uL (120.0-450.0)
[2017-04-17 11:45] LABS: ALB/GLOB RATIO 1.2 (1.1-1.8); ALKALINE PHOSPHATASE 52 U/L (38-126); ALT/SGPT 34 U/L (7-56); AST/SGOT 20 U/L (14-36); BILIRUBIN,TOTAL 0.6 mg/dL (0.2-1.3); BLOOD UREA NITROGEN 6 mg/dL (7-21); CALCIUM 8.1 mg/dL (8.4-10.5); CARBON DIOXIDE 23 mmol/L (21-33); CHLORIDE 105 mmol/L (98-107); GFR AFRICAN-AMERICAN > 60; GLUCOSE,RANDOM 65 mg/dL (70-110); SODIUM 139 mmol/L (132-148); TOTAL PROTEIN 5.2 g/dL (5.8-8.3)
[2017-04-17 11:46] LABS: PLATELET ESTIMATE LOW (NORMAL)
[2017-04-17 11:48] LABS: POTASSIUM 2.8 mmol/L (3.6-5.0)
[2017-04-17] MEDS ORDERED: HYDROmorphone 1 mg/ml ISec IVP PRN ×2 (11:53→16:33)
[2017-04-17 12:48] LABS: MAGNESIUM 1.7 mg/dL (1.7-2.2); PHOSPHOROUS 2.1 mg/dL (2.5-4.5)
--- NOTE | 2017-04-17 14:40 | RAD ---
HISTORY: chest discomfort COMPARISON: 04/16/2017 FINDINGS: LUNGS: No active pulmonary disease. PLEURA: No significant pleural effusion identified, no pneumothorax apparent. CARDIOVASCULAR: Normal. OSSEOUS STRUCTURES: No significant abnormalities. VISUALIZED UPPER ABDOMEN: Normal. OTHER FINDINGS: Right-sided Port-A-Cath IMPRESSION: No active disease.
--- NOTE | 2017-04-17 17:04 | CP.PCM.PN ---
<Meño Madrigal - Last Filed: 04/17/17 17:11> Subjective - Date & Time of Evaluation Date of Evaluation: 04/17/17 Time of Evaluation: 07:01 - Subjective Subjective: Patient was seen and examined at bedside. Patient does report some improvement in abdominal discomfort however does report an increase in saliva production since yesterday. Patient also reports a slight improvement in the pain when she swallows. She denies any chest pain, shortness of breath, nausea, vomiting, changes in vision, lightheadedness, dizziness or any other complaints. Objective - Vital Signs/Intake and Output Vital Signs (last 24 hours): Temp Pulse Resp BP Pulse Ox 99 F 85 20 150/85 99 04/17/17 16:38 04/17/17 16:38 04/17/17 16:38 04/17/17 16:38 04/17/17 16:38 Intake and Output: 04/17/17 04/17/17 06:59 18:59 Intake Total 0 0 Balance 0 0 - Medications Medications: Current Medications Al Hydrox/Mg Hydrox/Simethicone 30 ml/Diphenhydramine HCl 75 mg/Lidocaine 30 ml 0 ml PO Q2H PRN PRN Reason: Mouth/Throat Pain Last Admin: 04/16/17 14:47 Dose: 15 ml Hydromorphone HCl (Dilaudid) 0.5 mg IVP Q4 PRN PRN Reason: Pain, severe (8-10) Sodium Chloride (Sodium Chloride 0.9%) 1,000 mls @ 100 mls/hr IV .Q10H [facility] Last Admin: 04/17/17 00:34 Dose: 100 mls/hr Meropenem 1g/NS 100mL IVPB (Meropenem 1g/Ns 100ml Ivpb) 1 gm in 100 mls @ 100 mls/hr IVPB Q8 TIS[facility] PRN Reason: Protocol Stop: 04/23/17 06:46 Last Admin: 04/17/17 13:07 Dose: 100 mls/hr Mupirocin (Bactroban Ointment) 1 gm TOP BID [facility] Nystatin (Nystatin Oral Susp) 5 ml PO QID [facility] Last Admin: 04/17/17 13:09 Dose: 5 ml Ondansetron HCl (Zofran Inj) 4 mg IVP Q6H PRN PRN Reason: Nausea/Vomiting Last Admin: 04/17/17 00:34 Dose: 4 mg Pantoprazole Sodium (Protonix Inj) 40 mg IVP Q12 [facility] Last Admin: 04/17/17 10:17 Dose: 40 mg - Labs Labs: 04/17/17 11:24 04/17/17 11:24 - Head Exam Head Exam: ATRAUMATIC, NORMAL INSPECTION, NORMOCEPHALIC - Eye Exam Eye Exam: EOMI, Normal appearance, PERRL Pupil Exam: NORMAL ACCOMODATION, PERRL - ENT Exam ENT Exam: Mucous Membranes Moist - Neck Exam Neck Exam: Full ROM, Normal Inspection - Respiratory Exam Respiratory Exam: Clear to Ausculation Bilateral, NORMAL BREATHING PATTERN. absent: Accessory Muscle Use, Chest Wall Tenderness, Respiratory Distress - Cardiovascular Exam Cardiovascular Exam: REGULAR RHYTHM, RRR, +S1, +S2. absent: JVD, Rubs - GI/Abdominal Exam Additional comments: Negative Andrew's sign Patient no signs of tenderness, guarding, in all four quadrants. - Back Exam Back Exam: NORMAL INSPECTION. absent: paraspinal tenderness - Neurological Exam Neurological Exam: Awake, CN II-XII Intact, Oriented x3 - Psychiatric Exam Psychiatric exam: Normal Affect, Normal Mood - Skin Skin Exam: Dry, Intact. absent: Urticaria, Vesicles Assessment and Plan - Assessment and Plan (Free Text) Assessment: 62 year old female with a PMH significant for B-Cell Lymphoma and RA, presents for abdominal pain, likely colitis, 2/2 neutropenia/chemotherapy induced. Plan: Abdominal Pain: - likely colitis 2/2 neurtopenia - pancytopenic wbc .7 (up from 0.1), hgb 7.9 (down from 9.1), plt 27( up from 14 ) - Ct abd pelvis shos haziness in pericholecystic fat. concern for cholecystitis ? Stranding in subcut fat of posterior pelvis\ -PE : negative for Baldwin sign and no tenderness or guarding appreciated on exam. - continue IVF @ 100/h - Zofran prn - Percocet for pain - lipase nrml - NPO - Heme/Onc c/s, f/u recs - On zosyn IV. f/u ID recs Hypokalemia -K today was 2.8. -Patient received 2 K riders. -Will reasses K in the morning with CMP. Chest discomfort -patient described chest discomfort most likely 2/2 to thrush. -CXR showed no active disease. Will continue to monitor. B-cell lymphoma (CD+5) -Dr. Hoffman note appeciated, will follow recommendations per note. Oral thrush: - likely chemotherapy induced -magic mouthwash PRN -Nystatin oral suspension PRN for empiric evan coverage -ID consulted pending. GI/DVT PPX: -Protonix/scd's <Michael Lyles B - Last Filed: 04/17/17 18:08> Objective - Vital Signs/Intake and Output Vital Signs (last 24 hours): Temp Pulse Resp BP Pulse Ox 99 F 85 20 150/85 99 04/17/17 16:38 04/17/17 16:38 04/17/17 16:38 04/17/17 16:38 04/17/17 16:38 Intake and Output: 04/17/17 04/17/17 06:59 18:59 Intake Total 0 0 Balance 0 0 - Medications Medications: Current Medications Al Hydrox/Mg Hydrox/Simethicone 30 ml/Diphenhydramine HCl 75 mg/Lidocaine 30 ml 0 ml PO Q2H PRN PRN Reason: Mouth/Throat Pain Last Admin: 04/16/17 14:47 Dose: 15 ml Hydromorphone HCl (Dilaudid) 0.5 mg IVP Q4 PRN PRN Reason: Pain, severe (8-10) Sodium Chloride (Sodium Chloride 0.9%) 1,000 mls @ 100 mls/hr IV .Q10H [facility] Last Admin: 04/17/17 00:34 Dose: 100 mls/hr Meropenem 1g/NS 100mL IVPB (Meropenem 1g/Ns 100ml Ivpb) 1 gm in 100 mls @ 100 mls/hr IVPB Q8 [facility] PRN Reason: Protocol Stop: 04/23/17 06:46 Last Admin: 04/17/17 13:07 Dose: 100 mls/hr Mupirocin (Bactroban Ointment) 1 gm TOP BID [facility] Nystatin (Nystatin Oral Susp) 5 ml PO QID [facility] Last Admin: 04/17/17 13:09 Dose: 5 ml Ondansetron HCl (Zofran Inj) 4 mg IVP Q6H PRN PRN Reason: Nausea/Vomiting Last Admin: 04/17/17 00:34 Dose: 4 mg Pantoprazole Sodium (Protonix Inj) 40 mg IVP Q12 [facility] Last Admin: 04/17/17 10:17 Dose: 40 mg - Labs Labs: 04/17/17 11:24 04/17/17 11:24 Attending/Attestation - Attestation I have personally seen and examined this patient.: Yes I have fully participated in the care of the patient.: Yes I have reviewed all pertinent clinical information, including history, physical exam and plan: Yes Notes (Text): I have seen and examined the patient at bedside. Agree with the note above with the following additions/ exceptions: Briefly this is 62 year old female with history of B-Cell Lymphoma, RA, breast cyst removal, tubal ligation, tonsillectomy, right sided port a cath who was admitted with sore throat, epigastric pain and fever. She was found to have neutropenic fever, pancytopenia and oral thrush. Currently patient is on meropenem and vancomycin. Continue neutropenic precautions. Patient was given neulasta just about a week ago as an outpatient. Patient does not have any RUQ tenderness. GI consult pending at this time. Nystatin and magic mouth wash started for thrush. CT abdomen and pelvis revealed possible atelectasis. Will order for repeat CXR. Her Hb is 7.9 however she denies any symptoms. Will continue to observe patient closely. 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 Upon discharge patient will follow up with Dr Patricia. Dr Michael Lyles
--- NOTE | 2017-04-17 18:58 | CP.PCM.PN ---
Subjective - Date & Time of Evaluation Date of Evaluation: 04/17/17 Time of Evaluation: 11:05 - Subjective Subjective: Patient is still complaining of abdominal / epigastric pain, no fevers overnight , still with occasional nausea. Objective - Vital Signs/Intake and Output Vital Signs (last 24 hours): Temp Pulse Resp BP Pulse Ox 99 F 87 20 132/81 97 04/16/17 08:20 04/16/17 08:20 04/16/17 08:20 04/16/17 08:20 04/16/17 08:20 Intake and Output: 04/17/17 04/17/17 06:59 18:59 Intake Total 0 Balance 0 - Medications Medications: Current Medications Al Hydrox/Mg Hydrox/Simethicone 30 ml/Diphenhydramine HCl 75 mg/Lidocaine 30 ml 0 ml PO Q2H PRN PRN Reason: Mouth/Throat Pain Last Admin: 04/16/17 14:47 Dose: 15 ml Hydromorphone HCl (Dilaudid) 1 mg IVP Q6 PRN PRN Reason: Pain, severe (8-10) Last Admin: 04/17/17 07:45 Dose: 1 mg Sodium Chloride (Sodium Chloride 0.9%) 1,000 mls @ 100 mls/hr IV .Q10H [facility] Last Admin: 04/17/17 00:34 Dose: 100 mls/hr Meropenem 1g/NS 100mL IVPB (Meropenem 1g/Ns 100ml Ivpb) 1 gm in 100 mls @ 100 mls/hr IVPB Q8 TISHA PRN Reason: Protocol Stop: 04/23/17 06:46 Last Admin: 04/17/17 05:33 Dose: 100 mls/hr Nystatin (Nystatin Oral Susp) 5 ml PO QID [facility] Last Admin: 04/17/17 10:17 Dose: 5 ml Ondansetron HCl (Zofran Inj) 4 mg IVP Q6H PRN PRN Reason: Nausea/Vomiting Last Admin: 04/17/17 00:34 Dose: 4 mg Pantoprazole Sodium (Protonix Inj) 40 mg IVP Q12 [facility] Last Admin: 04/17/17 10:17 Dose: 40 mg - Constitutional Appears: Non-toxic, No Acute Distress - Head Exam Head Exam: NORMAL INSPECTION - ENT Exam ENT Exam: Mucous Membranes Moist - Neck Exam Neck Exam: absent: Lymphadenopathy, Meningismus - Respiratory Exam Respiratory Exam: Decreased Breath Sounds - Cardiovascular Exam Cardiovascular Exam: +S1, +S2 - GI/Abdominal Exam GI & Abdominal Exam: Soft. absent: Tenderness Assessment and Plan - Assessment and Plan (Free Text) Plan: Assessment Abdominal pain, R/O acute cholecystitis Oropharyngeal candidiasis left necrotic mass on left neck from lymphoma, consider bacterial superinfection , clinically improving acute sigmoid diverticulitis, improving clinically mild cellulitis around the port area with Citrobacter acute neutropenia probably from chemotherapy Acute pancreatitis, probably medication-induced (ie. chemotherapy) history of left neck necrotic mass with mild cellulitis of the surrounding area dyslipidemia recent diagnosis of B-cell lymphoma on chemotherapy history of UTI S/P tubal ligation S/P tonsillectomy Plan continue Nystatin swish and swallow; also continue Vancomycin and Merrem pending blood cx, abdominal ultrasound, GI evaluation will monitor clinically
[2017-04-17] MEDS: HYDROmorphone 0.5 mg/0.5 ml ISec IVP PRN (19:57)
--- NOTE | 2017-04-17 21:03 | US ---
EXAM: US Abdomen Complete CLINICAL HISTORY: 62 years old, female; Pain; Abdominal pain; Epigastric; Additional info: Rule out cholecystitis TECHNIQUE: Real-time ultrasound of the abdomen (complete) with image documentation. COMPARISON: CT - ABD PELVIS W/O PO OR IV CONT 04/16/2017 3:21:57 AM FINDINGS: Liver: Measured at 14.6 cm. Increased echogenicity. Gallbladder: Unremarkable as visualized. No gallstones. Common bile duct: No dilation, measured at 4 mm. Pancreas: Unremarkable as visualized. Duct measured at 1.4 mm. Kidneys: Right kidney measured at 10.1 cm. Left kidney measured 10.3 cm. Left kidney demonstrates evidence of a nonobstructing renal calculus. 2.8 cm cyst in the upper pole of the left kidney. No hydronephrosis. Spleen: No splenomegaly. Aorta/IVC: Unremarkable as visualized. IMPRESSION: No definitive acute sonographic finding to correspond to reported history. Please see details/findings as above.
[2017-04-17] MEDS: Aluminum Hydroxide/Magnesium 30 ML, DiphenhydrAMINE 75 MG, Lidocaine 2% Viscous 30 ML PO PRN (21:33)
[2017-04-18] MEDS: HYDROmorphone 0.5 mg/0.5 ml ISec IVP PRN ×5 (00:52→21:43)
--- NOTE | 2017-04-18 04:22 | CON ---
DATE: 04/17/2017 HISTORY OF PRESENT ILLNESS: This patient was seen and evaluated earlier. This is a 62-year-old patient was admitted with a history of rheumatoid arthritis and B-cell lymphoma and was admitted following the chemotherapy. The patient was admitted with abdominal pain mainly the epigastric burning sensation. The patient was found to be neutropenic. The WBC count of 0.1. The patient had a CT scan of the abdomen and pelvis done, which was reported as some haziness around the pericholecystic area to rule out cholecystitis. The patient had ultrasound scan of the abdomen done, which showed no bowel sounds. GE consult was requested to evaluate the CT finding. The patient had acute sigmoid diverticulitis and also noted to have some sigmoid diverticulitis. The patient denies any complaints of an abdominal pain mainly the epigastric area now. PAST MEDICAL HISTORY: Other past medical history is significant for rheumatoid arthritis and B cell lymphoma. PAST SURGICAL HISTORY: Possibly for breast cyst removal, tubal ligation, and tonsillectomy. FAMILY HISTORY: Noncontributory. SOCIAL HISTORY: She denies smoking or alcohol. ALLERGIES: NO KNOWN DRUG ALLERGIES. REVIEW OF SYSTEMS: Positive as above. All other systems are examined and unremarkable. PHYSICAL EXAMINATION: GENERAL: On examination, the patient is awake, in no acute distress. HEENT: Atraumatic, anicteric. NECK: Supple. HEART: S1 and S2 regular. Bilateral air entry present. ABDOMEN: Soft. There is mild tenderness present on deep palpitation. The epigastric area otherwise unremarkable. LABORATORY DATA: Hemoglobin 7.9, hematocrit 23.7, WBC is 0.7. LFTs are essentially unremarkable except albumin 2.8. ASSESSMENT AND PLAN: This is a 62-year-old patient with B cell lymphoma status post chemo admitted with an abdominal pain and found to have pericholecystic questionable inflammatory changes. GE consult was requested to evaluate this. At this visit, the patient was hospitalized and had imaging studies done, which showed diverticulitis and possible pancreatitis. This time, it appears to be improved. The patient was admitted before with acute pancreatitis and diverticulitis and the patient improved from that. At the present time, the only thing concerning is about mild pericholecystic questionable inflammatory changes, but the patient has no tenderness on physical examination. The reasonable thing at this point is to optimize the patient and follow up clinically. Less likely it appears to be acute cholecystitis. Thank you very much for allowing me to participate in the care of the patient. Trini Cortes MD
[2017-04-18] MEDS: Meropenem 1g/NS 100mL IVPB 1 GM/100 ML PIGGYBACK IVPB SCH ×2 (05:21→14:43)
[2017-04-18] MEDS: Sodium Chloride 0.9% 1,000 ML IV SCH (05:22)
[2017-04-18 06:52] LABS: EOS % 0.4 % (1.5-5.0); GRAN % 86.5 % (50.0-68.0); LYMPH # 0.2 (1.2-3.4); LYMPH % 7.1 % (22.0-35.0); MEAN CELL VOLUME 85.7 fl (80.0-105.0); MEAN CORPUSCULAR HGB CONC 33.8 g/dl (31.0-37.0); MONO # 0.2 (0.1-0.6); RED CELL DISTRIBUTION WIDTH 14.4 % (11.5-14.5)
[2017-04-18 06:53] LABS: ALB/GLOB RATIO 1.1 (1.1-1.8); ALKALINE PHOSPHATASE 46 U/L (38-126); ALT/SGPT 31 U/L (7-56); AST/SGOT 11 U/L (14-36); BILIRUBIN,TOTAL 0.4 mg/dL (0.2-1.3); BLOOD UREA NITROGEN 5 mg/dL (7-21); CARBON DIOXIDE 19 mmol/L (21-33); CHLORIDE 108 mmol/L (98-107); GFR AFRICAN-AMERICAN > 60; GLUCOSE,RANDOM 51 mg/dL (70-110); SODIUM 140 mmol/L (132-148); TOTAL PROTEIN 4.6 g/dL (5.8-8.3)
[2017-04-18 06:56] LABS: POTASSIUM 2.9 mmol/L (3.6-5.0)
[2017-04-18] MEDS ORDERED: Dextrose 50% SYRINGE Inj (50 ml) IVP STA (07:23)
[2017-04-18] MEDS ORDERED: Potassium Chloride 10 mEq ER Tab PO STA (07:32)
[2017-04-18 07:48] LABS: WHITE BLOOD COUNT 2.7 10^3/ul (4.5-11.0)
[2017-04-18 07:49] LABS: HEMATOCRIT 21.6 % (36.0-48.0); PLATELET COUNT 12 10^3/uL (120.0-450.0)
[2017-04-18] MEDS: Nystatin 100,000 Units/ml Oral Susp 5 ml UD PO SCH ×4 (10:10→21:36)
[2017-04-18 10:33] LABS: PLATELET ESTIMATE LOW (NORMAL)
--- NOTE | 2017-04-18 10:41 | CP.PCM.PN ---
<Meño Madrigal - Last Filed: 04/19/17 13:04> Subjective - Date & Time of Evaluation Date of Evaluation: 04/18/17 Time of Evaluation: 08:38 - Subjective Subjective: Patient was seen and examined at bedside. Patient reports an improvement in the epigastrium discomfort. She continues to report an increase in saliva production. Patient is expected to received 1 Unit of PRBC'S today and 1 Unit of Platelets as well. Patient denies any chest pain, shortness of breath, nausea , vomiting , lightheadedness, dizziness, changes in vision or any other complaints. Objective - Vital Signs/Intake and Output Vital Signs (last 24 hours): Temp Pulse Resp BP Pulse Ox 99.6 F 81 20 126/71 97 04/18/17 09:11 04/18/17 09:11 04/18/17 09:11 04/18/17 09:11 04/18/17 09:11 Intake and Output: 04/18/17 04/18/17 06:59 18:59 Intake Total 1300 Balance 1300 - Medications Medications: Current Medications Acetaminophen (Tylenol 325mg Tab) 650 mg PO ONCE PRN PRN Reason: Other Al Hydrox/Mg Hydrox/Simethicone 30 ml/Diphenhydramine HCl 75 mg/Lidocaine 30 ml 0 ml PO Q2H PRN PRN Reason: Mouth/Throat Pain Last Admin: 04/17/17 21:33 Dose: 5 ml Fluconazole (Diflucan) 100 mg PO DAILY TISHA PRN Reason: Protocol Hydromorphone HCl (Dilaudid) 0.5 mg IVP Q4 PRN PRN Reason: Pain, severe (8-10) Last Admin: 04/18/17 06:57 Dose: 0.5 mg Sodium Chloride (Sodium Chloride 0.9%) 1,000 mls @ 100 mls/hr IV .Q10H TISHA Last Admin: 04/18/17 05:22 Dose: 100 mls/hr Meropenem 1g/NS 100mL IVPB (Meropenem 1g/Ns 100ml Ivpb) 1 gm in 100 mls @ 100 mls/hr IVPB Q8 TISHA PRN Reason: Protocol Stop: 04/23/17 06:46 Last Admin: 04/18/17 05:21 Dose: 100 mls/hr Potassium Chloride (Potassium Chloride 20 Meq/100 Ml) 20 meq in 100 mls @ 50 mls/hr IVPB ONCE ONE Stop: 04/18/17 12:25 Mupirocin (Bactroban Ointment) 1 gm TOP BID [facility] Last Admin: 04/18/17 10:11 Dose: 1 appl Nystatin (Nystatin Oral Susp) 5 ml PO QID [facility] Last Admin: 04/18/17 10:10 Dose: 5 ml Ondansetron HCl (Zofran Inj) 4 mg IVP Q6H PRN PRN Reason: Nausea/Vomiting Last Admin: 04/18/17 06:57 Dose: 4 mg Pantoprazole Sodium (Protonix Inj) 40 mg IVP Q12 [facility] Last Admin: 04/18/17 10:10 Dose: 40 mg - Labs Labs: 04/18/17 06:00 04/18/17 06:00 - Head Exam Head Exam: ATRAUMATIC, NORMAL INSPECTION, NORMOCEPHALIC - Eye Exam Eye Exam: EOMI, Normal appearance, PERRL Pupil Exam: NORMAL ACCOMODATION, PERRL - ENT Exam ENT Exam: Mucous Membranes Moist Additional comments: Thrust noted on the tongue. - Neck Exam Neck Exam: Full ROM, Normal Inspection - Respiratory Exam Respiratory Exam: Clear to Ausculation Bilateral, NORMAL BREATHING PATTERN. absent: Accessory Muscle Use, Chest Wall Tenderness - Cardiovascular Exam Cardiovascular Exam: REGULAR RHYTHM, RRR, +S1, +S2. absent: JVD, Rubs - GI/Abdominal Exam GI & Abdominal Exam: Soft, Normal Bowel Sounds Additional comments: (-) Andrew's sign. No tenderness appreciated. - Extremities Exam Extremities Exam: Full ROM - Back Exam Back Exam: NORMAL INSPECTION. absent: paraspinal tenderness - Neurological Exam Neurological Exam: Alert, Awake, CN II-XII Intact, Oriented x3 - Psychiatric Exam Psychiatric exam: Normal Affect, Normal Mood - Skin Skin Exam: Dry, Intact, Normal Color. absent: Urticaria, Vesicles Assessment and Plan - Assessment and Plan (Free Text) Assessment: 62 year old female with a PMH significant for B-Cell Lymphoma and RA, presents for abdominal pain, likely colitis, 2/2 neutropenia/chemotherapy induced. Plan: Abdominal Pain: - likely colitis 2/2 neutopenia - pancytopenic wbc 2.7(up from 0.7), hgb 7.3 (down from 7.9), plt 12( down from 27) -Patient will receive 1 unit PRBC's and 1 Unit of platelets today. Will trend blood counts with serial cbc's. - Ct abd pelvis shos haziness in pericholecystic fat. concern for cholecystitis ? Stranding in subcut fat of posterior pelvis\ -PE : negative for [place] sign and no tenderness or guarding appreciated on exam. - continue IVF @ 100/h - Zofran prn - Percocet for pain - lipase nrml - Diet changes to clear liquid. Will advance as tolerated. - GI consult appreciated. - On zosyn IV. Hypokalemia -K today was 2.8 this morning. -Patient received 2 K riders. Will reasses K in the afternoon. Chest discomfort -patient described chest discomfort most likely 2/2 to thrush. -CXR showed no active disease. Will continue to monitor. B-cell lymphoma (CD+5) -Dr. Hoffman note appreciated, will follow recommendations per note. Oral thrush: - likely chemotherapy induced -magic mouthwash PRN -Nystatin oral suspension PRN for empiric evan coverage -Diflucan 100mg Daily Started. -ID consulted pending. GI/DVT PPX: -Protonix/scd's <Jessika PEARCE,Sergey - Last Filed: 04/20/17 15:32> Objective - Vital Signs/Intake and Output Vital Signs (last 24 hours): Temp Pulse Resp BP Pulse Ox 98.9 F 86 20 126/78 96 04/20/17 11:00 04/20/17 11:00 04/20/17 11:00 04/20/17 11:00 04/20/17 11:00 Intake and Output: 04/20/17 04/20/17 06:59 18:59 Intake Total 1088 Balance 1088 - Medications Medications: Current Medications Acetaminophen (Tylenol 325mg Tab) 650 mg PO ONCE PRN PRN Reason: Other Last Admin: 04/18/17 13:07 Dose: 650 mg Al Hydrox/Mg Hydrox/Simethicone 30 ml/Diphenhydramine HCl 75 mg/Lidocaine 30 ml 0 ml PO Q2H PRN PRN Reason: Mouth/Throat Pain Last Admin: 04/20/17 09:56 Dose: 10 ml Fluconazole (Diflucan) 100 mg PO DAILY TISHA PRN Reason: Protocol Last Admin: 04/19/17 09:16 Dose: 100 mg Hydromorphone HCl (Dilaudid) 0.5 mg IVP Q4 PRN PRN Reason: Pain, severe (8-10) Last Admin: 04/20/17 10:09 Dose: 0.5 mg Sodium Chloride (Sodium Chloride 0.9%) 1,000 mls @ 100 mls/hr IV .Q10H [facility] Last Admin: 04/19/17 02:36 Dose: 100 mls/hr Acyclovir 200 mg/ Sodium (Chloride) 100 mls @ 100 mls/hr IV Q8 TISHA PRN Reason: Protocol Last Admin: 04/20/17 13:23 Dose: 100 mls/hr Mupirocin (Bactroban Ointment) 1 gm TOP BID [facility] Last Admin: 04/20/17 09:57 Dose: 1 appl Nystatin (Nystatin Oral Susp) 5 ml PO QID [facility] Last Admin: 04/20/17 13:24 Dose: 5 ml Ondansetron HCl (Zofran Inj) 4 mg IVP Q6H PRN PRN Reason: Nausea/Vomiting Last Admin: 04/19/17 21:31 Dose: 4 mg Pantoprazole Sodium (Protonix Inj) 40 mg IVP Q12 [facility] Last Admin: 04/20/17 09:53 Dose: 40 mg Sucralfate (Carafate Oral Susp) 1 gm PO 0630,2200 [facility] Last Admin: 04/20/17 05:32 Dose: 1 gm - Labs Labs: 04/20/17 07:12 04/20/17 07:12 PT 13.3 Seconds (9.9-11.8) H 04/19/17 09:45 INR 1.23 (0.93-1.08) H 04/19/17 09:45 APTT 30.4 Seconds (23.7-30.8) 04/19/17 09:45 Attending/Attestation - Attestation I have personally seen and examined this patient.: Yes I have fully participated in the care of the patient.: Yes I have reviewed all pertinent clinical information, including history, physical exam and plan: Yes Notes (Text): 04/20/17 15:29 Patient was seen and examined with medical radiation tech. Agreed with resident assessment and plan. 62 year old female with history of B-Cell Lymphoma, right sided port a cath who was admitted with sore throat, epigastric pain and fever and found to have neutropenic fever, pancytopenia and oral thrush.She is SP chemo one week back. Currently patient is on meropenem and vancomycin.Nutropenia is improving, platelet count 13,, there is no evidence of bleeding.Patient will get platelet transfusion today.Hemoglobin 7.0, one unit of PRBC is ordered,Patient is clinically better, cultures are negative Management plan was discussed in detail with patient Education was provided.
--- NOTE | 2017-04-18 17:57 | CP.PCM.PN ---
Subjective - Date & Time of Evaluation Date of Evaluation: 04/18/17 Time of Evaluation: 11:20 - Subjective Subjective: Comfortable, but still having pain on swallowing, still with abdominal pain, no fevers. Objective - Vital Signs/Intake and Output Vital Signs (last 24 hours): Temp Pulse Resp BP Pulse Ox 99 F 85 20 150/85 99 04/17/17 16:38 04/17/17 16:38 04/17/17 16:38 04/17/17 16:38 04/17/17 16:38 Intake and Output: 04/17/17 04/17/17 06:59 18:59 Intake Total 0 0 Balance 0 0 - Medications Medications: Current Medications Al Hydrox/Mg Hydrox/Simethicone 30 ml/Diphenhydramine HCl 75 mg/Lidocaine 30 ml 0 ml PO Q2H PRN PRN Reason: Mouth/Throat Pain Last Admin: 04/16/17 14:47 Dose: 15 ml Hydromorphone HCl (Dilaudid) 0.5 mg IVP Q4 PRN PRN Reason: Pain, severe (8-10) Sodium Chloride (Sodium Chloride 0.9%) 1,000 mls @ 100 mls/hr IV .Q10H [facility] Last Admin: 04/17/17 18:09 Dose: 100 mls/hr Meropenem 1g/NS 100mL IVPB (Meropenem 1g/Ns 100ml Ivpb) 1 gm in 100 mls @ 100 mls/hr IVPB Q8 TISHA PRN Reason: Protocol Stop: 04/23/17 06:46 Last Admin: 04/17/17 13:07 Dose: 100 mls/hr Mupirocin (Bactroban Ointment) 1 gm TOP BID [facility] Last Admin: 04/17/17 18:06 Dose: 1 appl Nystatin (Nystatin Oral Susp) 5 ml PO QID [facility] Last Admin: 04/17/17 18:07 Dose: 5 ml Ondansetron HCl (Zofran Inj) 4 mg IVP Q6H PRN PRN Reason: Nausea/Vomiting Last Admin: 04/17/17 00:34 Dose: 4 mg Pantoprazole Sodium (Protonix Inj) 40 mg IVP Q12 [facility] Last Admin: 04/17/17 10:17 Dose: 40 mg - Labs Labs: 04/17/17 11:24 04/17/17 11:24 - Constitutional Appears: Non-toxic, No Acute Distress - Head Exam Head Exam: NORMAL INSPECTION - ENT Exam ENT Exam: Mucous Membranes Moist Additional comments: some ulcers noted in the oral mucosa - Neck Exam Neck Exam: absent: Meningismus - Respiratory Exam Respiratory Exam: Decreased Breath Sounds - Cardiovascular Exam Cardiovascular Exam: +S1, +S2 - GI/Abdominal Exam GI & Abdominal Exam: Soft. absent: Tenderness Assessment and Plan - Assessment and Plan (Free Text) Plan: Assessment Abdominal pain, etiology still undetermined; no evidence of cholecystitis on abdominal ultrasound oral ulcers consider aphthous ulcers, R/O herpetic ulcers Oropharyngeal candidiasis asymptomatic bacteruria with Citrobacter history of left necrotic mass on left neck from lymphoma, consider bacterial superinfection, clinically improving history of acute sigmoid diverticulitis history of mild cellulitis around the port area with Citrobacter acute neutropenia probably from chemotherapy history of Acute pancreatitis, probably medication-induced (ie. chemotherapy) history of left neck necrotic mass with mild cellulitis of the surrounding area dyslipidemia recent diagnosis of B-cell lymphoma on chemotherapy history of UTI S/P tubal ligation S/P tonsillectomy Plan continue Nystatin swish and swallow; will d/c antibiotics will start Acyclovir and monitor if her swallowing will improve will monitor clinically
[2017-04-19] MEDS: Sodium Chloride 0.9% 1,000 ML IV SCH (02:36)
[2017-04-19] MEDS: HYDROmorphone 0.5 mg/0.5 ml ISec IVP PRN ×4 (03:55→21:32)
--- NOTE | 2017-04-19 07:14 | PN ---
DATE: 04/18/2017 SUBJECTIVE: This patient was seen and evaluated earlier. The patient is comfortable, tolerating the diet, feels better. PHYSICAL EXAMINATION: VITAL SIGNS: Temperature 98.8, blood pressure is 126/78, pulse 88 and respirations 18. HEENT: Atraumatic and anicteric. NECK: Supple. HEART: S1 and S2 heard. LUNGS: Bilateral air entry present. ABDOMEN: Soft. I do not appreciate any tenderness. EXTREMITIES: No edema. No cyanosis. LABORATORY DATA: WBC count 2.7, hemoglobin 7.3, hematocrit 21.6 and platelets 12. Potassium 2.9. IMPRESSION: This 62-year-old patient with B-cell lymphoma, status post chemotherapy. Admitted with sepsis. Admitted with abdominal pain. Found to be neutropenic. The CAT scan showed some pericolic cystic fluid. Ultrasound scan was negative for any gallstones. The patient had had previous admission also found to have diverticulitis and pancreatitis. This CAT scan appeared to have improved. I would recommend at this point continuity of management. The patient does have oral ulceration. The patient's antibiotics was discontinued by the ID. For oral mouth ulceration, she is on acyclovir and also nystatin swish and swallow for oropharyngeal candidiasis. We will continue closely follow up her care and suggest further management based on the clinical course. Presently, the patient is tolerating the diet. No complaints at the moment. Thank you very much for allowing me to the participate in the care of the patient. Trini Cortes MD
[2017-04-19] MEDS: Nystatin 100,000 Units/ml Oral Susp 5 ml UD PO SCH ×4 (09:16→21:29)
[2017-04-19 09:52] LABS: BASO # 0.06 K/mm3 (0.0-2.0); BASO % 0.4 % (0.0-3.0); EOS % 0.1 % (1.5-5.0); HEMATOCRIT 30.7 % (36.0-48.0); MEAN CELL VOLUME 84.8 fl (80.0-105.0); MEAN CORPUSCULAR HEMOGLOBIN 29.3 pg (25.0-35.0); MEAN CORPUSCULAR HGB CONC 34.5 g/dl (31.0-37.0); MEAN PLATELET VOLUME 11.1 fl (7.0-11.0); MONO # 0.3 (0.1-0.6); MONO % 1.8 % (1.0-6.0); PLATELET COUNT 65 10^3/uL (120.0-450.0); RED CELL DISTRIBUTION WIDTH 14.2 % (11.5-14.5); WHITE BLOOD COUNT 14.2 10^3/ul (4.5-11.0)
[2017-04-19 09:59] LABS: ALB/GLOB RATIO 1.2 (1.1-1.8); ALKALINE PHOSPHATASE 86 U/L (38-126); ALT/SGPT 34 U/L (7-56); AST/SGOT 25 U/L (14-36); BILIRUBIN,TOTAL 0.5 mg/dL (0.2-1.3); BLOOD UREA NITROGEN 2 mg/dL (7-21); CALCIUM 8.7 mg/dL (8.4-10.5); CARBON DIOXIDE 27 mmol/L (21-33); CHLORIDE 109 mmol/L (98-107); GFR AFRICAN-AMERICAN > 60; GLUCOSE,RANDOM 113 mg/dL (70-110); INR 1.23 (0.93-1.08); PARTIAL THROMBOPLASTIN TIME 30.4 Seconds (23.7-30.8); SODIUM 143 mmol/L (132-148); TOTAL PROTEIN 5.6 g/dL (5.8-8.3)
[2017-04-19 10:07] LABS: POTASSIUM 2.9 mmol/L (3.6-5.0)
--- NOTE | 2017-04-19 13:03 | CP.PCM.PN ---
<Meño Madrigal - Last Filed: 04/19/17 13:10> Subjective - Date & Time of Evaluation Date of Evaluation: 04/19/17 Time of Evaluation: 08:59 - Subjective Subjective: Patient was seen and examined at beside. Patient was tolerating liquid diet with no complaints. Patient reports an improvement in her sore throat symptoms. Patient does still report a increase in saliva production. Patient denies any chest pain, shortness of breath, nausea, vomiting, lightheadedness, dizziness, changes in vision, abdominal pain, or any other complaints. Objective - Vital Signs/Intake and Output Vital Signs (last 24 hours): Temp Pulse Resp BP Pulse Ox 98.5 F 91 H 18 130/73 97 04/19/17 08:36 04/19/17 08:36 04/19/17 08:36 04/19/17 08:36 04/19/17 08:36 Intake and Output: 04/19/17 04/19/17 06:59 18:59 Intake Total 3520 Balance 3520 - Medications Medications: Current Medications Acetaminophen (Tylenol 325mg Tab) 650 mg PO ONCE PRN PRN Reason: Other Last Admin: 04/18/17 13:07 Dose: 650 mg Al Hydrox/Mg Hydrox/Simethicone 30 ml/Diphenhydramine HCl 75 mg/Lidocaine 30 ml 0 ml PO Q2H PRN PRN Reason: Mouth/Throat Pain Last Admin: 04/17/17 21:33 Dose: 5 ml Fluconazole (Diflucan) 100 mg PO DAILY TISHA PRN Reason: Protocol Last Admin: 04/19/17 09:16 Dose: 100 mg Hydromorphone HCl (Dilaudid) 0.5 mg IVP Q4 PRN PRN Reason: Pain, severe (8-10) Last Admin: 04/19/17 10:17 Dose: 0.5 mg Sodium Chloride (Sodium Chloride 0.9%) 1,000 mls @ 100 mls/hr IV .Q10H TISHA Last Admin: 04/19/17 02:36 Dose: 100 mls/hr Acyclovir 200 mg/ Sodium (Chloride) 100 mls @ 100 mls/hr IV Q8 TISHA PRN Reason: Protocol Last Admin: 04/19/17 05:15 Dose: 100 mls/hr Potassium Chloride (Potassium Chloride 20 Meq/100 Ml) 20 meq in 100 mls @ 50 mls/hr IVPB Q2H [facility] Stop: 04/19/17 14:59 Last Admin: 04/19/17 11:14 Dose: 50 mls/hr Mupirocin (Bactroban Ointment) 1 gm TOP BID [facility] Last Admin: 04/19/17 09:31 Dose: 1 appl Nystatin (Nystatin Oral Susp) 5 ml PO QID [facility] Last Admin: 04/19/17 09:16 Dose: 5 ml Ondansetron HCl (Zofran Inj) 4 mg IVP Q6H PRN PRN Reason: Nausea/Vomiting Last Admin: 04/19/17 09:14 Dose: 4 mg Pantoprazole Sodium (Protonix Inj) 40 mg IVP Q12 [facility] Last Admin: 04/19/17 09:15 Dose: 40 mg - Labs Labs: 04/19/17 09:45 04/19/17 09:45 PT 13.3 Seconds (9.9-11.8) H 04/19/17 09:45 INR 1.23 (0.93-1.08) H 04/19/17 09:45 APTT 30.4 Seconds (23.7-30.8) 04/19/17 09:45 - Head Exam Head Exam: ATRAUMATIC, NORMAL INSPECTION, NORMOCEPHALIC - Eye Exam Eye Exam: EOMI, Normal appearance, PERRL Pupil Exam: NORMAL ACCOMODATION, PERRL. absent: Irregular - ENT Exam ENT Exam: Mucous Membranes Moist Additional comments: Thrush improving on the tongue. - Neck Exam Neck Exam: Full ROM. absent: Normal Inspection, Thyromegaly Additional comments: Mass noted on the left side of her face just inferior to the ear. - Respiratory Exam Respiratory Exam: Clear to Ausculation Bilateral, NORMAL BREATHING PATTERN. absent: Accessory Muscle Use, Chest Wall Tenderness, Respiratory Distress - Cardiovascular Exam Cardiovascular Exam: REGULAR RHYTHM, RRR, +S1, +S2. absent: Rubs - GI/Abdominal Exam GI & Abdominal Exam: Soft, Normal Bowel Sounds - Extremities Exam Extremities Exam: Normal Inspection - Back Exam Back Exam: NORMAL INSPECTION. absent: paraspinal tenderness - Neurological Exam Neurological Exam: Alert, Awake, CN II-XII Intact, Oriented x3 - Psychiatric Exam Psychiatric exam: Normal Affect, Normal Mood - Skin Skin Exam: Dry, Intact Assessment and Plan - Assessment and Plan (Free Text) Assessment: 62 year old female with a PMH significant for B-Cell Lymphoma and RA, presents for abdominal pain, likely colitis, 2/2 neutropenia/chemotherapy induced. Plan: Abdominal Pain: - likely colitis 2/2 neutopenia - hgb 10.6 (up from 7.3), plt 65( up from 12) -Patient will receive 1 unit PRBC's and 1 Unit of platelets yesterday. Will trend blood counts with serial cbc's. - Ct abd pelvis shos haziness in pericholecystic fat. concern for cholecystitis ? Stranding in subcut fat of posterior pelvis\ -PE : negative for [place] sign and no tenderness or guarding appreciated on exam. - continue IVF @ 100/h - Zofran prn - Percocet for pain - lipase nrml - Diet changes to clear liquid. Will advance as tolerated. - GI consult appreciated. - On zosyn IV. Hypokalemia -K today was 2.9(up from 2.8). Ordered 2 KCL riders. -Will reasses K in the morning. Leukocytosis -WBC count 14.2 today. Patient remains Afebrile, Normotensive, and Slightly Tachycardic at 91 bpm. -Will discuss blood results with Heme/Onc tomorrow. -Will continue to trend with serial cbc's. Chest discomfort -patient described reports an improvement in symptoms since using Swish and swallow. -CXR showed no active disease. Will continue to monitor. B-cell lymphoma (CD+5) -Dr. Hoffman note appreciated, will follow recommendations per note. Oral thrush: - likely chemotherapy induced -magic mouthwash PRN -Nystatin oral suspension PRN for empiric evan coverage -Continue Diflucan 100mg Daily -ID consulted pending. GI/DVT PPX: -Protonix/scd's <Jessica Davis - Last Filed: 04/20/17 19:00> Objective - Vital Signs/Intake and Output Vital Signs (last 24 hours): Temp Pulse Resp BP Pulse Ox 98.9 F 86 20 126/78 96 04/20/17 11:00 04/20/17 11:00 04/20/17 11:00 04/20/17 11:00 04/20/17 11:00 Intake and Output: 04/20/17 04/20/17 06:59 18:59 Intake Total 1088 Balance 1088 - Labs Labs: 04/20/17 07:12 04/20/17 07:12 PT 13.3 Seconds (9.9-11.8) H 04/19/17 09:45 INR 1.23 (0.93-1.08) H 04/19/17 09:45 APTT 30.4 Seconds (23.7-30.8) 04/19/17 09:45 Attending/Attestation - Attestation I have personally seen and examined this patient.: Yes I have fully participated in the care of the patient.: Yes I have reviewed all pertinent clinical information, including history, physical exam and plan: Yes Notes (Text): 04/20/17 18:58 Attending note; Patient seen and examined with resident. Patient is a 62-year-old female with a history of B-cell lymphoma is admitted post chemotherapy with mucosal Ulcerations. Treated with Protonix, Carafate and IV acyclovir. Patient is afebrile and nontoxic. Neutropenia/pancytopenia is resolving. Status post blood and platelet transfusion. Patient is clinically improving. Liquid diet advanced to soft diet today. Upon discharge the patient will follow-up with PMD Dr. Patricia. Follow-up with oncology Dr. Hoffman.
--- NOTE | 2017-04-19 15:22 | CP.PCM.PN ---
Subjective - Date & Time of Evaluation Date of Evaluation: 04/19/17 Time of Evaluation: 10:40 - Subjective Subjective: Patient is feeling better today, swallowing better, still with abdominal pain but better as well, no fevers overnight. Objective - Vital Signs/Intake and Output Vital Signs (last 24 hours): Temp Pulse Resp BP Pulse Ox 99.3 F 82 18 124/82 97 04/18/17 17:40 04/18/17 17:40 04/18/17 17:40 04/18/17 17:40 04/18/17 09:11 Intake and Output: 04/18/17 04/18/17 06:59 18:59 Intake Total 1300 625 Balance 1300 625 - Medications Medications: Current Medications Acetaminophen (Tylenol 325mg Tab) 650 mg PO ONCE PRN PRN Reason: Other Last Admin: 04/18/17 13:07 Dose: 650 mg Al Hydrox/Mg Hydrox/Simethicone 30 ml/Diphenhydramine HCl 75 mg/Lidocaine 30 ml 0 ml PO Q2H PRN PRN Reason: Mouth/Throat Pain Last Admin: 04/17/17 21:33 Dose: 5 ml Fluconazole (Diflucan) 100 mg PO DAILY [facility] PRN Reason: Protocol Hydromorphone HCl (Dilaudid) 0.5 mg IVP Q4 PRN PRN Reason: Pain, severe (8-10) Last Admin: 04/18/17 13:37 Dose: 0.5 mg Sodium Chloride (Sodium Chloride 0.9%) 1,000 mls @ 100 mls/hr IV .Q10H [facility] Last Admin: 04/18/17 05:22 Dose: 100 mls/hr Acyclovir 200 mg/ Sodium (Chloride) 100 mls @ 100 mls/hr IV Q8 TISHA PRN Reason: Protocol Mupirocin (Bactroban Ointment) 1 gm TOP BID [facility] Last Admin: 04/18/17 10:11 Dose: 1 appl Nystatin (Nystatin Oral Susp) 5 ml PO QID [facility] Last Admin: 04/18/17 13:39 Dose: 5 ml Ondansetron HCl (Zofran Inj) 4 mg IVP Q6H PRN PRN Reason: Nausea/Vomiting Last Admin: 04/18/17 06:57 Dose: 4 mg Pantoprazole Sodium (Protonix Inj) 40 mg IVP Q12 [facility] Last Admin: 04/18/17 10:10 Dose: 40 mg - Labs Labs: 04/18/17 06:00 04/18/17 06:00 - Constitutional Appears: Non-toxic, No Acute Distress - Head Exam Head Exam: NORMAL INSPECTION - ENT Exam Additional comments: some ulcer noted on the tongue and oral mucosa - Neck Exam Neck Exam: absent: Meningismus - Respiratory Exam Respiratory Exam: Decreased Breath Sounds - Cardiovascular Exam Cardiovascular Exam: +S1, +S2 - GI/Abdominal Exam GI & Abdominal Exam: Soft. absent: Tenderness Assessment and Plan - Assessment and Plan (Free Text) Plan: Assessment Abdominal pain, etiology still undetermined; no evidence of cholecystitis on abdominal ultrasound; slowly improving oral ulcers consider aphthous ulcers, R/O herpetic ulcers Oropharyngeal candidiasis, improving asymptomatic bacteruria with Citrobacter history of left necrotic mass on left neck from lymphoma, consider bacterial superinfection, clinically improving history of acute sigmoid diverticulitis history of mild cellulitis around the port area with Citrobacter acute neutropenia probably from chemotherapy history of Acute pancreatitis, probably medication-induced (ie. chemotherapy) history of left neck necrotic mass with mild cellulitis of the surrounding area dyslipidemia recent diagnosis of B-cell lymphoma on chemotherapy history of UTI S/P tubal ligation S/P tonsillectomy Plan continue Nystatin swish and swallow; continue to monitor off antibiotics continue Acyclovir day 2 and continue to monitor her swallowing
[2017-04-19 16:29] VITALS: RESP 20
[2017-04-19] MEDS: Sucralfate 1 gm/10 ml Oral Susp UD PO SCH (21:29)
[2017-04-20] MEDS: HYDROmorphone 0.5 mg/0.5 ml ISec IVP PRN ×2 (02:13→10:09)
[2017-04-20] MEDS: Sucralfate 1 gm/10 ml Oral Susp UD PO SCH (05:32)
--- NOTE | 2017-04-20 06:37 | PN ---
DATE: 04/19/2017 SUBJECTIVE: This patient was seen and evaluated earlier. The patient is taken off from the isolation because of the patient's white cell count has improved. PHYSICAL EXAMINATION VITAL SIGNS: Temperature 98.5, pulse 91, blood pressure 130/73, respirations 18, O2 saturation 97%. HEENT: Atraumatic and anicteric. NECK: Supple. There is a mass noticed in the left side of the neck just inferior to the ear. HEART: S1, S2 heard. LUNGS: Bilateral air entry present. ABDOMEN: Soft. There is a mild tenderness present still at the epigastric area. EXTREMITIES: No edema. No cyanosis. LABORATORY DATA: White cell count is improved to 14.2, hemoglobin 10.6, hematocrit 30.7, platelets 65. Chemistry; potassium is 2.9, being supplemented. IMPRESSION: This 62-year-old patient with B-cell lymphoma status post chemotherapy, admitted with sepsis and has had abdominal pain, found to be neutropenic, is improving. CAT scan shows some pericholecystic mild rule out cholecystitis. Ultrasound scan showed no gallstones. The patient in the past found to have diverticulitis and pancreatitis. Repeat CAT scan appears to show significant improvement. The patient does have an oral mouth ulceration. The patient is on acyclovir and also on PPI. Would recommend when to continue the PPI. Oropharyngeal candidiasis is improving. The patient is on empiric therapy for oral aphthous ulcerations, which is acyclovir, history of diverticulitis and pancreatitis improved. We will continue to closely follow up her care and suggest further management. Thank you very much for allowing me to the participate in the care of the patient. Trini Cortes MD
[2017-04-20 07:20] LABS: HEMATOCRIT 29.5 % (36.0-48.0); MEAN CELL VOLUME 85.3 fl (80.0-105.0); MEAN CORPUSCULAR HEMOGLOBIN 28.6 pg (25.0-35.0); MEAN CORPUSCULAR HGB CONC 33.6 g/dl (31.0-37.0); MEAN PLATELET VOLUME 10.9 fl (7.0-11.0); RED CELL DISTRIBUTION WIDTH 14.5 % (11.5-14.5); WHITE BLOOD COUNT 14.2 10^3/ul (4.5-11.0)
[2017-04-20 07:35] LABS: BLOOD UREA NITROGEN < 2 mg/dL (7-21); CALCIUM 8.2 mg/dL (8.4-10.5); CARBON DIOXIDE 29 mmol/L (21-33); CHLORIDE 108 mmol/L (95-110); GFR AFRICAN-AMERICAN > 60; GLUCOSE,RANDOM 94 mg/dL (70-110); POTASSIUM 3.3 mmol/L (3.6-5.0); SODIUM 142 mmol/L (132-148)
[2017-04-20] MEDS: Nystatin 100,000 Units/ml Oral Susp 5 ml UD PO SCH ×2 (09:52→13:24)
[2017-04-20] MEDS: Aluminum Hydroxide/Magnesium 30 ML, DiphenhydrAMINE 75 MG, Lidocaine 2% Viscous 30 ML PO PRN (09:56)
[2017-04-20 11:01] VITALS: BP 126/78; PULSE 86; TEMP 98.9; O2SAT 96
--- NOTE | 2017-04-20 11:41 | CP.PCM.DIS ---
<KaitlinMarietta - Last Filed: 04/20/17 11:38> Provider - Provider Date of Admission: 04/16/17 11:08 Attending physician: Jessica Davis MD Primary care physician: Bella Patricia DO Time Spent in preparation of Discharge (in minutes): 45 Hospital Course - Lab Results Lab Results: Micro Results 04/16/17 19:44 Sputum Gram Stain - Final 04/16/17 19:44 Sputum Sputum Culture - Final NORMAL ORAL LAYLA Most Recent Lab Values WBC 14.2 10^3/ul (4.5-11.0) H 04/20/17 07:12 RBC 3.46 10^6/uL (3.5-6.1) L 04/20/17 07:12 Hgb 9.9 g/dL (12.0-16.0) L 04/20/17 07:12 Hct 29.5 % (36.0-48.0) L 04/20/17 07:12 MCV 85.3 fl (80.0-105.0) 04/20/17 07:12 MCH 28.6 pg (25.0-35.0) 04/20/17 07:12 MCHC 33.6 g/dl (31.0-37.0) 04/20/17 07:12 RDW 14.5 % (11.5-14.5) 04/20/17 07:12 Plt Count 70 10^3/uL (120.0-450.0) L 04/20/17 07:12 Manual Plt Count 23 K/mm3 (120-450) L* 04/16/17 09:20 MPV 10.9 fl (7.0-11.0) 04/20/17 07:12 Gran % % (50.0-68.0) 04/19/17 09:45 Lymph % (Auto) 7.1 % (22.0-35.0) L 04/18/17 06:00 Tama % (Auto) 1.8 % (1.0-6.0) 04/19/17 09:45 Eos % (Auto) 0.1 % (1.5-5.0) L 04/19/17 09:45 Baso % (Auto) 0.4 % (0.0-3.0) 04/19/17 09:45 Gran # 2.30 (1.4-6.5) 04/18/17 06:00 Lymph # 0.2 (1.2-3.4) L 04/18/17 06:00 Tama # 0.3 (0.1-0.6) 04/19/17 09:45 Eos # 0.0 (0.0-0.7) 04/19/17 09:45 Baso # 0.06 K/mm3 (0.0-2.0) 04/19/17 09:45 Neutrophils % (Manual) 35 % (50.0-70.0) L 04/16/17 00:31 Lymphocytes % (Manual) 54 % (22.0-35.0) H 04/16/17 00:31 Monocytes % (Manual) 9 % (1.0-6.0) H 04/16/17 00:31 Eosinophils % (Manual) 2 % (0.0-3.0) 04/16/17 00:31 Platelet Evaluation Low (NORMAL) 04/18/17 06:00 PT 13.3 Seconds (9.9-11.8) H 04/19/17 09:45 INR 1.23 (0.93-1.08) H 04/19/17 09:45 APTT 30.4 Seconds (23.7-30.8) 04/19/17 09:45 Sodium 142 mmol/L (132-148) 04/20/17 07:12 Potassium 3.3 mmol/L (3.6-5.0) L 04/20/17 07:12 Chloride 108 mmol/L (95-110) 04/20/17 07:12 Carbon Dioxide 29 mmol/L (21-33) 04/20/17 07:12 Anion Gap 8 (10-20) L 04/20/17 07:12 BUN < 2 mg/dL (7-21) L 04/20/17 07:12 Creatinine 0.9 mg/dL (0.5-1.4) 04/20/17 07:12 Est GFR ( Amer) > 60 04/20/17 07:12 Est GFR (Non-Af Amer) > 60 04/20/17 07:12 POC Glucose (mg/dL) 111 mg/dL (65-110) H 04/19/17 11:15 Random Glucose 94 mg/dL (70-110) 04/20/17 07:12 Calcium 8.2 mg/dL (8.4-10.5) L 04/20/17 07:12 Phosphorus 2.1 mg/dL (2.5-4.5) L 04/17/17 11:24 Magnesium 1.7 mg/dL (1.7-2.2) 04/17/17 11:24 Iron 70 ug/dL (45-180) 04/16/17 08:30 TIBC 167 ug/dL (265-497) L 04/16/17 08:30 % Saturation 42 % (20-55) 04/16/17 08:30 Ferritin 1700.0 ng/mL 04/16/17 08:30 Total Bilirubin 0.5 mg/dL (0.2-1.3) 04/19/17 09:45 AST 25 U/L (14-36) 04/19/17 09:45 ALT 34 U/L (7-56) 04/19/17 09:45 Alkaline Phosphatase 86 U/L (38-126) 04/19/17 09:45 Lactate Dehydrogenase 447 U/L (333-699) 04/16/17 00:31 Total Creatine Kinase < 20 U/L (35-230) L 04/16/17 00:31 Troponin I < 0.01 ng/mL 04/16/17 00:31 Total Protein 5.6 g/dL (5.8-8.3) L 04/19/17 09:45 Albumin 3.1 g/dL (3.0-4.8) 04/19/17 09:45 Globulin 2.5 gm/dL 04/19/17 09:45 Albumin/Globulin Ratio 1.2 (1.1-1.8) 04/19/17 09:45 Lipase 48 U/L (23-300) 04/16/17 00:31 Vitamin B12 417 pg/mL (239-931) 04/16/17 08:30 Folate 10.8 ng/mL 04/16/17 08:30 Procalcitonin 0.15 NG/ML (0.19-0.49) L 04/17/17 11:24 Urine Color Yellow (YELLOW) 04/16/17 03:53 Urine Appearance Clear (CLEAR) 04/16/17 03:53 Urine pH 7.0 (4.7-8.0) 04/16/17 03:53 Ur Specific Davenport 1.010 (1.005-1.035) 04/16/17 03:53 Urine Protein Negative mg/dL (<30 mg/dL) 04/16/17 03:53 Urine Glucose (UA) Negative mg/dL (NEGATIVE) 04/16/17 03:53 Urine Ketones Negative mg/dL (NEGATIVE) 04/16/17 03:53 Urine Blood Negative (NEGATIVE) 04/16/17 03:53 Urine Nitrate Negative (NEGATIVE) 04/16/17 03:53 Urine Bilirubin Negative (NEGATIVE) 04/16/17 03:53 Urine Urobilinogen 0.2 E.U./dL (<1 E.U./dL) 04/16/17 03:53 Ur Leukocyte Esterase Negative Arik/uL (NEGATIVE) 04/16/17 03:53 Blood Type B POSITIVE 04/18/17 09:50 Blood Type Confirm B POSITIVE 04/18/17 10:20 Antibody Screen Negative 04/18/17 09:50 Crossmatch See Detail 04/18/17 09:50 BBK History Checked No verified bt 04/18/17 09:50 - Hospital Course Hospital Course: 62F with PMH B-Cell Lymphoma and RA presents for abdominal pain. She localizes it to epigastric area, describes it as burning, has associated nausea, zofran by Dr. grider (onc) has been helping her. It has been going on for past 5 days, since her last chemo (which was on Thursday), Today, she had worsening of her pain , and also felt fever, with home temp 99.6F. Also complains of a sore throat, and constipation (last BM 2 days ago). Denies vomiting, diarrhea, sob, cp, leg swelling, palpitations, back pain, headache, numbness/tingling in extremities. In ED, pt's temp 99.8F, pancytopenic wbc 0.1, hgb 9.1, plt 14, K 2.8, nrml lipase, low albumin 2.9, UA neg for infxn. CXR shows basal atelectasis, Abd pelvis CT shows concern for cholecystitis, stranding in subcut fat of posterior pelvis. Received Pepcid 20 mg IVx1, dilaudid 1 mg IV x2, zofran 4 mg IVx1, KCl 20 meq IVx1, zosyn IVx1 in ED. Currently, pt is still having epigastric and rlq pain, better since arrival, + nausea. 04/16: Attempted to contact Dr. Grant for medical records regarding lymphoma, unable to reach. CT abd: chronic atelectasis, stranding in subcutaneous fat, ? haziness of pericholecystic fat. Pt complaining of pain and nausea from Morphine, started on Dilaudid. NPO bc she cannot swallow. 04/17: Improved pain today. Dilaudid decreased. 04/18:Patient advanced to clear liquid diet. Will advance as tolerated. 04/19: Patient tolerating clear liquid diet. WBC count elevated today. Oncologist was made aware of the spike. Pt. remains afebrile. 04/20: Elevated white count most likely due to Nuelesta treatment a couple of days ago. Patient tolerating diet well and has plans to follow up with Dr. Grider this upcoming week. Patient will be discharged with instructions to follow up with her PMD as well. Discharge Exam - Head Exam Head Exam: NORMAL INSPECTION - Eye Exam Eye Exam: EOMI, Normal appearance, PERRL Pupil Exam: NORMAL ACCOMODATION, PERRL - ENT Exam ENT Exam: Mucous Membranes Moist Additional comments: Thrush continues to improve. Apthous ulcer noted. - Neck Exam Additional comments: neck mass appreciated. No signs of growth. - Respiratory Exam Respiratory Exam: Clear to PA & Lateral, NORMAL BREATHING PATTERN, UNREMARKABLE. absent: Accessory Muscle Use, Chest Wall Tenderness, Wheezes - Cardiovascular Exam Cardiovascular Exam: REGULAR RHYTHM, RRR, +S1, +S2. absent: Gallop, Rubs - GI/Abdominal Exam GI & Abdominal Exam: Normal Bowel Sounds, Soft, Unremarkable. absent: Diminished Bowel Sounds, Firm, Guarding, Rigid - Back Exam Back exam: NORMAL INSPECTION. absent: CVA tenderness (L), CVA tenderness (R), paraspinal tenderness - Neurological Exam Neurological exam: Alert, CN II-XII Intact, Oriented x3, Reflexes Normal - Psychiatric Exam Psychiatric exam: Normal Affect, Normal Mood - Skin Skin Exam: Dry, Intact, Normal Color Discharge Plan - Discharge Medications Prescriptions: Sucralfate [Carafate Oral Susp] 1 gm PO BID #30 udc Nystatin [Nystatin Oral Susp] 5 ml PO QID #1 Pantoprazole Sodium [Protonix] 40 mg PO DAILY #30 ect valACYclovir [Valtrex] 500 mg PO BID #14 tab - Follow Up Plan Condition: STABLE Disposition: HOME/ ROUTINE Instructions: Nystatin (By mouth), Valacyclovir (By mouth) Additional Instructions: Patient should follow up with Dr. Grider within one week of discharge. Patient should follow up with PMD within one week of discharge. Patient should return to E.D. for any new or worsening symptoms. Referrals: Bella Patricia DO [Primary Care Provider] - <Jessica Davis - Last Filed: 04/20/17 19:01> Provider - Provider Date of Admission: 04/16/17 11:08 Attending physician: Jessica Davis MD Primary care physician: Bella Patricia DO Hospital Course - Lab Results Lab Results: Micro Results 04/16/17 19:44 Sputum Gram Stain - Final 04/16/17 19:44 Sputum Sputum Culture - Final NORMAL ORAL LAYLA Most Recent Lab Values WBC 14.2 10^3/ul (4.5-11.0) H 04/20/17 07:12 RBC 3.46 10^6/uL (3.5-6.1) L 04/20/17 07:12 Hgb 9.9 g/dL (12.0-16.0) L 04/20/17 07:12 Hct 29.5 % (36.0-48.0) L 04/20/17 07:12 MCV 85.3 fl (80.0-105.0) 04/20/17 07:12 MCH 28.6 pg (25.0-35.0) 04/20/17 07:12 MCHC 33.6 g/dl (31.0-37.0) 04/20/17 07:12 RDW 14.5 % (11.5-14.5) 04/20/17 07:12 Plt Count 70 10^3/uL (120.0-450.0) L 04/20/17 07:12 Manual Plt Count 23 K/mm3 (120-450) L* 04/16/17 09:20 MPV 10.9 fl (7.0-11.0) 04/20/17 07:12 Gran % % (50.0-68.0) 04/19/17 09:45 Lymph % (Auto) 7.1 % (22.0-35.0) L 04/18/17 06:00 Tama % (Auto) 1.8 % (1.0-6.0) 04/19/17 09:45 Eos % (Auto) 0.1 % (1.5-5.0) L 04/19/17 09:45 Baso % (Auto) 0.4 % (0.0-3.0) 04/19/17 09:45 Gran # 2.30 (1.4-6.5) 04/18/17 06:00 Lymph # 0.2 (1.2-3.4) L 04/18/17 06:00 Tama # 0.3 (0.1-0.6) 04/19/17 09:45 Eos # 0.0 (0.0-0.7) 04/19/17 09:45 Baso # 0.06 K/mm3 (0.0-2.0) 04/19/17 09:45 Neutrophils % (Manual) 35 % (50.0-70.0) L 04/16/17 00:31 Lymphocytes % (Manual) 54 % (22.0-35.0) H 04/16/17 00:31 Monocytes % (Manual) 9 % (1.0-6.0) H 04/16/17 00:31 Eosinophils % (Manual) 2 % (0.0-3.0) 04/16/17 00:31 Platelet Evaluation Low (NORMAL) 04/18/17 06:00 PT 13.3 Seconds (9.9-11.8) H 04/19/17 09:45 INR 1.23 (0.93-1.08) H 04/19/17 09:45 APTT 30.4 Seconds (23.7-30.8) 04/19/17 09:45 Sodium 142 mmol/L (132-148) 04/20/17 07:12 Potassium 3.3 mmol/L (3.6-5.0) L 04/20/17 07:12 Chloride 108 mmol/L (95-110) 04/20/17 07:12 Carbon Dioxide 29 mmol/L (21-33) 04/20/17 07:12 Anion Gap 8 (10-20) L 04/20/17 07:12 BUN < 2 mg/dL (7-21) L 04/20/17 07:12 Creatinine 0.9 mg/dL (0.5-1.4) 04/20/17 07:12 Est GFR ( Amer) > 60 04/20/17 07:12 Est GFR (Non-Af Amer) > 60 04/20/17 07:12 POC Glucose (mg/dL) 111 mg/dL (65-110) H 04/19/17 11:15 Random Glucose 94 mg/dL (70-110) 04/20/17 07:12 Calcium 8.2 mg/dL (8.4-10.5) L 04/20/17 07:12 Phosphorus 2.1 mg/dL (2.5-4.5) L 04/17/17 11:24 Magnesium 1.7 mg/dL (1.7-2.2) 04/17/17 11:24 Iron 70 ug/dL (45-180) 04/16/17 08:30 TIBC 167 ug/dL (265-497) L 04/16/17 08:30 % Saturation 42 % (20-55) 04/16/17 08:30 Ferritin 1700.0 ng/mL 04/16/17 08:30 Total Bilirubin 0.5 mg/dL (0.2-1.3) 04/19/17 09:45 AST 25 U/L (14-36) 04/19/17 09:45 ALT 34 U/L (7-56) 04/19/17 09:45 Alkaline Phosphatase 86 U/L (38-126) 04/19/17 09:45 Lactate Dehydrogenase 447 U/L (333-699) 04/16/17 00:31 Total Creatine Kinase < 20 U/L (35-230) L 04/16/17 00:31 Troponin I < 0.01 ng/mL 04/16/17 00:31 Total Protein 5.6 g/dL (5.8-8.3) L 04/19/17 09:45 Albumin 3.1 g/dL (3.0-4.8) 04/19/17 09:45 Globulin 2.5 gm/dL 04/19/17 09:45 Albumin/Globulin Ratio 1.2 (1.1-1.8) 04/19/17 09:45 Lipase 48 U/L (23-300) 04/16/17 00:31 Vitamin B12 417 pg/mL (239-931) 04/16/17 08:30 Folate 10.8 ng/mL 04/16/17 08:30 Procalcitonin 0.15 NG/ML (0.19-0.49) L 04/17/17 11:24 Urine Color Yellow (YELLOW) 04/16/17 03:53 Urine Appearance Clear (CLEAR) 04/16/17 03:53 Urine pH 7.0 (4.7-8.0) 04/16/17 03:53 Ur Specific Davenport 1.010 (1.005-1.035) 04/16/17 03:53 Urine Protein Negative mg/dL (<30 mg/dL) 04/16/17 03:53 Urine Glucose (UA) Negative mg/dL (NEGATIVE) 04/16/17 03:53 Urine Ketones Negative mg/dL (NEGATIVE) 04/16/17 03:53 Urine Blood Negative (NEGATIVE) 04/16/17 03:53 Urine Nitrate Negative (NEGATIVE) 04/16/17 03:53 Urine Bilirubin Negative (NEGATIVE) 04/16/17 03:53 Urine Urobilinogen 0.2 E.U./dL (<1 E.U./dL) 04/16/17 03:53 Ur Leukocyte Esterase Negative Arik/uL (NEGATIVE) 04/16/17 03:53 Blood Type B POSITIVE 04/18/17 09:50 Blood Type Confirm B POSITIVE 04/18/17 10:20 Antibody Screen Negative 04/18/17 09:50 Crossmatch See Detail 04/18/17 09:50 BBK History Checked No verified bt 04/18/17 09:50 Attending/Attestation - Attestation I have personally seen and examined this patient.: Yes I have fully participated in the care of the patient.: Yes I have reviewed all pertinent clinical information, including history, physical exam and plan: Yes Notes (Text): 04/20/17 19:01 Attending note; Patient seen and examined with resident. Patient is a 62-year-old female with a history of B-cell lymphoma is admitted post chemotherapy with mucosal Ulcerations. Treated with Protonix, Carafate and IV acyclovir. Patient is afebrile and nontoxic. Neutropenia/pancytopenia is resolving. Status post blood and platelet transfusion. Tolerating diet well. Upon discharge the patient will follow-up with PMD Dr. Patricia. Follow-up with oncology Dr. Grider. Diagnosis; Postchemotherapy Pancytopenia B-cell lymphoma Mucosal ulceration GERD
--- NOTE | 2017-04-20 13:21 | CP.PCM.PN ---
Subjective - Date & Time of Evaluation Date of Evaluation: 04/20/17 Time of Evaluation: 10:05 - Subjective Subjective: Seen and examined at the bedside earlier today. The chart was reviewed. No acute overnight events reported. Patient tolerated diet this morning, no complaints of pain, nausea, vomiting or so B. Objective - Vital Signs/Intake and Output Vital Signs (last 24 hours): Temp Pulse Resp BP Pulse Ox 98.9 F 86 20 126/78 96 04/20/17 11:00 04/20/17 11:00 04/20/17 11:00 04/20/17 11:00 04/20/17 11:00 Intake and Output: 04/20/17 04/20/17 06:59 18:59 Intake Total 1088 Balance 1088 - Medications Medications: Current Medications Acetaminophen (Tylenol 325mg Tab) 650 mg PO ONCE PRN PRN Reason: Other Last Admin: 04/18/17 13:07 Dose: 650 mg Al Hydrox/Mg Hydrox/Simethicone 30 ml/Diphenhydramine HCl 75 mg/Lidocaine 30 ml 0 ml PO Q2H PRN PRN Reason: Mouth/Throat Pain Last Admin: 04/20/17 09:56 Dose: 10 ml Fluconazole (Diflucan) 100 mg PO DAILY TISHA PRN Reason: Protocol Last Admin: 04/19/17 09:16 Dose: 100 mg Hydromorphone HCl (Dilaudid) 0.5 mg IVP Q4 PRN PRN Reason: Pain, severe (8-10) Last Admin: 04/20/17 10:09 Dose: 0.5 mg Sodium Chloride (Sodium Chloride 0.9%) 1,000 mls @ 100 mls/hr IV .Q10H TISHA Last Admin: 04/19/17 02:36 Dose: 100 mls/hr Acyclovir 200 mg/ Sodium (Chloride) 100 mls @ 100 mls/hr IV Q8 TISHA PRN Reason: Protocol Last Admin: 04/20/17 05:08 Dose: 100 mls/hr Potassium Chloride (Potassium Chloride 20 Meq/100 Ml) 20 meq in 100 mls @ 50 mls/hr IVPB Q2H TISHA Stop: 04/20/17 13:59 Last Admin: 04/20/17 12:08 Dose: 50 mls/hr Mupirocin (Bactroban Ointment) 1 gm TOP BID TISHA Last Admin: 04/20/17 09:57 Dose: 1 appl Nystatin (Nystatin Oral Susp) 5 ml PO QID [facility] Last Admin: 04/20/17 09:52 Dose: 5 ml Ondansetron HCl (Zofran Inj) 4 mg IVP Q6H PRN PRN Reason: Nausea/Vomiting Last Admin: 04/19/17 21:31 Dose: 4 mg Pantoprazole Sodium (Protonix Inj) 40 mg IVP Q12 [facility] Last Admin: 04/20/17 09:53 Dose: 40 mg Sucralfate (Carafate Oral Susp) 1 gm PO 0630,2200 [facility] Last Admin: 04/20/17 05:32 Dose: 1 gm - Labs Labs: 04/20/17 07:12 04/20/17 07:12 PT 13.3 Seconds (9.9-11.8) H 04/19/17 09:45 INR 1.23 (0.93-1.08) H 04/19/17 09:45 APTT 30.4 Seconds (23.7-30.8) 04/19/17 09:45 - Constitutional Appears: No Acute Distress - Head Exam Head Exam: NORMAL INSPECTION - Eye Exam Eye Exam: Normal appearance. absent: Scleral icterus - ENT Exam ENT Exam: Mucous Membranes Moist - Respiratory Exam Respiratory Exam: NORMAL BREATHING PATTERN. absent: Respiratory Distress - Cardiovascular Exam Cardiovascular Exam: +S1, +S2 - GI/Abdominal Exam GI & Abdominal Exam: Soft, Normal Bowel Sounds. absent: Guarding, Tenderness, Rebound - Extremities Exam Extremities Exam: Normal Capillary Refill. absent: Calf Tenderness, Pedal Edema - Neurological Exam Neurological Exam: Alert, Awake, Oriented x3 - Skin Skin Exam: Dry, Warm Assessment and Plan - Assessment and Plan (Free Text) Assessment: Assessment: B cell lymphoma status post chemotherapy Sepsis Abdominal pain status post CT scan with showing pericholecystic fluid will rule out cholecystitis status post abdominal ultrasound no gallstones Patient with diverticulitis/pancreatitis, repeat CT scan shows improvement Oral mouth ulcerations Plan: Continue Carafate Patient is on acyclovir Continue PPI Continue diet as tolerated If patient continued to have epigastric pain patient may benefit from endoscopy. , Patient reports improvement of abdominal pain. Seen and discussed with Dr. Cortes.
--- NOTE | 2017-04-20 13:40 | CP.PCM.PN ---
Subjective - Date & Time of Evaluation Date of Evaluation: 04/20/17 Time of Evaluation: 11:10 - Subjective Subjective: Comfortable, swallowing better, improved abdominal pain, no fevers overnight. Objective - Vital Signs/Intake and Output Vital Signs (last 24 hours): Temp Pulse Resp BP Pulse Ox 98.5 F 91 H 18 130/73 97 04/19/17 08:36 04/19/17 08:36 04/19/17 08:36 04/19/17 08:36 04/19/17 08:36 Intake and Output: 04/19/17 04/19/17 06:59 18:59 Intake Total 3520 1260 Balance 3520 1260 - Medications Medications: Current Medications Acetaminophen (Tylenol 325mg Tab) 650 mg PO ONCE PRN PRN Reason: Other Last Admin: 04/18/17 13:07 Dose: 650 mg Al Hydrox/Mg Hydrox/Simethicone 30 ml/Diphenhydramine HCl 75 mg/Lidocaine 30 ml 0 ml PO Q2H PRN PRN Reason: Mouth/Throat Pain Last Admin: 04/17/17 21:33 Dose: 5 ml Fluconazole (Diflucan) 100 mg PO DAILY [facility] PRN Reason: Protocol Last Admin: 04/19/17 09:16 Dose: 100 mg Hydromorphone HCl (Dilaudid) 0.5 mg IVP Q4 PRN PRN Reason: Pain, severe (8-10) Last Admin: 04/19/17 10:17 Dose: 0.5 mg Sodium Chloride (Sodium Chloride 0.9%) 1,000 mls @ 100 mls/hr IV .Q10H [facility] Last Admin: 04/19/17 02:36 Dose: 100 mls/hr Acyclovir 200 mg/ Sodium (Chloride) 100 mls @ 100 mls/hr IV Q8 [facility] PRN Reason: Protocol Last Admin: 04/19/17 13:23 Dose: 100 mls/hr Mupirocin (Bactroban Ointment) 1 gm TOP BID [facility] Last Admin: 04/19/17 09:31 Dose: 1 appl Nystatin (Nystatin Oral Susp) 5 ml PO QID [facility] Last Admin: 04/19/17 14:31 Dose: 5 ml Ondansetron HCl (Zofran Inj) 4 mg IVP Q6H PRN PRN Reason: Nausea/Vomiting Last Admin: 04/19/17 09:14 Dose: 4 mg Pantoprazole Sodium (Protonix Inj) 40 mg IVP Q12 [facility] Last Admin: 04/19/17 09:15 Dose: 40 mg Sucralfate (Carafate Oral Susp) 1 gm PO 0630,2200 [facility] - Labs Labs: 04/19/17 09:45 04/19/17 09:45 PT 13.3 Seconds (9.9-11.8) H 04/19/17 09:45 INR 1.23 (0.93-1.08) H 04/19/17 09:45 APTT 30.4 Seconds (23.7-30.8) 04/19/17 09:45 - Constitutional Appears: Non-toxic, No Acute Distress - Head Exam Head Exam: NORMAL INSPECTION - ENT Exam ENT Exam: Mucous Membranes Moist - Neck Exam Neck Exam: absent: Lymphadenopathy, Meningismus - Respiratory Exam Respiratory Exam: Decreased Breath Sounds - Cardiovascular Exam Cardiovascular Exam: +S1, +S2 - GI/Abdominal Exam GI & Abdominal Exam: Soft. absent: Tenderness Assessment and Plan - Assessment and Plan (Free Text) Plan: Assessment Abdominal pain, etiology still undetermined; no evidence of cholecystitis on abdominal ultrasound; clinically improving oral ulcers consider aphthous ulcers, R/O herpetic ulcers Oropharyngeal candidiasis, improving asymptomatic bacteruria with Citrobacter history of left necrotic mass on left neck from lymphoma, consider bacterial superinfection, clinically improving history of acute sigmoid diverticulitis history of mild cellulitis around the port area with Citrobacter acute neutropenia probably from chemotherapy history of Acute pancreatitis, probably medication-induced (ie. chemotherapy) history of left neck necrotic mass with mild cellulitis of the surrounding area dyslipidemia recent diagnosis of B-cell lymphoma on chemotherapy history of UTI S/P tubal ligation S/P tonsillectomy Plan continue Nystatin swish and swallow; continue to monitor off antibiotics can switch Acyclovir to Valtrex for another [address] Davis
== END 2017-04-20 17:36 | disposition home or self-care (01) | DRG 808 ==
LOC: ED 23:58 → ERH 04-16 03:26 → 3RSO 04-16 05:15 → OBSVTOIN 04-16 11:08
PROVIDERS: ADMIT Internal Medicine; ATTEND Internal Medicine
PROC: 30233R1 Transfusion of Nonautologous Platelets into Peripheral Vein, Percutaneous Approach (ICD-10-PCS; principal; 2017-04-18)
PROC: 30233N1 Transfusion of Nonautologous Red Blood Cells into Peripheral Vein, Percutaneous Approach (ICD-10-PCS; 2017-04-18)
DX: D61.818 Other pancytopenia (principal); B37.0 Candidal stomatitis; B37.89 Other sites of candidiasis; K85.90 Acute pancreatitis without necrosis or infection, unspecified; D70.9 Neutropenia, unspecified; C85.11 Unspecified B-cell lymphoma, lymph nodes of head, face, and neck; K12.0 Recurrent oral aphthae; T45.1X5A Adverse effect of antineoplastic and immunosuppressive drugs, initial encounter; K57.32 Diverticulitis of large intestine without perforation or abscess without bleeding; J98.11 Atelectasis; K21.9 Gastro-esophageal reflux disease without esophagitis; M06.9 Rheumatoid arthritis, unspecified; K59.00 Constipation, unspecified; E78.00 Pure hypercholesterolemia, unspecified; E87.6 Hypokalemia; E78.5 Hyperlipidemia, unspecified; K52.9 Noninfective gastroenteritis and colitis, unspecified; F41.9 Anxiety disorder, unspecified; Z98.51 Tubal ligation status

== ENCOUNTER 2017-04-20 21:49 | Observation (INO) | payer MEDICARE, OTHER ==
[2017-04-20 21:49] VITALS: BMI 22.6
[2017-04-20] MEDS ORDERED: Sodium Chloride 0.9% 1,000 ML IV STA (22:55)
[2017-04-20] MEDS ORDERED: Morphine 2 mg/ml ISec IVP STA (22:55)
--- NOTE | 2017-04-20 22:56 | ED PDOC ---
Arrival/HPI - General Chief Complaint: GI Problem Time Seen by Provider: 04/20/17 22:20 Historian: Patient - History of Present Illness Narrative History of Present Illness (Text): 04/20/17 22:40 Zelda Bobo is a 62 year old female, whose past medical history includes B- cell lymphoma, left neck mass, rheumatoid arthritis, and pancreatits, presents to the emergency department complaining of abdominal pain and 1 episode of rectal bleeding following bowel movement. Patient was admitted to the hospital yesterday for abdominal pain and was discharged today after improvement of symptoms. States she noticed bright red blood in the toilet after bowel movement. Describes abdominal pain as a cramping sensation.Denies fever, chills , headache, chest pain, shortness of breath, nausea, vomiting, diarrhea, urinary symptoms, or any other complaints at this time. Time/Duration: 4-6 hours Symptom Onset: Gradual Symptom Course: Unchanged Severity Level: Mild Activities at Onset: Light Past Medical History - Provider Review Nursing Documentation Reviewed: Yes - Infectious Disease Hx of Infectious Diseases: None - Cardiac Hx Cardiac Disorders: No - Pulmonary Hx Respiratory Disorders: No - Neurological Hx Neurological Disorder: No - HEENT Hx HEENT Disorder: No - Renal Hx Renal Disorder: No - Endocrine/Metabolic Hx Endocrine Disorders: No - Hematological/Oncological Hx Blood Transfusions: Yes (today) Hx Cancer: Yes (lymphoma) Hx Chemotherapy: Yes Hx Metastasis: Yes - Integumentary Hx Dermatological Disorder: Yes Other/Comment: lump to L neck - Musculoskeletal/Rheumatological Hx Rheumatoid Arthritis: Yes - Gastrointestinal Hx Gastroesophageal Reflux: Yes Hx Pancreatitis: Yes HX Swallowing Problems: Yes - Genitourinary/Gynecological Hx Genitourinary Disorders: No - Psychiatric Hx Psychophysiologic Disorder: No Hx Emotional Abuse: No Hx Physical Abuse: No Hx Substance Use: No - Surgical History Hx Section: Yes Hx Tonsillectomy: Yes Other/Comment: lump removal left breast - Anesthesia Hx Anesthesia: Yes Hx Anesthesia Reactions: No Hx Malignant Hyperthermia: No - Suicidal Assessment Feels Threatened In Home Enviroment: No Family/Social History - Physician Review Nursing Documentation Reviewed: Yes Family/Social History: No Known Family HX Smoking Status: Never Smoked Hx Alcohol Use: Yes (Social) Hx Substance Use: No Allergies/Home Meds Allergies/Adverse Reactions: Allergies No Known Allergies Allergy (Verified 04/16/17 00:06) Home Medications: Home Meds Medication Instructions Recorded Confirmed Ondansetron HCl [Zofran] 4 mg PO TID PRN 03/14/17 04/20/17 Docusate Sodium [Dok] 100 mg PO DAILY 04/16/17 04/20/17 Furosemide [Lasix] 20 mg PO DAILY 04/16/17 04/20/17 Oxycodone HCl/Acetaminophen 1 tab PO BID 04/16/17 04/20/17 [Oxycodone-Acetaminophen 5-325] Review of Systems - Physician Review All systems were reviewed & negative as marked: Yes - Review of Systems Constitutional: Fatigue. absent: Fevers Respiratory: Normal. absent: SOB, Cough, Sputum Cardiovascular: Normal. absent: Chest Pain, Palpitations Gastrointestinal: Abdominal Pain, Other (rectal bleeding ). absent: Constipation, Diarrhea, Nausea, Vomiting Genitourinary Female: Normal. absent: Dysuria Musculoskeletal: Normal Neurological: Normal. absent: Headache, Dizziness Psychiatric: absent: Anxiety Physical Exam Vital Signs Reviewed: Yes Vital Signs Pulse Resp BP Pulse Ox 04/20/17 22:20 95 H 16 148/92 H 98 Temperature: Afebrile Blood Pressure: Normal Pulse: Regular Respiratory Rate: Normal Appearance: Positive for: Well-Appearing, Non-Toxic, Comfortable Pain Distress: None Mental Status: Positive for: Alert and Oriented X 3 - Systems Exam Head: Present: Atraumatic, Normocephalic Pupils: Present: PERRL Conjunctiva: Present: Normal Mouth: Present: Moist Mucous Membranes Respiratory/Chest: Present: Clear to Auscultation, Good Air Exchange. No: Respiratory Distress, Accessory Muscle Use Cardiovascular: Present: Regular Rate and Rhythm, Normal S1, S2. No: Murmurs Abdomen: Present: Normal Bowel Sounds. No: Tenderness, Distention, Peritoneal Signs, Rebound, Guarding Rectal: Present: Normal Rectal Tone, Other (guaiac negative ). No: Occult Blood , Gross Blood Upper Extremity: Present: Normal Inspection. No: Cyanosis, Edema Lower Extremity: Present: Normal Inspection. No: Edema Neurological: Present: GCS=15, CN II-XII Intact, Speech Normal, Motor Func Grossly Intact, Normal Sensory Function Skin: Present: Warm, Dry, Normal Color. No: Rashes Psychiatric: Present: Alert, Oriented x 3, Normal Insight, Normal Concentration Medical Decision Making ED Course and Treatment: 04/20/17 22:58 Impression: A 62 year old female who presents to the emergency department complaining of abdominal pain and 1 episode of rectal bleeding. Plan: -- Labs -- Morphine -- Protonix -- IV Fluids -- Zofran -- Reassess and disposition Progress Notes: 04/21/17 01:00 Case discussed with who is aware and agrees with the plan to observe patient at Med/Surg for GI bleed. Accepts patient under hospitalist service. - Lab Interpretations Lab Results: 04/20/17 23:13 04/20/17 23:13 Lab Results 04/20/17 23:13: WBC 18.2 H D, RBC 3.35 L, Hgb 9.6 L, Hct 28.6 L, MCV 85.4, MCH 28.7, MCHC 33.6, RDW 14.8 H, Plt Count 64 L, MPV 10.6 04/20/17 23:13: Sodium 142, Potassium 3.4 L, Chloride 109 H, Carbon Dioxide 27, Anion Gap 9 L, BUN 2 L, Creatinine 0.9, Est GFR ( Amer) > 60, Est GFR ( Non-Af Amer) > 60, Random Glucose 104, Calcium 8.3 L, Total Bilirubin 0.3, AST 30, ALT 40, Alkaline Phosphatase 88, Total Protein 5.1 L, Albumin 2.9 L, Globulin 2.2, Albumin/Globulin Ratio 1.3, Lipase 47 04/20/17 23:13: PT 12.8 H, INR 1.19 H, APTT 28.1 04/20/17 23:05: Blood Type B POSITIVE, Antibody Screen Negative, BBK History Checked Patient has bt - Medication Orders Current Medication Orders: Discontinued Medications Sodium Chloride (Sodium Chloride 0.9%) 1,000 mls @ 999 mls/hr IV .Q1H1M STA Stop: 04/20/17 23:55 Last Admin: 04/20/17 23:46 Dose: 999 mls/hr Morphine Sulfate (Morphine) 2 mg IVP STAT STA Stop: 04/20/17 22:56 Last Admin: 04/20/17 23:45 Dose: 2 mg Ondansetron HCl (Zofran Inj) 4 mg IVP ONCE ONE Stop: 04/20/17 22:56 Last Admin: 04/20/17 23:48 Dose: 4 mg Pantoprazole Sodium (Protonix Inj) 40 mg IVP ONCE STA Stop: 04/20/17 22:56 Last Admin: 04/20/17 23:49 Dose: 40 mg - Deanneibe Statement The provider has reviewed the documentation as recorded by the Tressa Casillas Provider Attestation: Provider Tressa Attestation: All medical record entries made by the Tressa were at my direction and personally dictated by me. I have reviewed the chart and agree that the record accurately reflects my personal performance of the history, physical exam, medical decision making, and the department course for this patient. I have also personally directed, reviewed, and agree with the discharge instructions and disposition. Disposition/Present on Arrival - Present on Arrival Any Indicators Present on Arrival: No History of DVT/PE: No History of Uncontrolled Diabetes: No Urinary Catheter: No History of Decub. Ulcer: No History Surgical Site Infection Following: None - Disposition Have Diagnosis and Disposition been Completed?: Yes Diagnosis: Abdominal pain, Lower GI bleed Disposition: HOSPITALIZED Disposition Time: 00:59 Patient Plan: Observation Patient Problems: Current Active Problems Problem Status Onset Abdominal pain Acute Lower GI bleed Acute Condition: STABLE
[2017-04-20 23:18] LABS: HEMATOCRIT 28.6 % (36.0-48.0); MEAN CELL VOLUME 85.4 fl (80.0-105.0); MEAN CORPUSCULAR HEMOGLOBIN 28.7 pg (25.0-35.0); MEAN CORPUSCULAR HGB CONC 33.6 g/dl (31.0-37.0); MEAN PLATELET VOLUME 10.6 fl (7.0-11.0); PLATELET COUNT 64 10^3/uL (120.0-450.0); RED CELL DISTRIBUTION WIDTH 14.8 % (11.5-14.5); WHITE BLOOD COUNT 18.2 10^3/ul (4.5-11.0)
[2017-04-20 23:26] LABS: ALB/GLOB RATIO 1.3 (1.1-1.8); ALKALINE PHOSPHATASE 88 U/L (38-126); ALT/SGPT 40 U/L (7-56); AST/SGOT 30 U/L (14-36); BILIRUBIN,TOTAL 0.3 mg/dL (0.2-1.3); BLOOD UREA NITROGEN 2 mg/dL (7-21); CALCIUM 8.3 mg/dL (8.4-10.5); CARBON DIOXIDE 27 mmol/L (21-33); CHLORIDE 109 mmol/L (98-107); GFR AFRICAN-AMERICAN > 60; GLUCOSE,RANDOM 104 mg/dL (70-110); LIPASE 47 U/L (23-300); POTASSIUM 3.4 mmol/L (3.6-5.0); SODIUM 142 mmol/L (132-148); TOTAL PROTEIN 5.1 g/dL (5.8-8.3)
[2017-04-20 23:29] LABS: INR 1.19 (0.93-1.08); PARTIAL THROMBOPLASTIN TIME 28.1 Seconds (23.7-30.8)
--- NOTE | 2017-04-21 02:38 | CP.PCM.HP ---
<LAWRENCE WATSON - Last Filed: 04/21/17 02:24> History of Present Illness - History of Present Illness History of Present Illness: Lawrence Watson DO PGY1 - Internal Medicine H&P CC: Rectal bleed HPI: 62F with PMH B-Cell Lymphoma and RA presents complaining of rectal bleeding. Patient was recently discharged the same day, prior to her current presentation. After arriving home, she took a nap, then awoke with the urgency to defecate, but BM was only reena blood in toilet bowl, without pain. This happened only once today. Patient reports a history of hemorrhoids, and has had this problem before, usually associated with constipation. She also has a history of diverticulosis/itis. Currently, she admits to having a hard BM earlier that day, but no prolonged constipation. She also admits to abdominal pain. She denies F/C, CP, SOB, N/V/D, rectal pain, dysuria, hematuria, hemoptysis, melena, dizziness, focal weakness/numbness, BRAXTON. She continues to have a sore throat, which she was being treated for during the prior admission, but it is improved. She is still taking the nystatin, acyclovir, sucralfate, and protonix, as prescribed from the prior admission. In her last admission, her urine grew citrobacter diversus, but was treated as asymptomatic bacteriuria. Regarding her history of lymphoma, patient sees Dr. Hoffman, and is undergoing chemotherapy with him, as well as receiving Neulasta. Her last dose of chemo was 11 days ago, and neulasta was 10 days ago. Patient has a left sided neck mass, which she says is from her lymphoma. It is nonpainful, but constantly drains purulent material. It was reportedly biopsied by Dr. Andrews at one point, and has been draining ever since. She has shown it to Dr. Andrews, as well as Dr. Hoffman previously, and was given topical antibiotics to use, and told that it would resolve with the chemo. She denies pain, bleeding, malodor. PMH: Rheumatoid Arthritis and B cell Lymphoma PSH: Breast cyst removal, tubal ligation, and tonsillectomy Family History: Non-Contributory Social History: Denies tobacco or illicit drug use; endorses social alcohol use Allergies: NKDA Home Medications: please see MAR Heme/Onc: Dr. Hoffman PMD: Dr. Patricia Constitutional: +Chills, lethargy pt denies fever, generalized weakness ENT: +[place] pt denies otalgia, hearing deficit, rhinorrhea Eyes: pt denies sudden loss of vision, diplopia, blurred vision MSK: pt denies muscle stiffness, joint pain, extremity cramping Cardio: pt denies sob, heart murmur, CP Pulm: pt denies cough, hemoptysis, wheeze GI: +Abdominal pain, constipation, hematochezia pt denies loss of appetite, melena, n/v/d : pt denies burning on urination, urinary frequency, hematuria, urinary urgency Neuro: pt denies paresis, paresthesia, dizziness, braxton, numbness, tingling Derm: pt denies skin changes, lesions, nail changes Endo: pt denies intolerance to heat/cold, diaphoresis, night sweats, polydipsia Psych: pt denies anxiety, depression, mood changes Present on Admission - Present on Admission Any Indicators Present on Admission: No Past Patient History - Infectious Disease Hx of Infectious Diseases: None - Past Social History Smoking Status: Never Smoked - CARDIAC Hx Cardiac Disorders: No - PULMONARY Hx Respiratory Disorders: No - NEUROLOGICAL Hx Neurological Disorder: No - HEENT Hx HEENT Problems: No - RENAL Hx Chronic Kidney Disease: No - ENDOCRINE/METABOLIC Hx Endocrine Disorders: No - HEMATOLOGICAL/ONCOLOGICAL Hx Blood Transfusions: Yes (today) Hx Cancer: Yes (lymphoma) Hx Chemotherapy: Yes Hx Metastesis: Yes - INTEGUMENTARY Hx Dermatological Problems: Yes Other/Comment: lump to L neck - MUSCULOSKELETAL/RHEUMATOLOGICAL Hx Rheumatoid Arthritis: Yes - GASTROINTESTINAL Hx Gastroesophageal Reflux: Yes Hx Pancreatitis: Yes HX Swallowing Problems: Yes - GENITOURINARY/GYNECOLOGICAL Hx Genitourinary Disorders: No - PSYCHIATRIC Hx Psychophysiologic Disorder: No Hx Emotional Abuse: No Hx Physical Abuse: No Hx Substance Use: No - SURGICAL HISTORY Hx Section: Yes Hx Tonsillectomy: Yes Other/Comment: lump removal left breast - ANESTHESIA Hx Anesthesia: Yes Hx Anesthesia Reactions: No Hx Malignant Hyperthermia: No Meds Allergies/Adverse Reactions: Allergies Allergy/AdvReac Type Severity Reaction Status Date / Time No Known Allergies Allergy Verified 04/16/17 00:06 Physical Exam - Constitutional Appears: Non-toxic, No Acute Distress, Chronically Ill - Head Exam Head Exam: ATRAUMATIC, NORMOCEPHALIC - Eye Exam Eye Exam: EOMI, Normal appearance - ENT Exam ENT Exam: Mucous Membranes Moist Additional comments: Left neck 4x6cm mass, firm, fixed, nontender, with 2 small 1-1.5 cm ulcerations draining chylous/purulent material. Surrounding skin is normal. - Neck Exam Neck exam: Positive for: Lymphadenopathy (L anterior cervical). Negative for: Tenderness - Respiratory Exam Respiratory Exam: Clear to Auscultation Bilateral. absent: Rales, Rhonchi, Wheezes - Cardiovascular Exam Cardiovascular Exam: RRR, +S1, +S2. absent: Tachycardia - GI/Abdominal Exam GI & Abdominal Exam: Normal Bowel Sounds, Soft, Tenderness (mild, diffuse, worst in epigastrum and suprapubic regions) - Rectal Exam Rectal Exam: Hemorrhoids Additional comments: No BRBPR, but positive FOBT done at bedside - Extremities Exam Extremities exam: Negative for: calf tenderness, pedal edema - Neurological Exam Neurological exam: Alert, Oriented x3 - Psychiatric Exam Psychiatric exam: Normal Affect, Normal Mood - Skin Skin Exam: Dry, Intact Results - Vital Signs Recent Vital Signs: Last Vital Signs Temp Pulse 86 04/21/17 02:00 Resp 18 04/21/17 02:00 BP 136/76 04/21/17 02:00 Pulse Ox 100 04/21/17 02:00 - Labs Result Diagrams: 04/20/17 23:13 04/20/17 23:13 Assessment & Plan - Assessment and Plan (Free Text) Assessment: 62 year old female with a PMH significant for B-Cell Lymphoma, RA, hemorrhoids and diverticulitis presents for rectal bleeding Plan: 1. Rectal bleeding - Likely 2/2 diverticular bleed vs hemorrhoids vs mucositis 2/2 chemo - H/H is stable, compared to prior CBC from earlier the same day, continue to monitor - No BRBPR on exam, but screening bedside FOBT positive; sent to lab for confirmation - GI (Sophia) consulted, all recs appreciated - Patient had CT abd/pelv 5 days ago. Patient is currently stable, pain is improving, no recurrent episodes of bleeding, repeat CT/Abd not necessary at this time, unless symptoms worsen acutely or patient starts to spike a fever - Currently NPO - D5 in 1/2NS@100cc/hr - Hold all promotility agents/laxatives - Protonix 40mg IV daily 2. Leukocytosis - WBC count currently 18.2, up from 14.2 prior to discharge. Patient is currently afebrile, normotensive, with no tachycardia. - Antibiotics not indicated at this time, as leukocytosis is more likely 2/2 neulasta administration, though infectious workup ordered - CXR reveals no active pulmonary disease, though pending official read - BCx, UA, UCx, Wound Cx ordered - Manual differential ordered - Will continue to trend with serial cbc's. 3. Abdominal Pain - Likely 2/2 colitis vs mucositis/gastritis vs diverticulitis vs UTI - Patient was previously admitted for abdominal pain in setting of pancytopenia ; was attributed most likely due to colitis 2/2 neutropenia - Abdominal pain is currently improved, compared to during previous hospitalization - Continue Sucralfate, Valcyclovir, and Nystatin for mucositis - UA pending - GI consulted - Prior CT abd/pelv showed haziness in pericholecystic fat. concern for cholecystitis? Stranding in subcutaneous fat of posterior pelvis; On exam, positive for mild epigastric and suprapubic tenderness, negative Andrew sign - Currently NPO, on D5 in 1/2NS@100cc/hr - Zofran prn for nausea - Dilauded for pain; patient received morphine in ER, but was still in moderate/ severe pain - Lipase Normal 4. h/o B-cell lymphoma (CD+5) - Patient has had two cycles of R-EPOCH chemo with Dr. Hoffman so far. First cycle reportedly complicated by pancreatitis and diverticulitis. - Last dose of chemo was 04/10/2017 with Neulasta on 04/11/2017 - Currently, patient is anemic and thrombocytopenic, though improved compared to her baseline, and significantly improved compared to prior admission. - Continue to monitor with daily CBC's GI/DVT PPX: -Protonix/scd's Patient seen, discussed, and reviewed with attending <Arvind Ludwig - Last Filed: 04/21/17 06:54> Results - Vital Signs Recent Vital Signs: Last Vital Signs Temp Pulse 86 04/21/17 03:00 Resp 20 04/21/17 03:00 BP 136/76 04/21/17 03:00 Pulse Ox 100 04/21/17 02:00 - Labs Result Diagrams: 04/20/17 23:13 04/20/17 23:13 Labs: Laboratory Results - last 24 hr 04/21/17 05:20 Urine Color Yellow Urine Appearance Clear Urine pH 6.5 Ur Specific Fletcher 1.010 Urine Protein Negative Urine Glucose (UA) Negative Urine Ketones Negative Urine Blood Negative Urine Nitrate Negative Urine Bilirubin Negative Urine Urobilinogen 0.2 Ur Leukocyte Esterase Negative Attending/Attestation - Attestation I have personally seen and examined this patient.: Yes I have fully participated in the care of the patient.: Yes I have reviewed all pertinent clinical information: Yes
[2017-04-21 02:53] LABS: ATYPICAL LYMPHOCYTE 2 % (0.0-0.0); BAND 9 % (0-2); NEUTROPHIL 63 % (50.0-70.0)
[2017-04-21 02:54] LABS: METAMYELOCYTE 4 %; MYELOCYTE 6 %; PLATELET ESTIMATE LOW (NORMAL)
[2017-04-21] MEDS: Dextrose 5%/0.45% NS 1,000 ML IV SCH ×3 (03:09→17:30)
[2017-04-21] MEDS: HYDROmorphone 0.5 mg/0.5 ml ISec IVP PRN (03:14)
[2017-04-21 06:18] LABS: PH,URINE 6.5 (4.7-8.0); URINE BILIRUBIN NEGATIVE (NEGATIVE); URINE BLOOD NEGATIVE (NEGATIVE); URINE GLUCOSE (UA) NEGATIVE (NEGATIVE); URINE KETONE NEGATIVE (NEGATIVE); URINE LEUKOCYTE ESTERASE NEGATIVE Leu/uL (NEGATIVE); URINE PROTEIN NEGATIVE mg/dL (<30 mg/dL); URINE UROBILINOGEN 0.2 E.U./dL (<1 E.U./dL)
[2017-04-21 06:28] LABS: URINE APPEARANCE CLEAR (CLEAR); URINE COLOR YELLOW (YELLOW)
[2017-04-21 07:26] LABS: HEMATOCRIT 27.8 % (36.0-48.0); MEAN CELL VOLUME 85.8 fl (80.0-105.0); MEAN CORPUSCULAR HEMOGLOBIN 28.1 pg (25.0-35.0); MEAN CORPUSCULAR HGB CONC 32.7 g/dl (31.0-37.0); MEAN PLATELET VOLUME 10.5 fl (7.0-11.0); PLATELET COUNT 67 10^3/uL (120.0-450.0); RED CELL DISTRIBUTION WIDTH 14.8 % (11.5-14.5); WHITE BLOOD COUNT 16.7 10^3/ul (4.5-11.0)
[2017-04-21 07:42] LABS: ALKALINE PHOSPHATASE 73 U/L (38-126); ALT/SGPT 29 U/L (7-56); AST/SGOT 25 U/L (14-36); BILIRUBIN,TOTAL 0.4 mg/dL (0.2-1.3); BLOOD UREA NITROGEN < 2 mg/dL (7-21); CARBON DIOXIDE 28 mmol/L (21-33); CHLORIDE 110 mmol/L (95-110); GFR AFRICAN-AMERICAN > 60; GLUCOSE,RANDOM 105 mg/dL (70-110); MAGNESIUM 1.5 mg/dL (1.7-2.2); POTASSIUM 3.4 mmol/L (3.6-5.0); SODIUM 142 mmol/L (132-148); TOTAL PROTEIN 4.9 g/dL (5.8-8.3)
[2017-04-21 07:50] LABS: PHOSPHOROUS 1.1 mg/dL (2.5-4.5)
--- NOTE | 2017-04-21 08:34 | RAD ---
HISTORY: r/o PNA COMPARISON: 04/17/2017 FINDINGS: LUNGS: No active pulmonary disease. PLEURA: No significant pleural effusion identified, no pneumothorax apparent. CARDIOVASCULAR: Normal. OSSEOUS STRUCTURES: No significant abnormalities. VISUALIZED UPPER ABDOMEN: Normal. OTHER FINDINGS: Right-sided Port-A-Cath IMPRESSION: No active disease.
[2017-04-21] MEDS ORDERED: Potassium Phosphate 15 MMOLE in Dextrose 5% In Water 250 ML IVPB ONE (08:48)
[2017-04-21] MEDS: Magnesium Oxide 400 mg Tab UD PO SCH ×2 (10:57→11:04)
[2017-04-21] MEDS: Sucralfate 1 gm/10 ml Oral Susp UD PO SCH ×2 (10:57→18:02)
[2017-04-21 12:24] LABS: FOLATE 7.5 ng/mL
[2017-04-21] MEDS ORDERED: Potassium Phosphate 30 MMOLE in Sodium Chloride 0.9% 250 ML IVPB ONE (12:31)
[2017-04-21] MEDS ORDERED: Magnesium Sulfate 2 GM in Sodium Chloride 0.9% 100 ML IVPB ONE (12:32)
--- NOTE | 2017-04-21 13:11 | CP.PCM.CON ---
<Maritza Yusuf - Last Filed: 04/21/17 13:07> History of Present Illness - History of Present Illness History of Present Illness: Seen and examined at the bedside earlier today, chart was reviewed. Request for consult is for rectal bleed. HPI:this is a 62-year-old female with a past medical history of B-cell lymphoma NRA who is undergoing chemotherapy with Dr. Luz Gardiner, receiving Neulasta. Her last chemotherapy was 11 days ago. Patient was discharged yesterday, she was being followed by our service for complaints of abdominal pain. Upon returning home the patient had the urgency to defecate but patient had reena blood in the toilet. Patient denies any rectal pain, she does complain of constipation, but had not any episodes of any blood per rectum. Her last bowel movement was here in the hospital and it was hard but did not notice any melena or bright red blood per rectum. Her last colonoscopy was 5 years ago, no acute findings she can recall. Her last endoscopy was about 2-3 years ago found to have stomach inflammation. She has had no recent bleeding since admission. Past medical history: B-cell lymphoma on chemotherapy, rheumatoid arthritis Past surgical history: tubal ligation, breast cyst removal, tonsillectomy family history: Noncontributory Allergies: No known drug allergies Social history: Denies tobacco use, EtOH abuse, drinks socially, denies substance abuse Medications: Reviewed as per minute R ROS: systems review w/ positive findings see HPI Past Patient History - Infectious Disease Hx of Infectious Diseases: None - Past Social History Smoking Status: Never Smoked - CARDIAC Hx Cardiac Disorders: No - PULMONARY Hx Respiratory Disorders: No - NEUROLOGICAL Hx Neurological Disorder: No - HEENT Hx HEENT Problems: No - RENAL Hx Chronic Kidney Disease: No - ENDOCRINE/METABOLIC Hx Endocrine Disorders: No - HEMATOLOGICAL/ONCOLOGICAL Hx Blood Transfusions: Yes (today) Hx Cancer: Yes (lymphoma) Hx Chemotherapy: Yes Hx Metastesis: Yes - INTEGUMENTARY Hx Dermatological Problems: Yes Other/Comment: lump to L neck - MUSCULOSKELETAL/RHEUMATOLOGICAL Hx Rheumatoid Arthritis: Yes - GASTROINTESTINAL Hx Gastroesophageal Reflux: Yes Hx Pancreatitis: Yes HX Swallowing Problems: Yes - GENITOURINARY/GYNECOLOGICAL Hx Genitourinary Disorders: No - PSYCHIATRIC Hx Psychophysiologic Disorder: No Hx Emotional Abuse: No Hx Physical Abuse: No Hx Substance Use: No - SURGICAL HISTORY Hx Section: Yes Hx Tonsillectomy: Yes Other/Comment: lump removal left breast - ANESTHESIA Hx Anesthesia: Yes Hx Anesthesia Reactions: No Hx Malignant Hyperthermia: No Meds Allergies/Adverse Reactions: Allergies Allergy/AdvReac Type Severity Reaction Status Date / Time No Known Allergies Allergy Verified 04/16/17 00:06 - Medications Medications: Current Medications Calcium Carbonate (Oscal) 500 mg PO DAILY [facility] Last Admin: 04/21/17 10:57 Dose: 500 mg Furosemide (Lasix) 20 mg PO DAILY [facility] Last Admin: 04/21/17 10:59 Dose: 20 mg Hydromorphone HCl (Dilaudid) 0.5 mg IVP Q4H PRN PRN Reason: Pain, severe (8-10) Last Admin: 04/21/17 03:14 Dose: 0.5 mg Dextrose/Sodium Chloride (Dextrose 5%/0.45% Ns 1000 Ml) 1,000 mls @ 100 mls/hr IV .Q10H [facility] Last Admin: 04/21/17 11:06 Dose: 100 mls/hr Potassium Phosphate 15 mmole/ (Dextrose) 255 mls @ 42.5 mls/hr IVPB ONCE ONE Stop: 04/21/17 14:47 Last Admin: 04/21/17 10:56 Dose: 42.5 mls/hr Potassium Phosphate 30 mmole/ (Sodium Chloride) 260 mls @ 42.5 mls/hr IVPB ONCE ONE Stop: 04/21/17 18:38 Magnesium Sulfate 2 gm/ Sodium (Chloride) 104 mls @ 102 mls/hr IVPB ONCE ONE Stop: 04/21/17 13:33 Magnesium Oxide (Mag-Ox) 400 mg PO BID [facility] Last Admin: 04/21/17 11:04 Dose: Not Given Nystatin (Nystatin Oral Susp) 5 ml PO QID [facility] Ondansetron HCl (Zofran Inj) 4 mg IVP Q4H PRN PRN Reason: Nausea/Vomiting Last Admin: 04/21/17 03:22 Dose: 4 mg Pantoprazole Sodium (Protonix Inj) 40 mg IVP DAILY [facility] Last Admin: 04/21/17 10:56 Dose: 40 mg Sucralfate (Carafate Oral Susp) 1 gm PO BID [facility] Last Admin: 04/21/17 10:57 Dose: 1 gm Valacyclovir HCl (Valtrex) 500 mg PO BID [facility] PRN Reason: Protocol Last Admin: 04/21/17 10:57 Dose: 500 mg Physical Exam - Constitutional Appears: No Acute Distress - Head Exam Head Exam: NORMOCEPHALIC - Eye Exam Eye Exam: Normal appearance. absent: Scleral icterus - ENT Exam ENT Exam: Mucous Membranes Moist - Neck Exam Neck exam: Positive for: Lymphadenopathy (left, firm, nontender) - Respiratory Exam Respiratory Exam: Clear to Auscultation Bilateral, NORMAL BREATHING PATTERN. absent: Respiratory Distress - Cardiovascular Exam Cardiovascular Exam: +S1, +S2 - GI/Abdominal Exam GI & Abdominal Exam: Normal Bowel Sounds, Soft, Tenderness. absent: Guarding, Organomegaly, Rebound Additional comments: epigastric - Rectal Exam Additional comments: patient states that she had 2 rectal exams already, we will defer at this time unless patient has another episode of bleeding, chart was reviewed she is found to have hemorrhoids no reports of palpated mass - Extremities Exam Extremities exam: Positive for: normal capillary refill, pedal pulses present. Negative for: calf tenderness, pedal edema - Neurological Exam Neurological exam: Alert, Oriented x3 - Skin Skin Exam: Dry, Warm Results - Vital Signs Recent Vital Signs: Last Vital Signs Temp 98.0 F 04/21/17 08:00 Pulse 82 04/21/17 08:00 Resp 18 04/21/17 08:00 BP 115/73 04/21/17 10:59 Pulse Ox 98 04/21/17 08:00 - Labs Result Diagrams: 04/21/17 07:21 04/21/17 07:21 Labs: Laboratory Results - last 24 hr 04/21/17 04/21/17 04/21/17 05:20 07:21 07:21 WBC 16.7 H RBC 3.24 L Hgb 9.1 L Hct 27.8 L MCV 85.8 MCH 28.1 MCHC 32.7 RDW 14.8 H Plt Count 67 L MPV 10.5 Sodium 142 Potassium 3.4 L Chloride 110 Carbon Dioxide 28 Anion Gap 7 L BUN < 2 L Creatinine 0.9 Est GFR ( Amer) > 60 Est GFR (Non-Af Amer) > 60 Random Glucose 105 Calcium 8.0 L Phosphorus 1.1 L* Magnesium 1.5 L TIBC Total Bilirubin 0.4 AST 25 ALT 29 Alkaline Phosphatase 73 Total Protein 4.9 L Albumin 2.5 L Globulin 2.4 Albumin/Globulin Ratio 1.0 L Folate Urine Color Yellow Urine Appearance Clear Urine pH 6.5 Ur Specific [place] 1.010 Urine Protein Negative Urine Glucose (UA) Negative Urine Ketones Negative Urine Blood Negative Urine Nitrate Negative Urine Bilirubin Negative Urine Urobilinogen 0.2 Ur Leukocyte Esterase Negative 04/21/17 04/21/17 08:58 08:58 WBC RBC Hgb Hct MCV MCH MCHC RDW Plt Count MPV Sodium Potassium Chloride Carbon Dioxide Anion Gap BUN Creatinine Est GFR ( Amer) Est GFR (Non-Af Amer) Random Glucose Calcium Phosphorus Magnesium TIBC 144 L Total Bilirubin AST ALT Alkaline Phosphatase Total Protein Albumin Globulin Albumin/Globulin Ratio Folate 7.5 Urine Color Urine Appearance Urine pH Ur Specific [place] Urine Protein Urine Glucose (UA) Urine Ketones Urine Blood Urine Nitrate Urine Bilirubin Urine Urobilinogen Ur Leukocyte Esterase Assessment & Plan - Assessment and Plan (Free Text) Assessment: Assessment: Rectal bleed B-cell lymphoma, chemotherapy Rheumatoid arthritis Recent diverticulitis and possible pancreatitis Plan: stool for C. difficile Clear liquid diet Continued Protonix Continue Carafate Consider starting clear liquid diet Continue IV for hydration Monitor H&H Monitor for overt GI bleed Thank you for this consult and for allowing us to participate in your patient's care, further recommendations based upon clinical course. Seen and discussed with Dr. Cortes. <Trini Cortes V - Last Filed: 04/21/17 22:39> Meds - Medications Medications: Current Medications Acetaminophen (Tylenol 325mg Tab) 650 mg PO Q6H PRN PRN Reason: Pain, Mild (1-3) Last Admin: 04/21/17 20:39 Dose: 650 mg Calcium Carbonate (Oscal) 500 mg PO DAILY [facility] Last Admin: 04/21/17 10:57 Dose: 500 mg Furosemide (Lasix) 20 mg PO DAILY [facility] Last Admin: 04/21/17 10:59 Dose: 20 mg Hydromorphone HCl (Dilaudid) 0.5 mg IVP Q4H PRN PRN Reason: Pain, severe (8-10) Last Admin: 04/21/17 03:14 Dose: 0.5 mg Dextrose/Sodium Chloride (Dextrose 5%/0.45% Ns 1000 Ml) 1,000 mls @ 100 mls/hr IV .Q10H [facility] Last Admin: 04/21/17 17:30 Dose: Not Given Magnesium Oxide (Mag-Ox) 400 mg PO BID [facility] Last Admin: 04/21/17 11:04 Dose: Not Given Nystatin (Nystatin Oral Susp) 5 ml PO QID [facility] Last Admin: 04/21/17 18:02 Dose: 5 ml Ondansetron HCl (Zofran Inj) 4 mg IVP Q4H PRN PRN Reason: Nausea/Vomiting Last Admin: 04/21/17 20:40 Dose: 4 mg Pantoprazole Sodium (Protonix Inj) 40 mg IVP DAILY [facility] Last Admin: 04/21/17 10:56 Dose: 40 mg Sucralfate (Carafate Oral Susp) 1 gm PO BID [facility] Last Admin: 04/21/17 18:02 Dose: 1 gm Valacyclovir HCl (Valtrex) 500 mg PO BID [facility] PRN Reason: Protocol Last Admin: 04/21/17 18:03 Dose: 500 mg Results - Vital Signs Recent Vital Signs: Last Vital Signs Temp 98.1 F 04/21/17 16:00 Pulse 105 H 04/21/17 16:00 Resp 20 04/21/17 16:00 BP 155/95 H 04/21/17 16:00 Pulse Ox 98 04/21/17 16:00 - Labs Result Diagrams: 04/21/17 07:21 04/21/17 07:21 Labs: Laboratory Results - last 24 hr 04/21/17 04/21/17 04/21/17 05:20 07:21 07:21 WBC 16.7 H RBC 3.24 L Hgb 9.1 L Hct 27.8 L MCV 85.8 MCH 28.1 MCHC 32.7 RDW 14.8 H Plt Count 67 L MPV 10.5 Sodium 142 Potassium 3.4 L Chloride 110 Carbon Dioxide 28 Anion Gap 7 L BUN < 2 L Creatinine 0.9 Est GFR ( Amer) > 60 Est GFR (Non-Af Amer) > 60 Random Glucose 105 Calcium 8.0 L Phosphorus 1.1 L* Magnesium 1.5 L TIBC Ferritin Total Bilirubin 0.4 AST 25 ALT 29 Alkaline Phosphatase 73 Total Protein 4.9 L Albumin 2.5 L Globulin 2.4 Albumin/Globulin Ratio 1.0 L Folate Urine Color Yellow Urine Appearance Clear Urine pH 6.5 Ur Specific [place] 1.010 Urine Protein Negative Urine Glucose (UA) Negative Urine Ketones Negative Urine Blood Negative Urine Nitrate Negative Urine Bilirubin Negative Urine Urobilinogen 0.2 Ur Leukocyte Esterase Negative 04/21/17 04/21/17 08:58 08:58 WBC RBC Hgb Hct MCV MCH MCHC RDW Plt Count MPV Sodium Potassium Chloride Carbon Dioxide Anion Gap BUN Creatinine Est GFR ( Amer) Est GFR (Non-Af Amer) Random Glucose Calcium Phosphorus Magnesium TIBC 144 L Ferritin 2290.0 Total Bilirubin AST ALT Alkaline Phosphatase Total Protein Albumin Globulin Albumin/Globulin Ratio Folate 7.5 Urine Color Urine Appearance Urine pH Ur Specific [place] Urine Protein Urine Glucose (UA) Urine Ketones Urine Blood Urine Nitrate Urine Bilirubin Urine Urobilinogen Ur Leukocyte Esterase Attending/Attestation - Attestation Notes (Text): 04/21/17 22:33 this patient who was recently discharged from the hospital was readmitted with bleeding per rectum which is all subsided she did have bowel movements which is normal in color. Patient is on a liquid diet. On examination abdomen soft no tenderness if the patient develops again recurrence of bleeding per rectum would consider flexible sigmoidoscopy. If the hemoglobin is stable and remains asymptomatic would defer flexible sigmoidoscopy now check stool for C. difficile. Patient was recently on antibiotics status and also status post recent chemotherapy for B-cell lymphoma She would benefit from colonoscopy as an outpatient Would empirically start the patient on by mouth Flagyl 04/21/17 22:39
[2017-04-21] MEDS: Nystatin 100,000 Units/ml Oral Susp 5 ml UD PO SCH ×4 (15:51→23:57)
[2017-04-22] MEDS: Dextrose 5%/0.45% NS 1,000 ML IV SCH ×2 (04:30→17:55)
[2017-04-22 07:10] LABS: HEMATOCRIT 30.8 % (36.0-48.0); MEAN CELL VOLUME 85.3 fl (80.0-105.0); MEAN CORPUSCULAR HEMOGLOBIN 28.3 pg (25.0-35.0); MEAN CORPUSCULAR HGB CONC 33.1 g/dl (31.0-37.0); MEAN PLATELET VOLUME 10.9 fl (7.0-11.0); PLATELET COUNT 97 10^3/uL (120.0-450.0); RED CELL DISTRIBUTION WIDTH 14.8 % (11.5-14.5); WHITE BLOOD COUNT 13.9 10^3/ul (4.5-11.0)
[2017-04-22 07:27] LABS: ALB/GLOB RATIO 1.3 (1.1-1.8); ALKALINE PHOSPHATASE 84 U/L (38-126); ALT/SGPT 35 U/L (7-56); AST/SGOT 27 U/L (14-36); BILIRUBIN,TOTAL 0.2 mg/dL (0.2-1.3); BLOOD UREA NITROGEN 4 mg/dL (7-21); CALCIUM 7.5 mg/dL (8.4-10.5); CARBON DIOXIDE 27 mmol/L (21-33); CHLORIDE 109 mmol/L (98-107); GFR AFRICAN-AMERICAN > 60; GLUCOSE,RANDOM 103 mg/dL (70-110); POTASSIUM 3.5 mmol/L (3.6-5.0); SODIUM 144 mmol/L (132-148); TOTAL PROTEIN 5.3 g/dL (5.8-8.3)
[2017-04-22 08:36] LABS: ATYPICAL LYMPHOCYTE 4 % (0.0-0.0); BAND 4 % (0-2); NEUTROPHIL 65 % (50.0-70.0)
[2017-04-22 08:37] LABS: ANISOCYTOSIS 1+; HYPOCHROMIA 1+; METAMYELOCYTE 4 %; MYELOCYTE 3 %; PLATELET ESTIMATE LOW (NORMAL); POLYCHROMASIA SLIGHT
[2017-04-22 08:38] LABS: OVALOCYTES SLIGHT; TOXIC GRANULATION 1+
[2017-04-22] MEDS ORDERED: Magnesium Citrate Oral SOL (300 ml) PO ONE (08:40)
[2017-04-22] MEDS ORDERED: Potassium Chloride 40 mEq/30 ml LIQ UD PO ONE (09:27)
[2017-04-22 09:42] LABS: PHOSPHOROUS 3.8 mg/dL (2.5-4.5)
[2017-04-22] MEDS: Magnesium Oxide 400 mg Tab UD PO SCH (10:00)
[2017-04-22] MEDS: Sucralfate 1 gm/10 ml Oral Susp UD PO SCH ×2 (10:06→17:28)
[2017-04-22] MEDS: Nystatin 100,000 Units/ml Oral Susp 5 ml UD PO SCH ×4 (10:16→22:25)
[2017-04-22 10:55] LABS: MAGNESIUM 1.9 mg/dL (1.7-2.2)
--- NOTE | 2017-04-22 15:57 | CP.PCM.PN ---
<KaitlinElann - Last Filed: 04/22/17 16:41> Subjective - Date & Time of Evaluation Date of Evaluation: 04/22/17 Time of Evaluation: 07:18 - Subjective Subjective: The patient was seen and examined at bedside. The patient was still complaining of excess spitting and a some epigastric discomfort. The patient reports one bowel movement overnight with no blood. The patient is also wanting to go home. The patient is expected to have a flexisigmoidoscopy done today. The patient denies any chest pain, shortness of breath, nause, vomiting , dizziness, sore throat, or any other complaints. Objective - Vital Signs/Intake and Output Vital Signs (last 24 hours): Temp Pulse Resp BP Pulse Ox 98.4 F 89 20 143/91 H 94 L 04/22/17 07:30 04/22/17 07:30 04/22/17 07:30 04/22/17 10:06 04/22/17 07:30 Intake and Output: 04/22/17 04/22/17 06:59 18:59 Intake Total 540 360 Balance 540 360 - Medications Medications: Current Medications Acetaminophen (Tylenol 325mg Tab) 650 mg PO Q6H PRN PRN Reason: Pain, Mild (1-3) Last Admin: 04/21/17 20:39 Dose: 650 mg Calcium Carbonate (Oscal) 500 mg PO DAILY [facility] Last Admin: 04/22/17 10:07 Dose: 500 mg Furosemide (Lasix) 20 mg PO DAILY [facility] Last Admin: 04/22/17 10:06 Dose: 20 mg Hydromorphone HCl (Dilaudid) 0.5 mg IVP Q4H PRN PRN Reason: Pain, severe (8-10) Last Admin: 04/21/17 03:14 Dose: 0.5 mg Dextrose/Sodium Chloride (Dextrose 5%/0.45% Ns 1000 Ml) 1,000 mls @ 100 mls/hr IV .Q10H [facility] Last Admin: 04/22/17 04:30 Dose: 100 mls/hr Magnesium Oxide (Mag-Ox) 400 mg PO BID [facility] Last Admin: 04/22/17 10:00 Dose: 400 mg Mupirocin (Bactroban Ointment) 0 gm TOP BID [facility] Last Admin: 04/22/17 10:35 Dose: 1 appl Nystatin (Nystatin Oral Susp) 5 ml PO QID [facility] Last Admin: 04/22/17 13:34 Dose: 5 ml Ondansetron HCl (Zofran Inj) 4 mg IVP Q4H PRN PRN Reason: Nausea/Vomiting Last Admin: 04/22/17 03:51 Dose: 4 mg Pantoprazole Sodium (Protonix Inj) 40 mg IVP DAILY [facility] Last Admin: 04/22/17 10:07 Dose: 40 mg Sucralfate (Carafate Oral Susp) 1 gm PO BID [facility] Last Admin: 04/22/17 10:06 Dose: 1 gm Valacyclovir HCl (Valtrex) 500 mg PO BID [facility] PRN Reason: Protocol Last Admin: 04/22/17 10:07 Dose: 500 mg - Labs Labs: 04/22/17 06:30 04/22/17 06:30 PT 12.8 Seconds (9.9-11.8) H 04/20/17 23:13 INR 1.19 (0.93-1.08) H 04/20/17 23:13 APTT 28.1 Seconds (23.7-30.8) 04/20/17 23:13 - Head Exam Head Exam: ATRAUMATIC, NORMAL INSPECTION, NORMOCEPHALIC - Eye Exam Eye Exam: EOMI, Normal appearance, PERRL. absent: Periorbital tenderness Pupil Exam: NORMAL ACCOMODATION. absent: PERRL - ENT Exam ENT Exam: Mucous Membranes Moist, Normal Exam - Neck Exam Neck Exam: Full ROM, Normal Inspection - Respiratory Exam Respiratory Exam: Clear to Ausculation Bilateral, NORMAL BREATHING PATTERN. absent: Accessory Muscle Use, Chest Wall Tenderness, Respiratory Distress - Cardiovascular Exam Cardiovascular Exam: REGULAR RHYTHM, RRR, +S1, +S2. absent: Rubs - GI/Abdominal Exam GI & Abdominal Exam: Soft, Normal Bowel Sounds. absent: Tenderness - Back Exam Back Exam: NORMAL INSPECTION. absent: paraspinal tenderness - Neurological Exam Neurological Exam: Alert, Awake, Oriented x3 - Psychiatric Exam Psychiatric exam: Normal Affect, Normal Mood - Skin Skin Exam: Dry, Intact, Normal Color Assessment and Plan - Assessment and Plan (Free Text) Assessment: 62 year old female with a PMH significant for B-Cell Lymphoma, RA, hemorrhoids and diverticulitis presents for rectal bleeding Plan: 1. Rectal bleeding - Likely 2/2 diverticular bleed vs hemorrhoids vs mucositis 2/2 chemo - H/H is stable. Previous admissions required transfusion. Continue to monitor closely and transfuse if Hgb falls below 7. - Heme occult positive. - GI (Sophia) consulted, all recs appreciated - Patient had CT abd/pelv 5 days ago. Patient is currently stable, pain is improving, no recurrent episodes of bleeding. -Expected to be scoped this afternoon. Will f/u with rec's. - Currently NPO - Continue Protonix 40mg IV daily 2. Leukocytosis - WBC count currently 13.9, Patient is currently afebrile, normotensive, with no tachycardia. - Likely due to Nuelesta treatment she received recently. - CXR reveals no active pulmonary disease, though pending official read - BCx, UA, UCx, Wound Cx pending. F/u with Results. - Manual differential ordered. F/u with Results. - Will continue to trend with serial cbc's. 3. Abdominal Pain - Likely 2/2 colitis vs mucositis/gastritis vs diverticulitis vs UTI - Patient was previously admitted for abdominal pain in setting of pancytopenia ; was attributed most likely due to colitis 2/2 neutropenia - Prior CT abd/pelv showed haziness in pericholecystic fat. concern for cholecystitis? Stranding in subcutaneous fat of posterior pelvis; On exam, positive for mild epigastric and suprapubic tenderness, negative Andrew sign - Abdominal pain is currently improved, compared to during previous hospitalization - Continue Sucralfate, Valcyclovir, and Nystatin for mucositis - UA negative for signs of infection. Urine Cx pending. - GI consulted and all recs appreciated - Continue Dilaudid and Protonix - Lipase Normal 4. h/o B-cell lymphoma (CD+5) - Patient has had two cycles of R-EPOCH chemo with Dr. Grider so far. First cycle reportedly complicated by pancreatitis and diverticulitis. - Last dose of chemo was 04/10/2017 with Neulasta on 04/11/2017 - Currently, patient is anemic and thrombocytopenic, though improved compared to her baseline, and significantly improved compared to prior admission. - Continue to monitor with daily CBC's GI/DVT PPX: -Protonix/scd's <Jessica Davis - Last Filed: 04/22/17 17:55> Objective - Vital Signs/Intake and Output Vital Signs (last 24 hours): Temp Pulse Resp BP Pulse Ox 98.4 F 89 20 143/91 H 94 L 04/22/17 07:30 04/22/17 07:30 04/22/17 07:30 04/22/17 10:06 04/22/17 07:30 Intake and Output: 04/22/17 04/22/17 06:59 18:59 Intake Total 540 360 Balance 540 360 - Medications Medications: Current Medications Acetaminophen (Tylenol 325mg Tab) 650 mg PO Q6H PRN PRN Reason: Pain, Mild (1-3) Last Admin: 04/21/17 20:39 Dose: 650 mg Calcium Carbonate (Oscal) 500 mg PO DAILY [facility] Last Admin: 04/22/17 10:07 Dose: 500 mg Furosemide (Lasix) 20 mg PO DAILY [facility] Last Admin: 04/22/17 10:06 Dose: 20 mg Hydromorphone HCl (Dilaudid) 0.5 mg IVP Q4H PRN PRN Reason: Pain, severe (8-10) Last Admin: 04/21/17 03:14 Dose: 0.5 mg Dextrose/Sodium Chloride (Dextrose 5%/0.45% Ns 1000 Ml) 1,000 mls @ 100 mls/hr IV .Q10H [facility] Last Admin: 04/22/17 04:30 Dose: 100 mls/hr Magnesium Oxide (Mag-Ox) 400 mg PO BID [facility] Last Admin: 04/22/17 10:00 Dose: 400 mg Mupirocin (Bactroban Ointment) 0 gm TOP BID [facility] Last Admin: 04/22/17 10:35 Dose: 1 appl Nystatin (Nystatin Oral Susp) 5 ml PO QID [facility] Last Admin: 04/22/17 17:28 Dose: 5 ml Ondansetron HCl (Zofran Inj) 4 mg IVP Q4H PRN PRN Reason: Nausea/Vomiting Last Admin: 04/22/17 16:30 Dose: 4 mg Pantoprazole Sodium (Protonix Inj) 40 mg IVP DAILY [facility] Last Admin: 04/22/17 10:07 Dose: 40 mg Sucralfate (Carafate Oral Susp) 1 gm PO BID [facility] Last Admin: 04/22/17 17:28 Dose: 1 gm Valacyclovir HCl (Valtrex) 500 mg PO BID [facility] PRN Reason: Protocol Last Admin: 04/22/17 17:28 Dose: 500 mg - Labs Labs: 04/22/17 06:30 04/22/17 06:30 PT 12.8 Seconds (9.9-11.8) H 04/20/17 23:13 INR 1.19 (0.93-1.08) H 04/20/17 23:13 APTT 28.1 Seconds (23.7-30.8) 04/20/17 23:13 Attending/Attestation - Attestation I have personally seen and examined this patient.: Yes I have fully participated in the care of the patient.: Yes I have reviewed all pertinent clinical information, including history, physical exam and plan: Yes Notes (Text): 04/22/17 17:54 Attending note; Patient seen and examined with resident. Patient is a 62-year-old female with a history of B-cell lymphoma status post chemotherapy is admitted with rectal bleed. Currently on clear liquid diet. Hemoglobin stable. Plan for flex sigmoidoscopy by Dr. Holder today. Elevated WBC; secondary to Neulasta injection post chemotherapy. Mucositis; resolving. Upon discharge the patient will follow-up with PMD Dr. Patricia/oncology dr. grider.
[2017-04-22 18:29] VITALS: RESP 18
[2017-04-22] MEDS ORDERED: Lidocaine 2% Jelly (30 ml) ONE (18:47)
[2017-04-22] MEDS: HYDROmorphone 0.5 mg/0.5 ml ISec IVP PRN (23:49)
[2017-04-23] MEDS: Dextrose 5%/0.45% NS 1,000 ML IV SCH (07:14)
[2017-04-23 07:31] LABS: BASO # 0.11 K/mm3 (0.0-2.0); BASO % 0.9 % (0.0-3.0); GRAN # 9.1 (1.4-6.5); GRAN % 72.5 % (50.0-68.0); HEMATOCRIT 31.5 % (36.0-48.0); LYMPH # 0.9 (1.2-3.4); LYMPH % 7.2 % (22.0-35.0); MEAN CELL VOLUME 86.1 fl (80.0-105.0); MEAN CORPUSCULAR HEMOGLOBIN 28.4 pg (25.0-35.0); MEAN PLATELET VOLUME 10.8 fl (7.0-11.0); MONO # 2.4 (0.1-0.6); MONO % 19.4 % (1.0-6.0); WHITE BLOOD COUNT 12.6 10^3/ul (4.5-11.0)
[2017-04-23 08:05] LABS: ALB/GLOB RATIO 1.3 (1.1-1.8); ALKALINE PHOSPHATASE 89 U/L (38-126); ALT/SGPT 41 U/L (7-56); AST/SGOT 29 U/L (14-36); BILIRUBIN,TOTAL 0.3 mg/dL (0.2-1.3); BLOOD UREA NITROGEN 4 mg/dL (7-21); CALCIUM 8.1 mg/dL (8.4-10.5); CARBON DIOXIDE 24 mmol/L (21-33); CHLORIDE 109 mmol/L (98-107); GFR AFRICAN-AMERICAN > 60; GLUCOSE,RANDOM 112 mg/dL (70-110); POTASSIUM 3.2 mmol/L (3.6-5.0); SODIUM 142 mmol/L (132-148); TOTAL PROTEIN 5.3 g/dL (5.8-8.3)
[2017-04-23 08:15] VITALS: PULSE 80; TEMP 98.1; O2SAT 99
[2017-04-23] MEDS ORDERED: Potassium Chloride 20 mEq ER Tab PO STA (08:43)
[2017-04-23] MEDS ORDERED: Potassium Chloride 40 mEq/30 ml LIQ UD PO ONE (10:17)
--- NOTE | 2017-04-23 11:02 | CP.PCM.DIS ---
<Meño Madrigal - Last Filed: 04/23/17 10:52> Provider - Provider Date of Admission: 04/21/17 00:57 Attending physician: Jessica Davis MD Primary care physician: Bella Patricia DO Time Spent in preparation of Discharge (in minutes): 40 Hospital Course - Lab Results Lab Results: Micro Results 04/21/17 06:00 Blood-Venous Blood Culture - Preliminary NO GROWTH AFTER 48 HOURS 04/21/17 06:30 Blood-Venous Blood Culture - Preliminary NO GROWTH AFTER 48 HOURS 04/21/17 07:00 Blood-Venous Blood Culture - Preliminary NO GROWTH AFTER 48 HOURS 04/22/17 18:15 Neck Gram Stain - Final 04/22/17 18:29 Stool C. difficile Antigen & Toxin A,B (M - Final 04/21/17 05:20 Urine Urine Culture - Final No Growth (<1,000 CFU/ML) Most Recent Lab Values WBC 12.6 10^3/ul (4.5-11.0) H 04/23/17 07:15 RBC 3.66 10^6/uL (3.5-6.1) 04/23/17 07:15 Hgb 10.4 g/dL (12.0-16.0) L 04/23/17 07:15 Hct 31.5 % (36.0-48.0) L 04/23/17 07:15 MCV 86.1 fl (80.0-105.0) 04/23/17 07:15 MCH 28.4 pg (25.0-35.0) 04/23/17 07:15 MCHC 33.0 g/dl (31.0-37.0) 04/23/17 07:15 RDW 15.0 % (11.5-14.5) H 04/23/17 07:15 Plt Count 130 10^3/uL (120.0-450.0) 04/23/17 07:15 MPV 10.8 fl (7.0-11.0) 04/23/17 07:15 Gran % 72.5 % (50.0-68.0) H 04/23/17 07:15 Lymph % (Auto) 7.2 % (22.0-35.0) L 04/23/17 07:15 [place] % (Auto) 19.4 % (1.0-6.0) H 04/23/17 07:15 Eos % (Auto) 0.0 % (1.5-5.0) L 04/23/17 07:15 Baso % (Auto) 0.9 % (0.0-3.0) 04/23/17 07:15 Gran # 9.10 (1.4-6.5) H 04/23/17 07:15 Lymph # 0.9 (1.2-3.4) L 04/23/17 07:15 [place] # 2.4 (0.1-0.6) H 04/23/17 07:15 Eos # 0.0 (0.0-0.7) 04/23/17 07:15 Baso # 0.11 K/mm3 (0.0-2.0) 04/23/17 07:15 Neutrophils % (Manual) 65 % (50.0-70.0) 04/22/17 06:30 Band Neutrophils % 4 % (0-2) H 04/22/17 06:30 Lymphocytes % (Manual) 12 % (22.0-35.0) L 04/22/17 06:30 Atypical Lymphs % 4 % (0.0-0.0) H 04/22/17 06:30 Monocytes % (Manual) 8 % (1.0-6.0) H 04/22/17 06:30 Metamyelocytes % 4 % 04/22/17 06:30 Myelocytes % 3 % 04/22/17 06:30 Toxic Granulation 1+ 04/22/17 06:30 Platelet Evaluation Low (NORMAL) 04/22/17 06:30 Polychromasia Slight 04/22/17 06:30 Hypochromasia 1+ 04/22/17 06:30 Anisocytosis (manual) 1+ 04/22/17 06:30 Ovalocytes Slight 04/22/17 06:30 PT 12.8 Seconds (9.9-11.8) H 04/20/17 23:13 INR 1.19 (0.93-1.08) H 04/20/17 23:13 APTT 28.1 Seconds (23.7-30.8) 04/20/17 23:13 Sodium 142 mmol/L (132-148) 04/23/17 07:15 Potassium 3.2 mmol/L (3.6-5.0) L 04/23/17 07:15 Chloride 109 mmol/L (98-107) H 04/23/17 07:15 Carbon Dioxide 24 mmol/L (21-33) 04/23/17 07:15 Anion Gap 12 (10-20) 04/23/17 07:15 BUN 4 mg/dL (7-21) L 04/23/17 07:15 Creatinine 0.9 mg/dL (0.5-1.4) 04/23/17 07:15 Est GFR ( Amer) > 60 04/23/17 07:15 Est GFR (Non-Af Amer) > 60 04/23/17 07:15 Random Glucose 112 mg/dL (70-110) H 04/23/17 07:15 Calcium 8.1 mg/dL (8.4-10.5) L 04/23/17 07:15 Phosphorus 3.8 mg/dL (2.5-4.5) 04/22/17 09:25 Magnesium 1.9 mg/dL (1.7-2.2) 04/22/17 09:25 TIBC 144 ug/dL (265-497) L 04/21/17 08:58 Ferritin 2290.0 ng/mL 04/21/17 08:58 Total Bilirubin 0.3 mg/dL (0.2-1.3) 04/23/17 07:15 AST 29 U/L (14-36) 04/23/17 07:15 ALT 41 U/L (7-56) 04/23/17 07:15 Alkaline Phosphatase 89 U/L (38-126) 04/23/17 07:15 Total Protein 5.3 g/dL (5.8-8.3) L 04/23/17 07:15 Albumin 3.0 g/dL (3.0-4.8) 04/23/17 07:15 Globulin 2.3 gm/dL 04/23/17 07:15 Albumin/Globulin Ratio 1.3 (1.1-1.8) 04/23/17 07:15 Lipase 47 U/L (23-300) 04/20/17 23:13 Folate 7.5 ng/mL 04/21/17 08:58 Urine Color Yellow (YELLOW) 04/21/17 05:20 Urine Appearance Clear (CLEAR) 04/21/17 05:20 Urine pH 6.5 (4.7-8.0) 04/21/17 05:20 Ur Specific [place] 1.010 (1.005-1.035) 04/21/17 05:20 Urine Protein Negative mg/dL (<30 mg/dL) 04/21/17 05:20 Urine Glucose (UA) Negative mg/dL (NEGATIVE) 04/21/17 05:20 Urine Ketones Negative mg/dL (NEGATIVE) 04/21/17 05:20 Urine Blood Negative (NEGATIVE) 04/21/17 05:20 Urine Nitrate Negative (NEGATIVE) 04/21/17 05:20 Urine Bilirubin Negative (NEGATIVE) 04/21/17 05:20 Urine Urobilinogen 0.2 E.U./dL (<1 E.U./dL) 04/21/17 05:20 Ur Leukocyte Esterase Negative [place]/uL (NEGATIVE) 04/21/17 05:20 Stool Occult Blood Positive (NEGATIVE) H 04/22/17 15:30 Blood Type B POSITIVE 04/20/17 23:05 Antibody Screen Negative 04/20/17 23:05 BBK History Checked Patient has bt 04/20/17 23:05 - Hospital Course Hospital Course: This is a 62 yr. old female with a past medical history of RA, b-cell lymphoma, diverticulitis who have one episode of BRBPR at 9:30pm. Has had this before, and associated with hemorrhoids and constipation. Was discontinued earlier today after admission for epigastric abdominal pain and pancytopenia. Patient had an leukocytosis (18) at admission and a sepsis workup with ordered. CXR was done which showed no active disease. U/A, urine cx, and wound cx were ordered. Antibiotics were not ordered due to recent treatment with Neulasta. Patient was consulted by GI and it was decided to do a flex-sigmoidoscopy. Flexible sigmoidoscopy showed diverticulosis, hemorrhoids, and anal fissure. Patient stable and was discharged with instructions to follow up with Dr. Patricia and Dr. Cortes within one week of discharge. The referral to Dr. Cortes was given in the discharge instructions. Discharge Exam - Head Exam Head Exam: ATRAUMATIC, NORMAL INSPECTION, NORMOCEPHALIC - Eye Exam Eye Exam: EOMI, Normal appearance Pupil Exam: NORMAL ACCOMODATION, PERRL - ENT Exam ENT Exam: Mucous Membranes Moist - Respiratory Exam Respiratory Exam: Clear to PA & Lateral, NORMAL BREATHING PATTERN, UNREMARKABLE. absent: Wheezes - Cardiovascular Exam Cardiovascular Exam: REGULAR RHYTHM, RRR, +S1, +S2. absent: Gallop, Rubs - GI/Abdominal Exam GI & Abdominal Exam: Normal Bowel Sounds, Unremarkable - Extremities Exam Extremities exam: full ROM - Neurological Exam Neurological exam: Alert, CN II-XII Intact, Oriented x3 - Psychiatric Exam Psychiatric exam: Normal Affect, Normal Mood - Skin Skin Exam: Dry, Intact Discharge Plan - Discharge Medications Prescriptions: Docusate Sodium [Colace] 100 mg PO BID #28 capsule Lidocaine/Hydrocortisone AC [Lidocaine-Hc 3-0.5% Cream] 28.3 gm TP DAILY #1 cream..g. - Follow Up Plan Condition: STABLE Disposition: HOME/ ROUTINE Instructions: Gastrointestinal Bleeding (DC), Hemorrhoids (DC), Diverticulosis (DC), High Fiber Diet (DC), Diverticulosis Diet (GEN) Additional Instructions: Patient advised to follow up with PMD(Dr. Patricia) within one week. Patient advised to follow up with GI doctor(Dr. Cortes) within one week. Patient advised to follow up for OP colonoscopy. Patient advised to take sitz baths to improve hemorrhoid symptoms. Patient advised to return to [facility] for any new or worsening symptoms. Referrals: Bella Patricia DO [Primary Care Provider] - Trini Cortes MD [Medical Doctor] - <Jessika PEARCE,[facility] - Last Filed: 04/23/17 18:45> Provider - Provider Date of Admission: 04/21/17 00:57 Attending physician: Jessica Davis MD Primary care physician: Bella Patricia DO Hospital Course - Lab Results Lab Results: Micro Results 04/22/17 18:15 Neck Gram Stain - Final 04/22/17 18:15 Neck Wound Culture - Preliminary Gram Positive Cocci 04/21/17 06:00 Blood-Venous Blood Culture - Preliminary NO GROWTH AFTER 48 HOURS 04/21/17 06:30 Blood-Venous Blood Culture - Preliminary NO GROWTH AFTER 48 HOURS 04/21/17 07:00 Blood-Venous Blood Culture - Preliminary NO GROWTH AFTER 48 HOURS 09/13/17 18:29 Stool C. difficile Antigen & Toxin A,B (M - Final 04/21/17 05:20 Urine Urine Culture - Final No Growth (<1,000 CFU/ML) Most Recent Lab Values WBC 12.6 10^3/ul (4.5-11.0) H 04/23/17 07:15 RBC 3.66 10^6/uL (3.5-6.1) 04/23/17 07:15 Hgb 10.4 g/dL (12.0-16.0) L 04/23/17 07:15 Hct 31.5 % (36.0-48.0) L 04/23/17 07:15 MCV 86.1 fl (80.0-105.0) 04/23/17 07:15 MCH 28.4 pg (25.0-35.0) 04/23/17 07:15 MCHC 33.0 g/dl (31.0-37.0) 04/23/17 07:15 RDW 15.0 % (11.5-14.5) H 04/23/17 07:15 Plt Count 130 10^3/uL (120.0-450.0) 04/23/17 07:15 MPV 10.8 fl (7.0-11.0) 04/23/17 07:15 Gran % 72.5 % (50.0-68.0) H 04/23/17 07:15 Lymph % (Auto) 7.2 % (22.0-35.0) L 04/23/17 07:15 [place] % (Auto) 19.4 % (1.0-6.0) H 04/23/17 07:15 Eos % (Auto) 0.0 % (1.5-5.0) L 04/23/17 07:15 Baso % (Auto) 0.9 % (0.0-3.0) 04/23/17 07:15 Gran # 9.10 (1.4-6.5) H 04/23/17 07:15 Lymph # 0.9 (1.2-3.4) L 04/23/17 07:15 [place] # 2.4 (0.1-0.6) H 04/23/17 07:15 Eos # 0.0 (0.0-0.7) 04/23/17 07:15 Baso # 0.11 K/mm3 (0.0-2.0) 04/23/17 07:15 Neutrophils % (Manual) 65 % (50.0-70.0) 04/22/17 06:30 Band Neutrophils % 4 % (0-2) H 04/22/17 06:30 Lymphocytes % (Manual) 12 % (22.0-35.0) L 04/22/17 06:30 Atypical Lymphs % 4 % (0.0-0.0) H 04/22/17 06:30 Monocytes % (Manual) 8 % (1.0-6.0) H 04/22/17 06:30 Metamyelocytes % 4 % 04/22/17 06:30 Myelocytes % 3 % 04/22/17 06:30 Toxic Granulation 1+ 04/22/17 06:30 Platelet Evaluation Low (NORMAL) 04/22/17 06:30 Polychromasia Slight 04/22/17 06:30 Hypochromasia 1+ 04/22/17 06:30 Anisocytosis (manual) 1+ 04/22/17 06:30 Ovalocytes Slight 04/22/17 06:30 PT 12.8 Seconds (9.9-11.8) H 04/20/17 23:13 INR 1.19 (0.93-1.08) H 04/20/17 23:13 APTT 28.1 Seconds (23.7-30.8) 04/20/17 23:13 Sodium 142 mmol/L (132-148) 04/23/17 07:15 Potassium 3.2 mmol/L (3.6-5.0) L 04/23/17 07:15 Chloride 109 mmol/L (98-107) H 04/23/17 07:15 Carbon Dioxide 24 mmol/L (21-33) 04/23/17 07:15 Anion Gap 12 (10-20) 04/23/17 07:15 BUN 4 mg/dL (7-21) L 04/23/17 07:15 Creatinine 0.9 mg/dL (0.5-1.4) 04/23/17 07:15 Est GFR ( Amer) > 60 04/23/17 07:15 Est GFR (Non-Af Amer) > 60 04/23/17 07:15 Random Glucose 112 mg/dL (70-110) H 04/23/17 07:15 Calcium 8.1 mg/dL (8.4-10.5) L 04/23/17 07:15 Phosphorus 3.8 mg/dL (2.5-4.5) 04/22/17 09:25 Magnesium 1.9 mg/dL (1.7-2.2) 04/22/17 09:25 TIBC 144 ug/dL (265-497) L 04/21/17 08:58 Ferritin 2290.0 ng/mL 04/21/17 08:58 Total Bilirubin 0.3 mg/dL (0.2-1.3) 04/23/17 07:15 AST 29 U/L (14-36) 04/23/17 07:15 ALT 41 U/L (7-56) 04/23/17 07:15 Alkaline Phosphatase 89 U/L (38-126) 04/23/17 07:15 Total Protein 5.3 g/dL (5.8-8.3) L 04/23/17 07:15 Albumin 3.0 g/dL (3.0-4.8) 04/23/17 07:15 Globulin 2.3 gm/dL 04/23/17 07:15 Albumin/Globulin Ratio 1.3 (1.1-1.8) 04/23/17 07:15 Lipase 47 U/L (23-300) 04/20/17 23:13 Folate 7.5 ng/mL 04/21/17 08:58 Urine Color Yellow (YELLOW) 04/21/17 05:20 Urine Appearance Clear (CLEAR) 04/21/17 05:20 Urine pH 6.5 (4.7-8.0) 04/21/17 05:20 Ur Specific [place] 1.010 (1.005-1.035) 04/21/17 05:20 Urine Protein Negative mg/dL (<30 mg/dL) 04/21/17 05:20 Urine Glucose (UA) Negative mg/dL (NEGATIVE) 04/21/17 05:20 Urine Ketones Negative mg/dL (NEGATIVE) 04/21/17 05:20 Urine Blood Negative (NEGATIVE) 04/21/17 05:20 Urine Nitrate Negative (NEGATIVE) 04/21/17 05:20 Urine Bilirubin Negative (NEGATIVE) 04/21/17 05:20 Urine Urobilinogen 0.2 E.U./dL (<1 E.U./dL) 04/21/17 05:20 Ur Leukocyte Esterase Negative [place]/uL (NEGATIVE) 04/21/17 05:20 Stool Occult Blood Positive (NEGATIVE) H 04/22/17 15:30 Blood Type B POSITIVE 04/20/17 23:05 Antibody Screen Negative 04/20/17 23:05 BBK History Checked Patient has bt 04/20/17 23:05 Attending/Attestation - Attestation I have personally seen and examined this patient.: Yes I have fully participated in the care of the patient.: Yes I have reviewed all pertinent clinical information, including history, physical exam and plan: Yes Notes (Text): 04/23/17 18:42 Patient was seen and examined with medical claims specialist. Agreed with resident assessment and plan. Patient is a 62-year-old female with a history of B-cell lymphoma status post chemotherapy was admitted with rectal bleed. Hemoglobin is stable.Patient undwent flex sigmoidoscopy by Dr. Holder that showed hemmorhoid and anal fissure. Elevated WBC; secondary to Neulasta injection post chemotherapy. Patient is tolerating food, has been started on stool softener.Patient will be discharged today. Patient will follow-up with PMD Dr. Patricia/oncology dr. grider. Management plan was discussed in detail with patient Education was provided.
[2017-04-23] MEDS: Sucralfate 1 gm/10 ml Oral Susp UD PO SCH (11:30)
[2017-04-23] MEDS: Nystatin 100,000 Units/ml Oral Susp 5 ml UD PO SCH (11:31)
[2017-04-23] MEDS: Magnesium Oxide 400 mg Tab UD PO SCH (11:31)
[2017-04-23 11:32] VITALS: BP 110/78
--- NOTE | 2017-04-23 17:34 | CP.PCM.PN ---
<Maritza Yusuf - Last Filed: 04/23/17 17:33> Subjective - Date & Time of Evaluation Date of Evaluation: 04/23/17 Time of Evaluation: 10:00 - Subjective Subjective: Seen and examined at the bedside earlier today. The chart was reviewed. Patient eating breakfast, tolerating. No reports of further bleeding per rectum. Patient had flex sigmoidoscopy yesterday found to have diverticulosis in the sigmoid, anal fissure on rectal exam and internal and external hemorrhoids. C. difficile negative. Objective - Vital Signs/Intake and Output Vital Signs (last 24 hours): Temp Pulse Resp BP Pulse Ox 98.1 F 80 18 110/78 99 04/23/17 07:30 04/23/17 07:30 04/23/17 07:30 04/23/17 11:30 04/23/17 07:30 Intake and Output: 04/23/17 04/23/17 06:59 18:59 Intake Total 360 Output Total 0 Balance 360 - Labs Labs: 04/23/17 07:15 04/23/17 07:15 PT 12.8 Seconds (9.9-11.8) H 04/20/17 23:13 INR 1.19 (0.93-1.08) H 04/20/17 23:13 APTT 28.1 Seconds (23.7-30.8) 04/20/17 23:13 - Constitutional Appears: No Acute Distress - Head Exam Head Exam: NORMOCEPHALIC - Eye Exam Eye Exam: Normal appearance. absent: Scleral icterus - ENT Exam ENT Exam: Mucous Membranes Moist - Neck Exam Neck Exam: Normal Inspection - Respiratory Exam Respiratory Exam: NORMAL BREATHING PATTERN. absent: Respiratory Distress - Cardiovascular Exam Cardiovascular Exam: +S1, +S2 - GI/Abdominal Exam GI & Abdominal Exam: Soft, Normal Bowel Sounds. absent: Guarding, Tenderness, Rebound - Extremities Exam Extremities Exam: Normal Capillary Refill. absent: Calf Tenderness, Pedal Edema - Neurological Exam Neurological Exam: Alert, Awake, Oriented x3 - Skin Skin Exam: Dry, Warm Assessment and Plan - Assessment and Plan (Free Text) Assessment: Assessment: Rectal bleed, status post flexible sigmoidoscopy, sigmoid diverticulosis, internal and external hemorrhoids, anal fissure B-cell lymphoma, chemotherapy Rheumatoid arthritis Recent diverticulitis and possible pancreatitis Plan: diet as tolerated Continued Protonix Continue Carafate Continue stool softener Monitor H&H Seen and discussed with Dr. Cortes. <Trini Cortes V - Last Filed: 04/23/17 23:39> Objective - Vital Signs/Intake and Output Vital Signs (last 24 hours): Temp Pulse Resp BP Pulse Ox 98.1 F 80 18 110/78 99 04/23/17 07:30 04/23/17 07:30 04/23/17 07:30 04/23/17 11:30 04/23/17 07:30 - Labs Labs: 04/23/17 07:15 04/23/17 07:15 PT 12.8 Seconds (9.9-11.8) H 04/20/17 23:13 INR 1.19 (0.93-1.08) H 04/20/17 23:13 APTT 28.1 Seconds (23.7-30.8) 04/20/17 23:13 Attending/Attestation - Attestation I have personally seen and examined this patient.: Yes I have fully participated in the care of the patient.: Yes I have reviewed all pertinent clinical information, including history, physical exam and plan: Yes Notes (Text): This is an addendum to GI progress report dictated by Maritza Yusuf APN.The patient was seen and examined earlier. Medical records, lab studies, imagings were reviewed. Last 24 hours events reviewed. Agreed with the above treatment plan as outlined in Maritza Yusuf NP's notes the with the addition of the following patient was tolerating diet due to be discharged home today.. No further episodes of bleeding Flexible sigmoidoscopy revealed only diverticulosis and hemorrhoids Abdomen soft no tenderness Recommend elective colonoscopy discussed with patient at length and advised to follow-up with the oncologist PCP and GI 04/23/17 23:38
[2017-04-23] MEDS ORDERED: Oxycodone/Acetaminophen 5/325 mg Tab PO SCH (18:00)
[2017-04-24] MEDS ORDERED: Pantoprazole 40 mg EC Tab PO SCH (10:00)
== END 2017-04-23 12:17 | disposition home or self-care (01) ==
LOC: ED 21:49 → ERH 04-21 00:57 → 5RSO 04-21 02:46 → 5RNO 04-21 20:52
PROVIDERS: ADMIT Internal Medicine; ATTEND Internal Medicine
DX: K62.5 Hemorrhage of anus and rectum (principal); K60.2 Anal fissure, unspecified; K57.30 Diverticulosis of large intestine without perforation or abscess without bleeding; C85.11 Unspecified B-cell lymphoma, lymph nodes of head, face, and neck; D61.818 Other pancytopenia; K64.8 Other hemorrhoids; K64.4 Residual hemorrhoidal skin tags; K12.30 Oral mucositis (ulcerative), unspecified; M06.9 Rheumatoid arthritis, unspecified; D72.829 Elevated white blood cell count, unspecified; T45.8X5A Adverse effect of other primarily systemic and hematological agents, initial encounter
CPT/HCPCS: 36415; 45330; 71010; 80053; 81003; 82728; 82746; 83550; 83690; 83735; 84100; 85025; 85027; 85610; 85730; 86850; 86900; 87040; 87070; 87086; 87181; 87324; 96361; 96374; 96375; 99285; C9113; G0328; G0378; J1170; J2270; J2405; J3475; J3480; J7040; J7042; J7060

== ENCOUNTER 2017-05-10 20:49 | Inpatient (IN) | payer MEDICARE, OTHER ==
[2017-05-10 21:08] VITALS: BMI 21.1
--- NOTE | 2017-05-10 21:23 | ED PDOC ---
"Arrival/HPI - General Chief Complaint: GI Problem Time Seen by Provider: 05/10/17 20:56 Historian: Patient - History of Present Illness Narrative History of Present Illness (Text): 05/10/17 21:18 62 y/o female, pmh including lymphoma (Last chemo 05/01/2017, oncologist Dr. Hoffman)/renal failure/diverticulitis/pancytopenia/GI bleed, nkda, c/o abdominal pain/nausea/vomiting/diarrhea/fever x 1 day. Pt. stated that she has 5 episodes of watery diarrhea today with nausea and vomiting, epigastric abdominal pain, no night sweat, no rash, no coughing, no recent traveling or use of the antibiotics for the past 3-4 weeks, no dizziness, no other medical or psychological complaints. Past Medical History - Provider Review Nursing Documentation Reviewed: Yes - Infectious Disease Hx of Infectious Diseases: None - Cardiac Hx Cardiac Disorders: No - Pulmonary Hx Respiratory Disorders: No - Neurological Hx Neurological Disorder: No - HEENT Hx HEENT Disorder: No - Renal Hx Renal Disorder: No - Endocrine/Metabolic Hx Endocrine Disorders: No - Hematological/Oncological Hx Blood Transfusions: Yes Hx Cancer: Yes (lymphoma) Hx Chemotherapy: Yes (05/01) - Integumentary Hx Dermatological Disorder: Yes Other/Comment: lump to L neck - Musculoskeletal/Rheumatological Hx Rheumatoid Arthritis: Yes - Gastrointestinal Hx Gastroesophageal Reflux: Yes Hx Pancreatitis: Yes HX Swallowing Problems: Yes - Genitourinary/Gynecological Hx Genitourinary Disorders: No - Psychiatric Hx Psychophysiologic Disorder: No Hx Emotional Abuse: No Hx Physical Abuse: No Hx Substance Use: No - Surgical History Hx Tonsillectomy: Yes Hx Tubal Ligation: Yes - Anesthesia Hx Anesthesia: Yes Hx Anesthesia Reactions: No Hx Malignant Hyperthermia: No - Suicidal Assessment Feels Threatened In Home Enviroment: No Family/Social History - Physician Review Nursing Documentation Reviewed: Yes Family/Social History: Unknown Family HX Smoking Status: Never Smoked Hx Alcohol Use: Yes (Social) Hx Substance Use: No Allergies/Home Meds Allergies/Adverse Reactions: Allergies No Known Allergies Allergy (Verified 05/10/17 21:08) Home Medications: Home Meds Medication Instructions Recorded Confirmed Dronabinol [Marinol] 2.5 mg PO DAILY 05/10/17 05/10/17 Ondansetron HCl [Zofran] 4 mg PO TID PRN 05/10/17 05/10/17 Review of Systems - Review of Systems Constitutional: Fatigue, Fevers Eyes: absent: Vision Changes ENT: absent: Hearing Changes Respiratory: absent: SOB, Cough Cardiovascular: absent: Chest Pain Gastrointestinal: Abdominal Pain, Diarrhea, Nausea, Vomiting Musculoskeletal: absent: Arthralgias, Myalgias Skin: absent: Rash, Pruritis Neurological: absent: Headache, Dizziness Physical Exam Vital Signs Reviewed: Yes Vital Signs Temp Pulse Resp BP Pulse Ox 05/11/17 01:54 88 17 119/86 99 05/11/17 00:55 98.4 F 86 17 131/85 97 05/11/17 00:19 91 H 22 97 05/10/17 21:09 99.3 F 96 H 16 167/97 H 98 Temperature: Afebrile Blood Pressure: Hypertensive Pulse: Regular Respiratory Rate: Normal Appearance: Positive for: Well-Appearing, Non-Toxic, Comfortable Pain Distress: Mild Mental Status: Positive for: Alert and Oriented X 3 - Systems Exam Head: Present: Atraumatic, Normocephalic Pupils: Present: PERRL Extroacular Muscles: Present: EOMI Conjunctiva: Present: Normal Mouth: Present: Moist Mucous Membranes Neck: Present: Normal Range of Motion Respiratory/Chest: Present: Clear to Auscultation, Good Air Exchange. No: Respiratory Distress, Accessory Muscle Use Cardiovascular: Present: Regular Rate and Rhythm, Normal S1, S2. No: Murmurs Abdomen: Present: Tenderness (+epigastric and lower abdominal ), Normal Bowel Sounds. No: Distention, Peritoneal Signs, Rebound, Guarding Back: Present: Normal Inspection Upper Extremity: Present: Normal Inspection. No: Cyanosis, Edema Lower Extremity: Present: Normal Inspection. No: Edema Neurological: Present: GCS=15, Speech Normal, Motor Func Grossly Intact, Gait Normal, Memory Normal Skin: Present: Warm, Dry, Normal Color. No: Rashes Psychiatric: Present: Alert, Oriented x 3, Normal Insight, Normal Concentration Medical Decision Making ED Course and Treatment: 05/10/17 21:28 -labs/ua/rapid flu/stool and c.diffe culture -ekg/cxr -CT abdomen and pelvis -IVF/pepcid/zofran -Observe and reassess 05/11/17 00:14 -NSR @ 88 BPM , no ST elevation or depression, no T wave inversion. -Chest xray: no active disease -CT Abdomen and pelvis: colitis vs. diverticulitis -Labs show: wbc 25.4 (stated that she is on a medication injection that will boost the wbc), K+ 2.7 (potassium po 20 and IV 20 ordered.), blood cultures added -UA show: mild leukocyte -Rapid flu show:negative -There is bandemia of 19, Rocephine and flagyl ordered. 05/11/17 00:22 -Paged out to Dr. Devries which she is covering Dr. Patricia. -I discussed with the patient and , agreed to be admitted. 05/11/17 00:29 -Dr. Devries called back and request to be admitted to the hospitalist. -Hospitalist and medical office clerk paged. 05/11/17 00:31 -I spoke to the medical office clerk DR. Reece and hospitalist DR. Woody Lyles, discussed about the case/labs/radiology results/vital signs, will admit the patient -I discussed the case with DR. Blanc, reviewed labs/radiology results together , agreed on the admission and he will put in the admission order. - Lab Interpretations Microbiology Results: Microbiology Results 05/10/17 22:50 Blood-Venous Blood Culture - Preliminary NO GROWTH AFTER 24 HOURS 05/10/17 22:30 Blood-Venous Blood Culture - Preliminary NO GROWTH AFTER 24 HOURS Lab Results: 05/10/17 22:00 05/10/17 22:00 Lab Results 05/10/17 22:49: pO2 74 H, VBG pH 7.46 H, VBG pCO2 42.0, VBG HCO3 29.9 H, VBG Total CO2 31.2 H, VBG O2 Sat (Calc) 97.4 H, VBG Base Excess 5.4 H, VBG Potassium 2.9 L, Glucose 110 H, Lactate 0.6 L, FiO2 21.0, Sodium 140.0, Chloride 106.0, Venous Blood Potassium 2.9 L 05/10/17 22:43: Urine Color Yellow, Urine Appearance Clear, Urine pH 7.5, Ur Specific [place] 1.010, Urine Protein Negative, Urine Glucose (UA) Negative, Urine Ketones Negative, Urine Blood Small H, Urine Nitrate Negative, Urine Bilirubin Negative, Urine Urobilinogen 0.2, Ur Leukocyte Esterase Trace H, Urine RBC 0 - 2, Urine WBC 1 - 3, Ur Epithelial Cells 3 - 4, Urine Bacteria Few 05/10/17 22:05: Influenza Typ A,B (EIA) Negative for flu a/b 05/10/17 22:00: Sodium 139, Potassium 2.7 L*, Chloride 102, Carbon Dioxide 30, Anion Gap 10, BUN 4 L, Creatinine 0.9, Est GFR ( Amer) > 60, Est GFR (Non -Af Amer) > 60, Random Glucose 109, Calcium 8.7, Total Bilirubin 0.3, AST 47 H D , ALT 46, Alkaline Phosphatase 119, Total Protein 5.6 L, Albumin 3.3, Globulin 2.3, Albumin/Globulin Ratio 1.4, Lipase 32 05/10/17 22:00: WBC 25.4 H* D, RBC 3.77, Hgb 11.1 L, Hct 32.7 L, MCV 86.7, MCH 29.4, MCHC 33.9, RDW 15.4 H, Plt Count 74 L, MPV 10.9, Johnson % (Auto) 6.0, Eos % (Auto) 0.0 L, Baso % (Auto) 1.3, Johnson # 1.5 H, Eos # 0.0, Baso # 0.34, Neutrophils % (Manual) 55, Band Neutrophils % 19 H*, Lymphocytes % (Manual) 7 L , Atypical Lymphs % 4 H, Monocytes % (Manual) 7 H, Metamyelocytes % 1, Myelocytes % 8, Platelet Evaluation Low Interpretation: Abnormal lab values (wbc 25.4, K+ 2.7,) - RAD Interpretation Radiology Orders: 05/10/17 21:24 ABD & PELVIS IV CONTRAST ONLY [CT] Stat 05/10/17 21:26 CHEST PORTABLE [RAD] Stat -Chest xray: mimimal atelectasis -CT Abdomen and pelvis: INDINGS: Lower thorax: Mild atelectasis/scarring. ABDOMEN: Liver: Several subcentimeter hypodense lesions within liver, decreased in size and number from prior examination. Gallbladder and bile ducts: No calcified stones. No ductal dilation. Pancreas: No ductal dilation. No mass. Spleen: No splenomegaly. Adrenals: No mass. Kidneys and ureters: LEFT renal cyst. No hydronephrosis. Stomach and bowel: Few scattered diverticula within colon. [id number] mural thickening of sigmoid colon. Mild stranding about proximal sigmoid colon. Segmental areas of mild mural thickening vs underdistention of remaining colon. No associated inflammatory stranding. No obstruction. WENDI SRINIVASAN | Final Radiology Report CONFIDENTIALITY STATEMENT This report is intended only for use by the referring physician, and only in accordance with law. If you received this in error, call [phone]. Page 2 of 2 Appendix: No findings to suggest acute appendicitis. PELVIS: Bladder: Borderline bladder wall thickening, up to 5 mm. Incomplete distention, limiting evaluation. Reproductive: Unremarkable as visualized. ABDOMEN and PELVIS: Intraperitoneal space: No significant fluid collection. No free air. Bones/joints: Early degenerative changes of spine. No acute fracture. Soft tissues: Unremarkable. Vasculature: Unremarkable. No aneurysm. Lymph nodes: No pathologically enlarged lymph nodes. IMPRESSION: 1. Sigmoid diverticulitis versus colitis. Mild colitis versus underdistention of remaining colon. Recommend endoscopy following resolution. 2. Interval improvement in presumed hepatic metastases. 3. Mild cystitis vs underdistention. Correlate with urinalysis. 4. Incidental/non-acute findings are described above. Thank you for allowing us to participate in the care of your patient. Dictated and Authenticated by: Brayan Michaels MD 05/11/2017 12:12 AM Eastern Time ([place] & [place]) Corporate Learning Consultant: Radiologist - EKG Interpretation EKG Interpretation (Text): 05/10/17 21:46 NSR @ 88 BPM , no ST elevation or depression, no T wave inversion. Interpreted by ED Physician: Yes Type: 12 lead EKG - Medication Orders Current Medication Orders: Dronabinol (Marinol) 2.5 mg PO DAILY PENDING SALE TO [facility] Last Admin: 05/11/17 23:07 Dose: 2.5 mg Famotidine (Pepcid) 20 mg IVP DAILY PENDING S[facility] TO [facility] Last Admin: 05/11/17 10:09 Dose: 20 mg IVP Administration Document 05/11/17 10:09 [facility] (Rec: 05/11/17 10:09 [facility] [id number]) Charges for Administration # of IVP Administrations 1 Sodium Chloride (Sodium Chloride 0.9%) 1,000 mls @ 100 mls/hr IV .Q10H PENDING SALE TO [facility] Last Admin: 05/11/17 21:58 Dose: 100 mls/hr eMAR Start Stop Document 05/11/17 21:58 RR (Rec: 05/11/17 21:58 RR [id number]) Intravenous Solution Start Date 05/11/17 Start Time 21:58 Metronidazole (Flagyl) 500 mg in 100 mls @ 100 mls/hr IVPB Q8 TISHA PRN Reason: Protocol Last Admin: 05/12/17 05:13 Dose: 100 mls/hr eMAR Start Stop Document 05/12/17 05:13 RR (Rec: 05/12/17 05:13 RR [id number]) Intravenous Solution Start Date 05/12/17 Start Time 05:13 End Date 05/12/17 End time 06:13 Total Infusion Time 60 Ceftriaxone Sodium (Rocephin 1 Gram Ivpb) 1 gm in 100 mls @ 100 mls/hr IVPB DAILY TISHA PRN Reason: Protocol Last Admin: 05/11/17 10:11 Dose: 100 mls/hr eMAR Start Stop Document 05/11/17 10:11 [facility] (Rec: 05/11/17 10:13 [facility] [id number]) Intravenous Solution Start Date 05/11/17 Start Time 10:12 End Date 05/11/17 End time 11:12 Total Infusion Time 60 Ondansetron HCl (Zofran Inj) 4 mg IVP Q6H PRN PRN Reason: Nausea/Vomiting Last Admin: 05/12/17 08:48 Dose: 4 mg IVP Administration Document 05/12/17 08:48 [facility] (Rec: 05/12/17 08:48 [id number]) Charges for Administration # of IVP Administrations 1 Discontinued Medications Famotidine (Pepcid) 20 mg IVP STAT STA Stop: 05/10/17 21:25 Last Admin: 05/10/17 22:17 Dose: 20 mg IVP Administration Document 05/10/17 22:17 [email or web address] (Rec: 05/10/17 22:17 [email or web address] [id number]) Charges for Administration # of IVP Administrations 1 Potassium Chloride (Potassium Chloride 20 Meq/100 Ml) 20 meq in 100 mls @ 50 mls/hr IVPB Q2H TISHA Stop: 05/11/17 02:44 Last Admin: 05/11/17 02:42 Dose: 50 mls/hr eMAR Start Stop Document 05/11/17 02:42 SD (Rec: 05/11/17 02:43 SD [id number]) Intravenous Solution Start Date 05/11/17 Start Time 02:43 Ceftriaxone Sodium (Rocephin 1 Gram Ivpb) 1 gm in 100 mls @ 200 mls/hr IVPB STAT STA PRN Reason: Protocol Stop: 05/11/17 00:41 Last Admin: 05/11/17 01:39 Dose: 200 mls/hr eMAR Start Stop Document 05/11/17 01:39 [email or web address] (Rec: 05/11/17 01:[id number]) Intravenous Solution Start Date 05/11/17 Start Time 01:39 End Date 05/11/17 Metronidazole (Flagyl) 500 mg in 100 mls @ 100 mls/hr IVPB STAT STA PRN Reason: Protocol Stop: 05/11/17 01:12 Last Admin: 05/11/17 21:57 Dose: Sodium Chloride (Sodium Chloride 0.9%) 1,000 mls @ 200 mls/hr IV .Q5H TISHA Last Admin: 05/11/17 00:51 Dose: 200 mls/hr eMAR Start Stop Document 05/11/17 00:51 [email or web address] (Rec: 05/11/17 00:[id number]- [id number]) Intravenous Solution Start Date 05/11/17 Start Time 00:51 End Date 05/11/17 Morphine Sulfate (Morphine) 4 mg IVP STAT STA Stop: 05/11/17 00:22 Last Admin: 05/11/17 00:56 Dose: Not Given Non-Admin Reason: Patient Refused Ondansetron HCl (Zofran Inj) 4 mg IVP STAT STA Stop: 05/10/17 21:25 Last Admin: 05/10/17 22:17 Dose: 4 mg IVP Administration Document 05/10/17 22:17 [email or web address] (Rec: 05/10/17 22:17 [id number]) Charges for Administration # of IVP Administrations 1 Potassium Chloride (K-Dur 20 Meq Er Tab) 20 meq PO STAT STA Stop: 05/10/17 22:44 Last Admin: 05/11/17 00:12 Dose: 20 meq Potassium Chloride (Potassium Chloride Oral Soln) 20 meq PO STAT STA Stop: 05/11/17 12:38 Last Admin: 05/11/17 12:48 Dose: 20 meq Potassium Chloride (K-Dur 20 Meq Er Tab) 20 meq PO ONCE ONE Stop: 05/12/17 08:11 - PA / WOOD MILLER / Resident Statement /DO has reviewed & agrees with the documentation as recorded. Disposition/Present on Arrival - Present on Arrival Any Indicators Present on Arrival: No History of DVT/PE: No History of Uncontrolled Diabetes: No Urinary Catheter: No History of Decub. Ulcer: No History Surgical Site Infection Following: None - Disposition Have Diagnosis and Disposition been Completed?: Yes Diagnosis: Hypokalemia, Bandemia, Leukocytosis, Colitis, Diverticulitis Disposition: HOSPITALIZED Disposition Time: 00:15 Patient Plan: Admission Patient Problems: Current Active Problems Problem Status Onset Hypokalemia Acute Bandemia Acute Leukocytosis Acute Colitis Acute Diverticulitis Acute Condition: STABLE"
[2017-05-10 22:32] LABS: ALB/GLOB RATIO 1.4 (1.1-1.8); ALKALINE PHOSPHATASE 119 U/L (38-126); ALT/SGPT 46 U/L (7-56); AST/SGOT 47 U/L (14-36); BILIRUBIN,TOTAL 0.3 mg/dL (0.2-1.3); BLOOD UREA NITROGEN 4 mg/dL (7-21); CALCIUM 8.7 mg/dL (8.4-10.5); CARBON DIOXIDE 30 mmol/L (21-33); CHLORIDE 102 mmol/L (98-107); GFR AFRICAN-AMERICAN > 60; GLUCOSE,RANDOM 109 mg/dL (70-110); LIPASE 32 U/L (23-300); SODIUM 139 mmol/L (132-148); TOTAL PROTEIN 5.6 g/dL (5.8-8.3)
[2017-05-10 22:36] LABS: BASO # 0.34 K/mm3 (0.0-2.0); BASO % 1.3 % (0.0-3.0); HEMATOCRIT 32.7 % (36.0-48.0); MEAN CELL VOLUME 86.7 fl (80.0-105.0); MEAN CORPUSCULAR HEMOGLOBIN 29.4 pg (25.0-35.0); MEAN CORPUSCULAR HGB CONC 33.9 g/dl (31.0-37.0); MEAN PLATELET VOLUME 10.9 fl (7.0-11.0); MONO # 1.5 (0.1-0.6); PLATELET COUNT 74 10^3/uL (120.0-450.0); POTASSIUM 2.7 mmol/L (3.6-5.0); RED CELL DISTRIBUTION WIDTH 15.4 % (11.5-14.5)
[2017-05-10 22:38] LABS: WHITE BLOOD COUNT 25.4 10^3/ul (4.5-11.0)
[2017-05-10] MEDS ORDERED: Potassium Chloride 20 mEq ER Tab PO STA (22:43)
[2017-05-10 22:54] LABS: PH,URINE 7.5 (4.7-8.0); URINE BILIRUBIN NEGATIVE (NEGATIVE); URINE BLOOD SMALL (NEGATIVE); URINE GLUCOSE (UA) NEGATIVE (NEGATIVE); URINE KETONE NEGATIVE (NEGATIVE); URINE LEUKOCYTE ESTERASE TRACE Leu/uL (NEGATIVE); URINE PROTEIN NEGATIVE mg/dL (<30 mg/dL); URINE UROBILINOGEN 0.2 E.U./dL (<1 E.U./dL)
[2017-05-10 22:58] LABS: URINE APPEARANCE CLEAR (CLEAR); URINE COLOR YELLOW (YELLOW)
[2017-05-10] MEDS ORDERED: Iohexol 350 MG/100 ML VIAL ONE (22:58)
[2017-05-10 23:10] LABS: URINE RBC 0 - 2 /hpf (0-2)
[2017-05-10 23:11] LABS: URINE BACTERIA FEW (NEG)
[2017-05-10 23:27] LABS: VENOUS BLOOD GAS BASE EXCESS 5.4 mmol/L (0.0-2.0); VENOUS BLOOD PH 7.46 (7.32-7.43)
[2017-05-11 00:07] LABS: NEUTROPHIL 55 % (50.0-70.0)
[2017-05-11 00:08] LABS: ATYPICAL LYMPHOCYTE 4 % (0.0-0.0); BAND 19 % (0-2); METAMYELOCYTE 1 %; MYELOCYTE 8 %; PLATELET ESTIMATE LOW (NORMAL)
[2017-05-11] MEDS ORDERED: cefTRIAXone 1 gm 1 GM/100 ML BAG IVPB STA (00:12)
--- NOTE | 2017-05-11 00:12 | CT ---
EXAM: CT Abdomen and Pelvis With Intravenous Contrast CLINICAL HISTORY: 62 years old, female; Signs and symptoms; Nausea and vomiting; Prior surgery; Surgery date: 6+ months; Surgery type: Tubal ligation c section; Additional info: Abdominal pain/nausea/vomiting/diarrhea TECHNIQUE: Axial computed tomography images of the abdomen and pelvis with intravenous contrast. All CT scans at this facility use one or more dose reduction techniques, viz.: automated exposure control; ma/kV adjustment per patient size (including targeted exams where dose is matched to indication; i.e. head); or iterative reconstruction technique. CONTRAST: 100 mL of OMNI 350 administered intravenously. COMPARISON: CT - 04/16/2017, 02/25/2017 FINDINGS: Lower thorax: Mild atelectasis/scarring. ABDOMEN: Liver: Several subcentimeter hypodense lesions within liver, decreased in size and number from prior examination. Gallbladder and bile ducts: No calcified stones. No ductal dilation. Pancreas: No ductal dilation. No mass. Spleen: No splenomegaly. Adrenals: No mass. Kidneys and ureters: LEFT renal cyst. No hydronephrosis. Stomach and bowel: Few scattered diverticula within colon. [id number] mural thickening of sigmoid colon. Mild stranding about proximal sigmoid colon. Segmental areas of mild mural thickening vs underdistention of remaining colon. No associated inflammatory stranding. No obstruction. Appendix: No findings to suggest acute appendicitis. PELVIS: Bladder: Borderline bladder wall thickening, up to 5 mm. Incomplete distention, limiting evaluation. Reproductive: Unremarkable as visualized. ABDOMEN and PELVIS: Intraperitoneal space: No significant fluid collection. No free air. Bones/joints: Early degenerative changes of spine. No acute fracture. Soft tissues: Unremarkable. Vasculature: Unremarkable. No aneurysm. Lymph nodes: No pathologically enlarged lymph nodes. IMPRESSION: 1. Sigmoid diverticulitis versus colitis. Mild colitis versus underdistention of remaining colon. Recommend endoscopy following resolution. 2. Interval improvement in presumed hepatic metastases. 3. Mild cystitis vs underdistention. Correlate with urinalysis. 4. Incidental/non-acute findings are described above.
[2017-05-11] MEDS ORDERED: metroNIDAZOLE IV 500 mg/100 ml 500 MG/100 ML BAG IVPB STA (00:13)
[2017-05-11] MEDS ORDERED: Morphine 4 mg/ml ISec IVP STA (00:21)
[2017-05-11] MEDS ORDERED: Sodium Chloride 0.9% 1,000 ML IV SCH (00:30)
[2017-05-11] MEDS: Sodium Chloride 0.9% 1,000 ML IV SCH ×3 (01:39→21:58)
--- NOTE | 2017-05-11 03:55 | CP.PCM.HP ---
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 Patient states abdominal pain began 4 days prior but diarrhea began 06/10/17 at 12 pm. Patient states she had 5 episodes of diarrhea, each episode being non bloody and non mucosal. Patient states she was admitted for similar symptoms a month prior and that these smyptoms began s/p chemotherapy treatments. Patient cannot recall chemotherapeutic agents, but states she receives around 5 treatments Thu-, a special treatment on Thursday and another on Thursday. Patient denies vomiting, fevers, chest pain, shortness of breath, weakness. PMD: Dr. Patricia Present on Admission - Present on Admission Any Indicators Present on Admission: No Review of Systems - Review of Systems Systems not reviewed;Unavailable: Acuity of Condition - Constitutional Constitutional: Chills, Fatigue. absent: Anorexia, Fever - Cardiovascular Cardiovascular: absent: Chest Pain, Dyspnea - Respiratory Respiratory: absent: Cough, Dyspnea - Gastrointestinal Gastrointestinal: Abdominal Pain, Diarrhea, Nausea. absent: Vomiting - Genitourinary Genitourinary: absent: Difficulty Urinating, Dysuria - Musculoskeletal Musculoskeletal: absent: Abnormal Gait, Back Pain - Integumentary Integumentary: absent: Alopecia, Bleeding Lesions - Neurological Neurological: Abnormal Gait. absent: Abnormal Hearing, Abnormal Movements - Psychiatric Psychiatric: absent: Abnormal Sleep Pattern, Anxiety Past Patient History - Infectious Disease Hx of Infectious Diseases: None - Past Social History Smoking Status: Never Smoked - CARDIAC Hx Cardiac Disorders: No - PULMONARY Hx Respiratory Disorders: No - NEUROLOGICAL Hx Neurological Disorder: No - HEENT Hx HEENT Problems: No - RENAL Hx Chronic Kidney Disease: No - ENDOCRINE/METABOLIC Hx Endocrine Disorders: No - HEMATOLOGICAL/ONCOLOGICAL Hx Blood Transfusions: Yes Hx Cancer: Yes (lymphoma) Hx Chemotherapy: Yes (05/01) - INTEGUMENTARY Hx Dermatological Problems: Yes Other/Comment: lump to L neck - MUSCULOSKELETAL/RHEUMATOLOGICAL Hx Rheumatoid Arthritis: Yes - GASTROINTESTINAL Hx Gastroesophageal Reflux: Yes Hx Pancreatitis: Yes HX Swallowing Problems: Yes - GENITOURINARY/GYNECOLOGICAL Hx Genitourinary Disorders: No - PSYCHIATRIC Hx Psychophysiologic Disorder: No Hx Emotional Abuse: No Hx Physical Abuse: No Hx Substance Use: No - SURGICAL HISTORY Hx Tonsillectomy: Yes Hx Tubal Ligation: Yes - ANESTHESIA Hx Anesthesia: Yes Hx Anesthesia Reactions: No Hx Malignant Hyperthermia: No Meds Allergies/Adverse Reactions: Allergies Allergy/AdvReac Type Severity Reaction Status Date / Time No Known Allergies Allergy Verified 05/10/17 21:08 Physical Exam - Constitutional Appears: In Acute Distress - Head Exam Head Exam: ATRAUMATIC, NORMAL INSPECTION, NORMOCEPHALIC - Eye Exam Eye Exam: EOMI, Normal appearance - ENT Exam ENT Exam: Mucous Membranes Moist, Normal Exam - Neck Exam Neck exam: Positive for: Normal Inspection - Respiratory Exam Respiratory Exam: Clear to Auscultation Bilateral, NORMAL BREATHING PATTERN. absent: Wheezes - Cardiovascular Exam Cardiovascular Exam: RRR, +S1, +S2. absent: Gallop, Systolic Murmur - GI/Abdominal Exam GI & Abdominal Exam: Normal Bowel Sounds, Soft. absent: Distended, Guarding, Rebound, Rigid Additional comments: LLQ tenderness upon palpation - Extremities Exam Extremities exam: Positive for: normal inspection - Back Exam Back exam: NORMAL INSPECTION - Neurological Exam Neurological exam: Alert, CN II-XII Intact, Oriented x3 - Psychiatric Exam Psychiatric exam: Normal Affect, Normal Mood - Skin Skin Exam: Normal Color, Warm Results - Vital Signs Recent Vital Signs: Last Vital Signs Temp 98.4 F 05/11/17 00:55 Pulse 88 05/11/17 01:54 Resp 17 05/11/17 01:54 BP 119/86 05/11/17 01:54 Pulse Ox 99 05/11/17 01:54 - Labs Result Diagrams: 05/10/17 22:00 05/10/17 22:00 Assessment & Plan - Assessment and Plan (Free Text) Assessment: Assessment 62 year old female presenting with abdominal pain found to have sigmoid diverticulitis vs colitis Plan: Plan 1.Sigmoid diverticulitis vs colitis - WBC 25.4; CBC, CMP for morning comparison - Cori - Nasima - Simeon - NS @ 100 - NPO - GI consult; recs appreciated 2. Hypokalemia - KCL; recheck potassium with morning labs DVT/GI prophylaxis - SCDs and Pepcid
[2017-05-11] MEDS: metroNIDAZOLE IV 500 mg/100 ml 500 MG/100 ML BAG IVPB SCH ×3 (06:19→21:57)
[2017-05-11 07:16] LABS: HEMATOCRIT 32.1 % (36.0-48.0); MEAN CELL VOLUME 86.8 fl (80.0-105.0); MEAN CORPUSCULAR HEMOGLOBIN 28.6 pg (25.0-35.0); MEAN PLATELET VOLUME 10.6 fl (7.0-11.0); PLATELET COUNT 77 10^3/uL (120.0-450.0); RED CELL DISTRIBUTION WIDTH 15.6 % (11.5-14.5); WHITE BLOOD COUNT 22.2 10^3/ul (4.5-11.0)
[2017-05-11 07:25] LABS: ALB/GLOB RATIO 1.3 (1.1-1.8); ALKALINE PHOSPHATASE 98 U/L (38-126); ALT/SGPT 41 U/L (7-56); AST/SGOT 37 U/L (14-36); BILIRUBIN,TOTAL 0.2 mg/dL (0.2-1.3); BLOOD UREA NITROGEN 3 mg/dL (7-21); CALCIUM 8.4 mg/dL (8.4-10.5); CARBON DIOXIDE 28 mmol/L (21-33); CHLORIDE 107 mmol/L (98-107); GFR AFRICAN-AMERICAN > 60; GLUCOSE,RANDOM 107 mg/dL (70-110); POTASSIUM 3.5 mmol/L (3.6-5.0); SODIUM 142 mmol/L (132-148); TOTAL PROTEIN 5.2 g/dL (5.8-8.3)
--- NOTE | 2017-05-11 08:55 | RAD ---
HISTORY: medical clearance COMPARISON: Portable chest 04/21/2017. FINDINGS: Stable right sided chest port catheter again evident. LUNGS: Linear atelectasis appreciate the inferior left lung zone as well as the mid to inferior right lung zone laterally. The bilateral lung hearn are otherwise clear. PLEURA: No significant pleural effusion identified, no pneumothorax apparent. CARDIOVASCULAR: Normal. OSSEOUS STRUCTURES: No significant abnormalities. VISUALIZED UPPER ABDOMEN: Normal. OTHER FINDINGS: None. IMPRESSION: Minimal linear atelectasis appreciated bilaterally with no obvious alveolitis pleural effusion or pneumothorax bilaterally. Right chest port unchanged in position.
--- NOTE | 2017-05-11 09:11 | CP.PCM.CON ---
<Tahir Maria - Last Filed: 05/11/17 09:59> History of Present Illness - History of Present Illness History of Present Illness: Initial GI Consult Note Zelda Bobo is a 62F with hx of Diffuse B-cell Lymphoma with liver mets who presents to the ER with complaints of diarrhea and abd pain. Pt states that the onset was 1 day prior. She states that she had around 4-5 BM, which were watery with some formed stool. She denies any BRBPR, melena, or mucus. She states that she also had some abd pain. Located in the epigastric and LUQ area. It was non- radiating and intermittent. She described it has "crampy and bloaty." She states that the pain peaked at 5 out of 10. Aggravating factors: food. Alleviating factors: passing flatus and BM. She was admitted overnight and managed conservatively. Her Ct Abd revealed possible uncomplicated sigmoid diverticulitis. She has had 1 BM since last night and it was soft. She notes her abd pain had resolved. She states that she also experienced chills, but denies any fever or diaphoresis. Denies any recent travel. She is getting active chemotherapy. Her last tx was 2 weeks ago and she supposed to continue her tx next week. She has been hospitalized 2 times in the last 3 months. In 2016, she presented with pancreatitis then developed sigmoid diverticulitis. In 04/2017, she presented with rectal bleeding and thought to be from her hemorrhoids based on flex-sig findings. PMHx: See HPI PSHx: Tubal ligation, left breast cyst removal, tonsillectomy FHx: Mother - Lung cancer Social: Denies tobacco, EtOH or illicit drug use Endo: EGD 4-3 years ago - No significant findings per patient; flex-sig 04/2017 : hemorrhoids 12 system ROS performed and negative except where stated above Past Patient History - Infectious Disease Hx of Infectious Diseases: None - Past Social History Smoking Status: Never Smoked - CARDIAC Hx Cardiac Disorders: No - PULMONARY Hx Respiratory Disorders: No - NEUROLOGICAL Hx Neurological Disorder: No - HEENT Hx HEENT Problems: No - RENAL Hx Chronic Kidney Disease: No - ENDOCRINE/METABOLIC Hx Endocrine Disorders: No - HEMATOLOGICAL/ONCOLOGICAL Hx Blood Transfusions: Yes Hx Cancer: Yes (lymphoma) Hx Chemotherapy: Yes (05/01) - INTEGUMENTARY Hx Dermatological Problems: Yes Other/Comment: lump to L neck - MUSCULOSKELETAL/RHEUMATOLOGICAL Hx Falls: No - GASTROINTESTINAL Hx Gastroesophageal Reflux: Yes Hx Pancreatitis: Yes HX Swallowing Problems: Yes - GENITOURINARY/GYNECOLOGICAL Hx Genitourinary Disorders: No - PSYCHIATRIC Hx Psychophysiologic Disorder: No Hx Emotional Abuse: No Hx Physical Abuse: No Hx Substance Use: No - SURGICAL HISTORY Hx Tonsillectomy: Yes Hx Tubal Ligation: Yes - ANESTHESIA Hx Anesthesia: Yes Hx Anesthesia Reactions: No Hx Malignant Hyperthermia: No Meds Allergies/Adverse Reactions: Allergies Allergy/AdvReac Type Severity Reaction Status Date / Time No Known Allergies Allergy Verified 05/10/17 21:08 - Medications Medications: Current Medications Famotidine (Pepcid) 20 mg IVP DAILY [facility] Sodium Chloride (Sodium Chloride 0.9%) 1,000 mls @ 100 mls/hr IV .Q10H [facility] Last Admin: 05/11/17 01:39 Dose: 100 mls/hr Metronidazole (Flagyl) 500 mg in 100 mls @ 100 mls/hr IVPB Q8 [facility] PRN Reason: Protocol Last Admin: 05/11/17 06:19 Dose: 100 mls/hr Ceftriaxone Sodium (Rocephin 1 Gram Ivpb) 1 gm in 100 mls @ 100 mls/hr IVPB DAILY [facility] PRN Reason: Protocol Ondansetron HCl (Zofran Inj) 4 mg IVP Q6H PRN PRN Reason: Nausea/Vomiting Last Admin: 05/11/17 02:57 Dose: 4 mg Physical Exam - Constitutional Appears: Well, No Acute Distress - Head Exam Head Exam: ATRAUMATIC, NORMOCEPHALIC - Eye Exam Eye Exam: Normal appearance - ENT Exam ENT Exam: Mucous Membranes Moist, Normal Exam - Neck Exam Additional comments: swelling left side of the neck - Respiratory Exam Respiratory Exam: Clear to Auscultation Bilateral, NORMAL BREATHING PATTERN. absent: Rales, Rhonchi, Wheezes - Cardiovascular Exam Cardiovascular Exam: REGULAR RHYTHM, +S1, +S2 - GI/Abdominal Exam GI & Abdominal Exam: Normal Bowel Sounds, Soft. absent: Organomegaly, Pulsatile Mass, Rebound, Rigid, Tenderness - Extremities Exam Extremities exam: Negative for: joint swelling, pedal edema - Neurological Exam Neurological exam: Alert, Oriented x3 - Psychiatric Exam Psychiatric exam: Normal Affect, Normal Mood - Skin Skin Exam: Dry, Intact, Normal Color, Warm Results - Vital Signs Recent Vital Signs: Last Vital Signs Temp 98.7 F 05/11/17 06:56 Pulse 84 05/11/17 06:56 Resp 18 05/11/17 06:56 BP 144/88 05/11/17 06:56 Pulse Ox 99 05/11/17 01:54 - Labs Result Diagrams: 05/11/17 06:57 05/11/17 06:57 Labs: Laboratory Results - last 24 hr 05/11/17 05/11/17 06:57 06:57 WBC 22.2 H RBC 3.70 Hgb 10.6 L Hct 32.1 L MCV 86.8 MCH 28.6 MCHC 33.0 RDW 15.6 H Plt Count 77 L MPV 10.6 Sodium 142 Potassium 3.5 L Chloride 107 Carbon Dioxide 28 Anion Gap 11 BUN 3 L Creatinine 0.9 Est GFR ( Amer) > 60 Est GFR (Non-Af Amer) > 60 Random Glucose 107 Calcium 8.4 Total Bilirubin 0.2 AST 37 H D ALT 41 Alkaline Phosphatase 98 Total Protein 5.2 L Albumin 2.9 L Globulin 2.2 Albumin/Globulin Ratio 1.3 Assessment & Plan - Assessment and Plan (Free Text) Assessment: Zelda Bobo is a 62F w/ hx of diffuse B-cell lymphoma w/ liver mets who presents with diarrhea and abd pain. CT abd revealed possible uncomplicated sigmoid diverticulitis. 1. Uncomplicated sigmoid diverticulitis, r/o malignancy 2. Abd pain likely 2/2 to the above 3. Diarrhea; r/o infectious etiology 4. Liver mets 5. Bandemia Plan: -agree with current abx of rocephin and flagyl, advise transitioning to PO abx upon discharge and completing a 10 day course -advance diet as tolerated, started on liquid for breakfast, advance to reg for lunch if tolerated -agree with stool culture, r/o c.diff - No need for FOBT - will eventually need a full colonoscopy due to patients high risk and recurrent diverticulitis in the same location - recommend f/u w/ Dr. Diana as an oupt in 2 weeks - Recommend oupt colonoscopy in 6-8 weeks - Will speak to Dr. Hoffman in regards to coordinating a colonoscopy - No recent hemorrhoidal bleeding, recommend pt take miralax and/or fiber supplement to avoid symptoms D/W Dr. Diana <LebronHarjeetQuique Y - Last Filed: 05/11/17 10:50> Meds - Medications Medications: Current Medications Famotidine (Pepcid) 20 mg IVP DAILY [facility] Last Admin: 05/11/17 10:09 Dose: 20 mg Sodium Chloride (Sodium Chloride 0.9%) 1,000 mls @ 100 mls/hr IV .Q10H [facility] Last Admin: 05/11/17 01:39 Dose: 100 mls/hr Metronidazole (Flagyl) 500 mg in 100 mls @ 100 mls/hr IVPB Q8 [facility] PRN Reason: Protocol Last Admin: 05/11/17 06:19 Dose: 100 mls/hr Ceftriaxone Sodium (Rocephin 1 Gram Ivpb) 1 gm in 100 mls @ 100 mls/hr IVPB DAILY [facility] PRN Reason: Protocol Last Admin: 05/11/17 10:11 Dose: 100 mls/hr Ondansetron HCl (Zofran Inj) 4 mg IVP Q6H PRN PRN Reason: Nausea/Vomiting Last Admin: 05/11/17 02:57 Dose: 4 mg Results - Vital Signs Recent Vital Signs: Last Vital Signs Temp 98.7 F 05/11/17 06:56 Pulse 84 05/11/17 06:56 Resp 18 05/11/17 06:56 BP 144/88 05/11/17 06:56 Pulse Ox 98 05/11/17 06:00 - Labs Result Diagrams: 05/11/17 06:57 05/11/17 06:57 Labs: Laboratory Results - last 24 hr 05/11/17 05/11/17 06:57 06:57 WBC 22.2 H RBC 3.70 Hgb 10.6 L Hct 32.1 L MCV 86.8 MCH 28.6 MCHC 33.0 RDW 15.6 H Plt Count 77 L MPV 10.6 Sodium 142 Potassium 3.5 L Chloride 107 Carbon Dioxide 28 Anion Gap 11 BUN 3 L Creatinine 0.9 Est GFR ( Amer) > 60 Est GFR (Non-Af Amer) > 60 Random Glucose 107 Calcium 8.4 Total Bilirubin 0.2 AST 37 H D ALT 41 Alkaline Phosphatase 98 Total Protein 5.2 L Albumin 2.9 L Globulin 2.2 Albumin/Globulin Ratio 1.3 Attending/Attestation - Attestation I have personally seen and examined this patient.: Yes I have fully participated in the care of the patient.: Yes I have reviewed all pertinent clinical information: Yes Notes (Text): 05/11/17 10:42 I have seen and examined patient with GI fellow. Agree with above documentation with the following additions. In brief, this is a 62 year old female with history of diffuse b-cell lymphoma (currently receiving chemotherapy ) with hepatic involvement, diverticulitis, pancreatitis, who presents to hospital with complaint of progressive abdominal pain and diarrhea for the past 2 days. She describes a LLQ, sharp, 5/10 intensity pain that was worse after meal consumption. This is accompanied with 4-5 bowel movements, mainly watery in consistency without presence of blood in stool. She also endorses one episode of vomiting when symptoms initially began but denies fever/chills, weight loss, sick contacts, or recent travel. She had a similar presentation in March 2017 where she was diagnosed with diverticulitis. She had a flexible sigmoidoscopy last month which revealed only hemorrhoids. Diffuse b-cell lymphoma with hepatic involvement, currently receiving chemotherapy Abdominal pain CT imaging reviewed by me showing acute sigmoid diverticulitis without associated bailey-colonic abscess or free air - Full liquid diet as tolerated - Continue with antibiotic therapy - Obtain blood cultures - Obtain stool studies (culture, c-difficile given recent hospitalization) - Given recurrent diverticulitis, patient certainly requires full colonoscopy evaluation following resolution of acute symptoms. Will coordinate timing after discussion with oncology team (Dr. Hoffman). - Will continue to monitor patient clinical course
[2017-05-11] MEDS: cefTRIAXone 1 gm 1 GM/100 ML BAG IVPB SCH (10:11)
[2017-05-11 11:04] LABS: BAND 4 % (0-2); NEUTROPHIL 62 % (50.0-70.0)
[2017-05-11 11:26] LABS: ATYPICAL LYMPHOCYTE 2 % (0.0-0.0)
[2017-05-11 11:27] LABS: ANISOCYTOSIS 1+; HYPOCHROMIA 1+; METAMYELOCYTE 4 %; MYELOCYTE 5 %; PLATELET ESTIMATE LOW (NORMAL); POLYCHROMASIA SLIGHT
[2017-05-11 11:28] LABS: OVALOCYTES SLIGHT; TOXIC GRANULATION SLIGHT
--- NOTE | 2017-05-11 12:36 | CARD ---
APPROVED REPORT EKG Measurement Heart [id number] CT 126P7 [id number] <Conclusion> Normal sinus rhythm V 5 obscured by artifact Probably normal ECG
[2017-05-11] MEDS ORDERED: Potassium Chloride 20 mEq/15 ml LIQ UD PO STA (12:37)
[2017-05-11 17:36] VITALS: RESP 20
[2017-05-12] MEDS: metroNIDAZOLE IV 500 mg/100 ml 500 MG/100 ML BAG IVPB SCH (05:13)
[2017-05-12 06:52] LABS: HEMATOCRIT 33.2 % (36.0-48.0); MEAN CELL VOLUME 87.8 fl (80.0-105.0); MEAN CORPUSCULAR HEMOGLOBIN 28.8 pg (25.0-35.0); MEAN CORPUSCULAR HGB CONC 32.8 g/dl (31.0-37.0); MEAN PLATELET VOLUME 10.1 fl (7.0-11.0); RED CELL DISTRIBUTION WIDTH 15.9 % (11.5-14.5); WHITE BLOOD COUNT 17.9 10^3/ul (4.5-11.0)
[2017-05-12 08:04] LABS: ALB/GLOB RATIO 1.4 (1.1-1.8); ALKALINE PHOSPHATASE 96 U/L (38-126); ALT/SGPT 39 U/L (7-56); AST/SGOT 34 U/L (14-36); BILIRUBIN,TOTAL 0.2 mg/dL (0.2-1.3); BLOOD UREA NITROGEN 3 mg/dL (7-21); CALCIUM 8.3 mg/dL (8.4-10.5); CARBON DIOXIDE 24 mmol/L (21-33); CHLORIDE 109 mmol/L (98-107); GFR AFRICAN-AMERICAN > 60; GLUCOSE,RANDOM 103 mg/dL (70-110); POTASSIUM 3.2 mmol/L (3.6-5.0); SODIUM 142 mmol/L (132-148); TOTAL PROTEIN 5.2 g/dL (5.8-8.3)
[2017-05-12] MEDS ORDERED: Potassium Chloride 20 mEq ER Tab PO ONE (08:10)
[2017-05-12 09:22] VITALS: BP 154/97; PULSE 79; TEMP 98.2; O2SAT 97
[2017-05-12 09:36] LABS: BASO # 0.09 K/mm3 (0.0-2.0); HEMATOCRIT 33.5 % (36.0-48.0); MEAN CELL VOLUME 87.2 fl (80.0-105.0); MEAN CORPUSCULAR HEMOGLOBIN 28.9 pg (25.0-35.0); MEAN CORPUSCULAR HGB CONC 33.1 g/dl (31.0-37.0); MEAN PLATELET VOLUME 10.6 fl (7.0-11.0); PLATELET COUNT 73 10^3/uL (120.0-450.0); RED CELL DISTRIBUTION WIDTH 15.8 % (11.5-14.5)
[2017-05-12] MEDS: cefTRIAXone 1 gm 1 GM/100 ML BAG IVPB SCH (09:39)
--- NOTE | 2017-05-12 10:34 | CP.PCM.PN ---
<MariaTahir - Last Filed: 05/12/17 11:08> Subjective - Date & Time of Evaluation Date of Evaluation: 05/12/17 Time of Evaluation: 07:00 - Subjective Subjective: PGY4 GI Follow-up Pt seem and examined bedside No new complaints Denies any abd pain Denies any diarrhea states that she had a formed BM, with blood or melena Tolerating reg diet with nausea or vomiting ROS: 10 point ROS conducted neg other than above Objective - Vital Signs/Intake and Output Vital Signs (last 24 hours): Temp Pulse Resp BP Pulse Ox 98.2 F 79 20 154/97 H 97 05/12/17 06:00 05/12/17 06:00 05/12/17 06:00 05/12/17 06:00 05/12/17 06:00 Intake and Output: 05/12/17 05/12/17 06:59 18:59 Intake Total 2520 120 Balance 2520 120 - Medications Medications: Current Medications Dronabinol (Marinol) 2.5 mg PO DAILY [facility] Last Admin: 05/11/17 23:07 Dose: 2.5 mg Famotidine (Pepcid) 20 mg IVP DAILY [facility] Last Admin: 05/12/17 09:30 Dose: 20 mg Sodium Chloride (Sodium Chloride 0.9%) 1,000 mls @ 100 mls/hr IV .Q10H [facility] Last Admin: 05/11/17 21:58 Dose: 100 mls/hr Metronidazole (Flagyl) 500 mg in 100 mls @ 100 mls/hr IVPB Q8 [facility] PRN Reason: Protocol Last Admin: 05/12/17 05:13 Dose: 100 mls/hr Ceftriaxone Sodium (Rocephin 1 Gram Ivpb) 1 gm in 100 mls @ 100 mls/hr IVPB DAILY [facility] PRN Reason: Protocol Last Admin: 05/12/17 09:39 Dose: 100 mls/hr Ondansetron HCl (Zofran Inj) 4 mg IVP Q6H PRN PRN Reason: Nausea/Vomiting Last Admin: 05/12/17 08:48 Dose: 4 mg - Labs Labs: 05/12/17 09:00 05/12/17 06:42 - Constitutional Appears: Well, No Acute Distress - Head Exam Head Exam: ATRAUMATIC, NORMOCEPHALIC - Eye Exam Eye Exam: Normal appearance - ENT Exam ENT Exam: Mucous Membranes Moist - Respiratory Exam Respiratory Exam: Clear to Ausculation Bilateral, NORMAL BREATHING PATTERN. absent: Rales, Rhonchi, Wheezes, Respiratory Distress - Cardiovascular Exam Cardiovascular Exam: REGULAR RHYTHM, +S1, +S2 - GI/Abdominal Exam GI & Abdominal Exam: Soft, Normal Bowel Sounds - Rectal Exam Rectal Exam: NORMAL INSPECTION - Extremities Exam Extremities Exam: absent: Joint Swelling, Pedal Edema - Neurological Exam Neurological Exam: Alert, Awake, Oriented x3 - Psychiatric Exam Psychiatric exam: Normal Affect, Normal Mood - Skin Skin Exam: Dry, Intact, Normal Color, Warm Assessment and Plan - Assessment and Plan (Free Text) Assessment: Zelda Bobo is a 62F w/ hx of diffuse B-cell lymphoma w/ liver mets who presents with diarrhea and abd pain. CT abd revealed possible uncomplicated sigmoid diverticulitis. 1. Uncomplicated sigmoid diverticulitis, r/o malignancy 2. Abd pain likely 2/2 to the above 3. Diarrhea; r/o infectious etiology 4. Liver mets Plan: -Advise transitioning to PO abx upon discharge and completing a 10 day course - will eventually need a full colonoscopy due to patients high risk and recurrent diverticulitis in the same location - recommend f/u w/ Dr. Diana as an oupt in 2 weeks - Recommend oupt colonoscopy in 6-8 weeks - Will speak to Dr. Hoffman in regards to coordinating a colonoscopy - No recent hemorrhoidal bleeding, recommend pt take miralax and/or fiber supplement to avoid symptoms -okay to d/c from GI standpoint D/W Dr. Almonte <Fernando Almonte - Last Filed: 05/12/17 13:12> Objective - Vital Signs/Intake and Output Vital Signs (last 24 hours): Temp Pulse Resp BP Pulse Ox 98.2 F 79 20 154/97 H 97 05/12/17 06:00 05/12/17 06:00 05/12/17 06:00 05/12/17 06:00 05/12/17 06:00 Intake and Output: 05/12/17 05/12/17 06:59 18:59 Intake Total 2520 120 Balance 2520 120 - Medications Medications: Current Medications Dronabinol (Marinol) 2.5 mg PO DAILY [facility] Last Admin: 05/12/17 12:03 Dose: 2.5 mg Famotidine (Pepcid) 20 mg IVP DAILY [facility] Last Admin: 05/12/17 09:30 Dose: 20 mg Sodium Chloride (Sodium Chloride 0.9%) 1,000 mls @ 100 mls/hr IV .Q10H [facility] Last Admin: 05/11/17 21:58 Dose: 100 mls/hr Metronidazole (Flagyl) 500 mg in 100 mls @ 100 mls/hr IVPB Q8 [facility] PRN Reason: Protocol Last Admin: 05/12/17 05:13 Dose: 100 mls/hr Ceftriaxone Sodium (Rocephin 1 Gram Ivpb) 1 gm in 100 mls @ 100 mls/hr IVPB DAILY [facility] PRN Reason: Protocol Last Admin: 05/12/17 09:39 Dose: 100 mls/hr Ondansetron HCl (Zofran Inj) 4 mg IVP Q6H PRN PRN Reason: Nausea/Vomiting Last Admin: 05/12/17 08:48 Dose: 4 mg Ondansetron HCl (Zofran Tab) 4 mg PO TID PRN PRN Reason: Nausea/Vomiting - Labs Labs: 05/12/17 09:00 05/12/17 06:42 Attending/Attestation - Attestation I have personally seen and examined this patient.: Yes I have fully participated in the care of the patient.: Yes I have reviewed all pertinent clinical information, including history, physical exam and plan: Yes Notes (Text): 05/12/17 13:10 62 year old female with h/o DLBCL admitted with acute diverticulitis. 1. Acute diverticulitis Plan: -continue 10 day course of oral antibiotics -outpatient colonoscoyp in 6-8 weeks -diet as tolerated -ok to discharge from GI standpoint
--- NOTE | 2017-05-12 15:22 | CP.PCM.DIS ---
<Meño Madrigal - Last Filed: 05/12/17 15:27> Provider - Provider Date of Admission: 05/11/17 00:33 Attending physician: Sergey Rosen MD Primary care physician: Bella Patricia DO Time Spent in preparation of Discharge (in minutes): 45 Hospital Course - Lab Results Lab Results: Micro Results 05/11/17 16:30 Stool C. difficile Antigen & Toxin A,B (M - Final 05/11/17 12:25 Urine,Clean Catch Urine Culture - Final No Growth (<1,000 CFU/ML) Most Recent Lab Values WBC 17.0 10^3/ul (4.5-11.0) H 05/12/17 09:00 RBC 3.84 10^6/uL (3.5-6.1) 05/12/17 09:00 Hgb 11.1 g/dL (12.0-16.0) L 05/12/17 09:00 Hct 33.5 % (36.0-48.0) L 05/12/17 09:00 MCV 87.2 fl (80.0-105.0) 05/12/17 09:00 MCH 28.9 pg (25.0-35.0) 05/12/17 09:00 MCHC 33.1 g/dl (31.0-37.0) 05/12/17 09:00 RDW 15.8 % (11.5-14.5) H 05/12/17 09:00 Plt Count 73 10^3/uL (120.0-450.0) L 05/12/17 09:00 MPV 10.6 fl (7.0-11.0) 05/12/17 09:00 [place] % (Auto) 6.0 % (1.0-6.0) 05/10/17 22:00 Eos % (Auto) 0.0 % (1.5-5.0) L 05/10/17 22:00 Baso % (Auto) 1.3 % (0.0-3.0) 05/10/17 22:00 [place] # 1.5 (0.1-0.6) H 05/10/17 22:00 Eos # 0.0 (0.0-0.7) 05/10/17 22:00 Baso # 0.09 K/mm3 (0.0-2.0) 05/12/17 09:00 Neutrophils % (Manual) 62 % (50.0-70.0) 05/11/17 06:57 Band Neutrophils % 4 % (0-2) H 05/11/17 06:57 Lymphocytes % (Manual) 12 % (22.0-35.0) L 05/11/17 06:57 Atypical Lymphs % 2 % (0.0-0.0) H 05/11/17 06:57 Monocytes % (Manual) 12 % (1.0-6.0) H 05/11/17 06:57 Metamyelocytes % 4 % 05/11/17 06:57 Myelocytes % 5 % 05/11/17 06:57 Toxic Granulation Slight 05/11/17 06:57 Platelet Evaluation Low (NORMAL) 05/11/17 06:57 Polychromasia Slight 05/11/17 06:57 Hypochromasia 1+ 05/11/17 06:57 Anisocytosis (manual) 1+ 05/11/17 06:57 Ovalocytes Slight 05/11/17 06:57 pO2 74 mm/Hg (30-55) H 05/10/17 22:49 VBG pH 7.46 (7.32-7.43) H 05/10/17 22:49 VBG pCO2 42.0 (40-60) 05/10/17 22:49 VBG HCO3 29.9 mmol/l (21-28) H 05/10/17 22:49 VBG Total CO2 31.2 mmol.L (22-28) H 05/10/17 22:49 VBG O2 Sat (Calc) 97.4 % (40-65) H 05/10/17 22:49 VBG Base Excess 5.4 mmol/L (0.0-2.0) H 05/10/17 22:49 VBG Potassium 2.9 mmol/L (3.6-5.2) L 05/10/17 22:49 Sodium 140.0 mmol/L (132-148) 05/10/17 22:49 Chloride 106.0 mmol/L (98-107) 05/10/17 22:49 Glucose 110 mg/dl (65-105) H 05/10/17 22:49 Lactate 0.6 mmol/L (0.7-2.1) L 05/10/17 22:49 FiO2 21.0 % 05/10/17 22:49 Sodium 142 mmol/L (132-148) 05/12/17 06:42 Potassium 3.2 mmol/L (3.6-5.0) L 05/12/17 06:42 Chloride 109 mmol/L (98-107) H 05/12/17 06:42 Carbon Dioxide 24 mmol/L (21-33) 05/12/17 06:42 Anion Gap 12 (10-20) 05/12/17 06:42 BUN 3 mg/dL (7-21) L 05/12/17 06:42 Creatinine 0.9 mg/dL (0.5-1.4) 05/12/17 06:42 Est GFR ( Amer) > 60 05/12/17 06:42 Est GFR (Non-Af Amer) > 60 05/12/17 06:42 Random Glucose 103 mg/dL (70-110) 05/12/17 06:42 Calcium 8.3 mg/dL (8.4-10.5) L 05/12/17 06:42 Total Bilirubin 0.2 mg/dL (0.2-1.3) 05/12/17 06:42 AST 34 U/L (14-36) 05/12/17 06:42 ALT 39 U/L (7-56) 05/12/17 06:42 Alkaline Phosphatase 96 U/L (38-126) 05/12/17 06:42 Total Protein 5.2 g/dL (5.8-8.3) L 05/12/17 06:42 Albumin 3.0 g/dL (3.0-4.8) 05/12/17 06:42 Globulin 2.2 gm/dL 05/12/17 06:42 Albumin/Globulin Ratio 1.4 (1.1-1.8) 05/12/17 06:42 Lipase 32 U/L (23-300) 05/10/17 22:00 Venous Blood Potassium 2.9 mmol/L (3.6-5.2) L 05/10/17 22:49 Urine Color Yellow (YELLOW) 05/10/17 22:43 Urine Appearance Clear (CLEAR) 05/10/17 22:43 Urine pH 7.5 (4.7-8.0) 05/10/17 22:43 Ur Specific [place] 1.010 (1.005-1.035) 05/10/17: Urine Protein Negative mg/dL (<30 mg/dL) 05/10/17: Urine Glucose (UA) Negative mg/dL (NEGATIVE) 05/10/17:43 Urine Ketones Negative mg/dL (NEGATIVE) 05/10/17:43 Urine Blood Small (NEGATIVE) H 05/10/17 22:43 Urine Nitrate Negative (NEGATIVE) 05/10/17: Urine Bilirubin Negative (NEGATIVE) 05/10/17: Urine Urobilinogen 0.2 E.U./dL (<1 E.U./dL) 05/10/17: Ur Leukocyte Esterase Trace Arik/uL (NEGATIVE) H 05/10/17:43 Urine RBC 0 - 2 /hpf (0-2) 05/10/17: Urine WBC 1 - 3 /hpf (0-6) 05/10/17: Ur Epithelial Cells 3 - 4 /hpf (0-5) 05/10/17:43 Urine Bacteria Few (NEG) 05/10/17: Influenza Typ A,B (EIA) Negative for flu a/b (NEGATIVE) 05/10/17 22:05 - Hospital Course Hospital Course: This is a 62 year old female with a past medical history of rheumatoid arthritis , who presents to the emergency department with complaints of abdominal pain that's associated with nausea, diarrhea, and chills. The patient states that the abdominal pain began 4 days prior but the diarrhea began May 10, 2017 at noon. Patient states she had 5 episodes of diarrhea, each she reports as non -bloody and non-mucosal. Patient states that she was admitted for similar symptoms a month prior and that the symptoms began s/p chemotherapy treatments. The patient can't recall the exact chemotherapeutic agents, but states she receives around five treatments Thursday-, a special one on Thursday and one more on Thursday. The patient denies any vomiting, fevers, chest pain, shortness of breath, weakness, or any other complaints upon admission. The patient had an abdomen and pelvis CT scan that showed sigmoid diverticulitis versus colitis, mild colitis under-distention of remaining colon, and mild cystitis versus under-distention. The patient was admitted with the diagnosis of diverticulitis. The patient was seen by [facility] Dr. Diana who advised the patient to advance diet as tolerated, outpatient colonoscopy in six to eight weeks, IV antibiotics of Rocephin and Flagyl and follow up at his office in 2 weeks. The patient was seen today tolerating a soft diet. The patient's leukocytosis was trending down and she was afebrile. Patient was discharged on PO Flagyl and Ciprofloxacin for seven days. The patient was advised to follow up with PMD and [facility] within on week of being discharged. Discharge Exam - Head Exam Head Exam: ATRAUMATIC, NORMOCEPHALIC - Eye Exam Eye Exam: EOMI, Normal appearance, PERRL Pupil Exam: NORMAL ACCOMODATION, PERRL - ENT Exam ENT Exam: Mucous Membranes Moist, Normal Oropharynx. absent: Normal External Ear Exam - Neck Exam Neck exam: Lymphadenopathy - Respiratory Exam Respiratory Exam: Clear to PA & Lateral, NORMAL BREATHING PATTERN, UNREMARKABLE. absent: Rhonchi, Wheezes - Cardiovascular Exam Cardiovascular Exam: REGULAR RHYTHM, RRR, +S1, +S2. absent: Gallop, Rubs - GI/Abdominal Exam GI & Abdominal Exam: Normal Bowel Sounds, Unremarkable - Extremities Exam Extremities exam: joint swelling - Back Exam Back exam: NORMAL INSPECTION. absent: CVA tenderness (L), CVA tenderness (R), paraspinal tenderness - Neurological Exam Neurological exam: Alert, CN II-XII Intact, Normal Gait, Oriented x3 - Psychiatric Exam Psychiatric exam: Normal Affect, Normal Mood - Skin Skin Exam: Dry, Intact, Normal Color Discharge Plan - Discharge Medications Prescriptions: Ciprofloxacin [Cipro] 500 mg PO BID #14 tab metroNIDAZOLE [Flagyl] 500 mg PO TID #21 tab - Follow Up Plan Condition: STABLE Disposition: HOME/ ROUTINE Instructions: Diverticulitis (DC), Diverticulitis (GEN), Diverticulitis Diet ( DC), Diverticulitis Diet (GEN) Additional Instructions: Patient's advised to get a repeat CBC w/differential within one week of discharge. Patients advised to continue soft diet until further notice. Patient advised to f/u with PMD within one week of discharge. Patient advised to f/u with GI within one week of discharge and to set up an outpatient colonoscopy. Patient instructed to return to emergency department for any new or worsening symptoms. Referrals: Bella Patricia DO [Primary Care Provider] - <Sergey Rosen - Last Filed: 05/13/17 14:04> Provider - Provider Date of Admission: 05/11/17 00:33 Attending physician: Sergey Rosen MD Primary care physician: Bella Patricia Hospital Course - Lab Results Lab Results: Micro Results 05/11/17 16:30 Stool C. difficile Antigen & Toxin A,B (M - Final 05/11/17 12:25 Urine,Clean Catch Urine Culture - Final No Growth (<1,000 CFU/ML) Most Recent Lab Values WBC 17.0 10^3/ul (4.5-11.0) H 05/12/17 09:00 RBC 3.84 10^6/uL (3.5-6.1) 05/12/17 09:00 Hgb 11.1 g/dL (12.0-16.0) L 05/12/17 09:00 Hct 33.5 % (36.0-48.0) L 05/12/17 09:00 MCV 87.2 fl (80.0-105.0) 05/12/17 09:00 MCH 28.9 pg (25.0-35.0) 05/12/17 09:00 MCHC 33.1 g/dl (31.0-37.0) 05/12/17 09:00 RDW 15.8 % (11.5-14.5) H 05/12/17 09:00 Plt Count 73 10^3/uL (120.0-450.0) L 05/12/17 09:00 MPV 10.6 fl (7.0-11.0) 05/12/17 09:00 [place] % (Auto) 6.0 % (1.0-6.0) 05/10/17 22:00 Eos % (Auto) 0.0 % (1.5-5.0) L 05/10/17 22:00 Baso % (Auto) 1.3 % (0.0-3.0) 05/10/17 22:00 [place] # 1.5 (0.1-0.6) H 05/10/17 22:00 Eos # 0.0 (0.0-0.7) 05/10/17 22:00 Baso # 0.09 K/mm3 (0.0-2.0) 05/12/17 09:00 Neutrophils % (Manual) 62 % (50.0-70.0) 05/11/17 06:57 Band Neutrophils % 4 % (0-2) H 05/11/17 06:57 Lymphocytes % (Manual) 12 % (22.0-35.0) L 05/11/17 06:57 Atypical Lymphs % 2 % (0.0-0.0) H 05/11/17 06:57 Monocytes % (Manual) 12 % (1.0-6.0) H 05/11/17 06:57 Metamyelocytes % 4 % 05/11/17 06:57 Myelocytes % 5 % 05/11/17 06:57 Toxic Granulation Slight 05/11/17 06:57 Platelet Evaluation Low (NORMAL) 05/11/17 06:57 Polychromasia Slight 05/11/17 06:57 Hypochromasia 1+ 05/11/17 06:57 Anisocytosis (manual) 1+ 05/11/17 06:57 Ovalocytes Slight 05/11/17 06:57 pO2 74 mm/Hg (30-55) H 05/10/17 22:49 VBG pH 7.46 (7.32-7.43) H 05/10/17 22:49 VBG pCO2 42.0 (40-60) 05/10/17 22:49 VBG HCO3 29.9 mmol/l (21-28) H 05/10/17 22:49 VBG Total CO2 31.2 mmol.L (22-28) H 05/10/17 22:49 VBG O2 Sat (Calc) 97.4 % (40-65) H 05/10/17 22:49 VBG Base Excess 5.4 mmol/L (0.0-2.0) H 05/10/17 22:49 VBG Potassium 2.9 mmol/L (3.6-5.2) L 05/10/17 22:49 Sodium 140.0 mmol/L (132-148) 05/10/17 22:49 Chloride 106.0 mmol/L (98-107) 05/10/17 22:49 Glucose 110 mg/dl (65-105) H 05/10/17 22:49 Lactate 0.6 mmol/L (0.7-2.1) L 05/10/17 22:49 FiO2 21.0 % 05/10/17 22:49 Sodium 142 mmol/L (132-148) 05/12/17 06:42 Potassium 3.2 mmol/L (3.6-5.0) L 05/12/17 06:42 Chloride 109 mmol/L (98-107) H 05/12/17 06:42 Carbon Dioxide 24 mmol/L (21-33) 05/12/17 06:42 Anion Gap 12 (10-20) 05/12/17 06:42 BUN 3 mg/dL (7-21) L 05/12/17 06:42 Creatinine 0.9 mg/dL (0.5-1.4) 05/12/17 06:42 Est GFR ( Amer) > 60 05/12/17 06:42 Est GFR (Non-Af Amer) > 60 05/12/17 06:42 Random Glucose 103 mg/dL (70-110) 05/12/17 06:42 Calcium 8.3 mg/dL (8.4-10.5) L 05/12/17 06:42 Total Bilirubin 0.2 mg/dL (0.2-1.3) 05/12/17 06:42 AST 34 U/L (14-36) 05/12/17 06:42 ALT 39 U/L (7-56) 05/12/17 06:42 Alkaline Phosphatase 96 U/L (38-126) 05/12/17 06:42 Total Protein 5.2 g/dL (5.8-8.3) L 05/12/17 06:42 Albumin 3.0 g/dL (3.0-4.8) 05/12/17 06:42 Globulin 2.2 gm/dL 05/12/17 06:42 Albumin/Globulin Ratio 1.4 (1.1-1.8) 05/12/17 06:42 Lipase 32 U/L (23-300) 05/10/17 22:00 Venous Blood Potassium 2.9 mmol/L (3.6-5.2) L 05/10/17 22:49 Urine Color Yellow (YELLOW) 05/10/17 22:43 Urine Appearance Clear (CLEAR) 05/10/17 22:43 Urine pH 7.5 (4.7-8.0) 05/10/17 22:43 Ur Specific [place] 1.010 (1.005-1.035) 05/10/17 22:43 Urine Protein Negative mg/dL (<30 mg/dL) 05/10/17 22:43 Urine Glucose (UA) Negative mg/dL (NEGATIVE) 05/10/17 22:43 Urine Ketones Negative mg/dL (NEGATIVE) 05/10/17 22:43 Urine Blood Small (NEGATIVE) H 05/10/17 22:43 Urine Nitrate Negative (NEGATIVE) 05/10/17 22:43 Urine Bilirubin Negative (NEGATIVE) 05/10/17 22:43 Urine Urobilinogen 0.2 E.U./dL (<1 E.U./dL) 05/10/17 22:43 Ur Leukocyte Esterase Trace [place]/uL (NEGATIVE) H 05/10/17 22:43 Urine RBC 0 - 2 /hpf (0-2) 05/10/17 22:43 Urine WBC 1 - 3 /hpf (0-6) 05/10/17 22:43 Ur Epithelial Cells 3 - 4 /hpf (0-5) 05/10/17 22:43 Urine Bacteria Few (NEG) 05/10/17 22:43 Stool Leukocytes, Qual Negative (NEGATIVE) 05/11/17 16:30 Influenza Typ A,B (EIA) Negative for flu a/b (NEGATIVE) 05/10/17 22:05 Attending/Attestation - Attestation I have personally seen and examined this patient.: Yes I have fully participated in the care of the patient.: Yes I have reviewed all pertinent clinical information, including history, physical exam and plan: Yes Notes (Text): 05/13/17 13:56 Patient was seen and examined with medical investigator. Agreed with resident assessment and plan. 62 year old female with h/o B cell Lymphoma was admitted with acute diverticulitis, has responded well to antibiotics.She is tolerating soft diet.Abdominal pain is better.She will be discharged home on oral antibiotics, will follow up with GI for out patient Colonoscopy in 4 -6 weeks Management plan was discussed in detail with patient Education was provided.
== END 2017-05-12 15:11 | disposition home or self-care (01) | DRG 392 ==
LOC: ED 20:49 → ERH 05-11 00:33 → 3RNO 05-11 02:08
PROVIDERS: ADMIT Internal Medicine; ATTEND Internal Medicine
DX: K57.32 Diverticulitis of large intestine without perforation or abscess without bleeding (principal); C85.10 Unspecified B-cell lymphoma, unspecified site; C78.7 Secondary malignant neoplasm of liver and intrahepatic bile duct; K52.9 Noninfective gastroenteritis and colitis, unspecified; E87.6 Hypokalemia; M06.9 Rheumatoid arthritis, unspecified; D72.825 Bandemia

== ENCOUNTER 2017-07-03 13:27 | Emergency (ER) | payer MEDICARE ==
[2017-07-03 14:42] VITALS: BMI 19.3
--- NOTE | 2017-07-03 15:00 | ED PDOC ---
Arrival/HPI - General Chief Complaint: Lower Extremity Problem/Injury Time Seen by Provider: 07/03/17 14:38 Historian: Patient - History of Present Illness Narrative History of Present Illness (Text): 07/03/17 14:58 62yo female with PMhx significant for lymphoma who was referred to ED for positive left lower extremity Doppler. Patient states she saw her PMD for b/l lower extremity edema x 2weeks. Saw her PMD and was referred for the US. The doppler was done this afternoon and positive. She denies pain to legs, chest pain, SOB, diaphoresis, nausea, vomiting, any other complaint. Past Medical History - Provider Review Nursing Documentation Reviewed: Yes - Infectious Disease Hx of Infectious Diseases: None - Cardiac Hx Cardiac Disorders: No - Pulmonary Hx Respiratory Disorders: No - Neurological Hx Neurological Disorder: No - HEENT Hx HEENT Disorder: No - Renal Hx Renal Disorder: No - Endocrine/Metabolic Hx Endocrine Disorders: No - Hematological/Oncological Hx Blood Transfusions: Yes Hx Cancer: Yes (lymphoma) Hx Chemotherapy: Yes (completed) - Integumentary Hx Dermatological Disorder: Yes Other/Comment: lump to L neck - Musculoskeletal/Rheumatological Hx Musculoskeletal Disorders: Yes Hx Rheumatoid Arthritis: Yes - Gastrointestinal Hx Gastroesophageal Reflux: Yes Hx Pancreatitis: Yes HX Swallowing Problems: Yes - Genitourinary/Gynecological Hx Genitourinary Disorders: No - Psychiatric Hx Psychophysiologic Disorder: No Hx Emotional Abuse: No Hx Physical Abuse: No Hx Substance Use: No - Surgical History Hx Tonsillectomy: Yes Hx Tubal Ligation: Yes Other/Comment: R chest port - Anesthesia Hx Anesthesia: Yes Hx Anesthesia Reactions: No Hx Malignant Hyperthermia: No - Suicidal Assessment Feels Threatened In Home Enviroment: No Family/Social History - Physician Review Nursing Documentation Reviewed: Yes Family/Social History: Unknown Family HX Smoking Status: Never Smoked Hx Alcohol Use: Yes (Social) Hx Substance Use: No Allergies/Home Meds Allergies/Adverse Reactions: Allergies No Known Allergies Allergy (Verified 07/03/17 14:44) Home Medications: Home Meds Medication Instructions Recorded Confirmed Ondansetron HCl [Zofran] 4 mg PO TID PRN 05/10/17 07/03/17 Morphine Sulfate [Morphabond ER] 30 mg PO PRN PRN 07/03/17 07/03/17 Review of Systems - Physician Review All systems were reviewed & negative as marked: Yes - Review of Systems Constitutional: Normal Eyes: Normal ENT: Normal Respiratory: Normal Cardiovascular: Edema. absent: Chest Pain, Palpitations, Calf Pain Gastrointestinal: Normal Genitourinary Female: Normal Musculoskeletal: Normal Skin: Normal Neurological: Normal Endocrine: Normal Hemo/Lymphatic: Normal Psychiatric: Normal Physical Exam Vital Signs Reviewed: Yes Temperature: Afebrile Blood Pressure: Normal Pulse: Regular Respiratory Rate: Normal Appearance: Positive for: Well-Appearing, Non-Toxic, Comfortable Pain Distress: None Mental Status: Positive for: Alert and Oriented X 3 - Systems Exam Head: Present: Atraumatic, Normocephalic Pupils: Present: PERRL Extroacular Muscles: Present: EOMI Conjunctiva: Present: Normal Mouth: Present: Moist Mucous Membranes Neck: Present: Normal Range of Motion Respiratory/Chest: Present: Clear to Auscultation, Good Air Exchange. No: Respiratory Distress, Accessory Muscle Use Cardiovascular: Present: Regular Rate and Rhythm, Normal S1, S2. No: Murmurs Abdomen: Present: Normal Bowel Sounds. No: Tenderness, Distention, Peritoneal Signs Back: Present: Normal Inspection Upper Extremity: Present: Edema (2+ b/l), Normal ROM, NORMAL PULSES, Neurovascularly Intact. No: Cyanosis, Tenderness, Temperature Abnormalties Lower Extremity: Present: Normal Inspection. No: Edema Neurological: Present: GCS=15, CN II-XII Intact, Speech Normal Skin: Present: Warm, Dry, Normal Color. No: Rashes Psychiatric: Present: Alert, Oriented x 3, Normal Insight, Normal Concentration Medical Decision Making ED Course and Treatment: 07/03/17 15:00 62yo female with positive left lower extremity US PT was comfortable and hemodynamically stable in ED. She denied somatic complaint. Case was MELODY Meadows who referred patient for the test and he requested that i speak Dr. Andrews, oncologist seeing the patient I DC with Dr. Andrews and she recommends Elquis 5mg BID . States patient already have appointment with her next week. Will see pt next week. Plan was EMLODY the pt and she was strongly advised to keep her appointment. TRT ED for any new or worsening symptoms. Disposition/Present on Arrival - Present on Arrival Any Indicators Present on Arrival: No History of DVT/PE: No History of Uncontrolled Diabetes: No Urinary Catheter: No History of Decub. Ulcer: No History Surgical Site Infection Following: None - Disposition Have Diagnosis and Disposition been Completed?: Yes Diagnosis: DVT (deep venous thrombosis) Disposition: HOME/ ROUTINE Disposition Time: 15:05 Patient Plan: Discharge Condition: STABLE Discharge Instructions (ExitCare): Deep Venous Thrombosis (ED) Additional Instructions: Follow up with your Oncologist next week Return to Ed for any new or worsening symptoms Prescriptions: Apixaban [Eliquis] 5 mg PO BID #20 tab Referrals: Brandyn Meadows MD [Primary Care Provider] - Follow up with primary
[2017-07-03 15:10] VITALS: BP 95/57; PULSE 82; RESP 17; TEMP 98.5; O2SAT 99
== END 2017-07-03 15:15 | disposition home or self-care (01) ==
LOC: ED 13:27
DX: I82.409 Acute embolism and thrombosis of unspecified deep veins of unspecified lower extremity (principal); M06.9 Rheumatoid arthritis, unspecified; Z79.01 Long term (current) use of anticoagulants; Z98.51 Tubal ligation status

== ENCOUNTER 2017-09-01 11:12 | Observation (INO) | payer MEDICARE, OTHER ==
[2017-09-01 12:07] VITALS: BMI 18.1
[2017-09-01] MEDS ORDERED: Morphine 4 mg/ml ISec IVP STA ×2 (13:34→15:36)
--- NOTE | 2017-09-01 13:42 | ED PDOC ---
Arrival/HPI - General Chief Complaint: Upper Extremity Problem/Injury Time Seen by Provider: 09/01/17 13:25 Historian: Patient - History of Present Illness Narrative History of Present Illness (Text): 09/01/17 13:39 Patient is a 62 yo female with past medical history of lymphoma presents to the Emergency Department complaining of increased pain to left side of her neck since yesterday morning. Patient has history of radiation and chemotherapy treatment from previous treatments and has chronic lesions to left side of neck that have become increasingly painful. Denies increased redness, denies any pus or drainage or fevers. Denies difficulty swallowing. Denies chest pain or shortness of breath. No weakness to arms or legs. No chills. Past Medical History - Infectious Disease Hx of Infectious Diseases: None - Cardiac Hx Cardiac Disorders: No - Pulmonary Hx Respiratory Disorders: No - Neurological Hx Neurological Disorder: No - HEENT Hx HEENT Disorder: No - Renal Hx Renal Disorder: No - Endocrine/Metabolic Hx Endocrine Disorders: No - Hematological/Oncological Hx Blood Transfusions: Yes Hx Cancer: Yes (lymphoma) Hx Chemotherapy: Yes (completed) - Integumentary Hx Dermatological Disorder: Yes Other/Comment: lump to L neck - Musculoskeletal/Rheumatological Hx Musculoskeletal Disorders: Yes Hx Rheumatoid Arthritis: Yes - Gastrointestinal Hx Gastroesophageal Reflux: Yes Hx Pancreatitis: Yes HX Swallowing Problems: Yes - Genitourinary/Gynecological Hx Genitourinary Disorders: No - Psychiatric Hx Psychophysiologic Disorder: No Hx Emotional Abuse: No Hx Physical Abuse: No Hx Substance Use: No - Surgical History Hx Tonsillectomy: Yes Hx Tubal Ligation: Yes Other/Comment: R chest port - Anesthesia Hx Anesthesia: Yes Hx Anesthesia Reactions: No Hx Malignant Hyperthermia: No - Suicidal Assessment Feels Threatened In Home Enviroment: No Family/Social History Family/Social History: Unknown Family HX Smoking Status: Never Smoked Hx Alcohol Use: Yes (Social) Hx Substance Use: No Allergies/Home Meds Allergies/Adverse Reactions: Allergies No Known Allergies Allergy (Verified 07/03/17 14:44) Home Medications: Home Meds Medication Instructions Recorded Confirmed Ondansetron HCl [Zofran] 4 mg PO TID PRN 05/10/17 07/03/17 Morphine Sulfate [Morphabond ER] 30 mg PO PRN PRN 07/03/17 07/03/17 Review of Systems - Review of Systems Constitutional: Fatigue. absent: Fevers Eyes: absent: Vision Changes ENT: absent: Hearing Changes Respiratory: absent: SOB Cardiovascular: absent: Chest Pain Gastrointestinal: absent: Abdominal Pain, Diarrhea Genitourinary Female: absent: Dysuria Musculoskeletal: Neck Pain Skin: Skin Lesions Neurological: Headache. absent: Dizziness, Focal Weakness Endocrine: absent: Polyuria Hemo/Lymphatic: absent: Easy Bleeding Physical Exam Vital Signs Reviewed: Yes Vital Signs Temp Pulse Resp BP Pulse Ox 09/01/17 18:57 99.5 F 101 H 20 112/81 97 09/01/17 18:27 89 16 112/87 97 09/01/17 11:59 98 F 96 H 16 110/78 96 Temperature: Afebrile Appearance: Positive for: Uncomfortable Pain Distress: Moderate Mental Status: Positive for: Alert and Oriented X 3 - Systems Exam Pupils: Present: PERRL Extroacular Muscles: Present: EOMI Mouth: Present: Dry. No: Trismus Pharnyx: No: ERYTHEMA, TONSILS ENLARGED, Strider Nose (Internal): Present: No Active Bleeding Neck: Present: Other (erythema with firm indurated skin to soft tissue of left side of neck with no pus or bleeding at this time) Respiratory/Chest: Present: Clear to Auscultation. No: Respiratory Distress Cardiovascular: Present: Regular Rate and Rhythm Abdomen: No: Tenderness Upper Extremity: Present: NORMAL PULSES. No: Cyanosis Lower Extremity: Present: NORMAL PULSES Neurological: Present: CN II-XII Intact, Motor Func Grossly Intact, Normal Sensory Function Skin: Present: Erythematous, Induration Lymphatic: Present: Cervical Adenopathy Psychiatric: Present: Alert, Normal Insight, Normal Concentration Medical Decision Making ED Course and Treatment: 09/01/17 13:42 Patient with history of lymphomar, prior PET/CT reviewed and patient currently undergoing chemotherapy and radiation. Reports acute onset of pain with no associated fever or difficulty swallowing. Suspect possible cellulitis r/o abscess. IV pain medication ordered, ct pending. Will consult her oncologist, reassess after IV Morphine. Report Date : 09/01/2017 15:15:09 PROCEDURE: CT NECK WITH CONTRAST Dictator : Kunal Henriquez MD IMPRESSION: Fluid collection along the posterior border of the left parotid gland which could represent an abscess versus is a postoperative change. See comments 09/01/17 23:46 CT findings reviewed with hospitalist and patient. Will admit for iv antibiotics, pain control, specialty evaluation. Case d/w Dr. Ledbetter, ENT, regarding abnormal findings on CT, will evaluate patient during admission. No stridor or dysphagia or respiratory distress noted. Treatment plan reviewed with patient. - Lab Interpretations Lab Results: 09/01/17 14:00 09/01/17 14:00 Lab Results 09/01/17 17:00: Procalcitonin < 0.05 L 09/01/17 14:00: Sodium 140, Chloride 105, Potassium 4.1, Carbon Dioxide 26, Anion Gap 13, BUN 12, Creatinine 0.7, Est GFR ( Amer) > 60, Est GFR (Non- Af Amer) > 60, Random Glucose 91, Calcium 9.6, Total Bilirubin 0.3, AST 24, ALT 27, Alkaline Phosphatase 57, Total Protein 6.4, Albumin 3.7, Globulin 2.7, Albumin/Globulin Ratio 1.3 09/01/17 14:00: pO2 53, VBG pH 7.40, VBG pCO2 53.0, VBG HCO3 32.8 H, VBG Total CO2 34.4 H, VBG O2 Sat (Calc) 90.7 H, VBG Base Excess 6.5 H, VBG Potassium 4.3, Sodium 140.0, Chloride 107.0, Glucose 106 H, Lactate 0.8, FiO2 21.0, Venous Blood Potassium 4.3 09/01/17 14:00: WBC 4.3 L D, RBC 3.65, Hgb 11.5 L, Hct 34.8 L, MCV 95.3 D, MCH 31.5, MCHC 33.0, RDW 12.6, Plt Count 164, MPV 10.6, Gran % 75.5 H, Lymph % (Auto ) 13.9 L, [place] % (Auto) 8.9 H, Eos % (Auto) 1.2 L, Baso % (Auto) 0.5, Gran # 3.21, Lymph # 0.6 L, [place] # 0.4, Eos # 0.1, Baso # 0.02 - RAD Interpretation Radiology Orders: 09/01/17 13:35 NECK SOFT TISSUE W/CONTRAST [CT] Stat - Medication Orders Current Medication Orders: Heparin Sodium/Sodium Chloride (Heparin 31373 Units/250ml 1/2 Normal Saline) 25 ,000 units in 250 mls @ 7.838 mls/hr IV .Q24H PRN; Protocol; 18 UNITS/KG/HR PRN Reason: ADJUST RATE PER PROTOCOL Last Admin: 09/01/17 18:22 Dose: 18 units/kg/hr, 7.838 mls/hr eMAR Start Stop Document 09/01/17 18:22 HI (Rec: 09/01/17 18:25 HI [email or web address]) Intravenous Solution Start Date 09/01/17 Start Time 18:25 Titration Intervention Document 09/01/17 18:22 HI (Rec: 09/01/17 18:25 ME [email or web address]) Titration Intake Waste Amount 0 Container Volume 250 Titration Dosing Titration Dose 18 IV Rate 7.838 Intake/Decrease Started Morphine Sulfate (Morphine) 2 mg IVP Q4H PRN PRN Reason: Pain, moderate (4-7) Ondansetron HCl (Zofran Tab) 4 mg PO TID PRN PRN Reason: Nausea/Vomiting Pantoprazole Sodium (Protonix Inj) 40 mg IVP DAILY TISHA Discontinued Medications Ceftriaxone Sodium (Rocephin 1 Gram Ivpb) 1 gm in 100 mls @ 200 mls/hr IVPB ONCE STA PRN Reason: Protocol Stop: 09/01/17 15:59 Last Admin: 09/01/17 16:18 Dose: 200 mls/hr eMAR Start Stop Document 09/01/17 16:18 HI (Rec: 09/01/17 16:20 HI [email or web address]) Intravenous Solution Start Date 09/01/17 Start Time 16:18 Meropenem 500 mg/ Sodium (Chloride) 100 mls @ 100 mls/hr IVPB Q24H TISHA PRN Reason: Protocol Stop: 09/01/17 18:14 Last Admin: 09/01/17 20:20 Dose: 100 mls/hr eMAR Start Stop Document 09/01/17 20:20 KP (Rec: 09/01/17 20:20 KP [id number] Intravenous Solution Start Date 09/01/17 Start Time 20:20 Morphine Sulfate (Morphine) 4 mg IVP STAT STA Stop: 09/01/17 13:35 Last Admin: 09/01/17 14:04 Dose: 4 mg MAR Pain Assessment Document 09/01/17 14:04 HI (Rec: 09/01/17 14:04 HI [id number]) Pain Reassessment Is this a pain reassessment? No Sleep Is patient sleeping during reassessment? No Presence of Pain Presence of Pain Yes Pain Scale Used Pain Scale Used Numeric Location Left, Right or Bilateral Left Pain Location Body [employer] Neck Back IVP Administration Document 09/01/17 14:04 HI (Rec: 09/01/17 14:04 HI [id number]) Charges for Administration # of IVP Administrations 1 Re-Assess: [facility] Pain Assessment Document 09/01/17 15:04 HI (Rec: 09/01/17 16:20 HI [email or web address]) Pain Reassessment Is this a pain reassessment? Yes Sleep Is patient sleeping during reassessment? No Presence of Pain Presence of Pain No Morphine Sulfate (Morphine) 4 mg IVP STAT STA Stop: 09/01/17 15:37 Last Admin: 09/01/17 16:20 Dose: 4 mg [facility] Pain Assessment Document 09/01/17 16:20 HI (Rec: 09/01/17 16:20 HI [email or web address]) Pain Reassessment Is this a pain reassessment? No Sleep Is patient sleeping during reassessment? No Presence of Pain Presence of Pain Yes IVP Administration Document 09/01/17 16:20 HI (Rec: 09/01/17 16:20 HI [email or web address]) Charges for Administration # of IVP Administrations 1 Re-Assess: [facility] Pain Assessment Document 09/01/17 17:20 HI (Rec: 09/01/17 17:31 HI [email or web address]) Pain Reassessment Is this a pain reassessment? Yes Sleep Is patient sleeping during reassessment? No Presence of Pain Presence of Pain No Morphine Sulfate (Morphine) 2 mg IVP Q6H PRN PRN Reason: Pain, moderate (4-7) Last Admin: 09/01/17 20:20 Dose: 2 mg [facility] Pain Assessment Document 09/01/17 20:20 KP (Rec: 09/01/17 20:20 [id number]) Pain Reassessment Is this a pain reassessment? No Sleep Is patient sleeping during reassessment? No Presence of Pain Presence of Pain Yes Location Left, Right or Bilateral Left Pain Location Body [employer] Description Intensity of Pain at present 8 IVP Administration Document 09/01/17 20:20 KP (Rec: 09/01/17 20:20 [id number]) Charges for Administration # of IVP Administrations 1 Re-Assess: MAR Pain Assessment Document 09/01/17 21:20 KP (Rec: 09/01/17 21:45 [id number]) Pain Reassessment Is this a pain reassessment? Yes Sleep Is patient sleeping during reassessment? No Presence of Pain Presence of Pain No Morphine Sulfate (Morphine) 1 mg IVP STAT STA Stop: 09/01/17 22:22 Last Admin: 09/01/17 22:37 Dose: 1 mg [facility] Pain Assessment Document 09/01/17 22:37 (Rec: 09/01/17 22:37 [id number]) Pain Reassessment Is this a pain reassessment? No Sleep Is patient sleeping during reassessment? 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 Ulcer: No History Surgical Site Infection Following: None - Disposition Have Diagnosis and Disposition been Completed?: Yes Diagnosis: Cellulitis, neck Disposition: HOSPITALIZED Disposition Time: 15:00 Patient Plan: Admission Patient Problems: Current Active Problems Problem Status Onset Cellulitis of neck Acute Condition: FAIR
[2017-09-01 14:12] LABS: VENOUS BLOOD GAS BASE EXCESS 6.5 mmol/L (0.0-2.0); VENOUS BLOOD GAS PO2 53 mm/Hg (30-55)
[2017-09-01 14:15] LABS: BASO # 0.02 K/mm3 (0.0-2.0); BASO % 0.5 % (0.0-3.0); EOS # 0.1 (0.0-0.7); EOS % 1.2 % (1.5-5.0); GRAN # 3.21 (1.4-6.5); GRAN % 75.5 % (50.0-68.0); HEMOGLOBIN 11.5 g/dL (12.0-16.0); LYMPH # 0.6 (1.2-3.4); LYMPH % 13.9 % (22.0-35.0); MEAN CELL VOLUME 95.3 fl (80.0-105.0); MEAN CORPUSCULAR HEMOGLOBIN 31.5 pg (25.0-35.0); MEAN PLATELET VOLUME 10.6 fl (7.0-11.0); MONO # 0.4 (0.1-0.6); MONO % 8.9 % (1.0-6.0); RBC 3.65 10^6/uL (3.5-6.1); RED CELL DISTRIBUTION WIDTH 12.6 % (11.5-14.5); WHITE BLOOD COUNT 4.3 10^3/ul (4.5-11.0)
[2017-09-01 14:21] LABS: ALB/GLOB RATIO 1.3 (1.1-1.8); ALBUMIN 3.7 g/dL (3.0-4.8); ALT/SGPT 27 U/L (7-56); AST/SGOT 24 U/L (14-36); BLOOD UREA NITROGEN 12 mg/dL (7-21); CALCIUM 9.6 mg/dL (8.4-10.5); GFR AFRICAN-AMERICAN > 60; GFR NON-AFRICAN AMERICAN > 60
[2017-09-01] MEDS ORDERED: Iohexol 350 MG/100 ML VIAL ONE (14:40)
--- NOTE | 2017-09-01 15:16 | CT ---
PROCEDURE: CT NECK WITH CONTRAST HISTORY: left sided cellulitis r/o abscess COMPARISON: None TECHNIQUE: CT of the neck with intravenous contrast. Coronal and sagittal reformats generated. Intravenous contrast dose: 100 cc of Omni 350 Radiation dose: DLP 330 mGy-cm This CT exam was performed using one or more of the following dose reduction techniques: Automated exposure control, adjustment of the mA and/or kV according to patient size, and/or use of iterative reconstruction technique. FINDINGS: NASOPHARYNX: Unremarkable. SUPRAHYOID NECK: Unremarkable oropharynx, oral cavity, parapharyngeal space and retropharyngeal space. INFRAHYOID NECK: Unremarkable larynx, hypopharynx, and supraglottic space. Vocal cords intact. MASS: None. GLANDS: There is a fluid collection along the posterior aspect of the left superficial lobe of the parotid gland. This measures 15 x 28 mm in size. This could represent an abscess. However, this is the exact site of the previously identified 6 cm mass. The finding could represent a post treatment or postsurgical change. The fluid collection is very superficial and could be easily aspirated. Findings are best seen on axial image 40 series 2. Normal size thyroid gland, without nodule. LYMPH NODES: Normal. No lymphadenopathy. CERVICAL SPINE: No fracture or focal lesion. VASCULAR STRUCTURES: Unremarkable. OTHER FINDINGS: None. IMPRESSION: Fluid collection along the posterior border of the left parotid gland which could represent an abscess versus is a postoperative change. See comments
[2017-09-01] MEDS ORDERED: Morphine 2 mg/ml ISec IVP STA ×2 (15:29→22:21)
[2017-09-01] MEDS ORDERED: cefTRIAXone 1 gm 1 GM/100 ML BAG IVPB STA (15:30)
[2017-09-01] MEDS ORDERED: Morphine 2 mg/ml ISec IVP PRN ×2 (17:13→22:21)
[2017-09-01] MEDS ORDERED: Meropenem 500 MG in Sodium Chloride 0.9% 100 ML IVPB SCH (17:15)
--- NOTE | 2017-09-01 17:24 | CP.PCM.HP ---
History of Present Illness - History of Present Illness History of Present Illness: cc: left-sided facial pain HPI: Patient is a 62yo female with past medical history of rheumatoid arthritis , CD5+ large B cell lymphoma and LLE DVT that presents c/o left-sided facial pain. She reports that the pain had worsened over the last 2 days however admitted to having similar pain since starting radiation therapy. She reported that the pain was associated with tenderness to touch in the left angle of the jaw with no reported alleviating factors. She reports that she had recently finished radiation for her B cell lymphoma [address] Cruz and has had some tenderness at the site of radiation. She reported having completed 5 months of chemotherapy back in June and having started her radiation treatments in July. A soft tissue CT in the ER revealed fluid collection along the posterior border of the left parotid gland notable for an abscess vs post-operative change. ENT was consulted for further evaluation. She denied fevers, pain with mastication, abdominal pain, chest pain, palpitations, SOB, focal weakness, numbness, tingling. 12point ROS as per HPI above otherwise negative PMHx: Rheumatoid Arthritis, B-Cell lymphoma, LLE DVT PSHx: Breast cyst removal, tubal ligation, and tonsillectomy Allergies: NKDA Family History: Non-Contributory Social History: Denies tobacco, alcohol and illicit drug use Heme/Onc: Dr. Eloina Hong: Dr. Amaya ([facility] [place]) PMD: Dr. Patricia Present on Admission - Present on Admission Any Indicators Present on Admission: Yes History of DVT/PE: Yes Past Patient History - Infectious Disease Hx of Infectious Diseases: None - Past Social History Smoking Status: Never Smoked - CARDIAC Hx Cardiac Disorders: No - PULMONARY Hx Respiratory Disorders: No - NEUROLOGICAL Hx Neurological Disorder: No - HEENT Hx HEENT Problems: No - RENAL Hx Chronic Kidney Disease: No - ENDOCRINE/METABOLIC Hx Endocrine Disorders: No - HEMATOLOGICAL/ONCOLOGICAL Hx Blood Transfusions: Yes Hx Cancer: Yes (lymphoma) Hx Chemotherapy: Yes (completed) - INTEGUMENTARY Hx Dermatological Problems: Yes Other/Comment: lump to L neck - MUSCULOSKELETAL/RHEUMATOLOGICAL Hx Musculoskeletal Disorders: Yes Hx Rheumatoid Arthritis: Yes - GASTROINTESTINAL Hx Gastroesophageal Reflux: Yes Hx Pancreatitis: Yes HX Swallowing Problems: Yes - GENITOURINARY/GYNECOLOGICAL Hx Genitourinary Disorders: No - PSYCHIATRIC Hx Psychophysiologic Disorder: No Hx Emotional Abuse: No Hx Physical Abuse: No Hx Substance Use: No - SURGICAL HISTORY Hx Tonsillectomy: Yes Hx Tubal Ligation: Yes Other/Comment: R chest port - ANESTHESIA Hx Anesthesia: Yes Hx Anesthesia Reactions: No Hx Malignant Hyperthermia: No Meds Allergies/Adverse Reactions: Allergies Allergy/AdvReac Type Severity Reaction Status Date / Time No Known Allergies Allergy Verified 07/03/17 14:44 Physical Exam - Constitutional Appears: No Acute Distress - Head Exam Head Exam: ATRAUMATIC, NORMOCEPHALIC - Eye Exam Eye Exam: EOMI, PERRL. absent: Conjunctival injection, Periorbital tenderness, Scleral icterus - ENT Exam ENT Exam: Mucous Membranes Moist - Neck Exam Additional comments: left-sided erythema and indurated soft tissue with no visible bleeding or pus. No palpable fluctuance. - Cardiovascular Exam Cardiovascular Exam: RRR, +S1, +S2. absent: Gallop, JVD, Rubs, Systolic Murmur - GI/Abdominal Exam GI & Abdominal Exam: Soft. absent: Distended, Firm, Guarding, Rebound, Tenderness - Extremities Exam Extremities exam: Positive for: normal inspection. Negative for: pedal edema, tenderness - Neurological Exam Neurological exam: Alert, CN II-XII Intact, Oriented x3 - Psychiatric Exam Psychiatric exam: Normal Affect, Normal Mood - Skin Skin Exam: Dry, Intact, Normal Color, Warm Results - Vital Signs Recent Vital Signs: Last Vital Signs Temp 98 F 09/01/17 11:59 Pulse 96 H 09/01/17 11:59 Resp 16 09/01/17 11:59 BP 110/78 09/01/17 11:59 Pulse Ox 96 09/01/17 11:59 - Labs Result Diagrams: 09/01/17 14:00 09/01/17 14:00 Labs: Laboratory Results - last 24 hr 09/01/17 09/01/17 09/01/17 14:00 14:00 14:00 WBC 4.3 L D RBC 3.65 Hgb 11.5 L Hct 34.8 L MCV 95.3 D MCH 31.5 MCHC 33.0 RDW 12.6 Plt Count 164 MPV 10.6 Gran % 75.5 H Lymph % (Auto) 13.9 L [place] % (Auto) 8.9 H Eos % (Auto) 1.2 L Baso % (Auto) 0.5 Gran # 3.21 Lymph # 0.6 L [place] # 0.4 Eos # 0.1 Baso # 0.02 pO2 53 VBG pH 7.40 VBG pCO2 53.0 VBG HCO3 32.8 H VBG Total CO2 34.4 H VBG O2 Sat (Calc) 90.7 H VBG Base Excess 6.5 H VBG Potassium 4.3 Sodium 140.0 140 Chloride 107.0 105 Glucose 106 H Lactate 0.8 FiO2 21.0 Potassium 4.1 Carbon Dioxide 26 Anion Gap 13 BUN 12 Creatinine 0.7 Est GFR ( Amer) > 60 Est GFR (Non-Af Amer) > 60 Random Glucose 91 Calcium 9.6 Total Bilirubin 0.3 AST 24 ALT 27 Alkaline Phosphatase 57 Total Protein 6.4 Albumin 3.7 Globulin 2.7 Albumin/Globulin Ratio 1.3 Venous Blood Potassium 4.3 Assessment & Plan - Assessment and Plan (Free Text) Plan: 62yo female with history of LLE DVT, rheumatoid arthritis and CD5+ large B cell lymphoma s/p chemo and radiation presents c/o left-sided facial pain secondary to likely parotid abscess 1. Left-sided facial pain secondary to parotid abscess -afebrile, no leukocytosis -Patient given rocephin in the ED -Patient started on meropenem for broader coverage in light of immunosuppression -Soft tissue neck CT reviewed; revealed fluid collection along posterior border of left parotid gland concerning for abscess vs post-operative change -Blood/urine cultures pending -Procalcitonin pending -Lactate 0.8 on admission -ENT consulted - Dr. Ledbetter -ID consulted - Dr. Steele 2. Hx of LLE DVT -Eliquis held -Patient started on heparin drip pending possible surgical intervention 3. B-cell lymphoma -patient reportedly completed 5 months of chemotherapy in June 2017 -completed radiation therapy [address] Cruz ([facility]) -Oncology consulted - Dr. Duvall 4. Gi/DVT prophylaxis -Protonix/Heparin Patient seen and case discussed/reviewed with attending, Dr. Lyles
[2017-09-01] MEDS ORDERED: Heparin25000 units/250ml 1/2NS 25,000 UNITS/250 ML BAG IV PRN (17:37)
[2017-09-02] MEDS: Meropenem IV 1 gm in NS 50 ML IVPB SCH ×3 (00:58→14:26)
--- NOTE | 2017-09-02 01:17 | CON ---
DATE: 09/01/2017 OTOLARYNGOLOGY CONSULT REFERRING PHYSICIAN: Ramirez Joy MD REASON FOR CONSULTATION: Cellulitis of the neck. HISTORY OF PRESENT ILLNESS: This is a 62-year-old female with past medical history of B-cell lymphoma, status post chemotherapy and radiation, last treatment was two weeks ago. The patient states that she has completed radiation and chemotherapy treatment, and since then she has had increasing neck pain, erythema, and pain with movement of the neck over the past 3 to 4 days prompting her to come into the emergency room. She has not had any recent antibiotics. She has had episodes of this in the past that were treated with antibiotics. She sees her oncologist, was unable to provide the name. She denies any changes to her voice, any difficulty chewing or swallowing, any difficulty breathing, any rhinorrhea, any ear drainage, or any drainage from her ulcerative skin lesions on the left side. The patient states that these skin lesions have been stable and denies any recent draining. Denies any fevers, chills, nausea, or vomiting. PAST MEDICAL HISTORY: Rheumatoid arthritis and B-cell lymphoma. PAST SURGICAL HISTORY: No previous surgeries of the head or neck. ALLERGIES: NO KNOWN DRUG ALLERGIES. MEDICATIONS: No current medications. SOCIAL HISTORY: The patient is a nonsmoker. No alcohol. No illicits. REVIEW OF SYSTEMS: A 12-point review of systems is negative except as stated in the HPI. PHYSICAL EXAMINATION: GENERAL: Alert, awake, and oriented x3. In no acute distress. VITAL SIGNS: Temperature of 98, pulse 96, blood pressure 110/78, respiratory rate 16, SpO2 96% on room air. HEAD: Normocephalic. EYES: Extraocular muscles are grossly intact. No visual changes. EARS: Auricles appear symmetric. Tympanic membranes are normal in appearance. NOSE: Nares patent bilaterally. No discharge. No crusting. No bleeding. MOUTH: Mucous membranes are dry. Tongue is non-edematous and midline. Uvula is midline. Tonsils are 1+. No postnasal drip. NECK: In the level IIB on the left side, there is a large ulcerative nodular skin lesion with surrounding erythema involving the left ear lobule and down to level of 4. It is warm. It is tender to palpation. The patient has pain with rotation of her head to the left and right. There is no torticollis. HEART: Normal rate. LUNGS: Breathing is unlabored. LABORATORY DATA: WBC 4.3, hemoglobin 11.5, platelets 164,000, and hematocrit 34.8. DIAGNOSTIC DATA: CT of the neck with contrast. IMPRESSION: Fluid collection along the posterior border of the left parotid gland, which could represent abscess versus postoperative change. Mass of the exact size is a previously identified 6 cm mass on previous imaging. ASSESSMENT: This is a 62-year-old female with history of B-cell lymphoma, status post chemotherapy and radiation who now presents with cellulitic changes of the left neck without evidence of new abscess formation. PLAN: 1. The patient will need antibiotic therapy through the IV. 2. We recommend the patient's oncologist to come and evaluate her in [facility]. 3. The patient has B-cell lymphoma with metastasis. There is no surgical option that is fit for this patient at this time. 4. Please apply bacitracin to the external skin ulcerations twice a day. Thank you for allowing us to participate in the care of the patient. The patient is welcome to follow up in our office as outpatient as needed. Joseluis Oquendo DO
[2017-09-02] MEDS: Vancomycin 1gm in NS 250ml 1 GM/250 ML BAG IVPB SCH ×2 (02:35→11:42)
[2017-09-02] MEDS: Morphine 4 mg/ml ISec IVP PRN ×3 (03:16→14:29)
[2017-09-02 07:09] LABS: BASO # 0.03 K/mm3 (0.0-2.0); BASO % 0.9 % (0.0-3.0); EOS # 0.1 (0.0-0.7); EOS % 3.4 % (1.5-5.0); GRAN # 2.1 (1.4-6.5); GRAN % 59.9 % (50.0-68.0); HEMOGLOBIN 10.9 g/dL (12.0-16.0); LYMPH # 0.9 (1.2-3.4); LYMPH % 24.9 % (22.0-35.0); MEAN CELL VOLUME 93.2 fl (80.0-105.0); MEAN CORPUSCULAR HGB CONC 33.2 g/dl (31.0-37.0); MEAN PLATELET VOLUME 10.2 fl (7.0-11.0); MONO # 0.4 (0.1-0.6); MONO % 10.9 % (1.0-6.0); RBC 3.52 10^6/uL (3.5-6.1); RED CELL DISTRIBUTION WIDTH 12.6 % (11.5-14.5); WHITE BLOOD COUNT 3.5 10^3/ul (4.5-11.0)
[2017-09-02 07:25] LABS: INR 1.37 (0.93-1.08); PROTHROMBIN TIME 15.8 SECONDS (9.4-12.5)
[2017-09-02 07:36] LABS: PARTIAL THROMBOPLASTIN TIME 209.3 Seconds (25.1-36.5)
[2017-09-02 07:40] LABS: ALB/GLOB RATIO 1.3 (1.1-1.8); ALBUMIN 3.5 g/dL (3.0-4.8); ALT/SGPT 28 U/L (7-56); AST/SGOT 18 U/L (14-36); BLOOD UREA NITROGEN 11 mg/dL (7-21); CALCIUM 9.6 mg/dL (8.4-10.5); GFR AFRICAN-AMERICAN > 60; GFR NON-AFRICAN AMERICAN > 60
[2017-09-02] MEDS ORDERED: HYDROmorphone 0.5 mg/0.5 ml ISec IVP STA (08:01)
[2017-09-02 08:16] VITALS: RESP 16
[2017-09-02 09:21] LABS: IRON 96 ug/dL (45-180)
[2017-09-02 09:32] LABS: % IRON SATURATION 56 % (20-55); TOTAL IRON BINDING CAPACITY 170 ug/dL (265-497)
[2017-09-02] MEDS ORDERED: POLYETHYLENE GLYCOL 3350 17 GM/Dose PACKET PO SCH (11:00)
--- NOTE | 2017-09-02 11:18 | CON ---
DATE: MEDICAL ONCOLOGY CONSULTATION LOCATION: She is currently located in 567, bed 1. REASON FOR ONCOLOGY CONSULTATION: Known history of CD5 positive B-cell lymphoma. 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 She has completed and finished dose adjusted R-EPOCH chemotherapy. At which time, a repeat PET CT scan showed resolution of her metastatic disease mainly in the liver, but she did have a focus of uptake in known left-sided neck lymph node mass. Due to this reason, she moved onto radiation treatment. She is currently admitted status post completion of radiation treatment with complaints of worsening neck pain. On examination, she does have an extensive radiation dermitis and cellulitis, which is very warm and tender to touch. There are small punctate foci of skin necrosis that are seen as well due to radiation effects. On admission, a CAT scan of the neck was completed in the Emergency Room, which did show a fluid collection along the posterior border of the left parotid gland, which could represent an abscess versus a postoperative change. No abnormal lymphadenopathy was seen. This area measured 15 x 28 mm. Consultation was completed by ENT and recommendations were made to continue antibiotic therapy as well as application of bacitracin to external skin ulcerations twice a daily. No surgical option. More intervention was noted at this time. Currently, she is at bedside complaining of severe headache that starts in her left neck and extends to the posterior part of her head as well as left-sided head. Overnight, she was given morphine as needed and she does state that pain was controlled only for a short period of time when administered. Laboratory data today does reveal white blood cell count of 3.5, hemoglobin of 10.9, and platelet count of 181. She has remained afebrile since admission. PAST MEDICAL HISTORY: Significant for rheumatoid arthritis as well as history of CD5 positive B-cell lymphoma, status post chemotherapy and radiation. PAST SURGICAL HISTORY: Unchanged. SOCIAL HISTORY: Denies toxic habits. No smoking or drinking. ALLERGIES: NO KNOWN FOOD OR DRUG ALLERGIES. PHYSICAL EXAMINATION: VITAL SIGNS: T-max 99.5, pulse 78, and blood pressure 127/81. GENERAL: AAO x3. No acute distress; however, the patient does complain of left-sided neck pain and headache. HEENT: As in HPI, extensive area of left-sided cellulitis along with two punctate foci of skin necrosis secondary to radiation dermitis is noted. On gross physical exam, there is unilateral asymmetry of the neck noted mainly with left-sided neck fullness. No palpable lymphadenopathy is present. The patient is able to flex and extend her neck with range of motion that is limited towards the left. LUNGS: Clear to auscultation bilaterally. No rales, rhonchi or wheezing. CARDIOVASCULAR: S1 and S2 normal. Regular rate and rhythm. ABDOMEN: Soft, nontender, and nondistended. No organomegaly is noted. EXTREMITIES: No cyanosis, clubbing or edema. LYMPH: No palpable lymphadenopathy is present on exam. SKIN: As noted previously left-sided radiation dermitis along with cellulitis is noted. LABORATORY DATA: White blood cell count today 3.5, hemoglobin 10.9, hematocrit 32.8, and platelet count 181. Chemistry; sodium 140, potassium 3.9, chloride 105, bicarbonate 26, BUN 11, creatinine 0.8, AST 18, and ALT 28. ASSESSMENT AND PLAN: In summary, this is a 62-year-old female very well known to us for recent history CD5 positive B-cell lymphoma, status post chemotherapy treatment with dose adjusted R-EPOCH followed by radiation localized to known residual foci of lymphoma in the left neck. She is currently admitted post radiation treatment with a new left-sided neck abscess along with radiation dermitis and cellulitis. Appreciate ENT as well Infectious Disease consultation. Currently, the patient is on IV antibiotic therapy as per recommendations from Infectious Disease. The patient remains afebrile. Her repeat scanning post radiation treatment is planned in the next 6 to 8 weeks as discussed previously. Currently, she remains stable. Her pain medication regimen will be changed to address her current needs to control her pain. Iron studies will also be repeated. We will continue to follow the patient's clinical course with you. Thank you kindly for this consultation. Yogi Maria MD
[2017-09-02 17:17] VITALS: BP 113/84; PULSE 79; TEMP 97.9; O2SAT 94
--- NOTE | 2017-09-02 17:39 | CP.PCM.DIS ---
Provider - Provider Date of Admission: 09/01/17 17:01 Attending physician: Michael Lyles MD Primary care physician: Brandyn Meadows MD Consults: ID: [email or web address] ENT: Anatoly Hem/Onc: Eloina Time Spent in preparation of Discharge (in minutes): 45 Diagnosis - Discharge Diagnosis (1) Cellulitis of neck Status: Acute (2) Lymphoma Status: Chronic Hospital Course - Lab Results Lab Results: Micro Results 09/01/17 17:20 Urine Urine Culture - Preliminary No growth. Most Recent Lab Values WBC 3.5 10^3/ul (4.5-11.0) L 09/02/17 06:45 RBC 3.52 10^6/uL (3.5-6.1) 09/02/17 06:45 Hgb 10.9 g/dL (12.0-16.0) L 09/02/17 06:45 Hct 32.8 % (36.0-48.0) L 09/02/17 06:45 MCV 93.2 fl (80.0-105.0) 09/02/17 06:45 MCH 31.0 pg (25.0-35.0) 09/02/17 06:45 MCHC 33.2 g/dl (31.0-37.0) 09/02/17 06:45 RDW 12.6 % (11.5-14.5) 09/02/17 06:45 Plt Count 181 10^3/uL (120.0-450.0) 09/02/17 06:45 MPV 10.2 fl (7.0-11.0) 09/02/17 06:45 Gran % 59.9 % (50.0-68.0) 09/02/17 06:45 Lymph % (Auto) 24.9 % (22.0-35.0) 09/02/17 06:45 Dickenson % (Auto) 10.9 % (1.0-6.0) H 09/02/17 06:45 Eos % (Auto) 3.4 % (1.5-5.0) 09/02/17 06:45 Baso % (Auto) 0.9 % (0.0-3.0) 09/02/17 06:45 Gran # 2.10 (1.4-6.5) 09/02/17 06:45 Lymph # 0.9 (1.2-3.4) L 09/02/17 06:45 Dickenson # 0.4 (0.1-0.6) 09/02/17 06:45 Eos # 0.1 (0.0-0.7) 09/02/17 06:45 Baso # 0.03 K/mm3 (0.0-2.0) 09/02/17 06:45 Retic Count 0.78 % (0.5-1.5) 09/02/17 06:45 PT 15.8 SECONDS (9.4-12.5) H 09/02/17 06:45 INR 1.37 (0.93-1.08) H 09/02/17 06:45 APTT 58.7 Seconds (25.1-36.5) H 09/02/17 15:32 pO2 53 mm/Hg (30-55) 09/01/17 14:00 VBG pH 7.40 (7.32-7.43) 09/01/17 14:00 VBG pCO2 53.0 (40-60) 09/01/17 14:00 VBG HCO3 32.8 mmol/l (21-28) H 09/01/17 14:00 VBG Total CO2 34.4 mmol.L (22-28) H 09/01/17 14:00 VBG O2 Sat (Calc) 90.7 % (40-65) H 09/01/17 14:00 VBG Base Excess 6.5 mmol/L (0.0-2.0) H 09/01/17 14:00 VBG Potassium 4.3 mmol/L (3.6-5.2) 09/01/17 14:00 Sodium 140.0 mmol/L (132-148) 09/01/17 14:00 Chloride 107.0 mmol/L (98-107) 09/01/17 14:00 Glucose 106 mg/dl (65-105) H 09/01/17 14:00 Lactate 0.8 mmol/L (0.7-2.1) 09/01/17 14:00 FiO2 21.0 % 09/01/17 14:00 Sodium 140 mmol/L (132-148) 09/02/17 06:45 Potassium 3.9 mmol/L (3.6-5.0) 09/02/17 06:45 Chloride 105 mmol/L (98-107) 09/02/17 06:45 Carbon Dioxide 26 mmol/L (21-33) 09/02/17 06:45 Anion Gap 13 (10-20) 09/02/17 06:45 BUN 11 mg/dL (7-21) 09/02/17 06:45 Creatinine 0.8 mg/dl (0.7-1.2) 09/02/17 06:45 Est GFR ( Amer) > 60 09/02/17 06:45 Est GFR (Non-Af Amer) > 60 09/02/17 06:45 Random Glucose 93 mg/dL (70-110) 09/02/17 06:45 Calcium 9.6 mg/dL (8.4-10.5) 09/02/17 06:45 Iron 96 ug/dL (45-180) 09/02/17 07:00 TIBC 170 ug/dL (265-497) L 09/02/17 07:00 % Saturation 56 % (20-55) H 09/02/17 07:00 Total Bilirubin 0.2 mg/dL (0.2-1.3) 09/02/17 06:45 AST 18 U/L (14-36) 09/02/17 06:45 ALT 28 U/L (7-56) 09/02/17 06:45 Alkaline Phosphatase 56 U/L (38-126) 09/02/17 06:45 Total Protein 6.3 g/dL (5.8-8.3) 09/02/17 06:45 Albumin 3.5 g/dL (3.0-4.8) 09/02/17 06:45 Globulin 2.7 gm/dL 09/02/17 06:45 Albumin/Globulin Ratio 1.3 (1.1-1.8) 09/02/17 06:45 Procalcitonin < 0.05 NG/ML (0.19-0.49) L 09/01/17 17:00 Venous Blood Potassium 4.3 mmol/L (3.6-5.2) 09/01/17 14:00 - Hospital Course Hospital Course: 62yo female with history of LLE DVT, rheumatoid arthritis and CD5+ large B cell lymphoma s/p chemo and radiation who initially presented complaining of left- sided facial pain secondary to likely cellulitis in the setting of postradiation changes. Patient was seen by ENT who recommended IV antibiotics, which were initiated on admission. Patient was also seen by infectious disease who recommended a 2 week course of PO antibiotics on discharge. Patient was also seen by her hem/onc team whom she will follow up with after discharge. Today, patient feels somewhat better after initial antibiotics and on her current pain regimen. She continues to have some stiffness in her neck, most likely 2/2 radiation changes. She denies any fever, chills, nausea, vomiting, diarrhea, constipation, abdominal pain, chest pain, shortness of breath. She is able to eat, breath, chew, and swallow without difficulty. Patient was given a prescription for the oral antibiotics and a short course of pain medications for breakthrough pain. She was also given instructions to follow up with her primary doctor, oncologist, and ENT, and she was discharged to home. Discharge Exam - Head Exam Head Exam: ATRAUMATIC, NORMOCEPHALIC - Eye Exam Eye Exam: EOMI, Normal appearance, PERRL - ENT Exam ENT Exam: Mucous Membranes Moist, Normal Oropharynx - Neck Exam Additional comments: left-sided erythema and indurated soft tissue with no visible bleeding or pus. No palpable fluctuance. Large 3-4 cm necrotic mass protruding from left neck. - Respiratory Exam Respiratory Exam: Clear to PA & Lateral, NORMAL BREATHING PATTERN - Cardiovascular Exam Cardiovascular Exam: REGULAR RHYTHM, +S1, +S2 - GI/Abdominal Exam GI & Abdominal Exam: Normal Bowel Sounds, Soft. absent: Tenderness - Extremities Exam Extremities exam: normal inspection - Neurological Exam Neurological exam: Alert, CN II-XII Intact, Oriented x3 - Psychiatric Exam Psychiatric exam: Normal Affect, Normal Mood - Skin Skin Exam: Dry, Intact Discharge Plan - Discharge Medications Prescriptions: Amoxicillin/Clavulanate [Augmentin 875 MG-125 MG] 1 tab PO BID #28 tab Doxycycline Hyclate 100 mg PO BID #28 capsule oxyCODONE/Acetaminophen [Percocet 5/325 mg Tab] 1 ea PO Q6 PRN #12 tab PRN Reason: neck pain Polyethylene Glycol 3350 [Miralax] 17 gm PO DAILY #30 packet - Follow Up Plan Condition: FAIR Disposition: HOME/ ROUTINE Instructions: Cellulitis (DC), Hypokalemia (DC) Additional Instructions: 1. Continue to take antibiotics as prescribed for two weeks, even if you feel better 2. Follow up with Dr. Oquendo within 1-2 weeks for further monitoring of fluid collection and radiation changes 3. Follow up with Dr. Duvall or Dr. Maria within 1-2 weeks for monitoring of lymphoma and for further pain management 4. Follow up with your PCP within 1 week 5. For any new or worsening concerns, contact your PCP immediately or return to the ER Referrals: Brandyn Meadows MD [Primary Care Provider] -
--- NOTE | 2017-09-03 00:13 | CON ---
DATE: 09/02/2017 The patient is in bed. Seen earlier this morning in 567, bed 1. CHIEF COMPLAINT: Left neck pain and erythema since the other day. HISTORY OF PRESENT ILLNESS: This is a 62-year-old female with history of rheumatoid arthritis, history of B-cell lymphoma that was tissue diagnosed in [place], history of left lower extremity DVT, high cholesterol, anxiety, urinary tract infection, admitted with left-sided neck pain and erythema. She did have radiation to the area. She states it is painful. No fevers or chills. No abdominal pain, diarrhea, or constipation. PAST MEDICAL HISTORY: Significant for rheumatoid arthritis and B-cell lymphoma, left lower extremity DVT, high cholesterol, anxiety, urinary tract infection. PAST SURGICAL HISTORY: Significant for breast cyst removal, tubal ligation, tonsillectomy, and . ALLERGIES: THE PATIENT HAS NO KNOWN ALLERGIES. MEDICATIONS AT HOME: Include Zofran, Eliquis and morphine. PHYSICAL EXAMINATION: GENERAL: The patient is in bed with no acute distress. VITAL SIGNS: She is answering questions appropriately with the temperature of 99.5 and a blood pressure is 112/80, respiratory rate of 20, heart rate of 101. HEENT: Unremarkable. NECK: Supple. LUNGS: Have decreased breath sounds. HEART: Normal S1 and S2. ABDOMEN: Soft, nontender. LABORATORY EXAMINATION: Reveals a white count of 4.3 and hemoglobin of 10, and platelets of 181. Coagulation is noted. Chemistries reveals a BUN of 11, creatinine 0.8, procalcitonin is 0.05. Microbiology reveals the urine cultures are no growth. CAT scan of the neck reveals a collection. ASSESSMENT AND PLAN: This is a 62-year-old female with rheumatid arthritis, B-cell lymphoma diagnosed at [place], left lower extremity deep venous thrombosis, high cholesterol, anxiety, urinary tract infection. Neck abscess and neck cellulitis. Examination of the left neck reveals significant erythema. Also several necrotic areas and awaiting for ENT placement and consultation. At this time, we will treat the patient with vancomycin and meropenem. We will make further recommendations. We will follow with you. Matthew Steele MD [facility] # [id number]
== END 2017-09-02 17:21 | disposition home or self-care (01) ==
LOC: ED 11:12 → ERH 17:01 → INTOOBSV 17:01 → ERH 17:31 → 5RNO 18:55
PROVIDERS: ADMIT Internal Medicine; ATTEND Hospitalist
DX: L03.221 Cellulitis of neck (principal); C85.10 Unspecified B-cell lymphoma, unspecified site; L59.8 Other specified disorders of the skin and subcutaneous tissue related to radiation; L02.11 Cutaneous abscess of neck; M06.9 Rheumatoid arthritis, unspecified; F41.9 Anxiety disorder, unspecified; E78.00 Pure hypercholesterolemia, unspecified; Z87.440 Personal history of urinary (tract) infections; Z86.718 Personal history of other venous thrombosis and embolism
CPT/HCPCS: 36415; 70491; 80053; 82803; 83540; 83550; 84145; 85025; 85044; 85610; 85730; 87040; 87086; 96374; 96375; 99285; C9113; G0378; J0696; J1644; J1885; J2185; J2270; Q9967

== ENCOUNTER 2018-08-30 09:18 | Outpatient (CLI) | payer MEDICARE | END 2018-08-30 09:19 | disposition home or self-care (01) | LOC: RAD 09:18 | DX: K80.20 Calculus of gallbladder without cholecystitis without obstruction (principal); J20.9 Acute bronchitis, unspecified ==

== ENCOUNTER 2018-09-30 10:11 | Outpatient (CLI) | payer MEDICARE | END 2018-09-30 10:12 | disposition home or self-care (01) | LOC: RAD 10:11 ==

== ENCOUNTER 2018-10-27 11:42 | Outpatient (CLI) | payer MEDICARE | END 2018-10-27 11:43 | disposition home or self-care (01) | LOC: RAD 11:42 ==

== ENCOUNTER 2018-11-23 12:20 | Outpatient (CLI) | payer MEDICARE | END 2018-11-23 12:21 | disposition home or self-care (01) | LOC: RAD 12:20 | DX: K11.9 Disease of salivary gland, unspecified (principal) ==